=== PATIENT | male | born 1955 | race Caucasian/White ===

== ENCOUNTER 2016-06-25 17:42 | Inpatient (IN) | payer BC, MEDICAID ==
[2016-06-25] VITALS (12 sets, daily range): BP systolic 72–100; BP diastolic 51–59; PULSE 66–75; RESP 16–23; Ht 177.8 cm; Wt 87.2 kg
[~2016-06-25] VITALS: Ht 177.8 cm; Wt 87.2 kg
[2016-06-25] MEDS ORDERED: NORepinephrine 8MG/250 ML (PMX 250 ML IV SCH (18:00)
[2016-06-25] MEDS ORDERED: ALBUTEROL 0.5% (NEB) 2.5 MG/0.5 ML AMP NEB PRN (18:00)
[2016-06-25] MEDS ORDERED: IPRATROPIUM (NEB) 0.5 MG/2.5 ML AMP NEB PRN (18:00)
[2016-06-25] MEDS ORDERED: NORepinephrine 8MG/250 ML (PMX 250 ML ONE (19:29)
[2016-06-25 19:36] LABS: ADD SCAN DIFF NO
[2016-06-25 19:37] LABS: BASOPHILS % 0.3 % (0.0-2.0); EOSINOPHILS # 0.4 10^3/ul (0.0-0.5); EOSINOPHILS % 4.1 % (0.0-7.0); HEMATOCRIT 29.6 % (42.0-52.0); HEMOGLOBIN 9.7 g/dl (14.0-18.0); LYMPHOCYTES # 0.8 10^3/ul (0.8-2.9); LYMPHOCYTES % 7.8 % (15.0-51.0); MEAN CORPUSCULAR HEMOGLOBIN 28.5 pg (29.0-33.0); MEAN CORPUSCULAR HGB CONC 32.8 g/dl (32.0-37.0); MEAN CORPUSCULAR VOLUME 87.1 fl (82.0-101.0); MEAN PLATELET VOLUME 10.3 fl (7.4-10.4); MONOCYTE # 0.8 10^3/ul (0.3-0.9); NEUTROPHIL # 8.3 10^3/ul (1.6-7.5); NEUTROPHILS % 78.5 % (39.0-77.0); PLATELET COUNT 203 10^3/UL (140-415); RED CELL DISTRIBUTION WIDTH 17.2 % (11.5-14.5); WHITE BLOOD COUNT 10.6 10^3/ul (4.8-10.8)
[2016-06-25 20:02] LABS: ALBUMIN 2.3 g/dl (3.3-4.9)
[2016-06-25 20:03] LABS: POTASSIUM 4.3 mmol/L (3.5-5.1)
[2016-06-25 20:05] LABS: ALBUMIN/GLOBULIN RATIO 0.76; CREATININE 2.68 mg/dl (0.61-1.24); TOTAL PROTEIN 5.3 g/dl (6.1-8.1)
[2016-06-25 20:06] LABS: CALCIUM 8.4 mg/dl (8.4-10.2)
[2016-06-25] MEDS: SOD CHLORIDE 0.9% 1,000 ML IV SCH (20:57)
[2016-06-25] MEDS ORDERED: IPRATROPIUM (NEB) 0.5 MG/2.5 ML AMP NEB SCH (21:00)
[2016-06-25] MEDS ORDERED: ALBUTEROL 0.5% (NEB) 2.5 MG/0.5 ML AMP NEB SCH (21:00)
[2016-06-25] MEDS ORDERED: IPRATROPIUM (HFA) 12.9 GM INHALER INH PRN (22:00)
[2016-06-25] MEDS ORDERED: ALBUTEROL HFA 8 GM INHALER INH PRN (22:00)
[2016-06-25] MEDS ORDERED: ACETAMINOPHEN 650MG/20.3ML CUP GTB PRN (23:30)
[2016-06-25] MEDS ORDERED: ARTIFICIAL TEARS 15 ML OPH BOTH EYES PRN (23:30)
[2016-06-25] MEDS ORDERED: NYSTATIN 30 GM POWDER BTL TOP PRN (23:30)
[2016-06-25] MEDS ORDERED: SODIUM HYPOCHLORITE 0.125% 473 ML BTL TOP PRN (23:30)
[2016-06-26] VITALS (86 sets, daily range): BP systolic 77–134; BP diastolic 44–86; PULSE 58–90; RESP 1–21
[2016-06-26] MEDS: ALBUTEROL HFA 8 GM INHALER INH SCH ×6 (01:26→21:09)
[2016-06-26] MEDS: IPRATROPIUM (HFA) 12.9 GM INHALER INH SCH ×6 (01:26→21:09)
[2016-06-26] MEDS: SOD CHLORIDE 0.9% 1,000 ML IV SCH ×3 (01:48→22:03)
[2016-06-26] MEDS: LANSOPRAZOLE 30 MG CAP GTB SCH (06:55)
--- NOTE | 2016-06-26 08:54 | CONS ---
Date/Time of Note Date/Time of Note DATE: 06/26/16 TIME: 08:48 Assessment/Plan Assessment/Plan Additional Assessment/Plan Ventilator settings are AC of 16, tidal volume 600, 30% FiO2, PEEP of 0. Assessment and recommendations; 1. Patient with chronic respiratory failure and severe anoxic encephalopathy admitted for hypotension. Currently on Levophed drip. Post 2 L of normal saline fluid administration. 2. Possibly underlying sepsis. 3. Renal insufficiency. 4. Other comorbidities as outlined above which appear fairly stable. Continue current treatment. Obtain CBC, CMP, blood cultures. Obtain a urine analysis. Obtain a chest x-ray. His chest x-ray done on 06/24/2016 showing cardiomegaly with bilateral pleural effusions. Obtain a serum cortisol and a TSH level as well. Prognosis is poor. Consultation Date/Type/Reason Admit Date/Time Jun 25, 2016 at 18:35 Date of Consultation: Jun 26, 2016 Type of Consultation: Pulmonary/critical care Reason for Consultation Patient is a 61-year-old white male who was transferred over from [facility] because of persistent hypotension. patient was recently admitted for treatment of continued pneumonia and sepsis. History was obtained from medical records as due to severe anoxic encephalopathy patient is unable to give any history whatsoever. Next Past medical history; next 1. Chronic respiratory failure, ventilator dependent. 2. Severe CVA and completely unresponsive. 3. Fungemia. 4. Recent pneumonia. 5. Hypothyroidism. 6. Anemia. 7. Renal insufficiency. 8. Cardiac arrhythmia. 9. Status post tracheostomy. 10. Status post G-tube placement. Medications; were reviewed. Next Allergies; are to iodine. Next Social history; no strep any smoking, alcohol or drug abuse. Family history; currently not available. Occupational history; not available. Review of systems; currently unable to be obtained. General examination; elderly male, on mechanical ventilation via tracheostomy currently in no distress and unresponsive. Social History Smoking Status: Unknown if ever smoked Exam/Review of Systems Vital Signs Vitals Vital Signs Date Time Temp Pulse Resp B/P Pulse Ox O2 Delivery O2 Flow Rate FiO2 06/26/16 06:30 63 1 107/58 100 Mechanical Ventilator 06/26/16 05:02 35 06/26/16 00:00 98.2 Intake and Output 06/25/16 06/25/16 06/26/16 15:00 23:00 07:00 Intake Total 2040 ml Output Total 325 ml 670 ml Balance -325 ml 1370 ml Exam HEENT examination; supple neck, pupils are midsize, reactive to light bilaterally. Patient is edentulous. No neck masses. No thyromegaly. No lymphadenopathy. Tracheostomy in place with clean insertion site. Chest examination; diminished breath on lung bases bilaterally. Upper lobes are fairly clear. S1-S2 audible, no murmurs. Regular rhythm. Abdomen examination; soft, no organomegaly. Bowel sounds audible. G-tube in place. Extremity examination; no peripheral edema. She has severe contractures involving all 4 extremities. FUNDRAISING COORDINATOR examination; patient is unresponsive. Results Result Diagram: 06/25/16191906/25/161919 Results 24 hrs Laboratory Tests Test 06/25/16 19:20 06/25/16 23:59 Alanine Aminotransferase (ALT/SGPT) 69 Albumin 2.3 L Albumin/Globulin Ratio 0.76 Alkaline Phosphatase 53 Anion Gap 15 Aspartate Amino Transf (AST/SGOT) 80 H Basophils # 0.0 Basophils % 0.3 Blood Urea Nitrogen 86 H Calcium Level 8.4 Carbon Dioxide Level 19 L Chloride Level 98 Creatinine 2.68 H Direct Bilirubin 0.00 Eosinophils # 0.4 Eosinophils % 4.1 Globulin 3.00 Glucose Level 118 Hematocrit 29.6 L Hemoglobin 9.7 L Indirect Bilirubin 0.0 Lymphocytes # 0.8 Lymphocytes % 7.8 L Mean Corpuscular Hemoglobin 28.5 L Mean Corpuscular Hemoglobin Concent 32.8 Mean Corpuscular Volume 87.1 Mean Platelet Volume 10.3 Monocytes # 0.8 Monocytes % 8.0 Neutrophils # 8.3 H Neutrophils % 78.5 H Nucleated Red Blood Cells # 0.0 Nucleated Red Blood Cells % 0.0 Platelet Count 203 Potassium Level 4.3 Red Blood Count 3.40 L Red Cell Distribution Width 17.2 H Sodium Level 128 L Total Bilirubin 0.0 L Total Protein 5.3 L Troponin I 0.063 0.055 White Blood Count 10.6 Medications Medications Current Medications Sodium Chloride (NS) 1,000 ml @ 125 mls/hr Q8H IV Last administered on t 01:48; Admin Dose 125 MLS/HR; Start 06/25/16 at 17:48 Enoxaparin Sodium 30 mg 30 mg DAILY SC ; Start 06/26/16 at 09:00 Norepinephrine/ Dextrose (Levophed/D5W) 500 ml @ 1.875 mls/ hr TITRATE IV Last administered on 06/26/16t 04:50; Admin Dose 28.12 MLS/HR; Start 06/25/16 at 21:00 Acetaminophen (Tylenol Liquid) 650 mg Q6H PRN GTB PAIN AND OR ELEVATED TEMP; Start 06/25/16 at 23:30 Amiodarone HCl (Cordarone) 200 mg DAILY GTB ; Start 06/26/16 at 09:00 Eye Lubricant (Artificial Tears Oph) 2 drop Q6H PRN BOTH EYES DRY EYES; Start 06/25/16 at 23:30 Ascorbic Acid (Vitamin C) 500 mg DAILY GTB ; Start 06/26/16 at 09:00 Cholecalciferol (Vitamin D) 5,000 unit DAILY GTB ; Start 06/26/16 at 09:00 Ferrous Sulfate (Feosol Liquid Cup) 300 mg BID GTB ; Start 06/26/16 at 09:00 Lactobacillus Acidophilus/ Rhamnosus (Culturelle) 1 cap BID GTB ; Start at 09:00 Lansoprazole (Prevacid) 30 mg DAILY@06 GTB Last administered on 06/26/16 06:55 ; Admin Dose 30 MG; Start 06/26/16 at 06:00 Levetiracetam (Keppra Liquid) 500 mg BID GTB ; Start 06/26/16 at 09:00 Levothyroxine Sodium (Synthroid) 125 mcg DAILY@06 GTB ; Start 06/26/16 at 06:00 Linezolid 600 mg 600 mg BID GTB ; Start 06/26/16 at 09:00 Meropenem (Merrem 500 Mg/ 100 ml (Pmx)) 100 ml @ 200 mls/hr Q12 IVPB ; Start at 09:00 Multivitamins (Thera-Plus) 5 ml DAILY GTB ; Start 06/26/16 at 09:00 Nystatin (Nystatin Powder) 1 applic TID TOP ; Start 06/26/16 at 09:00 Nystatin (Nystatin Powder) 1 applic Q12 PRN TOP ITCHING; Start 06/25/16 at 23:30 Sodium Hypochlorite (Dakin'S (1/4 Strength)) 1 applic DAILY TOP ; Start at 09:00 Sodium Hypochlorite (Dakin'S (1/4 Strength)) 1 applic BID PRN TOP NOTE; Start 06/25/16 at 23:30 Voriconazole (Vfend) 200 mg BID GTB ; Start 06/26/16 at 09:00 Zinc Sulfate (Zinc Sulfate) 220 mg DAILY GTB ; Start 06/26/16 at 09:00 EFRA ROMAN Jun 26, 2016 08:54
[2016-06-26] MEDS ORDERED: SODIUM HYPOCHLORITE 0.125% 473 ML BTL TOP SCH (09:00)
[2016-06-26] MEDS ORDERED: NYSTATIN 30 GM POWDER BTL TOP SCH (09:00)
--- NOTE | 2016-06-26 09:00 | RADRPT ---
PROCEDURE: Chest 1 views. CLINICAL INDICATION: Shortness of breath, respiratory failure TECHNIQUE: AP views of the chest were obtained. COMPARISON: June 24, 2016 FINDINGS: The heart is large. Tracheostomy tube is stable and appears in grossly appropriate location. Centra l pulmonary vascular congestion and interstitial prominence in both lungs is unchanged. Left upper lobe perihilar infiltrates have mildly decreased. Bilateral lower lung infiltrates combined small p leural effusions are stable. The osseous structures are unchanged. IMPRESSION: Cardiomegaly . Continued central pulmonary vascular congestion and interstitial prominence in both lungs. Mild interval decrease in perihilar left upper lobe infiltrates. Stable bilateral lower lung infiltrates combined with small pleural effusions. RPTAT: AA .Mitch Renner MD, MD Date Time Electronically viewed and signed by .Mitch Renner MD, on 06/26/2016 09:00 .P/
[2016-06-26] MEDS: LEVETIRACETAM (100 MG/ML) 5ML CUP GTB SCH ×2 (09:17→21:47)
[2016-06-26] MEDS: LACTOBACILLUS RHAMNOSUS CAP GTB SCH ×2 (09:17→21:48)
[2016-06-26] MEDS: VORICONAZOLE 200 MG TAB GTB SCH ×2 (09:17→21:48)
[2016-06-26] MEDS: FERROUS SULFATE 60 MG/ML 5ML CUP GTB SCH ×2 (09:17→21:47)
[2016-06-26] MEDS: AMIODARONE 200 MG TAB GTB SCH (09:20)
[2016-06-26] MEDS: ZYVOX 600 MG TAB GTB SCH ×2 (09:20→21:48)
[2016-06-26] MEDS: MEROPENEM 500 MG/100 ML (PMX) 100 ML IVPB SCH ×2 (09:21→21:48)
[2016-06-26] MEDS: MULTIVITAMINS 5 ML CUP GTB SCH (09:26)
[2016-06-26] MEDS: ASCORBIC ACID 500 MG TAB GTB SCH (09:26)
[2016-06-26] MEDS: ZINC SULFATE 220 MG CAP GTB SCH (09:26)
[2016-06-26] MEDS: LEVOTHYROXINE 125 MCG TAB GTB SCH (09:27)
[2016-06-26] MEDS: CHOLECALCIFEROL 1,000 UNIT TAB GTB SCH (09:27)
[2016-06-26] MEDS: ENOXAPARIN 30 MG/0.3 ML SYG SC SCH (09:29)
[2016-06-26 10:03] LABS: AADO2 Arterial 113.7 mmHg (7.0-24.0); Arterial Base Excess -6.6 mmol/L (-3.0-3); Arterial COHb 0.3 % (0.0-3.0); Arterial Fraction of Oxyhgb 96.6 % (93.0-99.0); Arterial HCO3 17.3 mmol/L (22.0-26.0); Arterial MetHb 0.2 % (0.0-1.5); Arterial Total Hemglobin 12.1 g/dl (12.0-18.0); MODE VENT - AC
[2016-06-26] MEDS: NYSTATIN 30 GM POWDER BTL TOP SCH ×3 (11:00→21:48)
[2016-06-26] MEDS: SODIUM HYPOCHLORITE 0.125% 473 ML BTL TOP SCH (11:00)
--- NOTE | 2016-06-26 12:02 | PN ---
DATE: 06/26/2016 INFECTIOUS DISEASE PROGRESS NOTE SUBJECTIVE: The patient was transferred from [facility] yesterday for symptomatic hypotension. He is obtunded, on Levophed drip. He tries to open eyes to commands, but overall unresponsive and does not follow commands. No labs this morning. ANTIMICROBIALS: He was started on: 1. Solu-Cortef. 2. Oral Zyvox. 3. Meropenem. 4. Voriconazole. INDWELLINGS: Trach, PEG, Evans. DIAGNOSTICS: Chest x-ray from yesterday revealed mild interval decrease in the perihilar and left l ower lobe infiltrates and vascular congestion. PHYSICAL EXAMINATION: GENERAL: This is a chronically ill-appearing, elderly man who is lying comfortably in bed. HEENT: Head atraumatic, normocephalic. Sclerae anicteric. Buccal mucosa dry. NECK: Supple. Tracheostomy present. CHEST: Rise symmetrical. Breath sounds diminished to bases with scattered crackles. HEART: S1, S2. ABDOMEN: Soft. Bowel sounds hypoactive. EXTREMITIES: With bilateral edema, contractures. SKIN: No jaundice, no cyanosis. The patient has unstageable sacral wound. ASSESSMENT: 1. Sepsis with multisystem organ failure. 2. Healthcare-associated pneumonia. 3. Fungal urinary tract infection. 4. Clostridium difficile colitis. 5. Sacral decubitus with evidence of osteomyelitis status post multiple debridements. 6. Chronic encephalopathy. PLAN: The patient remains hemodynamically unstable. We are going to start him back on IV Flagyl an d oral vancomycin as the patient developed diarrhea this morning. Continue other antibiotics, recul ture. Continue Solu-Cortef. Local wound care per surgical recommendations. Prognosis guarded. Dictated By: [facility] COORDINATOR for [facility]AS[facility] DOBBS MD NI/NTS Conf#: [id number] DID#: [id number]
--- NOTE | 2016-06-26 12:42 | RADRPT ---
PROCEDURE: CHEST 1VW CLINICAL INDICATION: Respiratory failure TECHNIQUE: Single frontal view of the chest was obtained COMPARISON: 06/25/2016 FINDINGS: Stable tracheostomy tube. The cardiac size is normal. Aortic vascular calcifications are demonstrated. There is no pulmonary vascular congestion. Bilateral lobe opacities are again seen. Mild degenerative changes of the visualized osseous structures are visualized. IMPRESSION: 1. Bilateral lower lobe opacities again seen which may represent alveolar edema or pneumonia. 2. Atherosclerosis. 3. Stable tracheostomy. RPTAT:PP .Guilherme Marroquin MD, MD Date Time Electronically viewed and signed by .Guilherme Marroquin MD, MD on 06/26/2016 12:41 .V/
[2016-06-26] MEDS: HYDROCORTISONE 100 MG INJ IV SCH ×2 (14:19→21:48)
[2016-06-26] MEDS: metroNIDAZOLE 500 MG/NS (PMX) 100 ML IVPB SCH ×2 (14:20→22:45)
[2016-06-26] MEDS: VANCOMYCIN HCL 250 MG/5ML POSYG PO SCH ×2 (14:21→18:37)
--- NOTE | 2016-06-26 14:36 | CONS ---
Date/Time of Note Date/Time of Note DATE: 06/26/16 TIME: 14:36 Assessment/Plan Assessment/Plan Chief Complaint/Hosp Course ASSESSMENT AND PLAN: This is a 61-year-old male with acute sepsis associated with Anemia, N-cytic with increased RDW HX ACD HX GIB HX NEEDS FOR PRBC ON SEVERAL OCCASIONS AT [facility] CONT TO MONITOR BLOOD COUNT CLOSELY OBSERVE FOR BLEEDING AND HEMOLYSIS TRANSFUSE NEEDED Will continue to monitor hemoglobin and hematocrit levels. No evidence of gastrointestinal bleed at this time. Septic shock. Underlying source is multifactorial secondary to possible pneumonia, possible fungal urinary tract infection. The patient is currently on pressor support, IV fluids, receiving broad spectrum antibiotics, antifungal therapy. Plan at this point is to continue current treatment plan. Will attempt to wean off pressor support. Will follow up blood cultures, urine cultures. Will follow up lactic acid and procalcitonin level. Will follow up with infectious disease for recommendations. Ventilator dependent respiratory failure. Vent settings have been reviewed. ABG has been reviewed. Continue to monitor. Follow up with Pulmonary. Dysphagia, status post percutaneous endoscopic gastrostomy tube feeding. Nonoliguric acute kidney injury on top of chronic kidney disease with unknown baseline creatinine. Etiology of current acute kidney injury is unclear, possibly secondary to sepsis, TTN, hemodynamics. Plan at this point is to do a full evaluation. Will check UA with microanalysis. Will check urine electrolytes. Will check a renal ultrasound to rule out obstruction. Will continue IV hydration, continue pressor support, and maintain MAP above 65. Continue treating underlying sepsis with IV antibiotics. Will monitor closely. Hyponatremia, etiology is multifactorial secondary to acute kidney injury with decreased free water urinary excretion. Will follow up a repeat sodium level. Will limit free water intake and monitor. 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 At this point, will continue to monitor. If there is any change in mental status will get a CT scan of the brain. The patient has a history of CVA. Continue medical management. Hypothyroidism. The patient's TSH levels are markedly elevated. Will increase Synthroid to 150 mcg daily and monitor. Fungal urinary tract infection. Continue voriconazole. Seizure disorder. Continue Keppra. Gastrointestinal and deep venous thrombosis prophylaxis. Will continue Prevacid and Lovenox. Arrhythmia. Continue amiodarone. Gastrointestinal and deep venous thrombosis prophylaxis. Continue proton pump inhibitor and Lovenox. Problems: Consultation Date/Type/Reason Admit Date/Time Jun 25, 2016 at 18:35 Initial Consult Date 06/26/16 Reason for Consultation ANEMIA Referring Provider: TYLER HAINES DO 24 HR Interval Summary Free Text/Dictation ALL NOTED IN ICU STARTED ON Solu-Cortef. MILD LEUKOCYTOSIS NOTED Exam/Review of Systems Vital Signs Vitals Vital Signs Date Time Temp Pulse Resp B/P Pulse Ox O2 Delivery O2 Flow Rate FiO2 06/26/16 12:30 64 18 121/65 100 06/26/16 06:30 Mechanical Ventilator 06/26/16 05:02 35 06/26/16 00:00 98.2 Intake and Output 06/25/16 06/25/16 06/26/16 15:00 23:00 07:00 Intake Total 2040 ml Output Total 325 ml 670 ml Balance -325 ml 1370 ml Exam GENERAL: VSS, NAD HEENT: Unremarkable NECK: Trach CHEST: Rise symmetrical - Course BS HEART: RRR ABDOMEN: Soft, peg EXTREMITIES: With bilateral edema, contractures. SKIN: No jaundice, no cyanosis. The patient has unstageable sacral wound. Results Result Diagram: 06/25/16191906/25/161919 Results 24 hrs Laboratory Tests Test 06/25/16 19:20 06/25/16 23:59 06/26/16 08:57 06/26/16 09:20 Alanine Aminotransferase (ALT/SGPT) 69 Albumin 2.3 L Albumin/Globulin Ratio 0.76 Alkaline Phosphatase 53 Anion Gap 15 Aspartate Amino Transf (AST/SGOT) 80 H Basophils # 0.0 Basophils % 0.3 Blood Urea Nitrogen 86 H Calcium Level 8.4 Carbon Dioxide Level 19 L Chloride Level 98 Creatinine 2.68 H Direct Bilirubin 0.00 Eosinophils # 0.4 Eosinophils % 4.1 Globulin 3.00 Glucose Level 118 Hematocrit 29.6 L Hemoglobin 9.7 L Indirect Bilirubin 0.0 Lymphocytes # 0.8 Lymphocytes % 7.8 L Mean Corpuscular Hemoglobin 28.5 L Mean Corpuscular Hemoglobin Concent 32.8 Mean Corpuscular Volume 87.1 Mean Platelet Volume 10.3 Monocytes # 0.8 Monocytes % 8.0 Neutrophils # 8.3 H Neutrophils % 78.5 H Nucleated Red Blood Cells # 0.0 Nucleated Red Blood Cells % 0.0 Platelet Count 203 Potassium Level 4.3 Red Blood Count 3.40 L Red Cell Distribution Width 17.2 H Sodium Level 128 L Total Bilirubin 0.0 L Total Protein 5.3 L Troponin I 0.063 0.055 White Blood Count 10.6 Arterial Blood HCO3 17.3 L Arterial Blood Base Excess -6.6 L Arterial Blood Oxygen Saturation 97.1 River Test N/A Arterial Blood Gas Puncture Site Right Brachial Arterial Blood Carboxyhemoglobin 0.3 Arterial Blood Date Drawn 06/26/2016 9:35:45 AM Arterial Blood Methemoglobin 0.2 Arterial Blood pCO2 (Temp correct) 29.8 L Arterial Blood pH (Temp corrected) 7.381 Arterial Blood pO2 (Temp corrected) 101.2 H Blood Gas A-a O2 Differential 113.7 H Blood Gas Actual Respiration Rate 18 Blood Gas Low PEEP Setting 5.0 Blood Gas Modality VENT - AC Blood Gas Notified Time 06/26/2016 10:03:37 AM Blood Gas Notified Whom JLD Blood Gas Respiration Rate 18.0 Blood Gas Specimen Source Blood arterial Blood Gas Temperature 37.0 Blood Gas Tidal Volume 600.0 FiO2 35.0 Oxyhemoglobin Percent 96.6 Total Hemoglobin 12.1 Random Cortisol 17.4 Medications Medications Current Medications Sodium Chloride (NS) 1,000 ml @ 125 mls/hr Q8H IV Last administered on 01:48; Admin Dose 125 MLS/HR; Start 06/25/16 at 17:48 Enoxaparin Sodium 30 mg 30 mg DAILY SC Last administered on 06/26/16 09:29; Admin Dose 30 MG; Start 06/26/16 at 09:00 Norepinephrine/ Dextrose (Levophed/D5W) 500 ml @ 1.875 mls/ hr TITRATE IV Last administered on 06/26/16 04:50; Admin Dose 28.12 MLS/HR; Start 06/25/16 at 21:00 Acetaminophen (Tylenol Liquid) 650 mg Q6H PRN GTB PAIN AND OR ELEVATED TEMP; Start 06/25/16 at 23:30 Amiodarone HCl (Cordarone) 200 mg DAILY GTB Last administered on 06/26/16 09: 20; Admin Dose 200 MG; Start 06/26/16 at 09:00 Eye Lubricant (Artificial Tears Oph) 2 drop Q6H PRN BOTH EYES DRY EYES; Start 06/25/16 at 23:30 Ascorbic Acid (Vitamin C) 500 mg DAILY GTB Last administered on 06/26/16 09:26 ; Admin Dose 500 MG; Start 06/26/16 at 09:00 Cholecalciferol (Vitamin D) 5,000 unit DAILY GTB Last administered on 09:27; Admin Dose 5,000 UNIT; Start 06/26/16 at 09:00 Ferrous Sulfate (Feosol Liquid Cup) 300 mg BID GTB Last administered on 09:17; Admin Dose 300 MG; Start 06/26/16 at 09:00 Lactobacillus Acidophilus/ Rhamnosus (Culturelle) 1 cap BID GTB Last administered on 06/26/16 09:17; Admin Dose 1 CAP; Start 06/26/16 at 09:00 Lansoprazole (Prevacid) 30 mg DAILY@06 GTB Last administered on 06/26/16 06:55 ; Admin Dose 30 MG; Start 06/26/16 at 06:00 Levetiracetam (Keppra Liquid) 500 mg BID GTB Last administered on 06/26/16 09: 17; Admin Dose 500 MG; Start 06/26/16 at 09:00 Levothyroxine Sodium (Synthroid) 125 mcg DAILY@06 GTB Last administered on 06/26 09:27; Admin Dose 125 MCG; Start 06/26/16 at 06:00 Linezolid 600 mg 600 mg BID GTB Last administered on 06/26/16 09:20; Admin Dose 600 MG; Start 06/26/16 at 09:00 Meropenem (Merrem 500 Mg/ 100 ml (Pmx)) 100 ml @ 200 mls/hr Q12 IVPB Last administered on 06/26/16 09:21; Admin Dose 200 MLS/HR; Start 06/26/16 at 09:00 Multivitamins (Thera-Plus) 5 ml DAILY GTB Last administered on 06/26/16 09:26 ; Admin Dose 5 ML; Start 06/26/16 at 09:00 Nystatin (Nystatin Powder) 1 applic Q12 PRN TOP ITCHING; Start 06/25/16 at 23:30 Sodium Hypochlorite (Dakin'S (1/4 Strength)) 1 applic BID PRN TOP NOTE; Start 06/25/16 at 23:30 Voriconazole (Vfend) 200 mg BID GTB Last administered on 06/26/16 09:17; Admin Dose 200 MG; Start 06/26/16 at 09:00 Zinc Sulfate (Zinc Sulfate) 220 mg DAILY GTB Last administered on 06/26/16 09: 26; Admin Dose 220 MG; Start 06/26/16 at 09:00 Hydrocortisone (Solu-Cortef) 50 mg Q8 IV Last administered on 06/26/16 14:19; Admin Dose 50 MG; Start 06/26/16 at 14:00 Sodium Hypochlorite (Dakin'S (1/4 Strength)) 1 applic DAILY@10 TOP Last administered on 06/26/16 11:00; Admin Dose 1 APPLIC; Start 06/26/16 at 10:00 Nystatin 1 applic 1 applic TID@10,13,21 TOP Last administered on 06/26/16 13: 00; Admin Dose 1 APPLIC; Start 06/26/16 at 10:00 Metronidazole (Flagyl 500 Mg (Pmx)) 100 ml @ 100 mls/hr Q8 IVPB Last administered on 06/26/16 14:20; Admin Dose 100 MLS/HR; Start 06/26/16 at 14:00 Vancomycin HCl (Vancomycin Oral Syringe) 250 mg Q6 PO Last administered on 06/26 14:21; Admin Dose 250 MG; Start 06/26/16 at 13:00 SUN MCNAMARA MD Jun 26, 2016 14:36
[2016-06-27] VITALS (92 sets, daily range): BP systolic 63–144; BP diastolic 24–82; PULSE 49–73; RESP 16–27
[2016-06-27] MEDS: IPRATROPIUM (HFA) 12.9 GM INHALER INH SCH ×6 (01:19→21:12)
[2016-06-27] MEDS: ALBUTEROL HFA 8 GM INHALER INH SCH ×6 (01:20→21:12)
[2016-06-27] MEDS: VANCOMYCIN HCL 250 MG/5ML POSYG PO SCH ×4 (02:38→18:51)
[2016-06-27] MEDS: SOD CHLORIDE 0.9% 1,000 ML IV SCH ×2 (04:27→21:28)
[2016-06-27] MEDS: metroNIDAZOLE 500 MG/NS (PMX) 100 ML IVPB SCH ×3 (06:12→21:29)
[2016-06-27] MEDS: LANSOPRAZOLE 30 MG CAP GTB SCH (06:13)
[2016-06-27] MEDS: HYDROCORTISONE 100 MG INJ IV SCH ×3 (06:13→21:39)
[2016-06-27] MEDS: LEVOTHYROXINE 125 MCG TAB GTB SCH (06:13)
[2016-06-27] MEDS ORDERED: NACL 3% FOR INHALATION 15 ML NEBU NEB ONE (08:00)
[2016-06-27 08:50] LABS: BASOPHILS % 0.1 % (0.0-2.0); HEMATOCRIT 30.4 % (42.0-52.0); HEMOGLOBIN 10.3 g/dl (14.0-18.0); LYMPHOCYTES # 0.6 10^3/ul (0.8-2.9); LYMPHOCYTES % 5.4 % (15.0-51.0); MEAN CORPUSCULAR HGB CONC 33.9 g/dl (32.0-37.0); MEAN CORPUSCULAR VOLUME 85.6 fl (82.0-101.0); MEAN PLATELET VOLUME 7.4 fl (7.4-10.4); MONOCYTE # 0.3 10^3/ul (0.3-0.9); NEUTROPHIL # 10.1 10^3/ul (1.6-7.5); NEUTROPHILS % 91.5 % (39.0-77.0); PLATELET COUNT 393 10^3/UL (140-440); RED BLOOD COUNT 3.55 10^6/ul (4.70-6.10); RED CELL DISTRIBUTION WIDTH 17.5 % (11.5-14.5); UNCORRECTED WBC 11.1 10^3/ul (4.8-10.8); WHITE BLOOD COUNT 11.1 10^3/ul (4.8-10.8)
[2016-06-27 08:51] LABS: CONDITION 1; LH ANALYZER COMMENTS 1
[2016-06-27] MEDS: AMIODARONE 200 MG TAB GTB SCH (09:00)
[2016-06-27] MEDS ORDERED: ENOXAPARIN 30 MG/0.3 ML SYG SC SCH (09:00)
[2016-06-27] MEDS: LACTOBACILLUS RHAMNOSUS CAP GTB SCH ×2 (09:05→21:29)
[2016-06-27] MEDS: ASCORBIC ACID 500 MG TAB GTB SCH (09:05)
[2016-06-27] MEDS: FERROUS SULFATE 60 MG/ML 5ML CUP GTB SCH ×2 (09:05→21:29)
[2016-06-27] MEDS: LEVETIRACETAM (100 MG/ML) 5ML CUP GTB SCH ×2 (09:05→21:29)
[2016-06-27 09:06] LABS: POTASSIUM 3.5 mmol/L (3.5-5.1)
[2016-06-27] MEDS: MULTIVITAMINS 5 ML CUP GTB SCH (09:06)
[2016-06-27] MEDS: ZINC SULFATE 220 MG CAP GTB SCH (09:06)
[2016-06-27] MEDS: CHOLECALCIFEROL 1,000 UNIT TAB GTB SCH (09:06)
[2016-06-27] MEDS: ZYVOX 600 MG TAB GTB SCH ×2 (09:06→21:38)
[2016-06-27] MEDS: VORICONAZOLE 200 MG TAB GTB SCH ×2 (09:07→21:38)
[2016-06-27 09:08] LABS: CREATININE 2.93 mg/dl (0.61-1.24)
[2016-06-27] MEDS: NYSTATIN 30 GM POWDER BTL TOP SCH ×3 (09:08→21:29)
[2016-06-27] MEDS: SODIUM HYPOCHLORITE 0.125% 473 ML BTL TOP SCH (09:08)
[2016-06-27] MEDS: ENOXAPARIN 30 MG/0.3 ML SYG SC SCH (09:08)
[2016-06-27 09:09] LABS: CALCIUM 8.6 mg/dl (8.4-10.2); MAGNESIUM 2.3 mg/dl (1.7-2.5); PHOSPHORUS 5.5 mg/dl (2.5-4.9)
[2016-06-27] MEDS: MEROPENEM 500 MG/100 ML (PMX) 100 ML IVPB SCH ×2 (09:15→21:28)
[2016-06-27 09:58] LABS: ADD UMIC YES; URINE BILIRUBIN (Dip) NEGATIVE (NEGATIVE); URINE BLOOD (Dip) 1+ (NEGATIVE); URINE COLOR LT. YELLOW (YELLOW); URINE GLUCOSE (Dip) NEGATIVE (NEGATIVE); URINE KETONES (Dip) NEGATIVE (NEGATIVE); URINE LEUKOCYTE ESTERASE (Dip) 1+ (NEGATIVE); URINE NITRITE (Dip) NEGATIVE (NEGATIVE); URINE TOTAL PROTEIN (Dip) TRACE (NEGATIVE); URINE UROBILINOGEN (Dip) 0.2 E.U./dL (0.1-1.0)
--- NOTE | 2016-06-27 10:01 | RADRPT ---
PROCEDURE: Retroperitoneal US. CLINICAL INDICATION: Renal insufficiency TECHNIQUE: Multiple sonographic images of the kidneys and retroperitoneum were obtained. The imag es were reviewed on a PACS workstation. COMPARISON: 10/23/2014 FINDINGS: The kidneys are normal in size, contour, cortical thickness and cortical echogenicity. The right kidney measures 12.3 cm. The left kidney measures 11.9 cm. No kidney stones are visualized. There is mild left-sided hydronephrosis, unchanged. The urinary bladder is thickened but decompressed by a Evans catheter. The visualized portions of the aorta and IVC are within normal limits. RPTAT: AA IMPRESSION: Unchanged mild left-sided hydronephrosis. .Bobby Becerra MD, MD Date Time Electronically viewed and signed by .Bobby Becerra MD, on 06/27/2016 10:01 .S/
--- NOTE | 2016-06-27 10:20 | CONS ---
Date/Time of Note Date/Time of Note DATE: 06/27/16 TIME: :17 Assessment/Plan Assessment/Plan Chief Complaint/Hosp Course ID PROGRESS NOTE TOTAL ABX DAY # 24H INTERVAL SUMMARY * Patient TNS from [place] and seen as ID f/u per Vikki's notes transferred for hypotension * Noncommunicative, encephalopathic with Trach/Peg/Contracted extremities * CXR today Bibasilar hazy infiltrates unchanged. * Chart reviewed ANTIMICROBIALS: He was started on: 1. Solu-Cortef. 2. Oral Zyvox. 3. Meropenem. 4. Voriconazole. PHYSICAL EXAMINATION: GENERAL: VSS, NAD HEENT: Unremarkable NECK: Trach CHEST: Rise symmetrical - Course BS HEART: RRR ABDOMEN: Soft, peg EXTREMITIES: With bilateral edema, contractures. SKIN: No jaundice, no cyanosis. The patient has unstageable sacral wound. ID ASSESSMENT: 61 yo M w/PMHx od chronic encephalopathy, chronic trach/peg admit from [place] with: 1. Sepsis with multisystem organ failure. 2. Healthcare-associated pneumonia = sputum GNR Proteus Mirabilis * CXR Bibasilar hazy infiltrates unchanged. 3. Fungal urinary tract infection. 4. Clostridium difficile colitis. 5. Sacral decubitus with evidence of osteomyelitis status post multiple debridements. * WOUND CULTURE Preliminary Organism 1 PROTEUS MIRABILIS QUANTITY 1+ Organism 2 KLEB PNEUMONIAE CARBAPENEMASE QUANTITY SCANT GROWTH . MULTI DRUG RESISTANT ORGANISM (-)MRSA Nares INVASIVES: *Trach, Peg, FC ABX ALLERGIES: Iodine CURRENT ABX: ANTIMICROBIALS: He was started on: 1. Solu-Cortef. 2. Oral Zyvox. 3. Meropenem. 4. Voriconazole. ID RECOMMENDATIONS: Continue ABX -- f/u final micro -- back to [place] when stable . Problems: Consultation Date/Type/Reason Admit Date/Time Jun 25, 2016 at 18:35 Initial Consult Date 06/26/16 Exam/Review of Systems Vital Signs Vitals Vital Signs Date Time Temp Pulse Resp B/P Pulse Ox O2 Delivery O2 Flow Rate FiO2 06/27/16 08:00 49 06/27/16 05:48 18 100 35 06/27/16 05:45 99/53 Mechanical Ventilator 06/27/16 04:00 97.9 06/26/16 17:00 2.0 Intake and Output 06/26/16 06/26/16 06/27/16 15:00 23:00 07:00 Intake Total 1264.35 ml 1183.75 ml 1172.5 ml Output Total 320 ml 535 ml 250 ml Balance 944.35 ml 648.75 ml 922.5 ml Results Result Diagram: 06/27/16 0515 06/27/16 0815 Results 24 hrs Laboratory Tests Test 06/27/16 05:15 06/27/16 08:15 06/27/16 09:00 Basophils # 0.0 Basophils % 0.1 Blood Morphology Comment Eosinophils # 0.0 Eosinophils % 0.0 Hematocrit 30.4 L Hemoglobin 10.3 L Lymphocytes # 0.6 L Lymphocytes % 5.4 L Mean Corpuscular Hemoglobin 29.0 Mean Corpuscular Hemoglobin Concent 33.9 Mean Corpuscular Volume 85.6 Mean Platelet Volume 7.4 # Monocytes # 0.3 Monocytes % 3.0 Neutrophils # 10.1 H Neutrophils % 91.5 H Nucleated Red Blood Cells # 0.0 Nucleated Red Blood Cells % 0.0 Platelet Count 393 # Red Blood Count 3.55 L Red Cell Distribution Width 17.5 H White Blood Count 11.1 H Anion Gap 16 Blood Urea Nitrogen 81 H Calcium Level 8.6 Carbon Dioxide Level 18 L Chloride Level 106 Creatinine 2.93 H Glucose Level 145 Lactic Acid Level 1.3 Magnesium Level 2.3 Phosphorus Level 5.5 H Potassium Level 3.5 Sodium Level 136 Urine Bilirubin NEGATIVE Urine Clarity HAZY Urine Color LT. YELLOW Urine Glucose NEGATIVE Urine Hemoglobin 1+ H Urine Ketones NEGATIVE Urine Leukocyte Esterase 1+ H Urine Microscopic RBC Pending Urine Microscopic WBC Pending Urine Nitrite NEGATIVE Urine Random Creatinine Pending Urine Random Sodium Pending Urine Specific [place] 1.020 Urine Total Protein Urine Urobilinogen 0.2 E.U./dL Urine pH 5.0 Medications Medications Current Medications Sodium Chloride (NS) 1,000 ml @ 75 mls/hr [id number] IV Last administered on 06/27t 04:27; Admin Dose 125 MLS/HR; Start 06/25/16 at 17:48 Enoxaparin Sodium 30 mg 30 mg DAILY SC Last administered on 06/27/16 09:08; Admin Dose 30 MG; Start 06/26/16 at 09:00 Norepinephrine/ Dextrose (Levophed/D5W) 500 ml @ 1.875 mls/ hr TITRATE IV Last administered on 06/26/16 04:50; Admin Dose 28.12 MLS/HR; Start 06/25/16 at 21:00 Acetaminophen (Tylenol Liquid) 650 mg Q6H PRN GTB PAIN AND OR ELEVATED TEMP; Start 06/25/16 at 23:30 Amiodarone HCl (Cordarone) 200 mg DAILY GTB Last administered on 06/26/16 09: 20; Admin Dose 200 MG; Start 06/26/16 at 09:00 Eye Lubricant (Artificial Tears Oph) 2 drop Q6H PRN BOTH EYES DRY EYES; Start 06/25/16 at 23:30 Ascorbic Acid (Vitamin C) 500 mg DAILY GTB Last administered on 06/27/16 09:05 ; Admin Dose 500 MG; Start 06/26/16 at 09:00 Cholecalciferol (Vitamin D) 5,000 unit DAILY GTB Last administered on 09:06; Admin Dose 5,000 UNIT; Start 06/26/16 at 09:00 Ferrous Sulfate (Feosol Liquid Cup) 300 mg BID GTB Last administered on 09:05; Admin Dose 300 MG; Start 06/26/16 at 09:00 Lactobacillus Acidophilus/ Rhamnosus (Culturelle) 1 cap BID GTB Last administered on 06/27/16 09:05; Admin Dose 1 CAP; Start 06/26/16 at 09:00 Lansoprazole (Prevacid) 30 mg DAILY@06 GTB Last administered on 06/27/16 06:13 ; Admin Dose 30 MG; Start 06/26/16 at 06:00 Levetiracetam (Keppra Liquid) 500 mg BID GTB Last administered on 06/27/16 09: 05; Admin Dose 500 MG; Start 06/26/16 at 09:00 Linezolid 600 mg 600 mg BID GTB Last administered on 06/27/16 09:06; Admin Dose 600 MG; Start 06/26/16 at 09:00 Meropenem (Merrem 500 Mg/ 100 ml (Pmx)) 100 ml @ 200 mls/hr Q12 IVPB Last administered on 06/27/16 09:15; Admin Dose 200 MLS/HR; Start 06/26/16 at 09:00 Multivitamins (Thera-Plus) 5 ml DAILY GTB Last administered on 06/27/16 09:06 ; Admin Dose 5 ML; Start 06/26/16 at 09:00 Nystatin (Nystatin Powder) 1 applic Q12 PRN TOP ITCHING; Start 06/25/16 at 23:30 Sodium Hypochlorite (Dakin'S (1/4 Strength)) 1 applic BID PRN TOP NOTE; Start 06/25/16 at 23:30 Voriconazole (Vfend) 200 mg BID GTB Last administered on 06/27/16 09:07; Admin Dose 200 MG; Start 06/26/16 at 09:00 Zinc Sulfate (Zinc Sulfate) 220 mg DAILY GTB Last administered on 06/27/16 09: 06; Admin Dose 220 MG; Start 06/26/16 at 09:00 Hydrocortisone (Solu-Cortef) 50 mg Q8 IV Last administered on 06/27/16 06:13; Admin Dose 50 MG; Start 06/26/16 at 14:00 Sodium Hypochlorite (Dakin'S (1/4 Strength)) 1 applic DAILY@10 TOP Last administered on 06/27/16 09:08; Admin Dose 1 APPLIC; Start 06/26/16 at 10:00 Nystatin 1 applic 1 applic TID@10,13,21 TOP Last administered on 06/27/16 09: 08; Admin Dose 1 APPLIC; Start 06/26/16 at 10:00 Metronidazole (Flagyl 500 Mg (Pmx)) 100 ml @ 100 mls/hr Q8 IVPB Last administered on 06/27/16 06:12; Admin Dose 100 MLS/HR; Start 06/26/16 at 14:00 Vancomycin HCl (Vancomycin Oral Syringe) 250 mg Q6 PO Last administered on 06/27 06:12; Admin Dose 250 MG; Start 06/26/16 at 13:00 Sodium Chloride (Nacl 3% For Inhalation) 5 ml ONCE ONCE NEB ; Start 06/27/16 at 08:00; Stop 06/27/16 at 08:01 Levothyroxine Sodium (Synthroid) 150 mcg DAILY@06 GTB ; Start 06/28/16 at 06:00 Enoxaparin Sodium (Lovenox) 30 mg DAILY SC ; Start 06/27/16 at 09:00 MANDY GALLEGOS NP Jun 27, 2016 10:20
[2016-06-27 10:40] LABS: BACTERIA,URINE MODERATE
--- NOTE | 2016-06-27 10:54 | CONS ---
Date/Time of Note Date/Time of Note DATE: 06/27/16 TIME: 10:51 Assessment/Plan Assessment/Plan Additional Assessment/Plan 1. Sepsis with multisystem organ failure. 2. Healthcare-associated pneumonia. 3. Fungal urinary tract infection. 4. Clostridium difficile colitis. 5. Sacral decubitus with evidence of osteomyelitis status post multiple debridements. 6. Chronic encephalopathy. 7, Hypotiension PLAN: Continue pressor support The patient remains hemodynamically unstable. Patient back on IV Flagyl and oral vancomycin - reculture. Continue Solu-Cortef. Local wound care per surgical recommendations. Prognosis guarded. Consultation Date/Type/Reason Admit Date/Time Jun 25, 2016 at 18:35 Hx of Present Illness The patient with hx of resp[ failure and on chronic ventilator transferred from [place] with persitent hypotension - hx ubalbe to be obtained as paitnet can not give a history and currently fairly stable on current regimen. He has been transdferred to the ICU and in light of the hypotension, we were called to see the paitnent on behalf of dr mahoney Social History Smoking Status: Unknown if ever smoked Exam/Review of Systems Vital Signs Vitals Vital Signs Date Time Temp Pulse Resp B/P Pulse Ox O2 Delivery O2 Flow Rate FiO2 06/27/16 08:00 49 06/27/16 05:48 18 100 35 06/27/16 05:45 99/53 Mechanical Ventilator 06/27/16 04:00 97.9 06/26/16 17:00 2.0 Intake and Output 06/26/16 06/26/16 06/27/16 15:00 23:00 07:00 Intake Total 1264.35 ml 1183.75 ml 1172.5 ml Output Total 320 ml 535 ml 250 ml Balance 944.35 ml 648.75 ml 922.5 ml Results Result Diagram: 06/27/16 0515 06/27/16 0815 Results 24 hrs Laboratory Tests Test 06/27/16 05:15 06/27/16 08:15 06/27/16 09:00 Basophils # 0.0 Basophils % 0.1 Blood Morphology Comment Eosinophils # 0.0 Eosinophils % 0.0 Hematocrit 30.4 L Hemoglobin 10.3 L Lymphocytes # 0.6 L Lymphocytes % 5.4 L Mean Corpuscular Hemoglobin 29.0 Mean Corpuscular Hemoglobin Concent 33.9 Mean Corpuscular Volume 85.6 Mean Platelet Volume 7.4 # Monocytes # 0.3 Monocytes % 3.0 Neutrophils # 10.1 H Neutrophils % 91.5 H Nucleated Red Blood Cells # 0.0 Nucleated Red Blood Cells % 0.0 Platelet Count 393 # Red Blood Count 3.55 L Red Cell Distribution Width 17.5 H White Blood Count 11.1 H Anion Gap 16 Blood Urea Nitrogen 81 H Calcium Level 8.6 Carbon Dioxide Level 18 L Chloride Level 106 Creatinine 2.93 H Glucose Level 145 Lactic Acid Level 1.3 Magnesium Level 2.3 Phosphorus Level 5.5 H Potassium Level 3.5 Sodium Level 136 Urine Bacteria MODERATE Urine Bilirubin NEGATIVE Urine Clarity HAZY Urine Coarse Granular Casts FEW Urine Color LT. YELLOW Urine Glucose NEGATIVE Urine Hemoglobin 1+ H Urine Ketones NEGATIVE Urine Leukocyte Esterase 1+ H Urine Microscopic RBC 2-5 Urine Microscopic WBC 5-10 Urine Nitrite NEGATIVE Urine Random Creatinine 42.89 Urine Random Sodium 21 L Urine Specific [place] 1.020 Urine Total Protein Urine Urobilinogen 0.2 E.U./dL Urine pH 5.0 Medications Medications Current Medications Sodium Chloride (NS) 1,000 ml @ 75 mls/hr [id number] IV Last administered on 06/27 04:27; Admin Dose 125 MLS/HR; Start 06/25/16 at 17:48 Enoxaparin Sodium 30 mg 30 mg DAILY SC Last administered on 06/27/16 09:08; Admin Dose 30 MG; Start 06/26/16 at 09:00 Norepinephrine/ Dextrose (Levophed/D5W) 500 ml @ 1.875 mls/ hr TITRATE IV Last administered on 06/26/16 04:50; Admin Dose 28.12 MLS/HR; Start 06/25/16 at 21:00 Acetaminophen (Tylenol Liquid) 650 mg Q6H PRN GTB PAIN AND OR ELEVATED TEMP; Start 06/25/16 at 23:30 Amiodarone HCl (Cordarone) 200 mg DAILY GTB Last administered on 06/26/16 09: 20; Admin Dose 200 MG; Start 06/26/16 at 09:00 Eye Lubricant (Artificial Tears Oph) 2 drop Q6H PRN BOTH EYES DRY EYES; Start 06/25/16 at 23:30 Ascorbic Acid (Vitamin C) 500 mg DAILY GTB Last administered on 06/27/16 09:05 ; Admin Dose 500 MG; Start 06/26/16 at 09:00 Cholecalciferol (Vitamin D) 5,000 unit DAILY GTB Last administered on 09:06; Admin Dose 5,000 UNIT; Start 06/26/16 at 09:00 Ferrous Sulfate (Feosol Liquid Cup) 300 mg BID GTB Last administered on 09:05; Admin Dose 300 MG; Start 06/26/16 at 09:00 Lactobacillus Acidophilus/ Rhamnosus (Culturelle) 1 cap BID GTB Last administered on 06/27/16 09:05; Admin Dose 1 CAP; Start 06/26/16 at 09:00 Lansoprazole (Prevacid) 30 mg DAILY@06 GTB Last administered on 06/27/16 06:13 ; Admin Dose 30 MG; Start 06/26/16 at 06:00 Levetiracetam (Keppra Liquid) 500 mg BID GTB Last administered on 06/27/16 09: 05; Admin Dose 500 MG; Start 06/26/16 at 09:00 Linezolid 600 mg 600 mg BID GTB Last administered on 06/27/16 09:06; Admin Dose 600 MG; Start 06/26/16 at 09:00 Meropenem (Merrem 500 Mg/ 100 ml (Pmx)) 100 ml @ 200 mls/hr Q12 IVPB Last administered on 06/27/16 09:15; Admin Dose 200 MLS/HR; Start 06/26/16 at 09:00 Multivitamins (Thera-Plus) 5 ml DAILY GTB Last administered on 06/27/16 09:06 ; Admin Dose 5 ML; Start 06/26/16 at 09:00 Nystatin (Nystatin Powder) 1 applic Q12 PRN TOP ITCHING; Start 06/25/16 at 23:30 Sodium Hypochlorite (Dakin'S (1/4 Strength)) 1 applic BID PRN TOP NOTE; Start 06/25/16 at 23:30 Voriconazole (Vfend) 200 mg BID GTB Last administered on 06/27/16 09:07; Admin Dose 200 MG; Start 06/26/16 at 09:00 Zinc Sulfate (Zinc Sulfate) 220 mg DAILY GTB Last administered on 06/27/16 09: 06; Admin Dose 220 MG; Start 06/26/16 at 09:00 Hydrocortisone (Solu-Cortef) 50 mg Q8 IV Last administered on 06/27/16 06:13; Admin Dose 50 MG; Start 06/26/16 at 14:00 Sodium Hypochlorite (Dakin'S (1/4 Strength)) 1 applic DAILY@10 TOP Last administered on 06/27/16 09:08; Admin Dose 1 APPLIC; Start 06/26/16 at 10:00 Nystatin 1 applic 1 applic TID@10,13,21 TOP Last administered on 06/27/16 09: 08; Admin Dose 1 APPLIC; Start 06/26/16 at 10:00 Metronidazole (Flagyl 500 Mg (Pmx)) 100 ml @ 100 mls/hr Q8 IVPB Last administered on 06/27/16 06:12; Admin Dose 100 MLS/HR; Start 06/26/16 at 14:00 Vancomycin HCl (Vancomycin Oral Syringe) 250 mg Q6 PO Last administered on 06/27 06:12; Admin Dose 250 MG; Start 06/26/16 at 13:00 Sodium Chloride (Nacl 3% For Inhalation) 5 ml ONCE ONCE NEB ; Start 06/27/16 at 08:00; Stop 06/27/16 at 08:01 Levothyroxine Sodium (Synthroid) 150 mcg DAILY@06 GTB ; Start 06/28/16 at 06:00 Enoxaparin Sodium (Lovenox) 30 mg DAILY SC ; Start 06/27/16 at 09:00 NEETU CARTAGENA MD Jun 27, 2016 10:54
--- NOTE | 2016-06-27 11:04 | HP ---
DATE OF ADMISSION: 06/25/2016 CHIEF COMPLAINT: Shock. HISTORY OF PRESENT ILLNESS: This is a 61-year-old male with a past medical history of ventilator de pendent respiratory failure, history of dysphagia, status post PEG, history of chronic encephalopath y secondary to anoxic brain injury, history of CVA, previous history of sepsis, history of hypothyro idism, history of diabetes who was transferred from [facility] to [facility] due to septic shock. The patient's history begins in 2014 when he initially presented to an outside hospital, [place], with acute stroke. The patient was subsequently transferred to [facility] on 09/04/2014. The patient underwent management at that time with TPA. He was found to have acut e ventral mid brain, the medial thalamus CVA. The patient had a [place] coma scale of 4. The patie nt remained diffusely quadriplegic in coma and encephalopathic. The patient at that time also had s epsis fungemia and was treated accordingly. The patient was then transferred to [facility] and was subsequently transferred to a [facility] facility, [facility]. The patient was recently readmitted to [facility] with sepsis. He was stabilized and the n transferred to [facility] for continued care. The patient, however, then developed septic shock and was transferred to [facility]. Upon my evaluation at this time he is nonverbal. The patient is . There have been no reports of hemoptysis, hemetemesis, or hematochezia. The patient is currently on pressor support and IV flu ids. He has had adequate urinary output. No other acute events noted. PAST MEDICAL HISTORY: As stated above, history of ventilator dependent respiratory failure, history of dysphagia, history of CVA, history of diabetes, history of chronic encephalopathy, history of co ronary artery disease, history of hypothyroidism, previous history of hypertension. PAST SURGICAL HISTORY: Status post trach, status post PEG. FAMILY HISTORY: Noncontributory. SOCIAL HISTORY: Does not drink, smoke. Lives at a subacute facility. MEDICATIONS: The patient's medications have been reviewed and reconciled. ALLERGIES: PATIENT IS ALLERGIC TO IODINE. REVIEW OF SYSTEMS: Unable to do adequate review of systems as patient is obtunded. Pertinent posit bee obtained by reviewing medical records, speaking to hospital staff, as stated in HPI, otherwise negative. PHYSICAL EXAMINATION: VITAL SIGNS: Blood pressure is currently 99/53, respiration 18, pulse 63, temperature 98.6. I's AND O'S: The patient had 1800 in with 1100 out. HEENT: Head is normocephalic. Pupils are reactive but sluggish. NECK: Shows trach. HEART: Regular rate. LUNGS: Show diminished breath sounds at base. Positive rhonchi and crackles. ABDOMEN: Soft, nontender to palpation. Positive PEG. EXTREMITIES: Negative for clubbing, cyanosis, edema. DERMATOLOGIC: No rashes. MUSCULOSKELETAL: Positive decubitus wound. NEUROLOGIC: Limited exam as the patient is obtunded, unable to cooperate with examination. LABORATORY DATA: From 06/25/2016 shows white count 10.6, hemoglobin 9.7, hematocrit 29.6, platelet c ount 203. Sodium 128, potassium 4.3, chloride 98, bicarbonate 19, BUN 86, creatinine 2.68, AST 80, ABG is reviewed. IMAGING STUDIES: Chest x-ray shows bilateral lower lobe opacities which may represent alveolar molly a or pneumonia. ASSESSMENT AND PLAN: This is a 61-year-old male who presented with: 1. Septic shock. Underlying source is multifactorial secondary to possible pneumonia, possible fun gal urinary tract infection. The patient is currently on pressor support, IV fluids, receiving broa d spectrum antibiotics, antifungal therapy. Plan at this point is to continue current treatment stacia n. Will attempt to wean off pressor support. Will follow up blood cultures, urine cultures. Will follow up lactic acid and procalcitonin level. Will follow up with infectious disease for recommend ations. 2. Ventilator dependent respiratory failure. Vent settings have been reviewed. ABG has been revie wed. Continue to monitor. Follow up with Pulmonary. 3. Dysphagia, status post percutaneous endoscopic gastrostomy tube feeding. 4. Nonoliguric acute kidney injury on top of chronic kidney disease with unknown baseline creatinin e. Etiology of current acute kidney injury is unclear, possibly secondary to sepsis, TTN, hemodynam ics. Plan at this point is to do a full evaluation. Will check UA with microanalysis. Will check urine electrolytes. Will check a renal ultrasound to rule out obstruction. Will continue IV hydrat ion, continue pressor support, and maintain MAP above 65. Continue treating underlying sepsis with IV antibiotics. Will monitor closely. 5. Hyponatremia, etiology is multifactorial secondary to acute kidney injury with decreased free wa ter urinary excretion. Will follow up a repeat sodium level. Will limit free water intake and vijay tor. 6. Anemia, likely of chronic disease. Will continue to monitor hemoglobin and hematocrit levels. No evidence of gastrointestinal bleed at this time. 7. 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 At this point, will continu e to monitor. If there is any change in mental status will get a CT scan of the brain. 8. The patient has a history of CVA. Continue medical management. 9. Hypothyroidism. The patient's TSH levels are markedly elevated. Will increase Synthroid to 150 mcg daily and monitor. 10. Fungal urinary tract infection. Continue voriconazole. 11. Seizure disorder. Continue Keppra. 12. Gastrointestinal and deep venous thrombosis prophylaxis. Will continue Prevacid and Lovenox. 13. Arrhythmia. Continue amiodarone. 14. Gastrointestinal and deep venous thrombosis prophylaxis. Continue proton pump inhibitor and Lo venox. Please note, I discussed this case with the hospital staff. Dictated By: TYLER JACOBO/EEMLINA Conf#: [id number] DID#: [id number]
--- NOTE | 2016-06-27 11:40 | RADRPT ---
PROCEDURE: XR Chest. CLINICAL INDICATION: Pneumonia TECHNIQUE: Frontal chest x-ray was obtained. COMPARISON: Chest x-ray June 26 FINDINGS: Again noted is a tracheostomy and a small bore right chest tube. There is mild cardiomegaly. Mediastinum is not widened. No hilar masses seen. There is hazy opaci fication of the lower lung reis. It is unclear if this represents consolidation or effusions. No pneumothorax is present. IMPRESSION: Bibasilar hazy infiltrates unchanged. .Tino Arreaga MD, MD Date Time Electronically viewed and signed by .Tino Arreaga MD, MD on 06/27/2016 11:40 .A/
[2016-06-27] MEDS ORDERED: LIDOCAINE 1% (MDV) 20 ML INJ SC ONE (18:00)
--- NOTE | 2016-06-27 23:20 | RADRPT ---
PROCEDURE: XR Chest. CLINICAL INDICATION: Shortness of breath. TECHNIQUE: AP Portable chest. COMPARISON: 06/27/2016 examination performed earlier the same day. FINDINGS: There is moderate pulmonary vascular congestion. Opacities are again noted within both lung bases. There is moderate cardiomegaly. A tracheostomy tube tip is in the mid trachea. The osseous struct ures are unremarkable. A left subclavian central venous catheter tip is at the junction of the innominate vein and superior vena cava. IMPRESSION: Moderate pulmonary vascular congestion and basilar opacities likely due to pleural effusions. RPTAT: HIKT .Maldonado Nolan MD, MD Date Time Electronically viewed and signed by .Maldonado Nolan MD, MD on 06/27/2016 23:19 .T/
[2016-06-28] VITALS (108 sets, daily range): BP systolic 84–143; BP diastolic 48–71; PULSE 51–79; RESP 14–31
[2016-06-28] MEDS: SOD CHLORIDE 0.9% 1,000 ML IV SCH ×3 (00:36→20:01)
[2016-06-28] MEDS: VANCOMYCIN HCL 250 MG/5ML POSYG PO SCH ×5 (00:36→23:42)
[2016-06-28] MEDS: IPRATROPIUM (HFA) 12.9 GM INHALER INH SCH ×6 (01:10→21:33)
[2016-06-28] MEDS: ALBUTEROL HFA 8 GM INHALER INH SCH ×6 (01:10→21:33)
[2016-06-28 04:48] LABS: HEMOGLOBIN 10.2 g/dl (14.0-18.0); LYMPHOCYTES % 6.4 % (15.0-51.0); MEAN CORPUSCULAR VOLUME 85.3 fl (82.0-101.0); MEAN PLATELET VOLUME 7.6 fl (7.4-10.4); MONOCYTE # 0.4 10^3/ul (0.3-0.9); MONOCYTES % 2.9 % (0.0-11.0); NEUTROPHIL # 13.7 10^3/ul (1.6-7.5); NEUTROPHILS % 90.7 % (39.0-77.0); PLATELET COUNT 479 10^3/UL (140-440); RED BLOOD COUNT 3.52 10^6/ul (4.70-6.10); RED CELL DISTRIBUTION WIDTH 17.7 % (11.5-14.5); UNCORRECTED WBC 15.1 10^3/ul (4.8-10.8); WHITE BLOOD COUNT 15.1 10^3/ul (4.8-10.8)
[2016-06-28 04:49] LABS: POTASSIUM 3.3 mmol/L (3.5-5.1)
[2016-06-28 04:51] LABS: CREATININE 2.91 mg/dl (0.61-1.24)
[2016-06-28 04:52] LABS: CALCIUM 8.5 mg/dl (8.4-10.2); PHOSPHORUS 5.7 mg/dl (2.5-4.9)
[2016-06-28 04:53] LABS: MAGNESIUM 2.3 mg/dl (1.7-2.5)
[2016-06-28 05:11] LABS: AADO2 Arterial 105.2 mmHg (7.0-24.0); Allen Test ACCEPTAB; Arterial Base Excess -9.8 mmol/L (-3.0-3); Arterial COHb 0.3 % (0.0-3.0); Arterial Fraction of Oxyhgb 96.8 % (93.0-99.0); Arterial HCO3 14.9 mmol/L (22.0-26.0); Arterial MetHb 0.3 % (0.0-1.5); MODE VENT - AC
[2016-06-28 05:19] LABS: CONDITION 1; LH ANALYZER COMMENTS 1
[2016-06-28] MEDS: metroNIDAZOLE 500 MG/NS (PMX) 100 ML IVPB SCH ×3 (06:08→21:43)
[2016-06-28] MEDS: LANSOPRAZOLE 30 MG CAP GTB SCH (06:08)
[2016-06-28] MEDS: HYDROCORTISONE 100 MG INJ IV SCH ×3 (06:08→22:31)
[2016-06-28] MEDS: LEVOTHYROXINE 125 MCG TAB GTB SCH (06:08)
[2016-06-28] MEDS: ZINC SULFATE 220 MG CAP GTB SCH (08:30)
[2016-06-28] MEDS: MULTIVITAMINS 5 ML CUP GTB SCH (08:30)
[2016-06-28] MEDS ORDERED: POTASSIUM CHLORIDE 250 ML IVPB ONE (08:30)
[2016-06-28] MEDS: ASCORBIC ACID 500 MG TAB GTB SCH (08:30)
[2016-06-28] MEDS: MEROPENEM 500 MG/100 ML (PMX) 100 ML IVPB SCH ×2 (08:30→20:41)
[2016-06-28] MEDS ORDERED: POTASSIUM CHLORIDE 20 MEQ POWDER FOR ORAL SOLN NGT ONE (08:30)
[2016-06-28] MEDS: FERROUS SULFATE 60 MG/ML 5ML CUP GTB SCH ×2 (08:30→20:40)
[2016-06-28] MEDS: VORICONAZOLE 200 MG TAB GTB SCH ×2 (08:31→20:41)
[2016-06-28] MEDS: AMIODARONE 200 MG TAB GTB SCH (08:31)
[2016-06-28] MEDS: ZYVOX 600 MG TAB GTB SCH ×2 (08:31→20:41)
[2016-06-28] MEDS: LACTOBACILLUS RHAMNOSUS CAP GTB SCH ×2 (08:31→20:41)
[2016-06-28] MEDS: CHOLECALCIFEROL 1,000 UNIT TAB GTB SCH (08:31)
[2016-06-28] MEDS: LEVETIRACETAM (100 MG/ML) 5ML CUP GTB SCH ×2 (09:00→20:40)
--- NOTE | 2016-06-28 09:14 | CONS ---
DATE OF ADMISSION: 06/25/2016 DATE OF CONSULTATION: 06/27/2016 PULMONARY CONSULTATION PRIMARY PHYSICIAN: Dr. Parsons. HISTORY OF PRESENT ILLNESS: Briefly, this is a 61-year-old man with history of vent-dependent respi ratory failure, status post tracheostomy and PEG, history of dysphagia, history of chronic encephalo vita secondary anoxic brain injury, cerebral vascular disease, hypothyroidism, diabetes and prior s epsis, who was transferred here from [place] due to worsening septic shock. The patient is at [facility], bedbound, quadriplegic and encephalopathic. The patient most recently had been at [place] and wa s subsequently transferred to a subacute facility. He also had a recent admission at [facility] for sepsis and was stabilized and transferred to [facility] for continued care. However, he developed septic shock, prompting transfer to [facility] ICU. Upon my exam, the patien t is unresponsive, unable to provide any history, nor is able to follow commands. He is currently r equiring vasopressor support and has received IV fluids here. PAST MEDICAL HISTORY: As above. PAST SURGICAL HISTORY: Trach and PEG. SOCIAL HISTORY: No tobacco, alcohol or illicit drug use. FAMILY HISTORY: Noncontributory. MEDICATIONS: Please see MAR. ALLERGIES: IODINE. REVIEW OF SYSTEMS: As per HPI. PHYSICAL EXAMINATION: VITAL SIGNS: Blood pressure is 99/53, heart rate is 63, oxygen saturation is 93% on 35% FIO2. HEENT: Normocephalic and trach is in place. GENERAL: A contracted gentleman in no acute distress. CARDIOVASCULAR: Regular rate and rhythm, S1 and S2. CHEST: There are diffuse rhonchi and coarse breath sounds bilaterally with diminished breath sounds at the bases. ABDOMEN: Soft, nontender. Positive bowel sounds. EXTREMITIES: No cyanosis, clubbing or edema. LABORATORY DATA: WBC is 11.1, hemoglobin is 10.3, platelets are 393, BUN is 81, creatinine is 2.93. Blood gas is 3.8, PaCO2 is 30, pO2 is 101. UA is positive for 5 to 10 WBCs. Chest x-ray shows bi lateral airspace opacities, more prominent in the lower lung reis. IMPRESSION: 1. Septic shock, likely due to a multilobar pneumonia, also as well as a possible urinary tract inf ection. 2. Respiratory failure, chronic vent dependence. 3. Acute renal failure, possibly prerenal versus acute tubular necrosis. 4. Hyponatremia. 5. Chronic encephalopathy. 6. History of cerebrovascular accident. 7. History of seizure disorder. RECOMMENDATIONS: 1. IV antibiotics as per ID. 2. IV fluids and vasopressors to maintain MAP greater or equal to 65. 3. Follow up blood cultures and de-escalate antibiotics accordingly. 4. Continue current ventilatory support with the exception of lowering tidal volume to 500. 5. Continue DVT and GI prophylactic measures. 6. Tube feeds and free water to continue. Dictated By: SHAYNE MCINTYRE MD NK/NTS Conf#: [id number] DID#: [id number] CC: PARVIN THOMAS MD;*End*
--- NOTE | 2016-06-28 09:39 | RADRPT ---
PROCEDURE: XR Chest. CLINICAL INDICATION: Shortness of breath. TECHNIQUE: Single frontal view. COMPARISON: 06/27/2016. FINDINGS: The tracheostomy tube, left subclavian vein catheter, and right chest tube are in unchanged position . Pulmonary edema, bibasilar atelectasis, and small bilateral pleural effusions are unchanged. The heart is enlarged. There is calcification in the aorta consistent with atherosclerosis. There is no pneumothorax. IMPRESSION: 1. No change from 06/27/2016. RPTAT: QQ .Pravin Orozco MD, MD Date Time Electronically viewed and signed by .Pravin Orozco MD, MD on 06/28/2016 09:39 .R/
--- NOTE | 2016-06-28 09:59 | OPR ---
DATE OF OPERATION: PREOPERATIVE DIAGNOSIS: Sepsis. POSTOPERATIVE DIAGNOSIS: Sepsis. OPERATION PERFORMED: Left subclavian central line placement. SURGEON: Chapin Cotter MD ANESTHESIA: Local. CONSENT: Risks, benefits, complications, alternative therapies explained to the patient and the [facility], consent obtained. OPERATIVE TECHNIQUE: The patient was placed in supine position, prepped and draped in usual sterile fashion; 1% lidocaine was used throughout the operation for local anesthesia. Access was gained in the left subclavian vein. Guidewire was advanced through without any difficulty. Subcutaneous tis sues dilated. Central line advanced over guidewire, secured to skin using silk sutures. All ports of the catheter were aspirated and injected using saline solution. The patient tolerated procedure well. Dictated By: CHAPIN HAMILTON/EMELINA Conf#: [id number] DID#: [id number]
[2016-06-28] MEDS: NYSTATIN 30 GM POWDER BTL TOP SCH ×3 (10:00→20:41)
--- NOTE | 2016-06-28 10:26 | PN ---
DATE: 06/28/2016 SUBJECTIVE: The patient remains critically ill on pressor support. The patient is on full ventilat ory support. The patient's urinary output has been adequate. No other acute events noted overnight . No hemoptysis, hematemesis or hematochezia. OBJECTIVE: VITAL SIGNS: Blood pressure is 105/60, respirations 23, pulse 62, temperature 98.2. I's AND O'S: The patient had 2.8 liters in, 1 liter out. HEENT: Head is normocephalic. NECK: Supple. HEART: Regular rate. LUNGS: Show diminished breath sounds at base. Positive rhonchi and crackles. ABDOMEN: Soft, nontender to palpation. No rebound or guarding. EXTREMITIES: Negative for clubbing, cyanosis. No edema. DERMATOLOGIC: No rashes. MUSCULOSKELETAL: No joint effusions. The patient has decubitus wound. NEUROLOGIC: No focal deficits. LABORATORY DATA: Shows sodium ____, potassium 3.3, chloride 106, BUN 78, creatinine 2.91 phosphorus 5.7. White count is 15.1, hemoglobin 10.2, hematocrit 30.0, platelet count is 479. ABG showed a p H 7.329, pCO2 of 29, base excess ____. Urinalysis shows coarse granular casts. FENa less than 1%, a repeat renal ultrasound shows unchanged, mild left-sided hydronephrosis. MICROBIOLOGY: Has been reviewed. ASSESSMENT AND PLAN: 1. Septic shock. Underlying source is multifactorial secondary to healthcare-associated pneumonia, possible fungal urinary tract infection. The patient remains on pressor support, on broad spectrum antimicrobial and antifungal therapy. Plan is to continue current treatment plan. Continue IV flu ids, pressor support, wean off if possible. Will follow up blood cultures, urine cultures. The pat ient's procalcitonin level is pending. Lactic acid within normal limits. Follow up with Infectious Disease for further recommendations. 2. Ventilatory-dependent respiratory failure. Vent settings have been reviewed. ABG has been revi ewed. Continue to monitor. Follow up with Pulmonary. 3. Dysphagia, status post percutaneous endoscopic gastrostomy. Continue tube feeding. 4. Nonoliguric acute kidney injury on top of chronic kidney disease with unknown baseline creatinin e. Etiology of acute kidney injury secondary to acute tubular necrosis due to septic acute kidney i njury. The patient's urinalysis shows coarse granular casts consistent with tubular injury, a FENa of less than 1% which can be seen in the setting of sepsis causing decreased effective renal perfus ion. The patient's renal ultrasound shows a component of mild left-sided hydronephrosis. Plan at t his point is continue current treatment plan, continue to treat underlying sepsis, continue pressor support and maintain MAP above 65. Continue antimicrobial therapy. Continue IV fluids and monitor closely. The patient is currently in injury phase of acute tubular necrosis. 5. Hyponatremia secondary to acute kidney injury, resolved. Continue to monitor. 6. Hypokalemia, replete potassium chloride. 7. Anemia of chronic disease. Continue to monitor hemoglobin and hematocrit levels. No evidence o f gastrointestinal bleed. 8. Mineral bone disorder. Will monitor calcium and phosphorus levels. 9. Decubitus wound, stage IV. Continue wound care. 10. 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 Continue to monitor. 11. History of cerebrovascular accident. Continue medical management. 12. Hypothyroidism. The patient's TSH was markedly elevated. 13. Synthroid medications were adjusted. Continue to monitor. Repeat a TSH level in 1 to 2 weeks. 14. Fungal urinary tract infection. Continue Voriconazole. 15. Seizure disorder. Continue Keppra. 16. Arrhythmia. Continue amiodarone. Appreciate GIs evaluation. 17. Gastrointestinal and deep venous thrombosis prophylaxis. Continue proton pump inhibitor and Lo venox. Please note I spent over 40 minutes of critical care time with this patient, discussed the case with the hospital staff. Dictated By: TYLER JACOBO/EMELINA Conf#: [id number] DID#: [id number]
--- NOTE | 2016-06-28 11:18 | CONS ---
Date/Time of Note Date/Time of Note DATE: 06/28/16 TIME: 11:16 Assessment/Plan Assessment/Plan Chief Complaint/Hosp Course ID PROGRESS NOTE TOTAL ABX DAY # Zyvox, Merrem, Vfend, Solucortef 24H INTERVAL SUMMARY * Pt lost midline access -- new PICC Pending * WBC elevated -- on IV steroids * Noncommunicative, encephalopathic with Trach/Peg/Contracted extremities * CXR today FINDINGS: The tracheostomy tube, left subclavian vein catheter, and right chest tube are in unchanged position. Pulmonary edema, bibasilar atelectasis, and small bilateral pleural effusions are unchanged. The heart is enlarged. There is calcification in the aorta consistent with atherosclerosis. There is no pneumothorax. IMPRESSION: 1. No change from 06/27/2016. ANTIMICROBIALS: 1. Solu-Cortef. 2. Oral Zyvox. 3. Meropenem. 4. Voriconazole. PHYSICAL EXAMINATION: GENERAL: VSS, NAD HEENT: Unremarkable NECK: Trach CHEST: Rise symmetrical - Course BS HEART: RRR ABDOMEN: Soft, peg EXTREMITIES: With bilateral edema, contractures. SKIN: No jaundice, no cyanosis. The patient has unstageable sacral wound. ID ASSESSMENT: 61 yo M w/PMHx od chronic encephalopathy, chronic trach/peg admit from [facility] with: 1. Sepsis with multisystem organ failure. 2. Healthcare-associated pneumonia = sputum GNR Proteus Mirabilis * CXR Bibasilar hazy infiltrates unchanged. 3. Fungal urinary tract infection. 4. Clostridium difficile colitis. 5. Sacral decubitus with evidence of osteomyelitis status post multiple debridements. * WOUND CULTURE Preliminary Organism 1 PROTEUS MIRABILIS QUANTITY 1+ Organism 2 KLEB PNEUMONIAE CARBAPENEMASE QUANTITY SCANT GROWTH . MULTI DRUG RESISTANT ORGANISM (-)MRSA Nares INVASIVES: *Trach, Peg, FC ABX ALLERGIES: Iodine CURRENT ABX: ANTIMICROBIALS: He was started on: 1. Solu-Cortef. 2. Oral Zyvox. 3. Meropenem. 4. Voriconazole. ID RECOMMENDATIONS: Continue ABX -- f/u final micro -- back to [facility] when stable WBC elevated == partial IV steroids demargination . Problems: Consultation Date/Type/Reason Admit Date/Time Jun 25, 2016 at 18:35 Initial Consult Date 06/26/16 Exam/Review of Systems Vital Signs Vitals Vital Signs Date Time Temp Pulse Resp B/P Pulse Ox O2 Delivery O2 Flow Rate FiO2 06/28/16 10:45 58 20 101/58 100 06/28/16 08:00 30 06/28/16 07:30 98.2 Mechanical Ventilator 06/26/16 17:00 2.0 Intake and Output 06/27/16 06/27/16 06/28/16 15:00 23:00 07:00 Intake Total 934.35 ml 817.47 ml 1051.87 ml Output Total 425 ml 255 ml 335 ml Balance 509.35 ml 562.47 ml 716.87 ml Results Result Diagram: 06/28/16 0400 06/28/16 0400 Results 24 hrs Laboratory Tests Test 06/28/16 04:00 06/28/16 04:10 06/28/16 05:00 Anion Gap 17 H Basophils # 0.0 Basophils % 0.0 Blood Morphology Comment Blood Urea Nitrogen 78 H Calcium Level 8.5 Carbon Dioxide Level 18 L Chloride Level 106 Creatinine 2.91 H Eosinophils # 0.0 Eosinophils % 0.0 Glucose Level 167 Hematocrit 30.0 L Hemoglobin 10.2 L Lymphocytes # 1.0 Lymphocytes % 6.4 L Magnesium Level 2.3 Mean Corpuscular Hemoglobin 29.0 Mean Corpuscular Hemoglobin Concent 34.0 Mean Corpuscular Volume 85.3 Mean Platelet Volume 7.6 Monocytes # 0.4 Monocytes % 2.9 Neutrophils # 13.7 H Neutrophils % 90.7 H Nucleated Red Blood Cells # 0.0 Nucleated Red Blood Cells % 0.0 Phosphorus Level 5.7 H Platelet Count 479 #H Potassium Level 3.3 L Red Blood Count 3.52 L Red Cell Distribution Width 17.7 H Sodium Level 138 White Blood Count 15.1 #H Lactic Acid Level 1.1 Arterial Blood HCO3 14.9 L Arterial Blood Base Excess -9.8 L Arterial Blood Oxygen Saturation 97.4 River Test ACCEPTAB Arterial Blood Gas Puncture Site LB Arterial Blood Carboxyhemoglobin 0.3 Arterial Blood Date Drawn 06/28/2016 4:55:28 AM Arterial Blood Methemoglobin 0.3 Arterial Blood pCO2 (Temp correct) 29.0 L Arterial Blood pH (Temp corrected) 7.329 L Arterial Blood pO2 (Temp corrected) 110.6 H Blood Gas A-a O2 Differential 105.2 H Blood Gas Actual Respiration Rate 23 Blood Gas Low PEEP Setting 5.0 Blood Gas Modality VENT - AC Blood Gas Notified Time 06/28/2016 5:11:35 AM Blood Gas Notified Whom MG Blood Gas Respiration Rate 16.0 Blood Gas Specimen Source Blood arterial Blood Gas Temperature 37.0 Blood Gas Tidal Volume 500.0 FiO2 35.0 Oxyhemoglobin Percent 96.8 Total Hemoglobin 11.0 L Medications Medications Current Medications Sodium Chloride (NS) 1,000 ml @ 75 mls/hr [id number] IV Last administered on 06/28 06:12; Admin Dose 75 MLS/HR; Start 06/25/16 at 17:48 Enoxaparin Sodium 30 mg 30 mg DAILY SC Last administered on 06/27/16 09:08; Admin Dose 30 MG; Start 06/26/16 at 09:00 Norepinephrine/ Dextrose (Levophed/D5W) 500 ml @ 1.875 mls/ hr TITRATE IV Last administered on 06/27/16 22:06; Admin Dose 7.5 MLS/HR; Start 06/25/16 at 21 :00 Acetaminophen (Tylenol Liquid) 650 mg Q6H PRN GTB PAIN AND OR ELEVATED TEMP; Start 06/25/16 at 23:30 Amiodarone HCl (Cordarone) 200 mg DAILY GTB Last administered on 06/28/16 08: 31; Admin Dose 200 MG; Start 06/26/16 at 09:00 Eye Lubricant (Artificial Tears Oph) 2 drop Q6H PRN BOTH EYES DRY EYES; Start 06/25/16 at 23:30 Ascorbic Acid (Vitamin C) 500 mg DAILY GTB Last administered on 06/28/16 08:30 ; Admin Dose 500 MG; Start 06/26/16 at 09:00 Cholecalciferol (Vitamin D) 5,000 unit DAILY GTB Last administered on 08:31; Admin Dose 5,000 UNIT; Start 06/26/16 at 09:00 Ferrous Sulfate (Feosol Liquid Cup) 300 mg BID GTB Last administered on 08:30; Admin Dose 300 MG; Start 06/26/16 at 09:00 Lactobacillus Acidophilus/ Rhamnosus (Culturelle) 1 cap BID GTB Last administered on 06/28/16 08:31; Admin Dose 1 CAP; Start 06/26/16 at 09:00 Lansoprazole (Prevacid) 30 mg DAILY@06 GTB Last administered on 06/28/16 06:08 ; Admin Dose 30 MG; Start 06/26/16 at 06:00 Levetiracetam (Keppra Liquid) 500 mg BID GTB Last administered on 06/28/16 09: 00; Admin Dose 500 MG; Start 06/26/16 at 09:00 Linezolid 600 mg 600 mg BID GTB Last administered on 06/28/16 08:31; Admin Dose 600 MG; Start 06/26/16 at 09:00 Meropenem (Merrem 500 Mg/ 100 ml (Pmx)) 100 ml @ 200 mls/hr Q12 IVPB Last administered on 06/28/16 08:30; Admin Dose 200 MLS/HR; Start 06/26/16 at 09:00 Multivitamins (Thera-Plus) 5 ml DAILY GTB Last administered on 06/28/16 08:30 ; Admin Dose 5 ML; Start 06/26/16 at 09:00 Nystatin (Nystatin Powder) 1 applic Q12 PRN TOP ITCHING; Start 06/25/16 at 23:30 Sodium Hypochlorite (Dakin'S (1/4 Strength)) 1 applic BID PRN TOP NOTE; Start 06/25/16 at 23:30 Voriconazole (Vfend) 200 mg BID GTB Last administered on 06/28/16 08:31; Admin Dose 200 MG; Start 06/26/16 at 09:00 Zinc Sulfate (Zinc Sulfate) 220 mg DAILY GTB Last administered on 06/28/16 08: 30; Admin Dose 220 MG; Start 06/26/16 at 09:00 Hydrocortisone (Solu-Cortef) 50 mg Q8 IV Last administered on 06/28/16 06:08; Admin Dose 50 MG; Start 06/26/16 at 14:00 Sodium Hypochlorite (Dakin'S (1/4 Strength)) 1 applic DAILY@10 TOP Last administered on 06/27/16 09:08; Admin Dose 1 APPLIC; Start 06/26/16 at 10:00 Nystatin 1 applic 1 applic TID@10,13,21 TOP Last administered on 06/27/16 21: 29; Admin Dose 1 APPLIC; Start 06/26/16 at 10:00 Metronidazole (Flagyl 500 Mg (Pmx)) 100 ml @ 100 mls/hr Q8 IVPB Last administered on 06/28/16 06:08; Admin Dose 100 MLS/HR; Start 06/26/16 at 14:00 Vancomycin HCl (Vancomycin Oral Syringe) 250 mg Q6 PO Last administered on 06/28 06:09; Admin Dose 250 MG; Start 06/26/16 at 13:00 Sodium Chloride (Nacl 3% For Inhalation) 5 ml ONCE ONCE NEB ; Start 06/27/16 at 08:00; Stop 06/27/16 at 08:01 Levothyroxine Sodium (Synthroid) 150 mcg DAILY@06 GTB Last administered on 06/28 06:08; Admin Dose 150 MCG; Start 06/28/16 at 06:00 Lidocaine (Xylocaine 1% (Mdv) 20 ml) 20 ml ONCE ONCE SC ; Start 06/27/16 at 18: 00; Stop 06/27/16 at 18:01 Potassium Chloride (Potassium Chloride Pwd/Soln) 20 meq ONCE ONCE NGT Last administered on 06/28/16 10:16; Admin Dose 20 MEQ; Start 06/28/16 at 08:30; Stop 06/28/16 at 08:31 MANDY GALLEGOS NP Jun 28, 2016 11:18
--- NOTE | 2016-06-28 11:27 | PN ---
Date/Time of Note Date/Time of Note DATE: 06/28/16 TIME: 11:26 Assessment/Plan Lines/Catheters IV Catheter Type (from Nrsg): Peripheral IV Evans in Place (from Nrsg): Yes Assessment/Plan Chief Complaint/Hosp Course Resp Failure SP Central line placement will continue supp care Vent support Problems: Subjective 24 Hr Interval Summary Constitutional: improved Pain Control: mild Exam/Review of Systems Vital Signs Vitals Vital Signs Date Time Temp Pulse Resp B/P Pulse Ox O2 Delivery O2 Flow Rate FiO2 06/28/16 10:45 58 20 101/58 100 06/28/16 08:00 30 06/28/16 07:30 98.2 Mechanical Ventilator 06/26/16 17:00 2.0 Intake and Output 06/27/16 06/27/16 06/28/16 15:00 23:00 07:00 Intake Total 934.35 ml 817.47 ml 1051.87 ml Output Total 425 ml 255 ml 335 ml Balance 509.35 ml 562.47 ml 716.87 ml Exam ENMT: mucosa pink and moist, nl external ears & nose, nl lips & teeth, nl nasal mucosa & septum Neck: non-tender, supple Respiratory: clear to auscultation, normal air movement Cardiovascular: nl pulses, regular rate and rhythm Results Result Diagram: 06/28/1639906/28/16399 ELO CANELA MD Jun 28, 2016 11:26
--- NOTE | 2016-06-28 11:30 | CONS ---
Date/Time of Note Date/Time of Note DATE: 06/28/16 TIME: 11:28 Consult Date/Type/Reason Admit Date/Time Jun 25, 2016 at 18:35 Initial Consult Date 06/26/16 Type of Consultation: Pulm Subjective BP remains supported on levophed gtt. s/p CVC placement. Objective Vital Signs Date Time Temp Pulse Resp B/P Pulse Ox O2 Delivery O2 Flow Rate FiO2 06/28/16 10:45 58 20 101/58 100 06/28/16 08:00 30 06/28/16 07:30 98.2 Mechanical Ventilator 06/26/16 17:00 2.0 Intake and Output 06/27/16 06/27/16 06/28/16 15:00 23:00 07:00 Intake Total 934.35 ml 817.47 ml 1051.87 ml Output Total 425 ml 255 ml 335 ml Balance 509.35 ml 562.47 ml 716.87 ml HEENT: Normocephalic and trach is in place. GENERAL: A contracted gentleman in no acute distress. CARDIOVASCULAR: Regular rate and rhythm, S1 and S2. CHEST: There are diffuse rhonchi and coarse breath sounds bilaterally with diminished breath sounds at the bases. ABDOMEN: Soft, nontender. Positive bowel sounds. EXTREMITIES: No cyanosis, clubbing or edema. Results/Medications Result Diagram: 06/28/16 0400 06/28/16 0400 Results 24 hrs Laboratory Tests Test 06/28/16 04:00 06/28/16 04:10 06/28/16 05:00 Anion Gap 17 H Basophils # 0.0 Basophils % 0.0 Blood Morphology Comment Blood Urea Nitrogen 78 H Calcium Level 8.5 Carbon Dioxide Level 18 L Chloride Level 106 Creatinine 2.91 H Eosinophils # 0.0 Eosinophils % 0.0 Glucose Level 167 Hematocrit 30.0 L Hemoglobin 10.2 L Lymphocytes # 1.0 Lymphocytes % 6.4 L Magnesium Level 2.3 Mean Corpuscular Hemoglobin 29.0 Mean Corpuscular Hemoglobin Concent 34.0 Mean Corpuscular Volume 85.3 Mean Platelet Volume 7.6 Monocytes # 0.4 Monocytes % 2.9 Neutrophils # 13.7 H Neutrophils % 90.7 H Nucleated Red Blood Cells # 0.0 Nucleated Red Blood Cells % 0.0 Phosphorus Level 5.7 H Platelet Count 479 #H Potassium Level 3.3 L Red Blood Count 3.52 L Red Cell Distribution Width 17.7 H Sodium Level 138 White Blood Count 15.1 #H Lactic Acid Level 1.1 Arterial Blood HCO3 14.9 L Arterial Blood Base Excess -9.8 L Arterial Blood Oxygen Saturation 97.4 River Test ACCEPTAB Arterial Blood Gas Puncture Site LB Arterial Blood Carboxyhemoglobin 0.3 Arterial Blood Date Drawn 06/28/2016 4:55:28 AM Arterial Blood Methemoglobin 0.3 Arterial Blood pCO2 (Temp correct) 29.0 L Arterial Blood pH (Temp corrected) 7.329 L Arterial Blood pO2 (Temp corrected) 110.6 H Blood Gas A-a O2 Differential 105.2 H Blood Gas Actual Respiration Rate 23 Blood Gas Low PEEP Setting 5.0 Blood Gas Modality VENT - AC Blood Gas Notified Time 06/28/2016 5:11:35 AM Blood Gas Notified Whom MG Blood Gas Respiration Rate 16.0 Blood Gas Specimen Source Blood arterial Blood Gas Temperature 37.0 Blood Gas Tidal Volume 500.0 FiO2 35.0 Oxyhemoglobin Percent 96.8 Total Hemoglobin 11.0 L Medications Current Medications Sodium Chloride (NS) 1,000 ml @ 75 mls/hr [id number] IV Last administered on 06/28 06:12; Admin Dose 75 MLS/HR; Start 06/25/16 at 17:48 Enoxaparin Sodium 30 mg 30 mg DAILY SC Last administered on 06/27/16 09:08; Admin Dose 30 MG; Start 06/26/16 at 09:00 Norepinephrine/ Dextrose (Levophed/D5W) 500 ml @ 1.875 mls/ hr TITRATE IV Last administered on 06/27/16 22:06; Admin Dose 7.5 MLS/HR; Start 06/25/16 at 21 :00 Acetaminophen (Tylenol Liquid) 650 mg Q6H PRN GTB PAIN AND OR ELEVATED TEMP; Start 06/25/16 at 23:30 Amiodarone HCl (Cordarone) 200 mg DAILY GTB Last administered on 06/28/16 08: 31; Admin Dose 200 MG; Start 06/26/16 at 09:00 Eye Lubricant (Artificial Tears Oph) 2 drop Q6H PRN BOTH EYES DRY EYES; Start 06/25/16 at 23:30 Ascorbic Acid (Vitamin C) 500 mg DAILY GTB Last administered on 06/28/16 08:30 ; Admin Dose 500 MG; Start 06/26/16 at 09:00 Cholecalciferol (Vitamin D) 5,000 unit DAILY GTB Last administered on 08:31; Admin Dose 5,000 UNIT; Start 06/26/16 at 09:00 Ferrous Sulfate (Feosol Liquid Cup) 300 mg BID GTB Last administered on 08:30; Admin Dose 300 MG; Start 06/26/16 at 09:00 Lactobacillus Acidophilus/ Rhamnosus (Culturelle) 1 cap BID GTB Last administered on 06/28/16 08:31; Admin Dose 1 CAP; Start 06/26/16 at 09:00 Lansoprazole (Prevacid) 30 mg DAILY@06 GTB Last administered on 06/28/16 06:08 ; Admin Dose 30 MG; Start 06/26/16 at 06:00 Levetiracetam (Keppra Liquid) 500 mg BID GTB Last administered on 06/28/16 09: 00; Admin Dose 500 MG; Start 06/26/16 at 09:00 Linezolid 600 mg 600 mg BID GTB Last administered on 06/28/16 08:31; Admin Dose 600 MG; Start 06/26/16 at 09:00 Meropenem (Merrem 500 Mg/ 100 ml (Pmx)) 100 ml @ 200 mls/hr Q12 IVPB Last administered on 06/28/16 08:30; Admin Dose 200 MLS/HR; Start 06/26/16 at 09:00 Multivitamins (Thera-Plus) 5 ml DAILY GTB Last administered on 06/28/16 08:30 ; Admin Dose 5 ML; Start 06/26/16 at 09:00 Nystatin (Nystatin Powder) 1 applic Q12 PRN TOP ITCHING; Start 06/25/16 at 23:30 Sodium Hypochlorite (Dakin'S (1/4 Strength)) 1 applic BID PRN TOP NOTE; Start 06/25/16 at 23:30 Voriconazole (Vfend) 200 mg BID GTB Last administered on 06/28/16 08:31; Admin Dose 200 MG; Start 06/26/16 at 09:00 Zinc Sulfate (Zinc Sulfate) 220 mg DAILY GTB Last administered on 06/28/16 08: 30; Admin Dose 220 MG; Start 06/26/16 at 09:00 Hydrocortisone (Solu-Cortef) 50 mg Q8 IV Last administered on 06/28/16 06:08; Admin Dose 50 MG; Start 06/26/16 at 14:00 Sodium Hypochlorite (Dakin'S (1/4 Strength)) 1 applic DAILY@10 TOP Last administered on 06/27/16 09:08; Admin Dose 1 APPLIC; Start 06/26/16 at 10:00 Nystatin 1 applic 1 applic TID@10,13,21 TOP Last administered on 06/27/16 21: 29; Admin Dose 1 APPLIC; Start 06/26/16 at 10:00 Metronidazole (Flagyl 500 Mg (Pmx)) 100 ml @ 100 mls/hr Q8 IVPB Last administered on 06/28/16 06:08; Admin Dose 100 MLS/HR; Start 06/26/16 at 14:00 Vancomycin HCl (Vancomycin Oral Syringe) 250 mg Q6 PO Last administered on 06/28 06:09; Admin Dose 250 MG; Start 06/26/16 at 13:00 Sodium Chloride (Nacl 3% For Inhalation) 5 ml ONCE ONCE NEB ; Start 06/27/16 at 08:00; Stop 06/27/16 at 08:01 Levothyroxine Sodium (Synthroid) 150 mcg DAILY@06 GTB Last administered on 06/28 06:08; Admin Dose 150 MCG; Start 06/28/16 at 06:00 Lidocaine (Xylocaine 1% (Mdv) 20 ml) 20 ml ONCE ONCE SC ; Start 06/27/16 at 18: 00; Stop 06/27/16 at 18:01 Potassium Chloride (Potassium Chloride Pwd/Soln) 20 meq ONCE ONCE NGT Last administered on 06/28/16 10:16; Admin Dose 20 MEQ; Start 06/28/16 at 08:30; Stop 06/28/16 at 08:31 Assessment/Plan Additional Assessment/Plan IMPRESSION: 1. Septic shock, likely due to a multilobar pneumonia, also as well as a possible urinary tract infection. 2. Respiratory failure, chronic vent dependence. 3. Acute renal failure, possibly prerenal versus acute tubular necrosis. 4. Hyponatremia. 5. Chronic encephalopathy. 6. History of cerebrovascular accident. 7. History of seizure disorder. RECOMMENDATIONS: 1. IV antibiotics as per ID--> de-escalate pending cultures 2. IV fluids and vasopressors to maintain MAP greater or equal to 65. 3. Follow lactate clearance; obtain CVP 4. Continue current ventilatory support 5. Continue DVT and GI prophylactic measures 6. Tube feeds and free water to continue. 35 min cc time SHAYNE MCINTYRE MD Jun 28, 2016 11:30
--- NOTE | 2016-06-28 12:03 | CONS ---
Date/Time of Note Date/Time of Note DATE: 06/28/16 TIME: 12:01 Consultation Date/Type/Reason Admit Date/Time Jun 25, 2016 at 18:35 Initial Consult Date 06/26/16 Type of Consultation: Pulm 24 HR Interval Summary Free Text/Dictation 1. Sepsis with multisystem organ failure. 2. Healthcare-associated pneumonia. 3. Fungal urinary tract infection. 4. Clostridium difficile colitis. 5. Sacral decubitus with evidence of osteomyelitis status post multiple debridements. 6. Chronic encephalopathy. 7, Hypotiension PLAN: Continue pressor support The patient remains hemodynamically unstable. replace potassium Patient back on IV Flagyl and oral vancomycin - reculture. Continue Solu-Cortef. Local wound care per surgical recommendations. Prognosis guarded. Subjective hx not possible: pt non-verbal Exam/Review of Systems Vital Signs Vitals Vital Signs Date Time Temp Pulse Resp B/P Pulse Ox O2 Delivery O2 Flow Rate FiO2 06/28/16 10:45 58 20 101/58 100 06/28/16 08:00 30 06/28/16 07:30 98.2 Mechanical Ventilator 06/26/16 17:00 2.0 Intake and Output 06/27/16 06/27/16 06/28/16 15:00 23:00 07:00 Intake Total 934.35 ml 817.47 ml 1051.87 ml Output Total 425 ml 255 ml 335 ml Balance 509.35 ml 562.47 ml 716.87 ml Exam Constitutional: non-verbal Respiratory: diminished breath sounds Cardiovascular: regular rate and rhythm Gastrointestinal: distended, soft Results Result Diagram: 06/28/16 0400 06/28/16 0400 Results 24 hrs Laboratory Tests Test 06/28/16 04:00 06/28/16 04:10 06/28/16 05:00 Anion Gap 17 H Basophils # 0.0 Basophils % 0.0 Blood Morphology Comment Blood Urea Nitrogen 78 H Calcium Level 8.5 Carbon Dioxide Level 18 L Chloride Level 106 Creatinine 2.91 H Eosinophils # 0.0 Eosinophils % 0.0 Glucose Level 167 Hematocrit 30.0 L Hemoglobin 10.2 L Lymphocytes # 1.0 Lymphocytes % 6.4 L Magnesium Level 2.3 Mean Corpuscular Hemoglobin 29.0 Mean Corpuscular Hemoglobin Concent 34.0 Mean Corpuscular Volume 85.3 Mean Platelet Volume 7.6 Monocytes # 0.4 Monocytes % 2.9 Neutrophils # 13.7 H Neutrophils % 90.7 H Nucleated Red Blood Cells # 0.0 Nucleated Red Blood Cells % 0.0 Phosphorus Level 5.7 H Platelet Count 479 #H Potassium Level 3.3 L Red Blood Count 3.52 L Red Cell Distribution Width 17.7 H Sodium Level 138 White Blood Count 15.1 #H Lactic Acid Level 1.1 Arterial Blood HCO3 14.9 L Arterial Blood Base Excess -9.8 L Arterial Blood Oxygen Saturation 97.4 River Test ACCEPTAB Arterial Blood Gas Puncture Site LB Arterial Blood Carboxyhemoglobin 0.3 Arterial Blood Date Drawn 06/28/2016 4:55:28 AM Arterial Blood Methemoglobin 0.3 Arterial Blood pCO2 (Temp correct) 29.0 L Arterial Blood pH (Temp corrected) 7.329 L Arterial Blood pO2 (Temp corrected) 110.6 H Blood Gas A-a O2 Differential 105.2 H Blood Gas Actual Respiration Rate 23 Blood Gas Low PEEP Setting 5.0 Blood Gas Modality VENT - AC Blood Gas Notified Time 06/28/2016 5:11:35 AM Blood Gas Notified Whom MG Blood Gas Respiration Rate 16.0 Blood Gas Specimen Source Blood arterial Blood Gas Temperature 37.0 Blood Gas Tidal Volume 500.0 FiO2 35.0 Oxyhemoglobin Percent 96.8 Total Hemoglobin 11.0 L Medications Medications Current Medications Sodium Chloride (NS) 1,000 ml @ 75 mls/hr [id number] IV Last administered on 06/28 06:12; Admin Dose 75 MLS/HR; Start 06/25/16 at 17:48 Enoxaparin Sodium 30 mg 30 mg DAILY SC Last administered on 06/27/16 09:08; Admin Dose 30 MG; Start 06/26/16 at 09:00 Norepinephrine/ Dextrose (Levophed/D5W) 500 ml @ 1.875 mls/ hr TITRATE IV Last administered on 06/27/16 22:06; Admin Dose 7.5 MLS/HR; Start 06/25/16 at 21 :00 Acetaminophen (Tylenol Liquid) 650 mg Q6H PRN GTB PAIN AND OR ELEVATED TEMP; Start 06/25/16 at 23:30 Amiodarone HCl (Cordarone) 200 mg DAILY GTB Last administered on 06/28/16 08: 31; Admin Dose 200 MG; Start 06/26/16 at 09:00 Eye Lubricant (Artificial Tears Oph) 2 drop Q6H PRN BOTH EYES DRY EYES; Start 06/25/16 at 23:30 Ascorbic Acid (Vitamin C) 500 mg DAILY GTB Last administered on 06/28/16 08:30 ; Admin Dose 500 MG; Start 06/26/16 at 09:00 Cholecalciferol (Vitamin D) 5,000 unit DAILY GTB Last administered on 08:31; Admin Dose 5,000 UNIT; Start 06/26/16 at 09:00 Ferrous Sulfate (Feosol Liquid Cup) 300 mg BID GTB Last administered on 08:30; Admin Dose 300 MG; Start 06/26/16 at 09:00 Lactobacillus Acidophilus/ Rhamnosus (Culturelle) 1 cap BID GTB Last administered on 06/28/16 08:31; Admin Dose 1 CAP; Start 06/26/16 at 09:00 Lansoprazole (Prevacid) 30 mg DAILY@06 GTB Last administered on 06/28/16 06:08 ; Admin Dose 30 MG; Start 06/26/16 at 06:00 Levetiracetam (Keppra Liquid) 500 mg BID GTB Last administered on 06/28/16 09: 00; Admin Dose 500 MG; Start 06/26/16 at 09:00 Linezolid 600 mg 600 mg BID GTB Last administered on 06/28/16 08:31; Admin Dose 600 MG; Start 06/26/16 at 09:00 Meropenem (Merrem 500 Mg/ 100 ml (Pmx)) 100 ml @ 200 mls/hr Q12 IVPB Last administered on 06/28/16 08:30; Admin Dose 200 MLS/HR; Start 06/26/16 at 09:00 Multivitamins (Thera-Plus) 5 ml DAILY GTB Last administered on 06/28/16 08:30 ; Admin Dose 5 ML; Start 06/26/16 at 09:00 Nystatin (Nystatin Powder) 1 applic Q12 PRN TOP ITCHING; Start 06/25/16 at 23:30 Sodium Hypochlorite (Dakin'S (1/4 Strength)) 1 applic BID PRN TOP NOTE; Start 06/25/16 at 23:30 Voriconazole (Vfend) 200 mg BID GTB Last administered on 06/28/16 08:31; Admin Dose 200 MG; Start 06/26/16 at 09:00 Zinc Sulfate (Zinc Sulfate) 220 mg DAILY GTB Last administered on 06/28/16 08: 30; Admin Dose 220 MG; Start 06/26/16 at 09:00 Hydrocortisone (Solu-Cortef) 50 mg Q8 IV Last administered on 06/28/16 06:08; Admin Dose 50 MG; Start 06/26/16 at 14:00 Sodium Hypochlorite (Dakin'S (1/4 Strength)) 1 applic DAILY@10 TOP Last administered on 06/27/16 09:08; Admin Dose 1 APPLIC; Start 06/26/16 at 10:00 Nystatin 1 applic 1 applic TID@10,13,21 TOP Last administered on 06/27/16 21: 29; Admin Dose 1 APPLIC; Start 06/26/16 at 10:00 Metronidazole (Flagyl 500 Mg (Pmx)) 100 ml @ 100 mls/hr Q8 IVPB Last administered on 06/28/16 06:08; Admin Dose 100 MLS/HR; Start 06/26/16 at 14:00 Vancomycin HCl (Vancomycin Oral Syringe) 250 mg Q6 PO Last administered on 06/28 06:09; Admin Dose 250 MG; Start 06/26/16 at 13:00 Sodium Chloride (Nacl 3% For Inhalation) 5 ml ONCE ONCE NEB ; Start 06/27/16 at 08:00; Stop 06/27/16 at 08:01 Levothyroxine Sodium (Synthroid) 150 mcg DAILY@06 GTB Last administered on 06/28 06:08; Admin Dose 150 MCG; Start 06/28/16 at 06:00 Lidocaine (Xylocaine 1% (Mdv) 20 ml) 20 ml ONCE ONCE SC ; Start 06/27/16 at 18: 00; Stop 06/27/16 at 18:01 Potassium Chloride (Potassium Chloride Pwd/Soln) 20 meq ONCE ONCE NGT Last administered on 06/28/16 10:16; Admin Dose 20 MEQ; Start 06/28/16 at 08:30; Stop 06/28/16 at 08:31 KAREY REID MD Jun 28, 2016 12:03
[2016-06-28] MEDS: ENOXAPARIN 30 MG/0.3 ML SYG SC SCH (13:55)
[2016-06-28] MEDS: SODIUM HYPOCHLORITE 0.125% 473 ML BTL TOP SCH (16:15)
--- NOTE | 2016-06-28 18:43 | CONS ---
Date/Time of Note Date/Time of Note DATE: 06/28/16 TIME: 18:43 Assessment/Plan Assessment/Plan Chief Complaint/Hosp Course ASSESSMENT AND PLAN: This is a 61-year-old male with acute sepsis associated with Anemia, N-cytic with increased RDW HX ACD HX GIB HX NEEDS FOR PRBC ON SEVERAL OCCASIONS AT [facility] CONT TO MONITOR BLOOD COUNT CLOSELY OBSERVE FOR BLEEDING AND HEMOLYSIS TRANSFUSE NEEDED Will continue to monitor hemoglobin and hematocrit levels. No evidence of gastrointestinal bleed at this time. Septic shock. Underlying source is multifactorial secondary to possible pneumonia, possible fungal urinary tract infection. The patient is currently on pressor support, IV fluids, receiving broad spectrum antibiotics, antifungal therapy. Plan at this point is to continue current treatment plan. Will attempt to wean off pressor support. Will follow up blood cultures, urine cultures. Will follow up lactic acid and procalcitonin level. Will follow up with infectious disease for recommendations. Ventilator dependent respiratory failure. Vent settings have been reviewed. ABG has been reviewed. Continue to monitor. Follow up with Pulmonary. Dysphagia, status post percutaneous endoscopic gastrostomy tube feeding. Nonoliguric acute kidney injury on top of chronic kidney disease with unknown baseline creatinine. Etiology of current acute kidney injury is unclear, possibly secondary to sepsis, TTN, hemodynamics. Plan at this point is to do a full evaluation. Will check UA with microanalysis. Will check urine electrolytes. Will check a renal ultrasound to rule out obstruction. Will continue IV hydration, continue pressor support, and maintain MAP above 65. Continue treating underlying sepsis with IV antibiotics. Will monitor closely. Hyponatremia, etiology is multifactorial secondary to acute kidney injury with decreased free water urinary excretion. Will follow up a repeat sodium level. Will limit free water intake and monitor. 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 At this point, will continue to monitor. If there is any change in mental status will get a CT scan of the brain. The patient has a history of CVA. Continue medical management. Hypothyroidism. The patient's TSH levels are markedly elevated. Will increase Synthroid to 150 mcg daily and monitor. Fungal urinary tract infection. Continue voriconazole. Seizure disorder. Continue Keppra. Gastrointestinal and deep venous thrombosis prophylaxis. Will continue Prevacid and Lovenox. Arrhythmia. Continue amiodarone. Gastrointestinal and deep venous thrombosis prophylaxis. Continue proton pump inhibitor and Lovenox. Problems: Consultation Date/Type/Reason Admit Date/Time Jun 25, 2016 at 18:35 Initial Consult Date 06/26/16 Referring Provider: TYLER HAINES DO 24 HR Interval Summary Free Text/Dictation ALL NOTED IN ICU ON PRESSORS COUNT REVIEWED NO BLEEDING Continue pressor support The patient remains hemodynamically unstable. Patient back on IV Flagyl and oral vancomycin Exam/Review of Systems Vital Signs Vitals Vital Signs Date Time Temp Pulse Resp B/P Pulse Ox O2 Delivery O2 Flow Rate FiO2 06/28/16 18:15 74 27 106/62 100 06/28/16 17:40 35 06/28/16 16:00 98.5 06/28/16 07:30 Mechanical Ventilator 06/26/16 17:00 2.0 Intake and Output 06/27/16 06/27/16 06/28/16 15:00 23:00 07:00 Intake Total 934.35 ml 817.47 ml 1051.87 ml Output Total 425 ml 255 ml 335 ml Balance 509.35 ml 562.47 ml 716.87 ml Exam HEENT: Normocephalic and trach is in place. GENERAL: A contracted gentleman in no acute distress. CARDIOVASCULAR: Regular rate and rhythm, S1 and S2. CHEST: There are diffuse rhonchi and coarse breath sounds bilaterally with diminished breath sounds at the bases. ABDOMEN: Soft, nontender. Positive bowel sounds. EXTREMITIES: No cyanosis, clubbing or edema. Results Result Diagram: 06/28/16 0400 06/28/16 0400 Results 24 hrs Laboratory Tests Test 06/28/16 04:00 06/28/16 04:10 06/28/16 05:00 Anion Gap 17 H Basophils # 0.0 Basophils % 0.0 Blood Morphology Comment Blood Urea Nitrogen 78 H Calcium Level 8.5 Carbon Dioxide Level 18 L Chloride Level 106 Creatinine 2.91 H Eosinophils # 0.0 Eosinophils % 0.0 Glucose Level 167 Hematocrit 30.0 L Hemoglobin 10.2 L Lymphocytes # 1.0 Lymphocytes % 6.4 L Magnesium Level 2.3 Mean Corpuscular Hemoglobin 29.0 Mean Corpuscular Hemoglobin Concent 34.0 Mean Corpuscular Volume 85.3 Mean Platelet Volume 7.6 Monocytes # 0.4 Monocytes % 2.9 Neutrophils # 13.7 H Neutrophils % 90.7 H Nucleated Red Blood Cells # 0.0 Nucleated Red Blood Cells % 0.0 Phosphorus Level 5.7 H Platelet Count 479 #H Potassium Level 3.3 L Red Blood Count 3.52 L Red Cell Distribution Width 17.7 H Sodium Level 138 White Blood Count 15.1 #H Lactic Acid Level 1.1 Arterial Blood HCO3 14.9 L Arterial Blood Base Excess -9.8 L Arterial Blood Oxygen Saturation 97.4 River Test ACCEPTAB Arterial Blood Gas Puncture Site LB Arterial Blood Carboxyhemoglobin 0.3 Arterial Blood Date Drawn 06/28/2016 4:55:28 AM Arterial Blood Methemoglobin 0.3 Arterial Blood pCO2 (Temp correct) 29.0 L Arterial Blood pH (Temp corrected) 7.329 L Arterial Blood pO2 (Temp corrected) 110.6 H Blood Gas A-a O2 Differential 105.2 H Blood Gas Actual Respiration Rate 23 Blood Gas Low PEEP Setting 5.0 Blood Gas Modality VENT - AC Blood Gas Notified Time 06/28/2016 5:11:35 AM Blood Gas Notified Whom MG Blood Gas Respiration Rate 16.0 Blood Gas Specimen Source Blood arterial Blood Gas Temperature 37.0 Blood Gas Tidal Volume 500.0 FiO2 35.0 Oxyhemoglobin Percent 96.8 Total Hemoglobin 11.0 L Medications Medications Current Medications Sodium Chloride (NS) 1,000 ml @ 75 mls/hr [id number] IV Last administered on 06/28 06:12; Admin Dose 75 MLS/HR; Start 06/25/16 at 17:48 Enoxaparin Sodium 30 mg 30 mg DAILY SC Last administered on 06/28/16 13:55; Admin Dose 30 MG; Start 06/26/16 at 09:00 Norepinephrine/ Dextrose (Levophed/D5W) 500 ml @ 1.875 mls/ hr TITRATE IV Last administered on 06/27/16 22:06; Admin Dose 7.5 MLS/HR; Start 06/25/16 at 21 :00 Acetaminophen (Tylenol Liquid) 650 mg Q6H PRN GTB PAIN AND OR ELEVATED TEMP; Start 06/25/16 at 23:30 Amiodarone HCl (Cordarone) 200 mg DAILY GTB Last administered on 06/28/16 08: 31; Admin Dose 200 MG; Start 06/26/16 at 09:00 Eye Lubricant (Artificial Tears Oph) 2 drop Q6H PRN BOTH EYES DRY EYES; Start 06/25/16 at 23:30 Ascorbic Acid (Vitamin C) 500 mg DAILY GTB Last administered on 06/28/16 08:30 ; Admin Dose 500 MG; Start 06/26/16 at 09:00 Cholecalciferol (Vitamin D) 5,000 unit DAILY GTB Last administered on 08:31; Admin Dose 5,000 UNIT; Start 06/26/16 at 09:00 Ferrous Sulfate (Feosol Liquid Cup) 300 mg BID GTB Last administered on 08:30; Admin Dose 300 MG; Start 06/26/16 at 09:00 Lactobacillus Acidophilus/ Rhamnosus (Culturelle) 1 cap BID GTB Last administered on 06/28/16 08:31; Admin Dose 1 CAP; Start 06/26/16 at 09:00 Lansoprazole (Prevacid) 30 mg DAILY@06 GTB Last administered on 06/28/16 06:08 ; Admin Dose 30 MG; Start 06/26/16 at 06:00 Levetiracetam (Keppra Liquid) 500 mg BID GTB Last administered on 06/28/16 09: 00; Admin Dose 500 MG; Start 06/26/16 at 09:00 Linezolid 600 mg 600 mg BID GTB Last administered on 06/28/16 08:31; Admin Dose 600 MG; Start 06/26/16 at 09:00 Meropenem (Merrem 500 Mg/ 100 ml (Pmx)) 100 ml @ 200 mls/hr Q12 IVPB Last administered on 06/28/16 08:30; Admin Dose 200 MLS/HR; Start 06/26/16 at 09:00 Multivitamins (Thera-Plus) 5 ml DAILY GTB Last administered on 06/28/16 08:30 ; Admin Dose 5 ML; Start 06/26/16 at 09:00 Nystatin (Nystatin Powder) 1 applic Q12 PRN TOP ITCHING; Start 06/25/16 at 23:30 Sodium Hypochlorite (Dakin'S (1/4 Strength)) 1 applic BID PRN TOP NOTE; Start 06/25/16 at 23:30 Voriconazole (Vfend) 200 mg BID GTB Last administered on 06/28/16 08:31; Admin Dose 200 MG; Start 06/26/16 at 09:00 Zinc Sulfate (Zinc Sulfate) 220 mg DAILY GTB Last administered on 06/28/16 08: 30; Admin Dose 220 MG; Start 06/26/16 at 09:00 Hydrocortisone (Solu-Cortef) 50 mg Q8 IV Last administered on 06/28/16 13:48; Admin Dose 50 MG; Start 06/26/16 at 14:00 Sodium Hypochlorite (Dakin'S (1/4 Strength)) 1 applic DAILY@10 TOP Last administered on 06/28/16 16:15; Admin Dose 1 APPLIC; Start 06/26/16 at 10:00 Nystatin 1 applic 1 applic TID@10,13,21 TOP Last administered on 06/28/16 12: 51; Admin Dose 1 APPLIC; Start 06/26/16 at 10:00 Metronidazole (Flagyl 500 Mg (Pmx)) 100 ml @ 100 mls/hr Q8 IVPB Last administered on 06/28/16 13:48; Admin Dose 100 MLS/HR; Start 06/26/16 at 14:00 Vancomycin HCl (Vancomycin Oral Syringe) 250 mg Q6 PO Last administered on 06/28 17:57; Admin Dose 250 MG; Start 06/26/16 at 13:00 Levothyroxine Sodium (Synthroid) 150 mcg DAILY@06 GTB Last administered on 06/28 06:08; Admin Dose 150 MCG; Start 06/28/16 at 06:00 SUN MCNAMARA MD Jun 28, 2016 18:43
[2016-06-29] VITALS (95 sets, daily range): BP systolic 79–121; BP diastolic 47–71; PULSE 53–70; RESP 12–27
[2016-06-29] MEDS: IPRATROPIUM (HFA) 12.9 GM INHALER INH SCH ×6 (01:13→21:28)
[2016-06-29] MEDS: ALBUTEROL HFA 8 GM INHALER INH SCH ×6 (01:13→21:28)
[2016-06-29 05:18] LABS: AADO2 Arterial 106.7 mmHg (7.0-24.0); Arterial Base Excess -8.5 mmol/L (-3.0-3); Arterial COHb 0.3 % (0.0-3.0); Arterial Fraction of Oxyhgb 96.7 % (93.0-99.0); Arterial MetHb 0.4 % (0.0-1.5); Arterial Total Hemglobin 9.5 g/dl (12.0-18.0); MODE VENT - AC
[2016-06-29] MEDS: LANSOPRAZOLE 30 MG CAP GTB SCH (05:31)
[2016-06-29] MEDS: HYDROCORTISONE 100 MG INJ IV SCH ×3 (05:31→21:53)
[2016-06-29] MEDS: LEVOTHYROXINE 125 MCG TAB GTB SCH ×2 (05:31→08:11)
[2016-06-29] MEDS: metroNIDAZOLE 500 MG/NS (PMX) 100 ML IVPB SCH ×3 (05:32→21:53)
[2016-06-29 05:48] LABS: HEMATOCRIT 27.3 % (42.0-52.0); HEMOGLOBIN 9.1 g/dl (14.0-18.0); LYMPHOCYTES # 0.8 10^3/ul (0.8-2.9); LYMPHOCYTES % 5.7 % (15.0-51.0); MEAN CORPUSCULAR HEMOGLOBIN 28.8 pg (29.0-33.0); MEAN CORPUSCULAR HGB CONC 33.6 g/dl (32.0-37.0); MEAN CORPUSCULAR VOLUME 85.9 fl (82.0-101.0); MEAN PLATELET VOLUME 7.4 fl (7.4-10.4); MONOCYTE # 0.5 10^3/ul (0.3-0.9); MONOCYTES % 3.4 % (0.0-11.0); NEUTROPHIL # 12.6 10^3/ul (1.6-7.5); NEUTROPHILS % 90.9 % (39.0-77.0); PLATELET COUNT 411 10^3/UL (140-440); RED BLOOD COUNT 3.18 10^6/ul (4.70-6.10); RED CELL DISTRIBUTION WIDTH 17.7 % (11.5-14.5); UNCORRECTED WBC 13.9 10^3/ul (4.8-10.8); WHITE BLOOD COUNT 13.9 10^3/ul (4.8-10.8)
[2016-06-29] MEDS: VANCOMYCIN HCL 250 MG/5ML POSYG PO SCH ×4 (05:48→23:40)
[2016-06-29 06:13] LABS: CONDITION 1; LH ANALYZER COMMENTS 1
[2016-06-29 06:15] LABS: POTASSIUM 3.7 mmol/L (3.5-5.1)
[2016-06-29 06:18] LABS: CREATININE 2.72 mg/dl (0.61-1.24)
[2016-06-29 06:19] LABS: CALCIUM 8.2 mg/dl (8.4-10.2); MAGNESIUM 2.3 mg/dl (1.7-2.5); PHOSPHORUS 5.1 mg/dl (2.5-4.9)
--- NOTE | 2016-06-29 07:00 | CONS ---
DATE OF ADMISSION: 06/25/2016 DATE OF CONSULTATION: REASON FOR CONSULTATION: Surgical. HISTORY OF PRESENT ILLNESS: This is a 61-year-old male with a past medical history significant for respiratory failure, history of dysphagia on chronic ventilatory support through a tracheostomy and PEG. The patient was at [facility], admitted after this patient had a CVA. The patient was ad mitted to the [facility] because of sepsis. PAST MEDICAL HISTORY: CVA, hypertension, hyperlipidemia, diabetes, coronary artery disease. PAST SURGICAL HISTORY: PEG and tracheostomy. ALLERGIES: NONE. SOCIAL HISTORY: No smoking, drinking, or drug use. MEDICATIONS: List reviewed. PHYSICAL EXAMINATION: VITAL SIGNS: Blood pressure is 96/62, pulse is 61, respirations 18, saturations 98% on 35% FIO2. T he patient is on a trach. HEENT: Normocephalic, atraumatic. PERRLA. NECK: Supple. No JVD, no carotid bruits. CARDIOVASCULAR: Normal S1, S2. ABDOMEN: Soft. EXTREMITIES: Warm. LABORATORY VALUES: Significant for a hemoglobin of 10.3, hemoglobin 11.3, platelet count 393. IMPRESSION: Sepsis. RECOMMENDATIONS: We will proceed with placement of a central line. Discussed with the patient. Nikos l questions answered. Dictated By: ELO HAMILTON/EMELINA Conf#: [id number] DID#: [id number]
[2016-06-29] MEDS: ZINC SULFATE 220 MG CAP GTB SCH (08:12)
[2016-06-29] MEDS: CHOLECALCIFEROL 1,000 UNIT TAB GTB SCH (08:12)
[2016-06-29] MEDS: ASCORBIC ACID 500 MG TAB GTB SCH (08:12)
[2016-06-29] MEDS: ZYVOX 600 MG TAB GTB SCH ×2 (08:12→20:22)
[2016-06-29] MEDS: LACTOBACILLUS RHAMNOSUS CAP GTB SCH ×2 (08:12→20:23)
[2016-06-29] MEDS: VORICONAZOLE 200 MG TAB GTB SCH ×2 (08:12→20:23)
[2016-06-29] MEDS: MEROPENEM 500 MG/100 ML (PMX) 100 ML IVPB SCH ×2 (08:13→20:23)
[2016-06-29] MEDS: FERROUS SULFATE 60 MG/ML 5ML CUP GTB SCH ×2 (08:13→20:23)
[2016-06-29] MEDS: LEVETIRACETAM (100 MG/ML) 5ML CUP GTB SCH ×2 (08:13→20:23)
[2016-06-29] MEDS: MULTIVITAMINS 5 ML CUP GTB SCH (08:13)
[2016-06-29] MEDS: ENOXAPARIN 30 MG/0.3 ML SYG SC SCH (08:18)
--- NOTE | 2016-06-29 08:52 | CONS ---
Date/Time of Note Date/Time of Note DATE: 06/29/16 TIME: 08:49 Assessment/Plan Assessment/Plan Additional Assessment/Plan Assessment and recommendations; 1. Patient with chronic respiratory failure due to underlying severe anoxic encephalopathy. Next 2. Sepsis a combination of pneumonia and UTI. Next 3. Stable seizure disorder . 4. Hypothyroidism. 5. History of cardiac arrhythmia. 6. CHF which is mildly decompensated next 7. Chronic renal insufficiency with stable serum creatinine. Continue current treatment. Antibiotic de-escalation per ID recommendations. Prognosis remains poor. Consultation Date/Type/Reason Admit Date/Time Jun 25, 2016 at 18:35 Initial Consult Date 06/26/16 Type of Consultation: Pulmonary/critical care 24 HR Interval Summary Free Text/Dictation Patient condition remains unchanged. Remains unresponsive due to severe underlying anoxic enthesopathy. Patient still mildly hypotensive requiring low- dose Levophed for blood pressure maintenance. No seizure activity noted. General examination; elderly male, on mechanical ventilation via tracheostomy, unresponsive and currently in no distress. Exam/Review of Systems Vital Signs Vitals Vital Signs Date Time Temp Pulse Resp B/P Pulse Ox O2 Delivery O2 Flow Rate FiO2 06/29/16 08:41 60 06/29/16 06:15 18 103/56 100 Mechanical Ventilator 06/29/16 05:15 30 06/29/16 04:00 97.6 06/26/16 17:00 2.0 Intake and Output 06/28/16 06/28/16 06/29/16 15:00 23:00 07:00 Intake Total 1410.60 ml 1205.58 ml 1014.34 ml Output Total 380 ml 478 ml 283 ml Balance 1030.60 ml 727.58 ml 731.34 ml Exam Current ventilator settings are AC of 16, tidal volume 500, PEEP of 5, 30% FiO2. HEENT examination; supple neck, positive JVD. No lymphadenopathy. No thyromegaly. Pupils are midsize bilaterally. And reactive to light. Tracheostomy in place with clean insertion site. Chest examination; diminished breath on lung bases bilaterally. S1-S2 audible, no murmurs. Abdomen examination; soft, nondistended, no organomegaly. G-tube in place. Bowel sounds audible. Extremity examination; no peripheral edema. [employer]MENT [employer] examination; patient remains unresponsive. Results Result Diagram: 06/29/160 2/13/17 0440 Results 24 hrs Laboratory Tests Test 06/29/16 04:40 06/29/16 05:00 Anion Gap 17 H Basophils # 0.0 Basophils % 0.0 Blood Morphology Comment Blood Urea Nitrogen 86 H Calcium Level 8.2 L Carbon Dioxide Level 17 L Chloride Level 110 Creatinine 2.72 H Eosinophils # 0.0 Eosinophils % 0.0 Glucose Level 132 Hematocrit 27.3 L Hemoglobin 9.1 L Lactic Acid Level 1.9 Lymphocytes # 0.8 Lymphocytes % 5.7 L Magnesium Level 2.3 Mean Corpuscular Hemoglobin 28.8 L Mean Corpuscular Hemoglobin Concent 33.6 Mean Corpuscular Volume 85.9 Mean Platelet Volume 7.4 Monocytes # 0.5 Monocytes % 3.4 Neutrophils # 12.6 H Neutrophils % 90.9 H Nucleated Red Blood Cells # 0.0 Nucleated Red Blood Cells % 0.0 Phosphorus Level 5.1 H Platelet Count 411 Potassium Level 3.7 Red Blood Count 3.18 L Red Cell Distribution Width 17.7 H Sodium Level 140 White Blood Count 13.9 H Arterial Blood HCO3 16.0 L Arterial Blood Base Excess -8.5 L Arterial Blood Oxygen Saturation 97.4 River Test N/A Arterial Blood Gas Puncture Site Right Brachial Arterial Blood Carboxyhemoglobin 0.3 Arterial Blood Date Drawn 06/29/2016 4:35:36 AM Arterial Blood Methemoglobin 0.4 Arterial Blood pCO2 (Temp correct) 29.4 L Arterial Blood pH (Temp corrected) 7.353 Arterial Blood pO2 (Temp corrected) 108.7 H Blood Gas A-a O2 Differential 106.7 H Blood Gas Actual Respiration Rate 22 Blood Gas Low PEEP Setting 5.0 Blood Gas Modality VENT - AC Blood Gas Notified Time 06/29/2016 5:18:16 AM Blood Gas Notified Whom MM Blood Gas Respiration Rate 16.0 Blood Gas Specimen Source Blood arterial Blood Gas Temperature 37.0 Blood Gas Tidal Volume 500.0 FiO2 35.0 Oxyhemoglobin Percent 96.7 Total Hemoglobin 9.5 L Medications Medications Current Medications Sodium Chloride (NS) 1,000 ml @ 50 mls/hr Q20H IV Last administered on 20:01; Admin Dose 75 MLS/HR; Start 06/25/16 at 17:48 Enoxaparin Sodium 30 mg 30 mg DAILY SC Last administered on 06/29/16 08:18; Admin Dose 30 MG; Start 06/26/16 at 09:00 Norepinephrine/ Dextrose (Levophed/D5W) 500 ml @ 1.875 mls/ hr TITRATE IV Last administered on 06/27/16 22:06; Admin Dose 7.5 MLS/HR; Start 06/25/16 at 21 :00 Acetaminophen (Tylenol Liquid) 650 mg Q6H PRN GTB PAIN AND OR ELEVATED TEMP; Start 06/25/16 at 23:30 Amiodarone HCl (Cordarone) 200 mg DAILY GTB Last administered on 06/28/16 08: 31; Admin Dose 200 MG; Start 06/26/16 at 09:00 Eye Lubricant (Artificial Tears Oph) 2 drop Q6H PRN BOTH EYES DRY EYES; Start 06/25/16 at 23:30 Ascorbic Acid (Vitamin C) 500 mg DAILY GTB Last administered on 06/29/16 08:12 ; Admin Dose 500 MG; Start 06/26/16 at 09:00 Cholecalciferol (Vitamin D) 5,000 unit DAILY GTB Last administered on 08:12; Admin Dose 5,000 UNIT; Start 06/26/16 at 09:00 Ferrous Sulfate (Feosol Liquid Cup) 300 mg BID GTB Last administered on 08:13; Admin Dose 300 MG; Start 06/26/16 at 09:00 Lactobacillus Acidophilus/ Rhamnosus (Culturelle) 1 cap BID GTB Last administered on 06/29/16 08:12; Admin Dose 1 CAP; Start 06/26/16 at 09:00 Lansoprazole (Prevacid) 30 mg DAILY@06 GTB Last administered on 06/29/16 05:31 ; Admin Dose 30 MG; Start 06/26/16 at 06:00 Levetiracetam (Keppra Liquid) 500 mg BID GTB Last administered on 06/29/16 08: 13; Admin Dose 500 MG; Start 06/26/16 at 09:00 Linezolid 600 mg 600 mg BID GTB Last administered on 06/29/16 08:12; Admin Dose 600 MG; Start 06/26/16 at 09:00 Meropenem (Merrem 500 Mg/ 100 ml (Pmx)) 100 ml @ 200 mls/hr Q12 IVPB Last administered on 06/29/16 08:13; Admin Dose 200 MLS/HR; Start 06/26/16 at 09:00 Multivitamins (Thera-Plus) 5 ml DAILY GTB Last administered on 06/29/16 08:13 ; Admin Dose 5 ML; Start 06/26/16 at 09:00 Nystatin (Nystatin Powder) 1 applic Q12 PRN TOP ITCHING; Start 06/25/16 at 23:30 Sodium Hypochlorite (Dakin'S (1/4 Strength)) 1 applic BID PRN TOP NOTE; Start 06/25/16 at 23:30 Voriconazole (Vfend) 200 mg BID GTB Last administered on 06/29/16 08:12; Admin Dose 200 MG; Start 06/26/16 at 09:00 Zinc Sulfate (Zinc Sulfate) 220 mg DAILY GTB Last administered on 06/29/16 08: 12; Admin Dose 220 MG; Start 06/26/16 at 09:00 Hydrocortisone (Solu-Cortef) 50 mg Q8 IV Last administered on 06/29/16 05:31; Admin Dose 50 MG; Start 06/26/16 at 14:00 Sodium Hypochlorite (Dakin'S (1/4 Strength)) 1 applic DAILY@10 TOP Last administered on 06/28/16 16:15; Admin Dose 1 APPLIC; Start 06/26/16 at 10:00 Nystatin 1 applic 1 applic TID@10,13,21 TOP Last administered on 06/28/16 20: 41; Admin Dose 1 APPLIC; Start 06/26/16 at 10:00 Metronidazole (Flagyl 500 Mg (Pmx)) 100 ml @ 100 mls/hr Q8 IVPB Last administered on 06/29/16 05:32; Admin Dose 100 MLS/HR; Start 06/26/16 at 14:00 Vancomycin HCl (Vancomycin Oral Syringe) 250 mg Q6 PO Last administered on 06/29 05:48; Admin Dose 250 MG; Start 06/26/16 at 13:00 Levothyroxine Sodium (Synthroid) 150 mcg DAILY@06 GTB Last administered on 06/29 08:11; Admin Dose 150 MCG; Start 06/28/16 at 06:00 EFRA ROMAN Jun 29, 2016 08:52
[2016-06-29] MEDS: NYSTATIN 30 GM POWDER BTL TOP SCH ×3 (09:30→20:23)
--- NOTE | 2016-06-29 09:53 | PN ---
DATE: 06/29/2016 SUBJECTIVE: The patient remains critically ill on pressor support, being weaned down. No other acu te events noted. No hemoptysis, hematemesis or hematochezia. OBJECTIVE: VITAL SIGNS: Blood pressure is 130/56, respiration 18, pulse 61, temperature 98.6. I's AND O'S: The patient had 3.7 L in with 1.1 liters out. HEENT: Head is normocephalic. NECK: Shows trach. HEART: Regular rate. LUNGS: Show diminished breath sounds at the base, positive crackles. ABDOMEN: Soft, nontender to palpation without rebound or guarding. EXTREMITIES: Negative for clubbing, cyanosis. No edema. DERMATOLOGIC: No rashes. MUSCULOSKELETAL: Positive decubitus wound. NEUROLOGIC: No change in exam. MEDICATIONS: The patient's medications have been reviewed. LABORATORY DATA: Showed sodium 140, potassium .7, chloride 110, bicarbonate 17, BUN 86, creati nine 2.72, calcium 8.2, phosphorus 5.1. White count 13.9, hemoglobin 9.1, hematocrit 37.3, platelet count 444. ABG from 06/29/2016 shows a pH 7.35, pCO2 of 29 and base excess of -8.5. IMAGING STUDIES: Chest x-ray on 06/28/2016 shows pulmonary edema, bibasilar atelectasis and pleural effusions, unchanged. ASSESSMENT AND PLAN: 1. Septic shock, etiology is multifactorial secondary to healthcare-associated pneumonia, possible fungal urinary tract infection. The patient remains on pressor support, on broad spectrum antimicro bial antifungal therapy, IV fluids. Plan at this point is to continue current treatment plan. Cont inue antibiotics. Will attempt to wean off pressor support. Cultures have been reviewed and negati ve to date. Will continue to monitor closely. 2. Ventilator dependent respiratory failure. Vent settings have been reviewed. ABG has been revie wed. Continue to monitor. Follow up with Pulmonary. 3. Pulmonary edema. The patient's chest x-ray shows findings consistent with pulmonary edema. Thi s is likely due to capillary leak from underlying septic shock. Will attempt to minimize IV hydrati on and will consider diuretic therapy. Will follow closely. 4. Dysphagia status post percutaneous endoscopic gastrostomy tube. Continue tube feed. 5. Nonoliguric acute kidney injury on top of chronic kidney disease with unknown baseline creatinin e. Etiology of acute kidney injury is secondary to acute tubular necrosis due to septic acute kidne y injury. The patient's renal function appears to be stabilizing. At this point, continue current treatment plan. Continue supportive care, continue IV antibiotics, treat underlying sepsis. Contin ue pressor support and maintain MAP above 65. Monitor closely. 6. Anemia of chronic disease. Continue to monitor H and H levels. No evidence of GI bleed. 7. Mineral bone disorder. Continue to monitor calcium and phosphorus levels. 8. Decubitus wound stage IV. Continue wound care. 9. Chronic encephalopathy secondary to anoxic brain injury. Continue to monitor. 10. History of cerebrovascular accident. Continue medical management. 11. Hypothyroidism. Continue Synthroid. 12. Fungal urinary tract infection. Continue Voriconazole. 13. Seizure disorder. Continue Keppra. 14. Arrhythmia. Continue current medical management. Follow up with Cardiology. 15. Gastrointestinal and deep venous thrombosis prophylaxis. Continue proton pump inhibitor and Lo venox. Please note I spent over 40 minutes of critical care time with this patient, discussed the case with the hospital staff. Dictated By: TYLER JACOBO/EMELINA Conf#: [id number] DID#: [id number]
--- NOTE | 2016-06-29 10:24 | RADRPT ---
PROCEDURE: XR Chest. CLINICAL INDICATION: Respiratory failure TECHNIQUE: An AP view of the chest was obtained. COMPARISON: Chest x-ray dated 06/28/2016 FINDINGS: A tracheostomy tube remains in place. There is a left subclavian central venous catheter with tip near the junction of the left brachiocephalic vein and SVC. A right-sided chest tube is in place. There are bibasilar interstitial opacities with small bilateral pleural effusions. No focal airspa ce opacification or pneumothorax is seen. The cardiomediastinal silhouette is mildly enlarged . Ca lcifications are seen within the aortic arch. The osseous structures demonstrate senescent changes. IMPRESSION: 1. Bibasilar interstitial opacities, likely reflecting interstitial edema with small bilateral pleu ral effusions. Overall, no significant interval change. 2. Mild cardiomegaly and aortic atherosclerosis. 3. Tubes and lines, as described above. RPTAT: HH .Aniyah Coreas MD, MD Date Time Electronically viewed and signed by .Aniyah Coreas MD, on 06/29/2016 10:24 .G/
--- NOTE | 2016-06-29 11:18 | CONS ---
Date/Time of Note Date/Time of Note DATE: 06/29/16 TIME: 11:18 Assessment/Plan Assessment/Plan Chief Complaint/Hosp Course ASSESSMENT AND PLAN: This is a 61-year-old male with acute sepsis associated with Anemia, N-cytic with increased RDW HX ACD HX GIB HX NEEDS FOR PRBC ON SEVERAL OCCASIONS AT [facility] CONT TO MONITOR BLOOD COUNT CLOSELY OBSERVE FOR BLEEDING AND HEMOLYSIS TRANSFUSE NEEDED Will continue to monitor hemoglobin and hematocrit levels. No evidence of gastrointestinal bleed at this time. Septic shock. Underlying source is multifactorial secondary to possible pneumonia, possible fungal urinary tract infection. The patient is currently on pressor support, IV fluids, receiving broad spectrum antibiotics, antifungal therapy. Plan at this point is to continue current treatment plan. Will attempt to wean off pressor support. blood cultures- neg. Will follow up lactic acid and procalcitonin level. Will follow up with infectious disease for recommendations. Ventilator dependent respiratory failure. Vent settings have been reviewed. ABG has been reviewed. Continue to monitor. Follow up with Pulmonary. Dysphagia, status post percutaneous endoscopic gastrostomy tube feeding. Nonoliguric acute kidney injury on top of chronic kidney disease with unknown baseline creatinine. Etiology of current acute kidney injury is unclear, possibly secondary to sepsis, TTN, hemodynamics. Plan at this point is to do a full evaluation. Will check UA with microanalysis. Will check urine electrolytes. Will check a renal ultrasound to rule out obstruction. Will continue IV hydration, continue pressor support, and maintain MAP above 65. Continue treating underlying sepsis with IV antibiotics. Will monitor closely. Hyponatremia, etiology is multifactorial secondary to acute kidney injury with decreased free water urinary excretion. Will follow up a repeat sodium level. Will limit free water intake and monitor. 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 At this point, will continue to monitor. If there is any change in mental status will get a CT scan of the brain. The patient has a history of CVA. Continue medical management. Hypothyroidism. The patient's TSH levels are markedly elevated. Will increase Synthroid to 150 mcg daily and monitor. Fungal urinary tract infection. Continue voriconazole. Seizure disorder. Continue Keppra. Gastrointestinal and deep venous thrombosis prophylaxis. Will continue Prevacid and Lovenox. Arrhythmia. Continue amiodarone. Gastrointestinal and deep venous thrombosis prophylaxis. Continue proton pump inhibitor and Lovenox. Problems: Consultation Date/Type/Reason Admit Date/Time Jun 25, 2016 at 18:35 Initial Consult Date 06/26/16 Referring Provider: TYLER HAINES DO 24 HR Interval Summary Free Text/Dictation The patient remains critically ill on pressor support, being weaned down. No other acute events noted. No hemoptysis, hematemesis or hematochezia. Exam/Review of Systems Vital Signs Vitals Vital Signs Date Time Temp Pulse Resp B/P Pulse Ox O2 Delivery O2 Flow Rate FiO2 06/29/16 08:41 60 06/29/16 08:00 30 06/29/16 06:15 18 103/56 100 Mechanical Ventilator 06/29/16 04:00 97.6 06/26/16 17:00 2.0 Intake and Output 06/28/16 06/28/16 06/29/16 15:00 23:00 07:00 Intake Total 1410.60 ml 1205.58 ml 1014.34 ml Output Total 380 ml 478 ml 283 ml Balance 1030.60 ml 727.58 ml 731.34 ml Exam HEENT: Head is normocephalic. NECK: Shows trach. HEART: Regular rate. LUNGS: Show diminished breath sounds at the base, positive crackles. ABDOMEN: Soft, nontender to palpation without rebound or guarding. EXTREMITIES: Negative for clubbing, cyanosis. No edema. DERMATOLOGIC: No rashes. MUSCULOSKELETAL: Positive decubitus wound. NEUROLOGIC: No change in exam. Results Result Diagram: 06/29/16 0440 06/29/16 0440 Results 24 hrs Laboratory Tests Test 06/29/16 04:40 06/29/16 05:00 Anion Gap 17 H Basophils # 0.0 Basophils % 0.0 Blood Morphology Comment Blood Urea Nitrogen 86 H Calcium Level 8.2 L Carbon Dioxide Level 17 L Chloride Level 110 Creatinine 2.72 H Eosinophils # 0.0 Eosinophils % 0.0 Glucose Level 132 Hematocrit 27.3 L Hemoglobin 9.1 L Lactic Acid Level 1.9 Lymphocytes # 0.8 Lymphocytes % 5.7 L Magnesium Level 2.3 Mean Corpuscular Hemoglobin 28.8 L Mean Corpuscular Hemoglobin Concent 33.6 Mean Corpuscular Volume 85.9 Mean Platelet Volume 7.4 Monocytes # 0.5 Monocytes % 3.4 Neutrophils # 12.6 H Neutrophils % 90.9 H Nucleated Red Blood Cells # 0.0 Nucleated Red Blood Cells % 0.0 Phosphorus Level 5.1 H Platelet Count 411 Potassium Level 3.7 Red Blood Count 3.18 L Red Cell Distribution Width 17.7 H Sodium Level 140 White Blood Count 13.9 H Arterial Blood HCO3 16.0 L Arterial Blood Base Excess -8.5 L Arterial Blood Oxygen Saturation 97.4 River Test N/A Arterial Blood Gas Puncture Site Right Brachial Arterial Blood Carboxyhemoglobin 0.3 Arterial Blood Date Drawn 06/29/2016 4:35:36 AM Arterial Blood Methemoglobin 0.4 Arterial Blood pCO2 (Temp correct) 29.4 L Arterial Blood pH (Temp corrected) 7.353 Arterial Blood pO2 (Temp corrected) 108.7 H Blood Gas A-a O2 Differential 106.7 H Blood Gas Actual Respiration Rate 22 Blood Gas Low PEEP Setting 5.0 Blood Gas Modality VENT - AC Blood Gas Notified Time 06/29/2016 5:18:16 AM Blood Gas Notified Whom MM Blood Gas Respiration Rate 16.0 Blood Gas Specimen Source Blood arterial Blood Gas Temperature 37.0 Blood Gas Tidal Volume 500.0 FiO2 35.0 Oxyhemoglobin Percent 96.7 Total Hemoglobin 9.5 L Medications Medications Current Medications Sodium Chloride (NS) 1,000 ml @ 50 mls/hr Q20H IV Last administered on 20:01; Admin Dose 75 MLS/HR; Start 06/25/16 at 17:48 Enoxaparin Sodium 30 mg 30 mg DAILY SC Last administered on 06/29/16 08:18; Admin Dose 30 MG; Start 06/26/16 at 09:00 Norepinephrine/ Dextrose (Levophed/D5W) 500 ml @ 1.875 mls/ hr TITRATE IV Last administered on 06/27/16 22:06; Admin Dose 7.5 MLS/HR; Start 06/25/16 at 21 :00 Acetaminophen (Tylenol Liquid) 650 mg Q6H PRN GTB PAIN AND OR ELEVATED TEMP; Start 06/25/16 at 23:30 Amiodarone HCl (Cordarone) 200 mg DAILY GTB Last administered on 06/28/16 08: 31; Admin Dose 200 MG; Start 06/26/16 at 09:00 Eye Lubricant (Artificial Tears Oph) 2 drop Q6H PRN BOTH EYES DRY EYES; Start 06/25/16 at 23:30 Ascorbic Acid (Vitamin C) 500 mg DAILY GTB Last administered on 06/29/16 08:12 ; Admin Dose 500 MG; Start 06/26/16 at 09:00 Cholecalciferol (Vitamin D) 5,000 unit DAILY GTB Last administered on 08:12; Admin Dose 5,000 UNIT; Start 06/26/16 at 09:00 Ferrous Sulfate (Feosol Liquid Cup) 300 mg BID GTB Last administered on 08:13; Admin Dose 300 MG; Start 06/26/16 at 09:00 Lactobacillus Acidophilus/ Rhamnosus (Culturelle) 1 cap BID GTB Last administered on 06/29/16 08:12; Admin Dose 1 CAP; Start 06/26/16 at 09:00 Lansoprazole (Prevacid) 30 mg DAILY@06 GTB Last administered on 06/29/16 05:31 ; Admin Dose 30 MG; Start 06/26/16 at 06:00 Levetiracetam (Keppra Liquid) 500 mg BID GTB Last administered on 06/29/16 08: 13; Admin Dose 500 MG; Start 06/26/16 at 09:00 Linezolid 600 mg 600 mg BID GTB Last administered on 06/29/16 08:12; Admin Dose 600 MG; Start 06/26/16 at 09:00 Meropenem (Merrem 500 Mg/ 100 ml (Pmx)) 100 ml @ 200 mls/hr Q12 IVPB Last administered on 06/29/16 08:13; Admin Dose 200 MLS/HR; Start 06/26/16 at 09:00 Multivitamins (Thera-Plus) 5 ml DAILY GTB Last administered on 06/29/16 08:13 ; Admin Dose 5 ML; Start 06/26/16 at 09:00 Nystatin (Nystatin Powder) 1 applic Q12 PRN TOP ITCHING; Start 06/25/16 at 23:30 Sodium Hypochlorite (Dakin'S (1/4 Strength)) 1 applic BID PRN TOP NOTE; Start 06/25/16 at 23:30 Voriconazole (Vfend) 200 mg BID GTB Last administered on 06/29/16 08:12; Admin Dose 200 MG; Start 06/26/16 at 09:00 Zinc Sulfate (Zinc Sulfate) 220 mg DAILY GTB Last administered on 06/29/16 08: 12; Admin Dose 220 MG; Start 06/26/16 at 09:00 Hydrocortisone (Solu-Cortef) 50 mg Q8 IV Last administered on 06/29/16 05:31; Admin Dose 50 MG; Start 06/26/16 at 14:00 Sodium Hypochlorite (Dakin'S (1/4 Strength)) 1 applic DAILY@10 TOP Last administered on 06/28/16 16:15; Admin Dose 1 APPLIC; Start 06/26/16 at 10:00 Nystatin 1 applic 1 applic TID@10,13,21 TOP Last administered on 06/28/16 20: 41; Admin Dose 1 APPLIC; Start 06/26/16 at 10:00 Metronidazole (Flagyl 500 Mg (Pmx)) 100 ml @ 100 mls/hr Q8 IVPB Last administered on 06/29/16 05:32; Admin Dose 100 MLS/HR; Start 06/26/16 at 14:00 Vancomycin HCl (Vancomycin Oral Syringe) 250 mg Q6 PO Last administered on 06/29 05:48; Admin Dose 250 MG; Start 06/26/16 at 13:00 Levothyroxine Sodium (Synthroid) 150 mcg DAILY@06 GTB Last administered on 06/29 08:11; Admin Dose 150 MCG; Start 06/28/16 at 06:00 SUN MCNAMARA MD Jun 29, 2016 11:18
[2016-06-29] MEDS: SODIUM HYPOCHLORITE 0.125% 473 ML BTL TOP SCH (13:00)
--- NOTE | 2016-06-29 13:57 | PN ---
DATE: 06/29/2016 INFECTIOUS DISEASE PROGRESS NOTE SUBJECTIVE: No acute events overnight. No fevers. The patient is lying comfortably in bed, nonver bal, noncommunicative, on low-dose Levophed. WBC today is 13.9, H and H 9.1 and 27.3, platelets 411 , neutrophils 90.9. BUN 86, creatinine 2.72. MICROBIOLOGY: Blood cultures remain negative. Urine culture growing yeast. DIAGNOSTICS: Chest x-ray this morning revealed bilateral interstitial opacities, mild cardiomegaly. INDWELLINGS: Trach, PEG, Evans, left subclavian triple lumen catheter placed on June 27. ANTIMICROBIALS: The patient is on: 1. Flagyl IV. 2. Oral vancomycin. 3. Zyvox. 4. Meropenem. 5. Voriconazole. 6. Solu-Cortef q.8 hours. PHYSICAL EXAMINATION: GENERAL: A fragile, chronically ill-appearing, elderly man who is in no distress. HEENT: Head atraumatic, normocephalic. Sclerae anicteric. Buccal mucosa dry. NECK: Supple. Tracheostomy present. CHEST: Rise symmetrical. Breath sounds diminished to bases. HEART: S1, S2. ABDOMEN: Soft, bowel sounds present. EXTREMITIES: Contractured without cyanosis. SKIN: With unstageable sacral decubitus. ASSESSMENT: 1. Severe sepsis with shock. 2. Fungal urinary tract infection. 3. Sacral osteomyelitis status post multiple debridements. 4. Clostridium difficile colitis. 5. Healthcare-associated pneumonia. 6. Chronic encephalopathy. 7. Acute renal failure, likely combination of acute tubular necrosis and antibiotics, the patient w as previously on colistin. PLAN: The patient remains unchanged. Covered with appropriate antibiotics which we are going to co ntinue. He is being seen by multiple consultants. Continue local wound care. Dictated By: CARLITOS RIOS STATISTICAL FINANCIAL ANALYST for NYASIA TOMPKINS/EMELINA Conf#: [id number] DID#: [id number]
[2016-06-29] MEDS: SOD CHLORIDE 0.9% 1,000 ML IV SCH ×2 (14:40→21:41)
[2016-06-29] MEDS: AMIODARONE 200 MG TAB GTB SCH (15:55)
[2016-06-29 16:53] LABS: MICROALBUMIN 3.1 mg/dL
--- NOTE | 2016-06-29 18:43 | PN ---
DATE: 06/29/2016 CARDIOLOGY FOLLOWUP SUBJECTIVE: Discussed with the staff. Rhythm strip was reviewed. The patient is status post trach eostomy, on the vent. Still hypotensive, required to be on Levophed drip. He has remained in sinus rhythm. No other cardiac event. No report of bleeding. The patient is on trach and nonverbal. MEDICATIONS: As per medical reconciliation, which was personally reviewed, and includes: 1. Flagyl. 2. Vancomycin. 3. Nystatin. 4. Amiodarone. 5. Keppra. 6. Meropenem. 7. Zyvox. PHYSICAL EXAMINATION: VITAL SIGNS: Temperature 98.6, heart rate of 56, blood pressure 93/54, respiration rate of 19, satu rating 100%. HEENT: Normocephalic, atraumatic. Eyes: Left eye ptosis. NECK: Supple. Tracheostomy on the vent. CARDIOVASCULAR: Regular rate and rhythm. Systolic murmur. PULMONARY: Mild rhonchi, diffuse. GASTROINTESTINAL: Status post PEG placement, otherwise soft. No rebound. EXTREMITIES: With mild diffuse edema. NEUROLOGIC: Opens his eyes, responds, follows basic commands. DIAGNOSTIC DATA: Chest x-ray shows bilateral interstitial opacities, likely residual edema, small b ilateral pleural effusion. LABORATORY: WBC of 18.9, hemoglobin 9.1, platelets of 411. Sodium 140, potassium 3.7, BUN of 86, c reatinine of 2.72. ASSESSMENT AND PLAN: 1. Septic shock. 2. Pneumonia. 3. Possible urinary tract infection. 4. Hypoxemic respiratory failure, status post tracheostomy, vent dependent. 5. Pulmonary edema. 6. Dysphagia, status post percutaneous endoscopic gastrostomy placement. 7. Renal failure. 8. Anemia. 9. Decubitus ulcer with stage IV ulcer. 10. Encephalopathy and anoxic brain injury. 11. History of cerebrovascular accident. 12. History of hypothyroidism, on Synthroid. 13. History of seizure disorder. 14. Arrhythmia, on amiodarone, currently stable. RECOMMENDATIONS: We will continue with Levophed as tolerated. I will order an echocardiogram to ev aluate for LV function. Supportive care will be continued. The patient's multiple antibiotics will be managed as per ID recommendation. Respiratory care and vent support will be continued. We will continue with ICU care. More than 38 minutes of critical care time was spent in management of this patient excluding any pro cedures. Dictated By: RAMBO FERNANDES/EMELINA Conf#: [id number] DID#: [id number] CC: TYLER HAINES DO; JACKSON HERNANDEZ DO;*EndCC*
--- NOTE | 2016-06-29 20:55 | CONS ---
Date/Time of Note Date/Time of Note DATE: 06/25/16 TIME: 21:55vk le Assessment/Plan Assessment/Plan Chief Complaint/Hosp Course ASSESSMENT AND PLAN: This is a 61-year-old male with acute sepsis associated with Anemia, N-cytic with increased RDW HX ACD HX GIB HX NEEDS FOR PRBC ON SEVERAL OCCASIONS CONT TO MONITOR BLOOD COUNT CLOSELY OBSERVE FOR BLEEDING AND HEMOLYSIS TRANSFUSE NEEDED Will continue to monitor hemoglobin and hematocrit levels. No evidence of gastrointestinal bleed at this time. Septic shock. Underlying source is multifactorial secondary to possible pneumonia, possible fungal urinary tract infection. The patient is currently on pressor support, IV fluids, receiving broad spectrum antibiotics, antifungal therapy. Plan at this point is to continue current treatment plan. Will attempt to wean off pressor support. Will follow up blood cultures, urine cultures. Will follow up lactic acid and procalcitonin level. Will follow up with infectious disease for recommendations. Ventilator dependent respiratory failure. Vent settings have been reviewed. ABG has been reviewed. Continue to monitor. Follow up with Pulmonary. Dysphagia, status post percutaneous endoscopic gastrostomy tube feeding. Nonoliguric acute kidney injury on top of chronic kidney disease with unknown baseline creatinine. Etiology of current acute kidney injury is unclear, possibly secondary to sepsis, TTN, hemodynamics. Plan at this point is to do a full evaluation. Will check UA with microanalysis. Will check urine electrolytes. Will check a renal ultrasound to rule out obstruction. Will continue IV hydration, continue pressor support, and maintain MAP above 65. Continue treating underlying sepsis with IV antibiotics. Will monitor closely. Hyponatremia, etiology is multifactorial secondary to acute kidney injury with decreased free water urinary excretion. Will follow up a repeat sodium level. Will limit free water intake and monitor. 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 At this point, will continue to monitor. If there is any change in mental status will get a CT scan of the brain. The patient has a history of CVA. Continue medical management. Hypothyroidism. The patient's TSH levels are markedly elevated. Will increase Synthroid to 150 mcg daily and monitor. Fungal urinary tract infection. Continue voriconazole. Seizure disorder. Continue Keppra. Gastrointestinal and deep venous thrombosis prophylaxis. Will continue Prevacid and Lovenox. Arrhythmia. Continue amiodarone. Gastrointestinal and deep venous thrombosis prophylaxis. Continue proton pump inhibitor and Lovenox. Problems: Consultation Date/Type/Reason Admit Date/Time Jun 25, 2016 at 18:35 Date of Consultation: Jun 25, 2016 Type of Consultation: HEMEONC Reason for Consultation ANEMIA Referring Provider: TYLER HAINES of Present Illness This is a 61-year-old male with a past medical history of ventilator dependent respiratory failure, history of dysphagia, status post PEG, history of chronic encephalopathy secondary to anoxic brain injury, history of CVA, previous history of sepsis, history of hypothyroidism, history of diabetes and complex anemia who was transferred from [facility] to [facility] due to septic shock. The patient's history begins in 2014 when he initially presented to an outside hospital, [place], with acute stroke. The patient was subsequently transferred to [facility] on 09/04/2014. The patient underwent management at that time with TPA. He was found to have acute ventral mid brain, the medial thalamus CVA. The patient had a Duncan coma scale of 4. The patient remained diffusely quadriplegic in coma and encephalopathic. The patient at that time also had sepsis fungemia and was treated accordingly. The patient was then transferred to [facility] and was subsequently transferred to a [facility] facility, [facility]. The patient was recently readmitted to [facility] with sepsis. He was stabilized and then transferred to [facility] for continued care. The patient, however, then developed septic shock and was transferred to [facility]. Upon my evaluation at this time he is nonverbal. There have been no reports of hemoptysis, hemetemesis, or hematochezia. The patient is currently on pressor support and IV fluids. He has had adequate urinary output. No other acute events noted. he was noted to be anemic and I was asked to provide hemeonc consult PAST MEDICAL HISTORY: As stated above, history of ventilator dependent respiratory failure, history of dysphagia, history of CVA, history of diabetes, history of chronic encephalopathy, history of coronary artery disease, history of hypothyroidism, previous history of hypertension, complex anemia PAST SURGICAL HISTORY: Status post trach, status post PEG. FAMILY HISTORY: Noncontributory. SOCIAL HISTORY: Does not drink, smoke. Lives at a subacute facility. MEDICATIONS: The patient's medications have been reviewed and reconciled. ALLERGIES: PATIENT IS ALLERGIC TO IODINE. REVIEW OF SYSTEMS: Unable to do adequate review of systems as patient is obtunded. Pertinent positives obtained by reviewing medical records, speaking to hospital staff, as stated in HPI, otherwise negative. Social History Smoking Status: Unknown if ever smoked Exam/Review of Systems Vital Signs Vitals vs- reviewed, per ICU record Exam PHYSICAL EXAMINATION: VITAL SIGNS: Blood pressure is currently 99/53, respiration 18, pulse 63, temperature 98.6. I's AND O'S: The patient had 1800 in with 1100 out. HEENT: Head is normocephalic. Pupils are reactive but sluggish. NECK: Shows trach. HEART: Regular rate. LUNGS: Show diminished breath sounds at base. Positive rhonchi and crackles. ABDOMEN: Soft, nontender to palpation. Positive PEG. EXTREMITIES: Negative for clubbing, cyanosis, edema. DERMATOLOGIC: No rashes. MUSCULOSKELETAL: Positive decubitus wound. NEUROLOGIC: Limited exam as the patient is obtunded, unable to cooperate with examination. Results Result Diagram: 06/29/16 0440 06/29/16 0440 Results 24 hrs Laboratory Tests Test 06/29/16 04:40 06/29/16 05:00 Anion Gap 17 H Basophils # 0.0 Basophils % 0.0 Blood Morphology Comment Blood Urea Nitrogen 86 H Calcium Level 8.2 L Carbon Dioxide Level 17 L Chloride Level 110 Creatinine 2.72 H Eosinophils # 0.0 Eosinophils % 0.0 Glucose Level 132 Hematocrit 27.3 L Hemoglobin 9.1 L Lactic Acid Level 1.9 Lymphocytes # 0.8 Lymphocytes % 5.7 L Magnesium Level 2.3 Mean Corpuscular Hemoglobin 28.8 L Mean Corpuscular Hemoglobin Concent 33.6 Mean Corpuscular Volume 85.9 Mean Platelet Volume 7.4 Monocytes # 0.5 Monocytes % 3.4 Neutrophils # 12.6 H Neutrophils % 90.9 H Nucleated Red Blood Cells # 0.0 Nucleated Red Blood Cells % 0.0 Phosphorus Level 5.1 H Platelet Count 411 Potassium Level 3.7 Red Blood Count 3.18 L Red Cell Distribution Width 17.7 H Sodium Level 140 White Blood Count 13.9 H Arterial Blood HCO3 16.0 L Arterial Blood Base Excess -8.5 L Arterial Blood Oxygen Saturation 97.4 River Test N/A Arterial Blood Gas Puncture Site Right Brachial Arterial Blood Carboxyhemoglobin 0.3 Arterial Blood Date Drawn 06/29/2016 4:35:36 AM Arterial Blood Methemoglobin 0.4 Arterial Blood pCO2 (Temp correct) 29.4 L Arterial Blood pH (Temp corrected) 7.353 Arterial Blood pO2 (Temp corrected) 108.7 H Blood Gas A-a O2 Differential 106.7 H Blood Gas Actual Respiration Rate 22 Blood Gas Low PEEP Setting 5.0 Blood Gas Modality VENT - AC Blood Gas Notified Time 06/29/2016 5:18:16 AM Blood Gas Notified Whom MM Blood Gas Respiration Rate 16.0 Blood Gas Specimen Source Blood arterial Blood Gas Temperature 37.0 Blood Gas Tidal Volume 500.0 FiO2 35.0 Oxyhemoglobin Percent 96.7 Total Hemoglobin 9.5 L Medications Medications Current Medications Sodium Chloride (NS) 1,000 ml @ 50 mls/hr Q20H IV Last administered on 14:40; Admin Dose 50 MLS/HR; Start 06/25/16 at 17:48 Enoxaparin Sodium 30 mg 30 mg DAILY SC Last administered on 06/29/16 08:18; Admin Dose 30 MG; Start 06/26/16 at 09:00 Norepinephrine/ Dextrose (Levophed/D5W) 500 ml @ 1.875 mls/ hr TITRATE IV Last administered on 06/27/16 22:06; Admin Dose 7.5 MLS/HR; Start 06/25/16 at 21 :00 Acetaminophen (Tylenol Liquid) 650 mg Q6H PRN GTB PAIN AND OR ELEVATED TEMP; Start 06/25/16 at 23:30 Amiodarone HCl (Cordarone) 200 mg DAILY GTB Last administered on 06/28/16 08: 31; Admin Dose 200 MG; Start 06/26/16 at 09:00 Eye Lubricant (Artificial Tears Oph) 2 drop Q6H PRN BOTH EYES DRY EYES; Start 06/25/16 at 23:30 Ascorbic Acid (Vitamin C) 500 mg DAILY GTB Last administered on 06/29/16 08:12 ; Admin Dose 500 MG; Start 06/26/16 at 09:00 Cholecalciferol (Vitamin D) 5,000 unit DAILY GTB Last administered on 08:12; Admin Dose 5,000 UNIT; Start 06/26/16 at 09:00 Ferrous Sulfate (Feosol Liquid Cup) 300 mg BID GTB Last administered on 20:23; Admin Dose 300 MG; Start 06/26/16 at 09:00 Lactobacillus Acidophilus/ Rhamnosus (Culturelle) 1 cap BID GTB Last administered on 06/29/16 20:23; Admin Dose 1 CAP; Start 06/26/16 at 09:00 Lansoprazole (Prevacid) 30 mg DAILY@06 GTB Last administered on 06/29/16 05:31 ; Admin Dose 30 MG; Start 06/26/16 at 06:00 Levetiracetam (Keppra Liquid) 500 mg BID GTB Last administered on 06/29/16 20: 23; Admin Dose 500 MG; Start 06/26/16 at 09:00 Linezolid 600 mg 600 mg BID GTB Last administered on 06/29/16 20:22; Admin Dose 600 MG; Start 06/26/16 at 09:00 Meropenem (Merrem 500 Mg/ 100 ml (Pmx)) 100 ml @ 200 mls/hr Q12 IVPB Last administered on 06/29/16 20:23; Admin Dose 200 MLS/HR; Start 06/26/16 at 09:00 Multivitamins (Thera-Plus) 5 ml DAILY GTB Last administered on 06/29/16 08:13 ; Admin Dose 5 ML; Start 06/26/16 at 09:00 Nystatin (Nystatin Powder) 1 applic Q12 PRN TOP ITCHING; Start 06/25/16 at 23:30 Sodium Hypochlorite (Dakin'S (1/4 Strength)) 1 applic BID PRN TOP NOTE; Start 06/25/16 at 23:30 Voriconazole (Vfend) 200 mg BID GTB Last administered on 06/29/16 20:23; Admin Dose 200 MG; Start 06/26/16 at 09:00 Zinc Sulfate (Zinc Sulfate) 220 mg DAILY GTB Last administered on 06/29/16 08: 12; Admin Dose 220 MG; Start 06/26/16 at 09:00 Hydrocortisone (Solu-Cortef) 50 mg Q8 IV Last administered on 06/29/16 14:50; Admin Dose 50 MG; Start 06/26/16 at 14:00 Sodium Hypochlorite (Dakin'S (1/4 Strength)) 1 applic DAILY@10 TOP Last administered on 06/29/16 13:00; Admin Dose 1 APPLIC; Start 06/26/16 at 10:00 Nystatin 1 applic 1 applic TID@,13,21 TOP Last administered on 06/29/16 20: 23; Admin Dose 1 APPLIC; Start 06/26/16 at 10:00 Metronidazole (Flagyl 500 Mg (Pmx)) 100 ml @ 100 mls/hr Q8 IVPB Last administered on 06/29/16 14:51; Admin Dose 100 MLS/HR; Start 06/26/16 at 14:00 Vancomycin HCl (Vancomycin Oral Syringe) 250 mg Q6 PO Last administered on 06/29 17:42; Admin Dose 250 MG; Start 06/26/16 at 13:00 Levothyroxine Sodium (Synthroid) 150 mcg DAILY@06 GTB Last administered on 06/29 08:11; Admin Dose 150 MCG; Start 06/28/16 at 06:00 Procedures Procedures LABORATORY DATA: From 06/25/2016 shows white count 10.6, hemoglobin 9.7, hematocrit 29.6, platelet count 203. Sodium 128, potassium 4.3, chloride 98, bicarbonate 19, BUN 86, creatinine 2.68, AST 80, ABG is reviewed. IMAGING STUDIES: Chest x-ray shows bilateral lower lobe opacities which may represent alveolar edema or pneumonia. SUN MCNAMARA MD Jun 29, 2016 20:55
[2016-06-30] VITALS (83 sets, daily range): BP systolic 76–121; BP diastolic 45–110; PULSE 57–90; RESP 16–30
[2016-06-30] MEDS: IPRATROPIUM (HFA) 12.9 GM INHALER INH SCH ×6 (01:09→20:07)
[2016-06-30] MEDS: ALBUTEROL HFA 8 GM INHALER INH SCH ×6 (01:09→20:07)
[2016-06-30 05:14] LABS: BASOPHILS % 0.3 % (0.0-2.0); HEMATOCRIT 26.1 % (42.0-52.0); HEMOGLOBIN 8.9 g/dl (14.0-18.0); LYMPHOCYTES # 0.6 10^3/ul (0.8-2.9); LYMPHOCYTES % 5.1 % (15.0-51.0); MEAN CORPUSCULAR VOLUME 85.4 fl (82.0-101.0); MEAN PLATELET VOLUME 7.1 fl (7.4-10.4); MONOCYTE # 0.5 10^3/ul (0.3-0.9); MONOCYTES % 4.4 % (0.0-11.0); NEUTROPHIL # 9.8 10^3/ul (1.6-7.5); NEUTROPHILS % 90.2 % (39.0-77.0); PLATELET COUNT 345 10^3/UL (140-440); RED BLOOD COUNT 3.05 10^6/ul (4.70-6.10); RED CELL DISTRIBUTION WIDTH 17.8 % (11.5-14.5); UNCORRECTED WBC 10.9 10^3/ul (4.8-10.8); WHITE BLOOD COUNT 10.9 10^3/ul (4.8-10.8)
[2016-06-30 05:16] LABS: CONDITION 1; LH ANALYZER COMMENTS 1
[2016-06-30 05:37] LABS: POTASSIUM 3.7 mmol/L (3.5-5.1)
[2016-06-30] MEDS: VANCOMYCIN HCL 250 MG/5ML POSYG PO SCH ×3 (05:37→17:37)
[2016-06-30] MEDS: LEVOTHYROXINE 125 MCG TAB GTB SCH (05:37)
[2016-06-30] MEDS: metroNIDAZOLE 500 MG/NS (PMX) 100 ML IVPB SCH ×3 (05:38→21:25)
[2016-06-30] MEDS: LANSOPRAZOLE 30 MG CAP GTB SCH (05:38)
[2016-06-30 05:39] LABS: CREATININE 2.79 mg/dl (0.61-1.24)
[2016-06-30 05:40] LABS: CALCIUM 7.9 mg/dl (8.4-10.2); MAGNESIUM 2.3 mg/dl (1.7-2.5); PHOSPHORUS 4.8 mg/dl (2.5-4.9)
[2016-06-30] MEDS: HYDROCORTISONE 100 MG INJ IV SCH ×3 (05:41→21:25)
[2016-06-30] MEDS: AMIODARONE 200 MG TAB GTB SCH (08:51)
[2016-06-30] MEDS: ZINC SULFATE 220 MG CAP GTB SCH (08:51)
[2016-06-30] MEDS: FERROUS SULFATE 60 MG/ML 5ML CUP GTB SCH ×2 (08:51→20:34)
[2016-06-30] MEDS: CHOLECALCIFEROL 1,000 UNIT TAB GTB SCH (08:52)
[2016-06-30] MEDS: ASCORBIC ACID 500 MG TAB GTB SCH (08:52)
[2016-06-30] MEDS: VORICONAZOLE 200 MG TAB GTB SCH ×2 (08:52→20:34)
[2016-06-30] MEDS: MULTIVITAMINS 5 ML CUP GTB SCH (08:52)
[2016-06-30] MEDS: ENOXAPARIN 30 MG/0.3 ML SYG SC SCH (08:55)
[2016-06-30] MEDS ORDERED: FUROSEMIDE 40 MG INJ IV ONE (09:00)
[2016-06-30] MEDS: LEVETIRACETAM (100 MG/ML) 5ML CUP GTB SCH ×2 (09:16→20:34)
[2016-06-30] MEDS: ZYVOX 600 MG TAB GTB SCH ×2 (09:16→20:34)
[2016-06-30] MEDS: LACTOBACILLUS RHAMNOSUS CAP GTB SCH ×2 (09:16→20:34)
[2016-06-30] MEDS: NYSTATIN 30 GM POWDER BTL TOP SCH ×3 (09:17→20:34)
[2016-06-30] MEDS: MEROPENEM 500 MG/100 ML (PMX) 100 ML IVPB SCH ×2 (09:17→20:34)
[2016-06-30] MEDS: SODIUM HYPOCHLORITE 0.125% 473 ML BTL TOP SCH (09:18)
--- NOTE | 2016-06-30 09:23 | CONS ---
Date/Time of Note Date/Time of Note DATE: 06/30/16 TIME: 09:20 Assessment/Plan Assessment/Plan Additional Assessment/Plan Assessment and recommendations; 1. Chronic respiratory failure due to anoxic encephalopathy. 2. Congestive heart failure. 3. Renal insufficiency. 4. Sepsis which is combination of UTI and pneumonia with improving leukocytosis. 5. Hypertension patient now off Levophed drip. Next 6. Hypothyroidism. Next 7. Stable seizure disorder. Continue current treatment. I did have a discussion the patient's at bedside and answered all her questions. Prognosis remains poor. Consultation Date/Type/Reason Admit Date/Time Jun 25, 2016 at 18:35 Initial Consult Date 06/26/16 Type of Consultation: Pulmonary/critical care 24 HR Interval Summary Free Text/Dictation Patient condition remains stable. Has been off Levophed drip now. Remains unresponsive due to underlying anoxic encephalopathy. General examination; middle aged man on mechanical ventilation via tracheostomy , currently in no distress. Exam/Review of Systems Vital Signs Vitals Vital Signs Date Time Temp Pulse Resp B/P Pulse Ox O2 Delivery O2 Flow Rate FiO2 06/30/16 06:00 60 20 90/58 100 06/30/16 05:31 30 06/30/16 05:00 Mechanical Ventilator 06/30/16 04:00 97.6 06/26/16 17:00 2.0 Intake and Output 06/29/16 06/29/16 06/30/16 15:00 23:00 07:00 Intake Total 1129.96 ml 1234.353 ml 801.87 ml Output Total 405 ml 315 ml 335 ml Balance 724.96 ml 919.353 ml 466.87 ml Exam H EENT examination; supple neck, positive JVD. No lymphadenopathy. Patient is edentulous. A colostomy in place with clean insertion site. Pupils are midsize and reactive to light bilaterally. Chest examination; diminished breath on lung bases bilaterally. Upper lobes are fairly clear. S1-S2 audible, no murmurs. Regular rhythm. Abdomen examination; soft, nondistended, no organomegaly. G-tube in place. Bowel sounds audible. Extremity examination; trace edema. 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 Ventilator settings; assist control 14, tidal volume 500, PEEP of 5, 40% FiO2. Results Result Diagram: 2/14/17 0440 2/14/17 0440 Results 24 hrs Laboratory Tests Test 06/30/16 04:40 Anion Gap 16 Basophils # 0.0 Basophils % 0.3 Blood Morphology Comment Blood Urea Nitrogen 86 H Calcium Level 7.9 L Carbon Dioxide Level 18 L Chloride Level 110 Creatinine 2.79 H Eosinophils # 0.0 Eosinophils % 0.0 Glucose Level 156 Hematocrit 26.1 L Hemoglobin 8.9 L Lymphocytes # 0.6 L Lymphocytes % 5.1 L Magnesium Level 2.3 Mean Corpuscular Hemoglobin 29.0 Mean Corpuscular Hemoglobin Concent 34.0 Mean Corpuscular Volume 85.4 Mean Platelet Volume 7.1 L Monocytes # 0.5 Monocytes % 4.4 Neutrophils # 9.8 H Neutrophils % 90.2 H Nucleated Red Blood Cells # 0.0 Nucleated Red Blood Cells % 0.0 Phosphorus Level 4.8 Platelet Count 345 Potassium Level 3.7 Red Blood Count 3.05 L Red Cell Distribution Width 17.8 H Sodium Level 140 White Blood Count 10.9 #H Medications Medications Current Medications Enoxaparin Sodium 30 mg 30 mg DAILY SC Last administered on 06/30/16 08:55; Admin Dose 30 MG; Start 06/26/16 at 09:00 Norepinephrine/ Dextrose (Levophed/D5W) 500 ml @ 1.875 mls/ hr TITRATE IV Last administered on 06/27/16 22:06; Admin Dose 7.5 MLS/HR; Start 06/25/16 at 21 :00 Acetaminophen (Tylenol Liquid) 650 mg Q6H PRN GTB PAIN AND OR ELEVATED TEMP; Start 06/25/16 at 23:30 Amiodarone HCl (Cordarone) 200 mg DAILY GTB Last administered on 06/30/16 08: 51; Admin Dose 200 MG; Start 06/26/16 at 09:00 Eye Lubricant (Artificial Tears Oph) 2 drop Q6H PRN BOTH EYES DRY EYES; Start 06/25/16 at 23:30 Ascorbic Acid (Vitamin C) 500 mg DAILY GTB Last administered on 06/30/16 08:52 ; Admin Dose 500 MG; Start 06/26/16 at 09:00 Cholecalciferol (Vitamin D) 5,000 unit DAILY GTB Last administered on 08:52; Admin Dose 5,000 UNIT; Start 06/26/16 at 09:00 Ferrous Sulfate (Feosol Liquid Cup) 300 mg BID GTB Last administered on 08:51; Admin Dose 300 MG; Start 06/26/16 at 09:00 Lactobacillus Acidophilus/ Rhamnosus (Culturelle) 1 cap BID GTB Last administered on 06/29/16 20:23; Admin Dose 1 CAP; Start 06/26/16 at 09:00 Lansoprazole (Prevacid) 30 mg DAILY@06 GTB Last administered on 06/30/16 05:38 ; Admin Dose 30 MG; Start 06/26/16 at 06:00 Levetiracetam (Keppra Liquid) 500 mg BID GTB Last administered on 06/29/16 20: 23; Admin Dose 500 MG; Start 06/26/16 at 09:00 Linezolid 600 mg 600 mg BID GTB Last administered on 06/29/16 20:22; Admin Dose 600 MG; Start 06/26/16 at 09:00 Meropenem (Merrem 500 Mg/ 100 ml (Pmx)) 100 ml @ 200 mls/hr Q12 IVPB Last administered on 06/29/16 20:23; Admin Dose 200 MLS/HR; Start 06/26/16 at 09:00 Multivitamins (Thera-Plus) 5 ml DAILY GTB Last administered on 06/30/16 08:52 ; Admin Dose 5 ML; Start 06/26/16 at 09:00 Nystatin (Nystatin Powder) 1 applic Q12 PRN TOP ITCHING; Start 06/25/16 at 23:30 Sodium Hypochlorite (Dakin'S (1/4 Strength)) 1 applic BID PRN TOP NOTE; Start 06/25/16 at 23:30 Voriconazole (Vfend) 200 mg BID GTB Last administered on 06/30/16 08:52; Admin Dose 200 MG; Start 06/26/16 at 09:00 Zinc Sulfate (Zinc Sulfate) 220 mg DAILY GTB Last administered on 06/30/16 08: 51; Admin Dose 220 MG; Start 06/26/16 at 09:00 Sodium Hypochlorite (Dakin'S (1/4 Strength)) 1 applic DAILY@10 TOP Last administered on 06/29/16 13:00; Admin Dose 1 APPLIC; Start 06/26/16 at 10:00 Nystatin 1 applic 1 applic TID@,13,21 TOP Last administered on 06/29/16 20: 23; Admin Dose 1 APPLIC; Start 06/26/16 at 10:00 Metronidazole (Flagyl 500 Mg (Pmx)) 100 ml @ 100 mls/hr Q8 IVPB Last administered on 06/30/16 05:38; Admin Dose 100 MLS/HR; Start 06/26/16 at 14:00 Vancomycin HCl (Vancomycin Oral Syringe) 250 mg Q6 PO Last administered on 06/30 05:37; Admin Dose 250 MG; Start 06/26/16 at 13:00 Levothyroxine Sodium (Synthroid) 150 mcg DAILY@06 GTB Last administered on 06/30 05:37; Admin Dose 150 MCG; Start 06/28/16 at 06:00 Hydrocortisone (Solu-Cortef) 25 mg Q8 IV ; Start 06/30/16 at 14:00 EFRA ROMAN Jun 30, 2016 09:23
--- NOTE | 2016-06-30 10:20 | PN ---
DATE: 06/30/2016 SUBJECTIVE: The patient remains critical, but has been weaned off pressor support. No other acute events noted. No hemoptysis, hematemesis or hematochezia. OBJECTIVE: VITAL SIGNS: Blood pressure 90/58, respiratory rate 20, pulse 60, temperature 97.6. I's and O's: The patient had 3.2 liters in, 1 liter out. HEENT: Head is normocephalic. NECK: Supple. HEART: Regular rate. LUNGS: Show diminished breath sounds at the bases. ABDOMEN: Soft, nontender to palpation. No rebound or guarding. EXTREMITIES: Negative for clubbing, cyanosis. No edema. DERMATOLOGIC: No rashes. MUSCULOSKELETAL: No joint effusions. The patient has known decubitus wound. NEUROLOGIC: No change in exam. LABORATORY DATA: Shows sodium 140, potassium 3.7, chloride 110, BUN 86, creatinine 2.79. White cou nt 10.9, hemoglobin 9.9, hematocrit 26.1, platelet count is 345. IMAGING: Chest x-ray on 06/29/2016 shows bibasilar opacities reflecting interstitial edema, no sign ificant change. ASSESSMENT AND PLAN: 1. Septic shock. Etiology secondary to healthcare-associated pneumonia, fungal urinary tract infec tion. The patient has currently been weaned off pressor support for the last 4 hours. At this poin t, we will continue antimicrobial therapy, antifungal therapy. We will discontinue IV fluids and mo nitor closely. Follow up with infectious disease. 2. Ventilator-dependent respiratory failure. Vent settings have been reviewed. ABG has been revie wed. Continue to monitor. 3. Pulmonary edema. Etiology is likely due to capillary leak from septic shock. The patient is cu rrently off pressors. We will discontinue IV fluids, give a dose of diuretics and monitor. 4. Dysphagia, status post PEG tube. Continue tube feeding. 5. Nonoliguric acute kidney injury on top of chronic kidney disease with unknown baseline creatinin e. Etiology of acute kidney injury is secondary to acute tubular necrosis due to septic acute kidne y injury. The patient's renal function appears to be stable. Continue current treatment plan, supp ortive care, renally dose all meds. 6. Anemia of chronic disease. Continue to monitor hemoglobin and hematocrit levels. No evidence o f gastrointestinal bleed. 7. Mineral bone disorder. Continue to monitor calcium and phosphorus levels. 8. Decubitus wound stage IV. Continue wound care. 9. Chronic encephalopathy secondary to anoxic brain injury. Continue to monitor. 10. History of cerebrovascular accident. 11. Hypothyroidism. Continue Synthroid. 12. Fungal urinary tract infection. Continue voriconazole. 13. Seizure disorder. Continue Keppra. 14. Arrhythmia. Continue current medical management. Follow up with cardiology. 15. Gastrointestinal and deep venous thrombosis prophylaxis. Continue proton pump inhibitor and Lo venox. Dictated By: TYLER JACOBO/EMELINA Conf#: [id number] DID#: [id number]
--- NOTE | 2016-06-30 11:54 | PN ---
DATE: 06/30/2016 SUBJECTIVE: No acute events. The patient is off pressors, lying comfortably in bed, afebrile. WBC today 10.9, H and H 8.9 and 26.1, platelets 345,000, neutrophils 90.2, BUN 86, creatinine 2.79. MICROBIOLOGY: Urine culture growing Shanice glabrata. Blood culture negative. ANTIMICROBIALS: The patient is on: 1. IV Flagyl. 2. Oral vancomycin. 3. Oral Zyvox. 4. Meropenem. 5. Voriconazole. INDWELLINGS: Trach, PEG, Evans, left subclavian triple-lumen catheter. PHYSICAL EXAMINATION: GENERAL: This is a chronically ill-appearing, fragile, elderly man who is nonverbal, noncommunicati ve. The patient is in no distress. HEENT: Head atraumatic, normocephalic. Sclerae anicteric. Buccal mucosa dry. NECK: Supple, tracheostomy present. CHEST: Rise symmetrical. Breath sounds diminished to bases. HEART: S1, S2. ABDOMEN: Soft. Bowel tones present. EXTREMITIES: With trace edema. ASSESSMENT: 1. Sepsis, status post shock. 2. Sacral osteomyelitis. 3. Urinary tract infection. 4. Clostridium difficile colitis. 5. Healthcare-associated pneumonia. 6. Acute kidney injury. 7. Anemia. 8. History of cerebrovascular accident. PLAN: The patient remains stable off pressors, covered with appropriate antimicrobials. Continue p resent care. Follow recommendations of consultants. Dictated By: CARLITOS RIOS CLIP COATER for NYASIA TOMPKINS/EMELINA Conf#: [id number] DID#: [id number]
--- NOTE | 2016-06-30 12:24 | RADRPT ---
Echocardiogram Report Patient Name: MARU KAHN Gender: Male Date: 1955 Study Date: 30-Jun-2016 Rigging Supervisor: Viola Rodríguez RDCS Location: [facility] Ref. Physician: RAMBO OH Quality: Technically Difficult Study Procedures: Transthoracic echocardiogram with complete 2D, M-Mode, and doppler examination. Indications: Shock. 2D/M Mode Doppler Measurement Value Normal Ranges Measurement Value Normal Ranges LVIDd 2D 5.9 3.5 - 5.6 cm GUY Vmax 0.7 cm2 LVIDs 2D 4.0 2.1 - 4.1 cm GUY VTI 0.7 cm2 LVPWd 2D 1.4 0.6 - 1.1 cm AV Mean Aristeo 3.2 m/sec IVSd 2D 1.3 0.6 - 1.1 cm AV Mean PG 47.0 mmHg AoR Diam 2D 3.2 2.0 - 3.7 cm AV Peak Aristeo 4.3 m/sec EDV 2D 175.3 cm3 AV Peak PG 74.3 mmHg ESV 2D 66.3 cm3 AV VTI 124.2 cm LA Dimen 2D 5.2 2.3 - 4.0 cm AI Peak PG 50.3 mmHg LVOT Diam 2.2 cm AI Peak Aristeo 3.5 m/sec AI PHT 409.6 msec LVOT Mean [place]iste[place] 0.6 m/sec LVOT Mean PG 1.6 mmHg LVOT Peak Aristeo 0.9 m/sec LVOT Peak PG 2.9 mmHg LVOT VTI 25.7 cm MV E Peak Aristeo 1.8 m/sec MV A Peak Aristeo 1.2 m/sec MV E/A 1.5 MV PHT 201.6 msec MV Peak Aristeo 1.9 m/sec MV Peak PG 14.1 mmHg MV Mean Aristeo 1.3 m/sec MV Mean PG 6.7 mmHg MV Decel Time 540 msec MV Decel Loí[place] 3 MV E/A 1.5 MV PHT 201.6 msec MV VTI 60.4 cm MVA PHT 1.1 cm2 TR Peak Aristeo 3.0 m/sec TR Peak PG 35.2 mmHg RVSP 50.0 mmHg Findings Left Ventricle: Normal left ventricular systolic function. Mild concentric left ventricular hypertrophy. Mild enlargement of left ventricle cavity. Ejection fraction is visually estimated at 60 %. Right Ventricle: Normal right ventricular size. Normal right ventricular systolic function. Left Atrium: There is severe enlargement of left atrium. Right Atrium: There is moderate enlargement of right atrium. Mitral Valve: Moderate mitral valve regurgitation. Moderate mitral stenosis. Mitral valve Max Velocity 1.88 m/sec. MaxPG 14.10 mmHg. MeanPG 6.70 mmHg. Mitral Valve Area by PHT1.10 cm2. Aortic Valve: Aortic valve not well visualized. Severe aortic stenosis. Aortic valve Max velocity 4.31 m/sec. Max PG 74.30 mmHg. Mean PG 47.00 mmHg. Aortic valve area 0.80 cm2. Aortic cusps appear severely calcified. Moderate aortic valve regurgitation. Tricuspid Valve: Estimated peak PA systolic pressure 50 mmHg. There is mild tricuspid regurgitation. Pulmonic Valve: Normal pulmonic valve appearance. Pericardium: Normal pericardium with no significant pericardial effusion. Aorta: Normal aortic root. IVC: Inferior vena cava without respiratory collapse, however, patient on ventilator. Conclusions 1.Normal left ventricular systolic function. Mild concentric left ventricular hypertrophy. Mild enlargement of left ventricle cavity. Ejection fraction is visually estimated at 60 %. 2.There is severe enlargement of left atrium. 3.There is moderate enlargement of right atrium. 4.Moderate mitral valve regurgitation. Moderate mitral stenosis. Mitral valve Max Velocity 1.88 m/sec. MaxPG 14.10 mmHg. MeanPG 6.70 mmHg. Mitral Valve Area by PHT1.10 cm2. 5.Aortic valve not well visualized. Severe aortic stenosis. Aortic valve Max velocity 4.31 m/sec. Max PG 74.30 mmHg. Mean PG 47.00 mmHg. Aortic valve area 0.80 cm2. Aortic cusps appear severely calcified. Moderate aortic valve regurgitation. 6.Estimated peak PA systolic pressure 50 mmHg. There is mild tricuspid regurgitation. 7.Inferior vena cava without respiratory collapse, however, patient on ventilator. Electronically Signed By: Rambo Oh 30-Jun-2016 12:24:16 -0800 Patient Name: MARU KAHN Study Date: 30-Jun-2016 [id number]
--- NOTE | 2016-06-30 13:26 | PN ---
DATE: 06/30/2016 CARDIOLOGY FOLLOWUP SUBJECTIVE: Discussed with the staff. Rhythm strip reviewed. The patient remains in sinus rhythm. He remains on ___ trach on the vent. He has been hypotensive, but was able to be weaned off of Le vophed; however, has been running low blood pressure. MEDICATIONS: Reviewed. PHYSICAL EXAMINATION: VITAL SIGNS: Temperature 98.6, heart rate of 65, blood pressure 96/59, respiratory rate of 23, satu rating 100%. HEENT: Normocephalic, atraumatic. Pupils are equal. NECK: Supple. Tracheostomy on the vent. CARDIOVASCULAR: Regular rate and rhythm, systolic ejection murmur. PULMONARY: With diffuse rhonchi. GASTROINTESTINAL: Soft. No rebound or guarding. EXTREMITIES: With positive edema. NEUROLOGIC: Opens his eyes. LABORATORY DATA: WBC of 10.9, hemoglobin 8.9, platelets of 345. Sodium 140, potassium 3.7, BUN 86, creatinine 2.79, glucose 159, ____ 6. DIAGNOSTIC DATA: Echocardiogram was personally reviewed, which showed normal LV size and systolic fu nction. However, aortic valve appeared to be heavily calcified with probably severe aortic stenosis and moderate aortic insufficiency. Mitral valve also calcified with probably moderate mitral steno sis. Mean gradient across the aortic valve was 47 with peak gradient of 74 mmHg. Calculated valve area of 0.8 cm2. PA pressure elevated at ____ mmHg. Chest x-ray shows bibasilar interstitial opacities likely reflecting interstitial edema. ASSESSMENT AND PLAN: 1. Septic shock. 2. Severe aortic stenosis. 3. Pneumonia. 4. Hypoxemic respiratory failure, status post tracheostomy, vent-dependent. 5. Pulmonary edema and congestive heart failure. 6. Dysphagia, status post percutaneous endoscopic gastrostomy placement. 7. Renal failure. 8. Anemia. 9. Multiple decubitus ulcers 10. Encephalopathy. 11. History of cerebrovascular accident. 12. History of hypothyroidism. 13. History of seizure disorder. RECOMMENDATIONS: The patient remains in ____ arrhythmias, currently stable on amiodarone. Diuresi s as tolerated will be continued. Antibiotics managed as per ID recommendation. Continue the vent support. If the patient needs to be resumed on pressors again, we will start him on dopamine drip. We will continue ICU care and vent support. More than 40 minutes of critical care time was spent in management of this patient excluding any pro cedures. Dictated By: RAMBO FERNANDES/EMELINA Conf#: [id number] DID#: [id number] CC: TYLER HAINES DO;*EndCC*
[2016-06-30] MEDS ORDERED: DOPamine-D5W 1.6 MG/ML 250 ML IV SCH (13:30)
--- NOTE | 2016-06-30 19:07 | CONS ---
Date/Time of Note Date/Time of Note DATE: 06/30/16 TIME: 19:07 Assessment/Plan Assessment/Plan Chief Complaint/Hosp Course ASSESSMENT AND PLAN: This is a 61-year-old male with acute sepsis associated with Anemia, N-cytic with increased RDW HX ACD HX GIB HX NEEDS FOR PRBC ON SEVERAL OCCASIONS CONT TO MONITOR BLOOD COUNT CLOSELY OBSERVE FOR BLEEDING AND HEMOLYSIS TRANSFUSE NEEDED Will continue to monitor hemoglobin and hematocrit levels. No evidence of gastrointestinal bleed at this time. Septic shock. Underlying source is multifactorial secondary to pneumonia, fungal urinary tract infection. The patient is off pressor support, on IV fluids, receiving broad spectrum antibiotics, antifungal therapy. Plan at this point is to continue current treatment plan. Will follow up blood cultures, urine cultures. Will follow up lactic acid and procalcitonin level. Will follow up with infectious disease for recommendations. Ventilator dependent respiratory failure. Vent settings have been reviewed. ABG has been reviewed. Continue to monitor. Follow up with Pulmonary. Dysphagia, status post percutaneous endoscopic gastrostomy tube feeding. Nonoliguric acute kidney injury on top of chronic kidney disease with unknown baseline creatinine. Etiology of current acute kidney injury is unclear, possibly secondary to sepsis, TTN, hemodynamics. Plan at this point is to do a full evaluation. Will check UA with microanalysis. Will check urine electrolytes. Will check a renal ultrasound to rule out obstruction. Will continue IV hydration, continue pressor support, and maintain MAP above 65. Continue treating underlying sepsis with IV antibiotics. Will monitor closely. Hyponatremia, etiology is multifactorial secondary to acute kidney injury with decreased free water urinary excretion. Will follow up a repeat sodium level. Will limit free water intake and monitor. 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 At this point, will continue to monitor. If there is any change in mental status will get a CT scan of the brain. The patient has a history of CVA. Continue medical management. Hypothyroidism. The patient's TSH levels are markedly elevated. Will increase Synthroid to 150 mcg daily and monitor. Fungal urinary tract infection. Continue voriconazole. Seizure disorder. Continue Keppra. Gastrointestinal and deep venous thrombosis prophylaxis. Will continue Prevacid and Lovenox. Arrhythmia. Continue amiodarone. Gastrointestinal and deep venous thrombosis prophylaxis. Continue proton pump inhibitor and Lovenox. Problems: Consultation Date/Type/Reason Admit Date/Time Jun 25, 2016 at 18:35 Initial Consult Date 06/25/16 Referring Provider: TYLER HAINES DO 24 HR Interval Summary Free Text/Dictation The patient remains critical, but has been weaned off pressor support. No other acute events noted. No hemoptysis, hematemesis or hematochezia. Exam/Review of Systems Vital Signs Vitals Vital Signs Date Time Temp Pulse Resp B/P Pulse Ox O2 Delivery O2 Flow Rate FiO2 06/30/16 17:45 63 19 83/47 95 06/30/16 17:00 Mechanical Ventilator 06/30/16 16:46 30 06/30/16 16:00 98.6 06/26/16 17:00 2.0 Intake and Output 06/29/16 06/29/16 06/30/16 15:00 23:00 07:00 Intake Total 1129.96 ml 1234.353 ml 801.87 ml Output Total 405 ml 315 ml 335 ml Balance 724.96 ml 919.353 ml 466.87 ml Exam HEENT: Head is normocephalic. NECK: Supple. HEART: Regular rate. LUNGS: Show diminished breath sounds at the bases. ABDOMEN: Soft, nontender to palpation. No rebound or guarding. EXTREMITIES: Negative for clubbing, cyanosis. No edema. DERMATOLOGIC: No rashes. MUSCULOSKELETAL: No joint effusions. The patient has known decubitus wound. NEUROLOGIC: No change in exam. Results Result Diagram: 06/30/16 0440 06/30/16 0440 Results 24 hrs Laboratory Tests Test 06/30/16 04:40 Anion Gap 16 Basophils # 0.0 Basophils % 0.3 Blood Morphology Comment Blood Urea Nitrogen 86 H Calcium Level 7.9 L Carbon Dioxide Level 18 L Chloride Level 110 Creatinine 2.79 H Eosinophils # 0.0 Eosinophils % 0.0 Glucose Level 156 Hematocrit 26.1 L Hemoglobin 8.9 L Lymphocytes # 0.6 L Lymphocytes % 5.1 L Magnesium Level 2.3 Mean Corpuscular Hemoglobin 29.0 Mean Corpuscular Hemoglobin Concent 34.0 Mean Corpuscular Volume 85.4 Mean Platelet Volume 7.1 L Monocytes # 0.5 Monocytes % 4.4 Neutrophils # 9.8 H Neutrophils % 90.2 H Nucleated Red Blood Cells # 0.0 Nucleated Red Blood Cells % 0.0 Phosphorus Level 4.8 Platelet Count 345 Potassium Level 3.7 Red Blood Count 3.05 L Red Cell Distribution Width 17.8 H Sodium Level 140 White Blood Count 10.9 #H Medications Medications Current Medications Enoxaparin Sodium (Lovenox) 30 mg DAILY SC Last administered on 06/30/16 08:55 ; Admin Dose 30 MG; Start 06/26/16 at 09:00 Acetaminophen (Tylenol Liquid) 650 mg Q6H PRN GTB PAIN AND OR ELEVATED TEMP; Start 06/25/16 at 23:30 Amiodarone HCl (Cordarone) 200 mg DAILY GTB Last administered on 06/30/16 08: 51; Admin Dose 200 MG; Start 06/26/16 at 09:00 Eye Lubricant (Artificial Tears Oph) 2 drop Q6H PRN BOTH EYES DRY EYES; Start 06/25/16 at 23:30 Ascorbic Acid (Vitamin C) 500 mg DAILY GTB Last administered on 06/30/16 08:52 ; Admin Dose 500 MG; Start 06/26/16 at 09:00 Cholecalciferol (Vitamin D) 5,000 unit DAILY GTB Last administered on 08:52; Admin Dose 5,000 UNIT; Start 06/26/16 at 09:00 Ferrous Sulfate (Feosol Liquid Cup) 300 mg BID GTB Last administered on 08:51; Admin Dose 300 MG; Start 06/26/16 at 09:00 Lactobacillus Acidophilus/ Rhamnosus (Culturelle) 1 cap BID GTB Last administered on 06/30/16 09:16; Admin Dose 1 CAP; Start 06/26/16 at 09:00 Lansoprazole (Prevacid) 30 mg DAILY@06 GTB Last administered on 06/30/16 05:38 ; Admin Dose 30 MG; Start 06/26/16 at 06:00 Levetiracetam (Keppra Liquid) 500 mg BID GTB Last administered on 06/30/16 09: 16; Admin Dose 500 MG; Start 06/26/16 at 09:00 Linezolid 600 mg 600 mg BID GTB Last administered on 06/30/16 09:16; Admin Dose 600 MG; Start 06/26/16 at 09:00 Meropenem (Merrem 500 Mg/ 100 ml (Pmx)) 100 ml @ 200 mls/hr Q12 IVPB Last administered on 06/30/16 09:17; Admin Dose 200 MLS/HR; Start 06/26/16 at 09:00 Multivitamins (Thera-Plus) 5 ml DAILY GTB Last administered on 06/30/16 08:52 ; Admin Dose 5 ML; Start 06/26/16 at 09:00 Nystatin (Nystatin Powder) 1 applic Q12 PRN TOP ITCHING; Start 06/25/16 at 23:30 Sodium Hypochlorite (Dakin'S (1/4 Strength)) 1 applic BID PRN TOP NOTE; Start 06/25/16 at 23:30 Voriconazole (Vfend) 200 mg BID GTB Last administered on 06/30/16 08:52; Admin Dose 200 MG; Start 06/26/16 at 09:00 Zinc Sulfate (Zinc Sulfate) 220 mg DAILY GTB Last administered on 06/30/16 08: 51; Admin Dose 220 MG; Start 06/26/16 at 09:00 Sodium Hypochlorite (Dakin'S (1/4 Strength)) 1 applic DAILY@10 TOP Last administered on 06/30/16 09:18; Admin Dose 1 APPLIC; Start 06/26/16 at 10:00 Nystatin 1 applic 1 applic TID@10,13,21 TOP Last administered on 06/30/16 13: 57; Admin Dose 1 APPLIC; Start 06/26/16 at 10:00 Metronidazole (Flagyl 500 Mg (Pmx)) 100 ml @ 100 mls/hr Q8 IVPB Last administered on 06/30/16 14:17; Admin Dose 100 MLS/HR; Start 06/26/16 at 14:00 Vancomycin HCl (Vancomycin Oral Syringe) 250 mg Q6 PO Last administered on 06/30 17:37; Admin Dose 250 MG; Start 06/26/16 at 13:00 Levothyroxine Sodium (Synthroid) 150 mcg DAILY@06 GTB Last administered on 06/30 05:37; Admin Dose 150 MCG; Start 06/28/16 at 06:00 Hydrocortisone 25 mg 25 mg Q8 IV Last administered on 06/30/16 14:18; Admin Dose 25 MG; Start 06/30/16 at 14:00 Dopamine HCl/ Dextrose 250 ml @ 6.54 mls/hr TITRATE IV Last administered on t 13:51; Admin Dose 6.54 MLS/HR; Start 06/30/16 at 13:30 SUN MCNAMARA MD Jun 30, 2016 19:07
[2016-07-01] VITALS (88 sets, daily range): BP systolic 75–129; BP diastolic 43–90; PULSE 60–94; RESP 15–30
[2016-07-01] MEDS: VANCOMYCIN HCL 250 MG/5ML POSYG PO SCH ×4 (00:36→17:25)
[2016-07-01] MEDS: IPRATROPIUM (HFA) 12.9 GM INHALER INH SCH ×6 (01:01→20:36)
[2016-07-01] MEDS: ALBUTEROL HFA 8 GM INHALER INH SCH ×6 (01:01→20:36)
[2016-07-01] MEDS: LEVOTHYROXINE 125 MCG TAB GTB SCH (05:14)
[2016-07-01] MEDS: LANSOPRAZOLE 30 MG CAP GTB SCH (05:15)
[2016-07-01] MEDS: HYDROCORTISONE 100 MG INJ IV SCH ×3 (05:15→23:29)
[2016-07-01] MEDS: metroNIDAZOLE 500 MG/NS (PMX) 100 ML IVPB SCH ×3 (05:15→23:29)
[2016-07-01 05:26] LABS: HEMATOCRIT 26.4 % (42.0-52.0); HEMOGLOBIN 8.8 g/dl (14.0-18.0); LYMPHOCYTES # 0.8 10^3/ul (0.8-2.9); LYMPHOCYTES % 6.7 % (15.0-51.0); MEAN CORPUSCULAR HEMOGLOBIN 28.7 pg (29.0-33.0); MEAN CORPUSCULAR HGB CONC 33.3 g/dl (32.0-37.0); MEAN CORPUSCULAR VOLUME 86.3 fl (82.0-101.0); MONOCYTE # 0.6 10^3/ul (0.3-0.9); MONOCYTES % 5.6 % (0.0-11.0); NEUTROPHILS % 87.7 % (39.0-77.0); PLATELET COUNT 360 10^3/UL (140-440); RED BLOOD COUNT 3.06 10^6/ul (4.70-6.10); RED CELL DISTRIBUTION WIDTH 17.9 % (11.5-14.5); UNCORRECTED WBC 11.4 10^3/ul (4.8-10.8); WHITE BLOOD COUNT 11.4 10^3/ul (4.8-10.8)
[2016-07-01 05:28] LABS: CONDITION 1; LH ANALYZER COMMENTS 1
[2016-07-01 05:31] LABS: POTASSIUM 3.6 mmol/L (3.5-5.1)
[2016-07-01 05:34] LABS: CREATININE 2.93 mg/dl (0.61-1.24)
[2016-07-01 05:35] LABS: CALCIUM 7.8 mg/dl (8.4-10.2); MAGNESIUM 2.3 mg/dl (1.7-2.5); PHOSPHORUS 4.7 mg/dl (2.5-4.9)
--- NOTE | 2016-07-01 07:35 | CONS ---
Date/Time of Note Date/Time of Note DATE: 07/01/16 TIME: 07:31 Assessment/Plan Assessment/Plan Additional Assessment/Plan Assessment and recommendations; 1. Patient admitted for sepsis. 2. Congestive heart failure , aortic stenosis. 3. Stable seizure disorder. 4. Hypothyroidism. 5. Renal insufficiency. 6. Hypotension now requiring dopamine drip. Continue current treatment. Discontinue hydrocortisone. Prognosis remains poor. Consultation Date/Type/Reason Admit Date/Time Jun 25, 2016 at 18:35 Initial Consult Date 06/26/16 Type of Consultation: Pulmonary/critical care 24 HR Interval Summary Free Text/Dictation Patient condition remains tenuous at best now requiring dopamine for blood pressure maintenance although at a low-dose. Patient remains completely unresponsive on account of underlying severe anoxic encephalopathy. Remains ventilator dependent. General examination; elderly male, on ventilator via tracheostomy unresponsive but currently in no distress. Exam/Review of Systems Vital Signs Vitals Vital Signs Date Time Temp Pulse Resp B/P Pulse Ox O2 Delivery O2 Flow Rate FiO2 07/01/16 06:15 66 21 93/49 93 07/01/16 06:00 Mechanical Ventilator 07/01/16 05:09 30 07/01/16 04:00 97.6 Intake and Output 06/30/16 06/30/16 07/01/16 15:00 23:00 07:00 Intake Total 460 ml 682.32 ml 476.16 ml Output Total 830 ml 670 ml 400 ml Balance -370 ml 12.32 ml 76.16 ml Exam HEENT examination; supple neck, positive JVD. No lymphadenopathy. No thyromegaly. Pupils are midsize and reactive to light bilaterally. Tracheostomy in place with clean insertion site. Chest examination; diminished breath on lung bases bilaterally. S1-S2 audible, no murmurs. Regular rhythm. Abdomen examination; soft, bowel sounds audible. No organomegaly. G-tube in place. Extremity examination; no peripheral edema. 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 Ventilator settings; AC of 14, tidal volume 500, 40% FiO2, PEEP of 5. Results Result Diagram: 07/01/16 0500 07/01/16 0500 Results 24 hrs Laboratory Tests Test 07/01/16 05:00 Anion Gap 15 Basophils # 0.0 Basophils % 0.0 Blood Morphology Comment Blood Urea Nitrogen 91 H Calcium Level 7.8 L Carbon Dioxide Level 19 L Chloride Level 111 H Creatinine 2.93 H Eosinophils # 0.0 Eosinophils % 0.0 Glucose Level 137 Hematocrit 26.4 L Hemoglobin 8.8 L Lymphocytes # 0.8 Lymphocytes % 6.7 L Magnesium Level 2.3 Mean Corpuscular Hemoglobin 28.7 L Mean Corpuscular Hemoglobin Concent 33.3 Mean Corpuscular Volume 86.3 Mean Platelet Volume 7.0 L Monocytes # 0.6 Monocytes % 5.6 Neutrophils # 10.0 H Neutrophils % 87.7 H Nucleated Red Blood Cells # 0.0 Nucleated Red Blood Cells % 0.0 Phosphorus Level 4.7 Platelet Count 360 Potassium Level 3.6 Red Blood Count 3.06 L Red Cell Distribution Width 17.9 H Sodium Level 141 White Blood Count 11.4 H Medications Medications Current Medications Enoxaparin Sodium (Lovenox) 30 mg DAILY SC Last administered on 06/30/16 08:55 ; Admin Dose 30 MG; Start 06/26/16 at 09:00 Acetaminophen (Tylenol Liquid) 650 mg Q6H PRN GTB PAIN AND OR ELEVATED TEMP; Start 06/25/16 at 23:30 Amiodarone HCl (Cordarone) 200 mg DAILY GTB Last administered on 06/30/16 08: 51; Admin Dose 200 MG; Start 06/26/16 at 09:00 Eye Lubricant (Artificial Tears Oph) 2 drop Q6H PRN BOTH EYES DRY EYES; Start 06/25/16 at 23:30 Ascorbic Acid (Vitamin C) 500 mg DAILY GTB Last administered on 06/30/16 08:52 ; Admin Dose 500 MG; Start 06/26/16 at 09:00 Cholecalciferol (Vitamin D) 5,000 unit DAILY GTB Last administered on 08:52; Admin Dose 5,000 UNIT; Start 06/26/16 at 09:00 Ferrous Sulfate (Feosol Liquid Cup) 300 mg BID GTB Last administered on 20:34; Admin Dose 300 MG; Start 06/26/16 at 09:00 Lactobacillus Acidophilus/ Rhamnosus (Culturelle) 1 cap BID GTB Last administered on 06/30/16 20:34; Admin Dose 1 CAP; Start 06/26/16 at 09:00 Lansoprazole (Prevacid) 30 mg DAILY@06 GTB Last administered on 07/01/16 05:15 ; Admin Dose 30 MG; Start 06/26/16 at 06:00 Levetiracetam (Keppra Liquid) 500 mg BID GTB Last administered on 06/30/16 20: 34; Admin Dose 500 MG; Start 06/26/16 at 09:00 Linezolid 600 mg 600 mg BID GTB Last administered on 06/30/16 20:34; Admin Dose 600 MG; Start 06/26/16 at 09:00 Meropenem (Merrem 500 Mg/ 100 ml (Pmx)) 100 ml @ 200 mls/hr Q12 IVPB Last administered on 06/30/16 20:34; Admin Dose 200 MLS/HR; Start 06/26/16 at 09:00 Multivitamins (Thera-Plus) 5 ml DAILY GTB Last administered on 06/30/16 08:52 ; Admin Dose 5 ML; Start 06/26/16 at 09:00 Nystatin (Nystatin Powder) 1 applic Q12 PRN TOP ITCHING; Start 06/25/16 at 23:30 Sodium Hypochlorite (Dakin'S (1/4 Strength)) 1 applic BID PRN TOP NOTE; Start 06/25/16 at 23:30 Voriconazole (Vfend) 200 mg BID GTB Last administered on 06/30/16 20:34; Admin Dose 200 MG; Start 06/26/16 at 09:00 Zinc Sulfate (Zinc Sulfate) 220 mg DAILY GTB Last administered on 06/30/16 08: 51; Admin Dose 220 MG; Start 06/26/16 at 09:00 Sodium Hypochlorite (Dakin'S (1/4 Strength)) 1 applic DAILY@10 TOP Last administered on 06/30/16 09:18; Admin Dose 1 APPLIC; Start 06/26/16 at 10:00 Nystatin 1 applic 1 applic TID@10,13,21 TOP Last administered on 06/30/16 20: 34; Admin Dose 1 APPLIC; Start 06/26/16 at 10:00 Metronidazole (Flagyl 500 Mg (Pmx)) 100 ml @ 100 mls/hr Q8 IVPB Last administered on 07/01/16 05:15; Admin Dose 100 MLS/HR; Start 06/26/16 at 14:00 Vancomycin HCl (Vancomycin Oral Syringe) 250 mg Q6 PO Last administered on 07/01 05:14; Admin Dose 250 MG; Start 06/26/16 at 13:00 Levothyroxine Sodium (Synthroid) 150 mcg DAILY@06 GTB Last administered on 07/01 05:14; Admin Dose 150 MCG; Start 06/28/16 at 06:00 Hydrocortisone 25 mg 25 mg Q8 IV Last administered on 07/01/16 05:15; Admin Dose 25 MG; Start 06/30/16 at 14:00 Dopamine HCl/ Dextrose 250 ml @ 6.54 mls/hr TITRATE IV Last administered on 13:51; Admin Dose 6.54 MLS/HR; Start 06/30/16 at 13:30 EFRA ROMAN Jul 01, 2016 07:35
--- NOTE | 2016-07-01 08:24 | PN ---
DATE: 07/01/2016 CARDIOLOGY FOLLOWUP SUBJECTIVE: Discussed with the staff, nurses overnight, and nurses in the morning. Discussed with Dr. Parsons, discussed with Dr. Mckinnon. The patient remains in sinus rhythm. Has a tracheostomy on the vent. He has been hypotensive, required to go on the pressor, currently on a low dose of dopami ne. No other history was obtained from the patient. MEDICATIONS: Reviewed as per medical reconciliation, personally reviewed. PHYSICAL EXAMINATION: VITAL SIGNS: Temperature 97.6, heart rate of 66, blood pressure 93/49, respiratory rate of 21, satu rating 93% on the vent. HEENT: Normocephalic, atraumatic. Eyes: Left eye ptosis. Right eye reactive to light. CARDIOVASCULAR: Regular rate and rhythm, systolic ejection murmur, diastolic murmur. PULMONARY: With rhonchi, diffuse. GASTROINTESTINAL: Soft, status post percutaneous endoscopic gastrostomy placement. EXTREMITIES: Positive lower extremity edema. NEUROLOGIC: Opens his eyes. He follows basic commands. LABORATORY: Sodium 141, potassium 3.6, BUN of 91, creatinine 2.93, glucose of 137. WBC 11.4, hemog lobin of 8.8, platelets of 360. ASSESSMENT AND PLAN: 1. Septic shock. 2. Severe aortic stenosis as well as pneumonia. 3. Hypoxic respiratory failure, status tracheostomy, vent dependent. 4. Pulmonary edema and congestive heart failure secondary to above. 5. Dysphagia, status post percutaneous endoscopic gastrostomy placement. 6. Anemia. 7. Renal failure. 8. History of cerebrovascular accident. 9. Thyroid disorder. 10. Seizure disorder. 11. Arrhythmia, currently stable on amiodarone. RECOMMENDATIONS: I will continue with the current cardiac care. Vent settings will be continued. Dopamine as needed, will be continued at the current dose. Thyroid supplement will be continued as well. Antibiotic is managed as per ID's recommendation. Vent support. Pulmonary care will be cont inued as well. We will continue with the ICU care. More than 38 minutes of critical care time was spent in management of this patient excluding any pro cedures. Dictated By: RAMBO FERNANDES/EMELINA Conf#: [id number] DID#: [id number] CC: TYLER PARSONS DO;*EndCC*
[2016-07-01] MEDS: LACTOBACILLUS RHAMNOSUS CAP GTB SCH ×2 (08:39→20:32)
[2016-07-01] MEDS: ALBUMIN HUMAN 25% 100 ML IV SCH ×2 (08:39→15:46)
[2016-07-01] MEDS: VORICONAZOLE 200 MG TAB GTB SCH ×2 (08:39→20:32)
[2016-07-01] MEDS: ASCORBIC ACID 500 MG TAB GTB SCH (08:39)
[2016-07-01] MEDS: ZINC SULFATE 220 MG CAP GTB SCH (08:40)
[2016-07-01] MEDS: MULTIVITAMINS 5 ML CUP GTB SCH (08:40)
[2016-07-01] MEDS: FERROUS SULFATE 60 MG/ML 5ML CUP GTB SCH ×2 (08:40→20:32)
[2016-07-01] MEDS: CHOLECALCIFEROL 1,000 UNIT TAB GTB SCH (08:40)
[2016-07-01] MEDS: AMIODARONE 200 MG TAB GTB SCH (08:40)
[2016-07-01] MEDS: LEVETIRACETAM (100 MG/ML) 5ML CUP GTB SCH ×2 (08:40→20:32)
[2016-07-01] MEDS: MEROPENEM 500 MG/100 ML (PMX) 100 ML IVPB SCH ×2 (08:40→20:32)
[2016-07-01] MEDS: ZYVOX 600 MG TAB GTB SCH ×2 (08:40→20:32)
[2016-07-01] MEDS: ENOXAPARIN 30 MG/0.3 ML SYG SC SCH (08:41)
--- NOTE | 2016-07-01 08:50 | PN ---
DATE: 07/01/2016 SUBJECTIVE: The patient was placed back on pressor support yesterday after being taken off approxim ately 8 hours due to hypotension. No other acute events noted. No hemoptysis, hematemesis or hemat ochezia. The patient's FIO2 settings have been stable. OBJECTIVE: VITAL SIGNS: Blood pressure is 93/49, respiration 21, pulse 66, temperature 98.6. I's AND O'S: The patient had 1600 in, 1900 out. HEENT: Head is normocephalic. NECK: Shows trach. HEART: Regular rate. LUNGS: Show diminished breath sounds at base. Positive rhonchi. ABDOMEN: Soft, nontender to palpation without rebound or guarding. EXTREMITIES: Negative for clubbing, cyanosis, no edema. DERMATOLOGIC: No rashes. MUSCULOSKELETAL: No joint effusions. NEUROLOGIC: No change in exam. The patient remains obtunded. MUSCULOSKELETAL: Please note there was decubitus wound. LABORATORY DATA: Sodium 141, potassium 3.6, chloride 111, BUN 91, creatinine 2.93. White count 11. 4, hemoglobin 8.8, hematocrit 26.4, platelet count is 360. ASSESSMENT AND PLAN: 1. Septic shock. Etiology secondary to healthcare-associated pneumonia, fungal urinary tract infec tion. The patient is currently on low dose dopamine. Plan at this point is to continue to wean off pressor support. We will give the patient albumin IV for volume expansion. Continue antimicrobial antifungal therapy, monitor closely. 2. Ventilator dependent respiratory failure. Vent settings have been reviewed. ABG has been revie wed. Continue to monitor. 3. Pulmonary edema, possibly due to capillary leak syndrome. Continue pressor support. We will ho ld diuretic therapy in the setting of shock and monitor. 4. Dysphagia, status to PEG tube, tube feed. Nonoliguric acute kidney injury on top of chronic kid dotty disease with unknown baseline creatinine. Etiology of acute kidney injury is secondary to acute tubular necrosis due to septic acute kidney injury. Renal function appears to be stabilized. Cont inue current treatment plan, supportive care, renally dose all meds, avoid nephrotoxins. 6. Anemia. Continue to monitor hemoglobin and hematocrit levels. Will give a dose of Epogen. 7. Mineral bone disorder. Continue to monitor calcium and phosphorus levels. 8. Decubitus wound stage IV. Continue wound care. 9. 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 Continue to monitor. 10. Hypothyroidism. Continue Synthroid. 11. Fungal urinary tract infection. Continue Voriconazole. 12. Seizure disorder. Continue Keppra. 13. History of cerebrovascular accident. 14. History of arrhythmia, currently stable. Follow up with cardiology. 15. Gastrointestinal and deep venous thrombosis prophylaxis. Continue proton pump inhibitor and Lo venox. Please note, I spent over 40 minutes of critical care time with this patient, discussing the case wi th the hospital staff specialist. Dictated By: TYLER JACOBO/EMELINA Conf#: [id number] DID#: [id number]
[2016-07-01] MEDS: SODIUM HYPOCHLORITE 0.125% 473 ML BTL TOP SCH (09:54)
[2016-07-01] MEDS: NYSTATIN 30 GM POWDER BTL TOP SCH ×3 (09:54→20:32)
--- NOTE | 2016-07-01 11:47 | PN ---
DATE: 07/01/2016 SUBJECTIVE: No acute events overnight. The patient is lying comfortably in bed. No fevers. LABORATORY DATA: WBC today 11.4 with platelets 360, neutrophils 87.7, H and H 8.8 and 26.4. BUN 91 , creatinine 2.93. MICROBIOLOGY: Urine culture grew Shanice glabrata. Sputum culture grew multidrug resistant [place] bacter baumannii. ANTIMICROBIALS: The patient is on: 1. Vancomycin. 2. P.o. Flagyl. 3. Oral Zyvox. 4. Oral voriconazole. 5. Meropenem. INDWELLINGS: Trach, PEG, Evans, left subclavian triple-lumen catheter, rectal tube. PHYSICAL EXAMINATION: GENERAL: Chronically ill-appearing, elderly man in no distress. HEENT: Head atraumatic, normocephalic. Sclerae anicteric. Buccal mucosa dry. NECK: Supple. CHEST: Rise symmetrical. Breath sounds diminished to bases. HEART: S1, S2. ABDOMEN: Soft, bowel sounds present. EXTREMITIES: Contractured without cyanosis. ASSESSMENT: 1. Sepsis status post shock. 2. Sacral decubitus, status post multiple debridements with evidence of osteomyelitis and culture g rew vancomycin-resistant enterococci previously. 3. Healthcare-associated pneumonia. 4. Fungal urinary tract infection. 5. Clostridium difficile colitis. 6. Chronic respiratory failure. 7. History of cerebrovascular accident. PLAN: We are going to continue patient on current antimicrobials. Add colistin inhalation. Contin ue local wound care. Vent per pulmonary. Follow recommendations of consultants. Dictated By: CARLITOS RIOS SAMPLE PREPARATION SUPERVISOR for NYASIA TOMPKINS/EMELINA Conf#: [id number] DID#: [id number]
[2016-07-01] MEDS ORDERED: EPOETIN 10000 UNITS/1 ML INJ (ESRD) SC ONE (17:00)
[2016-07-01] MEDS: COLISTIMETHATE (25 MG/ML INHAL SYG) NEB SCH (21:09)
[2016-07-02] VITALS (46 sets, daily range): BP systolic 81–124; BP diastolic 49–73; PULSE 68–88; RESP 18–30
[2016-07-02] MEDS: VANCOMYCIN HCL 250 MG/5ML POSYG PO SCH ×4 (01:08→17:01)
[2016-07-02] MEDS: ALBUMIN HUMAN 25% 100 ML IV SCH (01:08)
[2016-07-02] MEDS: ALBUTEROL HFA 8 GM INHALER INH SCH ×6 (01:39→20:39)
[2016-07-02] MEDS: IPRATROPIUM (HFA) 12.9 GM INHALER INH SCH ×6 (01:39→20:39)
[2016-07-02 05:06] LABS: POTASSIUM 3.9 mmol/L (3.5-5.1)
[2016-07-02 05:09] LABS: CREATININE 2.85 mg/dl (0.61-1.24)
[2016-07-02 05:10] LABS: CALCIUM 8.2 mg/dl (8.4-10.2); MAGNESIUM 2.4 mg/dl (1.7-2.5); PHOSPHORUS 4.4 mg/dl (2.5-4.9)
[2016-07-02 06:06] LABS: EOSINOPHILS % 0.1 % (0.0-7.0); HEMATOCRIT 23.7 % (42.0-52.0); HEMOGLOBIN 8.1 g/dl (14.0-18.0); LYMPHOCYTES # 0.8 10^3/ul (0.8-2.9); LYMPHOCYTES % 6.7 % (15.0-51.0); MEAN CORPUSCULAR HEMOGLOBIN 29.4 pg (29.0-33.0); MEAN CORPUSCULAR HGB CONC 34.2 g/dl (32.0-37.0); MEAN CORPUSCULAR VOLUME 85.9 fl (82.0-101.0); MEAN PLATELET VOLUME 7.4 fl (7.4-10.4); MONOCYTE # 0.7 10^3/ul (0.3-0.9); MONOCYTES % 5.3 % (0.0-11.0); NEUTROPHIL # 10.9 10^3/ul (1.6-7.5); NEUTROPHILS % 87.9 % (39.0-77.0); PLATELET COUNT 307 10^3/UL (140-440); RED BLOOD COUNT 2.76 10^6/ul (4.70-6.10); RED CELL DISTRIBUTION WIDTH 18.1 % (11.5-14.5); UNCORRECTED WBC 12.4 10^3/ul (4.8-10.8); WHITE BLOOD COUNT 12.4 10^3/ul (4.8-10.8)
[2016-07-02 06:10] LABS: CONDITION 1; LH ANALYZER COMMENTS 1
[2016-07-02] MEDS: LEVOTHYROXINE 125 MCG TAB GTB SCH (06:11)
[2016-07-02] MEDS: LANSOPRAZOLE 30 MG CAP GTB SCH (06:11)
[2016-07-02] MEDS: HYDROCORTISONE 100 MG INJ IV SCH ×3 (06:12→22:48)
[2016-07-02] MEDS: metroNIDAZOLE 500 MG/NS (PMX) 100 ML IVPB SCH ×3 (06:12→22:48)
--- NOTE | 2016-07-02 07:51 | PN ---
DATE: 07/02/2016 SUBJECTIVE: The patient overnight was able to be weaned off pressor support. No other acute events noted. No hemoptysis, hematemesis or hematochezia. OBJECTIVE: VITAL SIGNS: Blood pressure 108/26, respirations 20, pulse 84, temperature 99.2. I's AND O'S: The patient 1.5 liters in, 1.4 liters out. HEENT: Head is normocephalic. NECK: Supple. HEART: Regular rate. LUNGS: Showed diminished breath sounds at the base. ABDOMEN: Soft, nontender to palpation. No rebound or guarding. EXTREMITIES: Negative for clubbing or cyanosis. No edema. DERMATOLOGIC: No rashes. MUSCULOSKELETAL: Positive decubitus wound. NEUROLOGIC: No change in exam. MEDICATIONS: The patient's medication have been reviewed. LABORATORY DATA: Shows sodium 142, potassium 3.9, chloride 109, BUN 93, creatinine 2.85. White cou nt 12.4, hemoglobin 8.1, hematocrit 23.7, platelet count 307. ASSESSMENT AND PLAN: 1. Septic shock. Etiology is secondary to healthcare-associated pneumonia and fungal urinary tract infection. The patient has currently been off pressor support for the last 8 hours. At this point , will continue the current treatment plan, continue antimicrobial therapy, antifungal therapy. Juan Jose l follow up with infectious disease. 2. Ventilator-dependent respiratory failure. Vent settings have been reviewed. ABG was reviewed. Continue to monitor. Follow up with pulmonary. 3. Pulmonary edema, possibly due to pneumonia and capillary leak syndrome. The patient is status p ost diuretics. Will give diuretics intermittently as needed. 4. Dysphagia. Status post PEG. Continue tube feedings. 5. Nonoliguric acute kidney injury. Etiology is secondary to acute tubular necrosis and septic acu te kidney injury. Renal function appears to be stabilizing. Continue the current treatment plan, s upportive care, renally dose all meds and avoid nephrotoxins. 6. Anemia. Continue to monitor hemoglobin and hematocrit levels. Will give Epogen as needed. 7. Mineral bone disorder. Monitor calcium and phosphorus levels. No need for phosphate binders. 8. Decubitus wound stage IV. Continue wound care. 9. 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 Continue to monitor. 10. Hypothyroidism. Synthroid medication was adjusted. Continue to monitor. 11. Fungal urinary tract infection. Continue Voriconazole. 12. Seizure disorder. Continue Keppra. 13. History of cerebrovascular accident. 14. History of arrhythmia, currently stable. Follow up with cardiology. 15. Gastrointestinal and deep venous thrombosis prophylaxis. Continue proton pump inhibitor and Lo venox. Dictated By: TYLER JACOBO/EMELINA Conf#: [id number] DID#: [id number]
--- NOTE | 2016-07-02 08:11 | CONS ---
Date/Time of Note Date/Time of Note DATE: 07/02/16 TIME: 08:08 Assessment/Plan Assessment/Plan Additional Assessment/Plan Assessment recommendations; 1. Patient admitted for sepsis with which is combination of sacral decubitus ulcer and possibly some element of pneumonia. 2. History of heart failure. 3. Hypothyroidism. 4. Chronic renal insufficiency. 5. History of extensive CVA with severe anoxic encephalopathy. 6. History of cardiac arrhythmia. 7. History of sepsis as well. Continue current treatment. Patient to be transferred off to telemetry unit. With continuation of current treatment. Overall prognosis remains poor. Consultation Date/Type/Reason Admit Date/Time Jun 25, 2016 at 18:35 Initial Consult Date 06/26/16 Type of Consultation: Pulmonary/critical care 24 HR Interval Summary Free Text/Dictation Patient condition is improved. Patient is now off dopamine drip. And maintaining adequate blood pressure. Because of underlying severe anoxic encephalopathy patient remains completely unresponsive and remains ventilator dependent. General examination; elderly male, on ventilator via tracheostomy, unresponsive. Exam/Review of Systems Vital Signs Vitals Vital Signs Date Time Temp Pulse Resp B/P Pulse Ox O2 Delivery O2 Flow Rate FiO2 07/02/16 07:00 75 21 105/59 98 Mechanical Ventilator 07/02/16 05:26 30 07/02/16 04:00 99.5 Intake and Output 07/01/16 07/01/16 07/02/16 15:00 23:00 07:00 Intake Total 695.97 ml 560 ml 610 ml Output Total 715 ml 360 ml 334 ml Balance -19.03 ml 200 ml 276 ml Exam Current ventilator settings; assist control 16, tidal volume 500, PEEP of 5, 30 % FiO2. HEENT examination; supple neck, no lymphadenopathy. Patient is edentulous. Tracheostomy in place with clean insertion site. No thyromegaly. No lymphadenopathy. Patient does have a disconjugate gaze. There was a midsize and reactive to light bilaterally. Chest examination; diminished breath sounds in lower lobes bilaterally. S1-S2 audible, no murmurs. Regular rhythm. Abdomen examination; soft, G-tube in place bowel sounds audible. No organomegaly. Nondistended. Extremity examination; no peripheral edema. Pulses 1+ bilaterally. [employer] RE[employer]ER examination; patient remains unresponsive. Back examination; there is a stage IV sacral ulcer. Results Result Diagram: 07/02/16 0340 07/02/16 0340 Results 24 hrs Laboratory Tests Test 07/02/16 03:40 07/02/16 07:51 Anion Gap 18 H Basophils # 0.0 Basophils % 0.0 Blood Morphology Comment Blood Urea Nitrogen 93 H Calcium Level 8.2 L Carbon Dioxide Level 19 L Chloride Level 109 Creatinine 2.85 H Eosinophils # 0.0 Eosinophils % 0.1 Glucose Level 132 Hematocrit 23.7 L Hemoglobin 8.1 L Lymphocytes # 0.8 Lymphocytes % 6.7 L Magnesium Level 2.4 Mean Corpuscular Hemoglobin 29.4 Mean Corpuscular Hemoglobin Concent 34.2 Mean Corpuscular Volume 85.9 Mean Platelet Volume 7.4 Monocytes # 0.7 Monocytes % 5.3 Neutrophils # 10.9 H Neutrophils % 87.9 H Nucleated Red Blood Cells # 0.0 Nucleated Red Blood Cells % 0.0 Phosphorus Level 4.4 Platelet Count 307 Potassium Level 3.9 Red Blood Count 2.76 L Red Cell Distribution Width 18.1 H Sodium Level 142 White Blood Count 12.4 H Lab Scanned Report REFERENCE LAB Medications Medications Current Medications Enoxaparin Sodium (Lovenox) 30 mg DAILY SC Last administered on 07/01/16 08:41 ; Admin Dose 30 MG; Start 06/26/16 at 09:00 Acetaminophen (Tylenol Liquid) 650 mg Q6H PRN GTB PAIN AND OR ELEVATED TEMP; Start 06/25/16 at 23:30 Amiodarone HCl (Cordarone) 200 mg DAILY GTB Last administered on 07/01/16 08: 40; Admin Dose 200 MG; Start 06/26/16 at 09:00 Eye Lubricant (Artificial Tears Oph) 2 drop Q6H PRN BOTH EYES DRY EYES; Start 06/25/16 at 23:30 Ascorbic Acid (Vitamin C) 500 mg DAILY GTB Last administered on 07/01/16 08:39 ; Admin Dose 500 MG; Start 06/26/16 at 09:00 Cholecalciferol (Vitamin D) 5,000 unit DAILY GTB Last administered on 08:40; Admin Dose 5,000 UNIT; Start 06/26/16 at 09:00 Ferrous Sulfate (Feosol Liquid Cup) 300 mg BID GTB Last administered on 20:32; Admin Dose 300 MG; Start 06/26/16 at 09:00 Lactobacillus Acidophilus/ Rhamnosus (Culturelle) 1 cap BID GTB Last administered on 07/01/16 20:32; Admin Dose 1 CAP; Start 06/26/16 at 09:00 Lansoprazole (Prevacid) 30 mg DAILY@06 GTB Last administered on 07/02/16 06:11 ; Admin Dose 30 MG; Start 06/26/16 at 06:00 Levetiracetam (Keppra Liquid) 500 mg BID GTB Last administered on 07/01/16 20: 32; Admin Dose 500 MG; Start 06/26/16 at 09:00 Linezolid 600 mg 600 mg BID GTB Last administered on 07/01/16 20:32; Admin Dose 600 MG; Start 06/26/16 at 09:00 Meropenem (Merrem 500 Mg/ 100 ml (Pmx)) 100 ml @ 200 mls/hr Q12 IVPB Last administered on 07/01/16 20:32; Admin Dose 200 MLS/HR; Start 06/26/16 at 09:00 Multivitamins (Thera-Plus) 5 ml DAILY GTB Last administered on 07/01/16 08:40 ; Admin Dose 5 ML; Start 06/26/16 at 09:00 Nystatin (Nystatin Powder) 1 applic Q12 PRN TOP ITCHING; Start 06/25/16 at 23:30 Sodium Hypochlorite (Dakin'S (1/4 Strength)) 1 applic BID PRN TOP NOTE; Start 06/25/16 at 23:30 Voriconazole (Vfend) 200 mg BID GTB Last administered on 07/01/16 20:32; Admin Dose 200 MG; Start 06/26/16 at 09:00 Zinc Sulfate (Zinc Sulfate) 220 mg DAILY GTB Last administered on 07/01/16 08: 40; Admin Dose 220 MG; Start 06/26/16 at 09:00 Sodium Hypochlorite (Dakin'S (1/4 Strength)) 1 applic DAILY@10 TOP Last administered on 07/01/16 09:54; Admin Dose 1 APPLIC; Start 06/26/16 at 10:00 Nystatin 1 applic 1 applic TID@10,13,21 TOP Last administered on 07/01/16 20: 32; Admin Dose 1 APPLIC; Start 06/26/16 at 10:00 Metronidazole (Flagyl 500 Mg (Pmx)) 100 ml @ 100 mls/hr Q8 IVPB Last administered on 07/02/16 06:12; Admin Dose 100 MLS/HR; Start 06/26/16 at 14:00 Vancomycin HCl (Vancomycin Oral Syringe) 250 mg Q6 PO Last administered on 07/02 06:15; Admin Dose 250 MG; Start 06/26/16 at 13:00 Levothyroxine Sodium 150 mcg 150 mcg DAILY@06 GTB Last administered on 06:11; Admin Dose 150 MCG; Start 06/28/16 at 06:00 Dopamine HCl/ Dextrose 250 ml @ 6.54 mls/hr TITRATE IV Last administered on 13:51; Admin Dose 6.54 MLS/HR; Start 06/30/16 at 13:30 Hydrocortisone (Solu-Cortef) 10 mg Q8 IV Last administered on 07/02/16 06:12; Admin Dose 10 MG; Start 07/01/16 at 14:00 EFRA ROMAN Jul 02, 2016 08:11
--- NOTE | 2016-07-02 08:22 | PN ---
DATE: 07/02/2016 CARDIOLOGY FOLLOWUP PROGRESS NOTE SUBJECTIVE: Discussed with Dr. Parsons, discussed with the staff. Rhythm strip was reviewed. The patient remains in sinus rhythm. Still on the vent. He has been able to be successfully weaned off of the dopamine drip. Blood pressure on the low side, but is stable. He still has diarrhea. The patient is nonverbal, with trach on the vent. MEDICATIONS: Reviewed as per medical reconciliation, which was personally reviewed. PHYSICAL EXAMINATION: VITAL SIGNS: Temperature 99.2, heart rate of 75, blood pressure of 108/64, respiratory rate of 26, saturating 95% on the vent and 30% oxygen. HEENT: Normocephalic, atraumatic. Status post tracheostomy, on the vent. Eyes closed. CARDIOVASCULAR: Regular rate and rhythm, systolic ejection murmur. Diastolic murmur. PULMONARY: Anteriorly with diffuse rhonchi. GASTROINTESTINAL: Soft, nontender. EXTREMITIES: With no significant lower extremity edema. NEUROLOGIC: Lethargic. PSYCHIATRIC: Appears to be calm at this point. LABORATORY: Sodium 142, potassium 3.9, BUN of 93, creatinine 0.85, glucose of 132. WBC of 12.4, he moglobin of 8.1, platelets 307. ASSESSMENT AND PLAN: 1. Septic shock, currently blood pressure has improved. 2. Severe aortic stenosis as well as aortic insufficiency. 3. Pneumonia and sepsis. 4. Hypoxic respiratory failure status post tracheostomy, vent-dependent. 5. Pulmonary edema, congestive heart failure, secondary to above, acute on chronic secondary to guille vular heart disease. 6. Dysphagia, status post percutaneous endoscopic gastrostomy placement. 7. Anemia. 8. Renal failure. 9. History of cerebrovascular accident 10. Thyroid disorder. 11. Seizure disorder. 12. Arrhythmia, currently stable on amiodarone. RECOMMENDATIONS: Vent support will be continued. Continue with the current cardiac care. Diuresis as tolerated. Will be deferred to renal given his renal insufficiency. Continue with the amiodaro ne. Antibiotic as per ID's recommendation. More than 38 minutes of critical care time was spent with this patient excluding any procedures. Dictated By: RAMBO FERNANDES/EMELNIA Conf#: [id number] DID#: [id number] CC: TYLER PARSONS DO;*EndCC*
[2016-07-02] MEDS: MULTIVITAMINS 5 ML CUP GTB SCH (09:02)
[2016-07-02] MEDS: ZINC SULFATE 220 MG CAP GTB SCH (09:02)
[2016-07-02] MEDS: LEVETIRACETAM (100 MG/ML) 5ML CUP GTB SCH ×2 (09:02→21:07)
[2016-07-02] MEDS: FERROUS SULFATE 60 MG/ML 5ML CUP GTB SCH ×2 (09:02→21:07)
[2016-07-02] MEDS: VORICONAZOLE 200 MG TAB GTB SCH ×2 (09:02→21:07)
[2016-07-02] MEDS: AMIODARONE 200 MG TAB GTB SCH (09:03)
[2016-07-02] MEDS: CHOLECALCIFEROL 1,000 UNIT TAB GTB SCH (09:03)
[2016-07-02] MEDS: ZYVOX 600 MG TAB GTB SCH ×2 (09:03→21:07)
[2016-07-02] MEDS: MEROPENEM 500 MG/100 ML (PMX) 100 ML IVPB SCH ×2 (09:03→21:07)
[2016-07-02] MEDS: ASCORBIC ACID 500 MG TAB GTB SCH (09:03)
[2016-07-02] MEDS: LACTOBACILLUS RHAMNOSUS CAP GTB SCH ×2 (09:03→21:07)
[2016-07-02] MEDS: ENOXAPARIN 30 MG/0.3 ML SYG SC SCH (09:05)
[2016-07-02] MEDS: SODIUM HYPOCHLORITE 0.125% 473 ML BTL TOP SCH (09:06)
[2016-07-02] MEDS: NYSTATIN 30 GM POWDER BTL TOP SCH ×3 (09:07→21:08)
[2016-07-02] MEDS: COLISTIMETHATE (25 MG/ML INHAL SYG) NEB SCH ×2 (09:32→20:39)
--- NOTE | 2016-07-02 11:58 | CONS ---
Date/Time of Note Date/Time of Note DATE: 07/02/16 TIME: 11:57 Assessment/Plan Assessment/Plan Chief Complaint/Hosp Course SUBJECTIVE: No acute events overnight. The patient is lying comfortably in bed. No fevers. MICROBIOLOGY: Urine culture grew Shanice glabrata. Sputum culture grew multidrug resistant Acinetobacter baumannii/GNR. ANTIMICROBIALS: The patient is on: 1. Vancomycin. 2. P.o. Flagyl. 3. Oral Zyvox. 4. Oral voriconazole. 5. Meropenem. 6. Colistin INH INDWELLINGS: Trach, PEG, Evans, left subclavian triple-lumen catheter, rectal tube. PHYSICAL EXAMINATION: GENERAL: Chronically ill-appearing, elderly man in no distress. HEENT: Head atraumatic, normocephalic. Sclerae anicteric. Buccal mucosa dry. NECK: Supple. CHEST: Rise symmetrical. Breath sounds diminished to bases. HEART: S1, S2. ABDOMEN: Soft, bowel sounds present. EXTREMITIES: Contractured without cyanosis. ASSESSMENT: 1. Sepsis status post shock. 2. Sacral decubitus, status post multiple debridements with evidence of osteomyelitis and culture grew vancomycin-resistant enterococci previously. 3. Healthcare-associated pneumonia. 4. Fungal urinary tract infection. 5. Clostridium difficile colitis. 6. Chronic respiratory failure. 7. History of cerebrovascular accident. PLAN: Stable, continue abx, local wound care. Vent per pulmonary. Follow recommendations of consultants. DW staff Problems: Consultation Date/Type/Reason Admit Date/Time Jun 25, 2016 at 18:35 Initial Consult Date 06/26/16 Type of Consultation: ID Exam/Review of Systems Vital Signs Vitals Vital Signs Date Time Temp Pulse Resp B/P Pulse Ox O2 Delivery O2 Flow Rate FiO2 07/02/16 11:00 70 23 97 30 07/02/16 07:00 105/59 Mechanical Ventilator 07/02/16 04:00 99.5 Intake and Output 07/01/16 07/01/16 07/02/16 15:00 23:00 07:00 Intake Total 695.97 ml 560 ml 610 ml Output Total 715 ml 360 ml 334 ml Balance -19.03 ml 200 ml 276 ml Results Result Diagram: 07/02/16 0340 07/02/16 0340 Results 24 hrs Laboratory Tests Test 07/02/16 03:40 07/02/16 07:51 Anion Gap 18 H Basophils # 0.0 Basophils % 0.0 Blood Morphology Comment Blood Urea Nitrogen 93 H Calcium Level 8.2 L Carbon Dioxide Level 19 L Chloride Level 109 Creatinine 2.85 H Eosinophils # 0.0 Eosinophils % 0.1 Glucose Level 132 Hematocrit 23.7 L Hemoglobin 8.1 L Lymphocytes # 0.8 Lymphocytes % 6.7 L Magnesium Level 2.4 Mean Corpuscular Hemoglobin 29.4 Mean Corpuscular Hemoglobin Concent 34.2 Mean Corpuscular Volume 85.9 Mean Platelet Volume 7.4 Monocytes # 0.7 Monocytes % 5.3 Neutrophils # 10.9 H Neutrophils % 87.9 H Nucleated Red Blood Cells # 0.0 Nucleated Red Blood Cells % 0.0 Phosphorus Level 4.4 Platelet Count 307 Potassium Level 3.9 Red Blood Count 2.76 L Red Cell Distribution Width 18.1 H Sodium Level 142 White Blood Count 12.4 H Lab Scanned Report REFERENCE LAB Medications Medications Current Medications Enoxaparin Sodium (Lovenox) 30 mg DAILY SC Last administered on 07/02/16 09:05 ; Admin Dose 30 MG; Start 06/26/16 at 09:00 Acetaminophen (Tylenol Liquid) 650 mg Q6H PRN GTB PAIN AND OR ELEVATED TEMP; Start 06/25/16 at 23:30 Amiodarone HCl (Cordarone) 200 mg DAILY GTB Last administered on 07/02/16 09: 03; Admin Dose 200 MG; Start 06/26/16 at 09:00 Eye Lubricant (Artificial Tears Oph) 2 drop Q6H PRN BOTH EYES DRY EYES; Start 06/25/16 at 23:30 Ascorbic Acid (Vitamin C) 500 mg DAILY GTB Last administered on 07/02/16 09:03 ; Admin Dose 500 MG; Start 06/26/16 at 09:00 Cholecalciferol (Vitamin D) 5,000 unit DAILY GTB Last administered on 09:03; Admin Dose 5,000 UNIT; Start 06/26/16 at 09:00 Ferrous Sulfate (Feosol Liquid Cup) 300 mg BID GTB Last administered on 09:02; Admin Dose 300 MG; Start 06/26/16 at 09:00 Lactobacillus Acidophilus/ Rhamnosus (Culturelle) 1 cap BID GTB Last administered on 07/02/16 09:03; Admin Dose 1 CAP; Start 06/26/16 at 09:00 Lansoprazole (Prevacid) 30 mg DAILY@06 GTB Last administered on 07/02/16 06:11 ; Admin Dose 30 MG; Start 06/26/16 at 06:00 Levetiracetam (Keppra Liquid) 500 mg BID GTB Last administered on 07/02/16 09: 02; Admin Dose 500 MG; Start 06/26/16 at 09:00 Linezolid 600 mg 600 mg BID GTB Last administered on 07/02/16 09:03; Admin Dose 600 MG; Start 06/26/16 at 09:00 Meropenem (Merrem 500 Mg/ 100 ml (Pmx)) 100 ml @ 200 mls/hr Q12 IVPB Last administered on 07/02/16 09:03; Admin Dose 200 MLS/HR; Start 06/26/16 at 09:00 Multivitamins (Thera-Plus) 5 ml DAILY GTB Last administered on 07/02/16 09:02 ; Admin Dose 5 ML; Start 06/26/16 at 09:00 Nystatin (Nystatin Powder) 1 applic Q12 PRN TOP ITCHING; Start 06/25/16 at 23:30 Sodium Hypochlorite (Dakin'S (1/4 Strength)) 1 applic BID PRN TOP NOTE; Start 06/25/16 at 23:30 Voriconazole (Vfend) 200 mg BID GTB Last administered on 07/02/16 09:02; Admin Dose 200 MG; Start 06/26/16 at 09:00 Zinc Sulfate (Zinc Sulfate) 220 mg DAILY GTB Last administered on 07/02/16 09: 02; Admin Dose 220 MG; Start 06/26/16 at 09:00 Sodium Hypochlorite (Dakin'S (1/4 Strength)) 1 applic DAILY@10 TOP Last administered on 07/02/16 09:06; Admin Dose 1 APPLIC; Start 06/26/16 at 10:00 Nystatin 1 applic 1 applic TID@10,13,21 TOP Last administered on 07/02/16 09: 07; Admin Dose 1 APPLIC; Start 06/26/16 at 10:00 Metronidazole (Flagyl 500 Mg (Pmx)) 100 ml @ 100 mls/hr Q8 IVPB Last administered on 07/02/16 06:12; Admin Dose 100 MLS/HR; Start 06/26/16 at 14:00 Vancomycin HCl (Vancomycin Oral Syringe) 250 mg Q6 PO Last administered on 07/02 06:15; Admin Dose 250 MG; Start 06/26/16 at 13:00 Levothyroxine Sodium 150 mcg 150 mcg DAILY@06 GTB Last administered on 06:11; Admin Dose 150 MCG; Start 06/28/16 at 06:00 Dopamine HCl/ Dextrose 250 ml @ 6.54 mls/hr TITRATE IV Last administered on 13:51; Admin Dose 6.54 MLS/HR; Start 06/30/16 at 13:30 Hydrocortisone (Solu-Cortef) 10 mg Q8 IV Last administered on 07/02/16 06:12; Admin Dose 10 MG; Start 07/01/16 at 14:00 CARLITOS RIOS NP Jul 02, 2016 11:58
--- NOTE | 2016-07-02 17:59 | CONS ---
Date/Time of Note Date/Time of Note DATE: 07/02/16 TIME: 17:59 vk le Assessment/Plan Assessment/Plan Chief Complaint/Hosp Course ASSESSMENT AND PLAN: This is a 61-year-old male with acute sepsis associated with Anemia, N-cytic with increased RDW HX ACD HX GIB HX NEEDS FOR PRBC ON SEVERAL OCCASIONS CONT TO MONITOR BLOOD COUNT CLOSELY OBSERVE FOR BLEEDING AND HEMOLYSIS TRANSFUSE NEEDED Will continue to monitor hemoglobin and hematocrit levels. No evidence of gastrointestinal bleed at this time. LEUKOCYTOSIS REACTIVE PARTIALLY 2 TO STEROIDS MONITOR CLOSELY THROMBOCYTOSIS REACTIVE IMPROVED Septic shock. Underlying source is multifactorial secondary to pneumonia, fungal urinary tract infection. The patient is on pressor support, on IV fluids , receiving broad spectrum antibiotics, antifungal therapy. Plan at this point is to continue current treatment plan. Will follow up blood cultures, urine cultures. Will follow up lactic acid and procalcitonin level. Will follow up with infectious disease for recommendations. Ventilator dependent respiratory failure. Vent settings have been reviewed. ABG has been reviewed. Continue to monitor. Follow up with Pulmonary. Dysphagia, status post percutaneous endoscopic gastrostomy tube feeding. Nonoliguric acute kidney injury on top of chronic kidney disease with unknown baseline creatinine. Etiology of current acute kidney injury is unclear, possibly secondary to sepsis, TTN, hemodynamics. Plan at this point is to do a full evaluation. Will check UA with microanalysis. Will check urine electrolytes. Will check a renal ultrasound to rule out obstruction. Will continue IV hydration, continue pressor support, and maintain MAP above 65. Continue treating underlying sepsis with IV antibiotics. Will monitor closely. Hyponatremia, etiology is multifactorial secondary to acute kidney injury with decreased free water urinary excretion. Will follow up a repeat sodium level. Will limit free water intake and monitor. 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 At this point, will continue to monitor. If there is any change in mental status will get a CT scan of the brain. The patient has a history of CVA. Continue medical management. Hypothyroidism. The patient's TSH levels are markedly elevated. Will increase Synthroid to 150 mcg daily and monitor. Fungal urinary tract infection. Continue voriconazole. Seizure disorder. Continue Keppra. Gastrointestinal and deep venous thrombosis prophylaxis. Will continue Prevacid and Lovenox. Arrhythmia. Continue amiodarone. Gastrointestinal and deep venous thrombosis prophylaxis. Continue proton pump inhibitor and Lovenox. Problems: Consultation Date/Type/Reason Admit Date/Time Jun 25, 2016 at 18:35 Initial Consult Date 06/26/16 Reason for Consultation anemia leukocytosis thrombocytopenia Referring Provider: TYLER HAINES DO 24 HR Interval Summary Free Text/Dictation The patient was placed back on pressor support yesterday after being taken off approximately 8 hours due to hypotension. No other acute events noted. No hemoptysis, hematemesis or hematochezia. The patient's FIO2 settings have been stable. count- reviewed no bleeding Exam/Review of Systems Vital Signs Vitals Vital Signs Date Time Temp Pulse Resp B/P Pulse Ox O2 Delivery O2 Flow Rate FiO2 07/02/16 17:00 78 29 95 30 07/02/16 11:00 104/60 Mechanical Ventilator 07/02/16 08:00 99.1 Intake and Output 07/01/16 07/01/16 07/02/16 15:00 23:00 07:00 Intake Total 695.97 ml 560 ml 610 ml Output Total 715 ml 360 ml 334 ml Balance -19.03 ml 200 ml 276 ml Exam HEENT: Head is normocephalic. NECK: Shows trach. HEART: Regular rate. LUNGS: Show diminished breath sounds at base. Positive rhonchi. ABDOMEN: Soft, nontender to palpation without rebound or guarding. EXTREMITIES: Negative for clubbing, cyanosis, no edema. DERMATOLOGIC: No rashes. MUSCULOSKELETAL: No joint effusions. NEUROLOGIC: No change in exam. The patient remains obtunded. MUSCULOSKELETAL: Please note there was decubitus wound. Results Result Diagram: 07/02/16 0340 07/02/16 0340 Results 24 hrs Laboratory Tests Test 07/02/16 03:40 07/02/16 07:51 Anion Gap 18 H Basophils # 0.0 Basophils % 0.0 Blood Morphology Comment Blood Urea Nitrogen 93 H Calcium Level 8.2 L Carbon Dioxide Level 19 L Chloride Level 109 Creatinine 2.85 H Eosinophils # 0.0 Eosinophils % 0.1 Glucose Level 132 Hematocrit 23.7 L Hemoglobin 8.1 L Lymphocytes # 0.8 Lymphocytes % 6.7 L Magnesium Level 2.4 Mean Corpuscular Hemoglobin 29.4 Mean Corpuscular Hemoglobin Concent 34.2 Mean Corpuscular Volume 85.9 Mean Platelet Volume 7.4 Monocytes # 0.7 Monocytes % 5.3 Neutrophils # 10.9 H Neutrophils % 87.9 H Nucleated Red Blood Cells # 0.0 Nucleated Red Blood Cells % 0.0 Phosphorus Level 4.4 Platelet Count 307 Potassium Level 3.9 Red Blood Count 2.76 L Red Cell Distribution Width 18.1 H Sodium Level 142 White Blood Count 12.4 H Lab Scanned Report REFERENCE LAB Medications Medications Current Medications Enoxaparin Sodium (Lovenox) 30 mg DAILY SC Last administered on 07/02/16 09:05 ; Admin Dose 30 MG; Start 06/26/16 at 09:00 Acetaminophen (Tylenol Liquid) 650 mg Q6H PRN GTB PAIN AND OR ELEVATED TEMP; Start 06/25/16 at 23:30 Amiodarone HCl (Cordarone) 200 mg DAILY GTB Last administered on 07/02/16 09: 03; Admin Dose 200 MG; Start 06/26/16 at 09:00 Eye Lubricant (Artificial Tears Oph) 2 drop Q6H PRN BOTH EYES DRY EYES; Start 06/25/16 at 23:30 Ascorbic Acid (Vitamin C) 500 mg DAILY GTB Last administered on 07/02/16 09:03 ; Admin Dose 500 MG; Start 06/26/16 at 09:00 Cholecalciferol (Vitamin D) 5,000 unit DAILY GTB Last administered on 09:03; Admin Dose 5,000 UNIT; Start 06/26/16 at 09:00 Ferrous Sulfate (Feosol Liquid Cup) 300 mg BID GTB Last administered on 09:02; Admin Dose 300 MG; Start 06/26/16 at 09:00 Lactobacillus Acidophilus/ Rhamnosus (Culturelle) 1 cap BID GTB Last administered on 07/02/16 09:03; Admin Dose 1 CAP; Start 06/26/16 at 09:00 Lansoprazole (Prevacid) 30 mg DAILY@06 GTB Last administered on 07/02/16 06:11 ; Admin Dose 30 MG; Start 06/26/16 at 06:00 Levetiracetam (Keppra Liquid) 500 mg BID GTB Last administered on 07/02/16 09: 02; Admin Dose 500 MG; Start 06/26/16 at 09:00 Linezolid 600 mg 600 mg BID GTB Last administered on 07/02/16 09:03; Admin Dose 600 MG; Start 06/26/16 at 09:00 Meropenem (Merrem 500 Mg/ 100 ml (Pmx)) 100 ml @ 200 mls/hr Q12 IVPB Last administered on 07/02/16 09:03; Admin Dose 200 MLS/HR; Start 06/26/16 at 09:00 Multivitamins (Thera-Plus) 5 ml DAILY GTB Last administered on 07/02/16 09:02 ; Admin Dose 5 ML; Start 06/26/16 at 09:00 Nystatin (Nystatin Powder) 1 applic Q12 PRN TOP ITCHING; Start 06/25/16 at 23:30 Sodium Hypochlorite (Dakin'S (1/4 Strength)) 1 applic BID PRN TOP NOTE; Start 06/25/16 at 23:30 Voriconazole (Vfend) 200 mg BID GTB Last administered on 07/02/16 09:02; Admin Dose 200 MG; Start 06/26/16 at 09:00 Zinc Sulfate (Zinc Sulfate) 220 mg DAILY GTB Last administered on 07/02/16 09: 02; Admin Dose 220 MG; Start 06/26/16 at 09:00 Sodium Hypochlorite (Dakin'S (1/4 Strength)) 1 applic DAILY@10 TOP Last administered on 07/02/16 09:06; Admin Dose 1 APPLIC; Start 06/26/16 at 10:00 Nystatin 1 applic 1 applic TID@10,13,21 TOP Last administered on 07/02/16 12: 46; Admin Dose 1 APPLIC; Start 06/26/16 at 10:00 Metronidazole (Flagyl 500 Mg (Pmx)) 100 ml @ 100 mls/hr Q8 IVPB Last administered on 07/02/16 14:56; Admin Dose 100 MLS/HR; Start 06/26/16 at 14:00 Vancomycin HCl (Vancomycin Oral Syringe) 250 mg Q6 PO Last administered on 07/02 17:01; Admin Dose 250 MG; Start 06/26/16 at 13:00 Levothyroxine Sodium 150 mcg 150 mcg DAILY@06 GTB Last administered on 06:11; Admin Dose 150 MCG; Start 06/28/16 at 06:00 Dopamine HCl/ Dextrose 250 ml @ 6.54 mls/hr TITRATE IV Last administered on 13:51; Admin Dose 6.54 MLS/HR; Start 06/30/16 at 13:30 Hydrocortisone (Solu-Cortef) 10 mg Q8 IV Last administered on 07/02/16 14:56; Admin Dose 10 MG; Start 07/01/16 at 14:00 SUN MCNAMARA MD Jul 02, 2016 17:59
[2016-07-03] VITALS (27 sets, daily range): BP systolic 75–121; BP diastolic 47–71; PULSE 65–76; RESP 19–32
--- NOTE | 2016-07-03 00:13 | CONS ---
Date/Time of Note Date/Time of Note DATE: 07/02/16 TIME: 20:13 vk le Assessment/Plan Assessment/Plan Chief Complaint/Hosp Course ASSESSMENT AND PLAN: This is a 61-year-old male with acute sepsis associated with Anemia, N-cytic with increased RDW HX ACD HX GIB HX NEEDS FOR PRBC ON SEVERAL OCCASIONS CONT TO MONITOR BLOOD COUNT CLOSELY OBSERVE FOR BLEEDING AND HEMOLYSIS TRANSFUSE NEEDED Will continue to monitor hemoglobin and hematocrit levels. No evidence of gastrointestinal bleed at this time. LEUKOCYTOSIS REACTIVE PARTIALLY 2 TO STEROIDS MONITOR CLOSELY THROMBOCYTOSIS REACTIVE IMPROVED Septic shock. Underlying source is multifactorial secondary to pneumonia, fungal urinary tract infection. The patient is on pressor support, on IV fluids , receiving broad spectrum antibiotics, antifungal therapy. Plan at this point is to continue current treatment plan. Will follow up blood cultures, urine cultures. Will follow up lactic acid and procalcitonin level. Will follow up with infectious disease for recommendations. Ventilator dependent respiratory failure. Vent settings have been reviewed. ABG has been reviewed. Continue to monitor. Follow up with Pulmonary. Dysphagia, status post percutaneous endoscopic gastrostomy tube feeding. Nonoliguric acute kidney injury on top of chronic kidney disease with unknown baseline creatinine. Etiology of current acute kidney injury is unclear, possibly secondary to sepsis, TTN, hemodynamics. Plan at this point is to do a full evaluation. Will check UA with microanalysis. Will check urine electrolytes. Will check a renal ultrasound to rule out obstruction. Will continue IV hydration, continue pressor support, and maintain MAP above 65. Continue treating underlying sepsis with IV antibiotics. Will monitor closely. Hyponatremia, etiology is multifactorial secondary to acute kidney injury with decreased free water urinary excretion. Will follow up a repeat sodium level. Will limit free water intake and monitor. 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 At this point, will continue to monitor. If there is any change in mental status will get a CT scan of the brain. The patient has a history of CVA. Continue medical management. Hypothyroidism. The patient's TSH levels are markedly elevated. Will increase Synthroid to 150 mcg daily and monitor. Fungal urinary tract infection. Continue voriconazole. Seizure disorder. Continue Keppra. Gastrointestinal and deep venous thrombosis prophylaxis. Will continue Prevacid and Lovenox. Arrhythmia. Continue amiodarone. Gastrointestinal and deep venous thrombosis prophylaxis. Continue proton pump inhibitor and Lovenox. Problems: Consultation Date/Type/Reason Admit Date/Time Jun 25, 2016 at 18:35 Initial Consult Date 06/25/16 Type of Consultation: [facility] Referring Provider: TYLER HAINES DO 24 HR Interval Summary Free Text/Dictation No acute events overnight. The patient is lying comfortably in bed. No fevers. Exam/Review of Systems Vital Signs Vitals Vital Signs Date Time Temp Pulse Resp B/P Pulse Ox O2 Delivery O2 Flow Rate FiO2 07/02/16 23:48 65 21 97 30 07/02/16 23:00 97/61 Mechanical Ventilator 07/02/16 20:00 99.1 Intake and Output 07/02/16 07/02/16 07/03/16 15:00 23:00 07:00 Intake Total 520 ml 460 ml Output Total 490 ml 440 ml Balance 30 ml 20 ml Exam PHYSICAL EXAMINATION: GENERAL: Chronically ill-appearing, elderly man in no distress. HEENT: Head atraumatic, normocephalic. Sclerae anicteric. Buccal mucosa dry. NECK: Supple. CHEST: Rise symmetrical. Breath sounds diminished to bases. HEART: S1, S2. ABDOMEN: Soft, bowel sounds present. EXTREMITIES: Contractured without cyanosis. Results Result Diagram: 07/02/16 0340 07/02/16 0340 Results 24 hrs Laboratory Tests Test 07/02/16 03:40 07/02/16 07:51 Anion Gap 18 H Basophils # 0.0 Basophils % 0.0 Blood Morphology Comment Blood Urea Nitrogen 93 H Calcium Level 8.2 L Carbon Dioxide Level 19 L Chloride Level 109 Creatinine 2.85 H Eosinophils # 0.0 Eosinophils % 0.1 Glucose Level 132 Hematocrit 23.7 L Hemoglobin 8.1 L Lymphocytes # 0.8 Lymphocytes % 6.7 L Magnesium Level 2.4 Mean Corpuscular Hemoglobin 29.4 Mean Corpuscular Hemoglobin Concent 34.2 Mean Corpuscular Volume 85.9 Mean Platelet Volume 7.4 Monocytes # 0.7 Monocytes % 5.3 Neutrophils # 10.9 H Neutrophils % 87.9 H Nucleated Red Blood Cells # 0.0 Nucleated Red Blood Cells % 0.0 Phosphorus Level 4.4 Platelet Count 307 Potassium Level 3.9 Red Blood Count 2.76 L Red Cell Distribution Width 18.1 H Sodium Level 142 White Blood Count 12.4 H Lab Scanned Report REFERENCE LAB Medications Medications Current Medications Enoxaparin Sodium (Lovenox) 30 mg DAILY SC Last administered on 07/02/16 09:05 ; Admin Dose 30 MG; Start 06/26/16 at 09:00 Acetaminophen (Tylenol Liquid) 650 mg Q6H PRN GTB PAIN AND OR ELEVATED TEMP; Start 06/25/16 at 23:30 Amiodarone HCl (Cordarone) 200 mg DAILY GTB Last administered on 07/02/16 09: 03; Admin Dose 200 MG; Start 06/26/16 at 09:00 Eye Lubricant (Artificial Tears Oph) 2 drop Q6H PRN BOTH EYES DRY EYES; Start 06/25/16 at 23:30 Ascorbic Acid (Vitamin C) 500 mg DAILY GTB Last administered on 07/02/16 09:03 ; Admin Dose 500 MG; Start 06/26/16 at 09:00 Cholecalciferol (Vitamin D) 5,000 unit DAILY GTB Last administered on 09:03; Admin Dose 5,000 UNIT; Start 06/26/16 at 09:00 Ferrous Sulfate (Feosol Liquid Cup) 300 mg BID GTB Last administered on 21:07; Admin Dose 300 MG; Start 06/26/16 at 09:00 Lactobacillus Acidophilus/ Rhamnosus (Culturelle) 1 cap BID GTB Last administered on 07/02/16 21:07; Admin Dose 1 CAP; Start 06/26/16 at 09:00 Lansoprazole (Prevacid) 30 mg DAILY@06 GTB Last administered on 07/02/16 06:11 ; Admin Dose 30 MG; Start 06/26/16 at 06:00 Levetiracetam (Keppra Liquid) 500 mg BID GTB Last administered on 07/02/16 21: 07; Admin Dose 500 MG; Start 06/26/16 at 09:00 Linezolid 600 mg 600 mg BID GTB Last administered on 07/02/16 21:07; Admin Dose 600 MG; Start 06/26/16 at 09:00 Meropenem (Merrem 500 Mg/ 100 ml (Pmx)) 100 ml @ 200 mls/hr Q12 IVPB Last administered on 07/02/16 21:07; Admin Dose 200 MLS/HR; Start 06/26/16 at 09:00 Multivitamins (Thera-Plus) 5 ml DAILY GTB Last administered on 07/02/16 09:02 ; Admin Dose 5 ML; Start 06/26/16 at 09:00 Nystatin (Nystatin Powder) 1 applic Q12 PRN TOP ITCHING; Start 06/25/16 at 23:30 Sodium Hypochlorite (Dakin'S (1/4 Strength)) 1 applic BID PRN TOP NOTE; Start 06/25/16 at 23:30 Voriconazole (Vfend) 200 mg BID GTB Last administered on 07/02/16 21:07; Admin Dose 200 MG; Start 06/26/16 at 09:00 Zinc Sulfate (Zinc Sulfate) 220 mg DAILY GTB Last administered on 07/02/16 09: 02; Admin Dose 220 MG; Start 06/26/16 at 09:00 Sodium Hypochlorite (Dakin'S (1/4 Strength)) 1 applic DAILY@10 TOP Last administered on 07/02/16 09:06; Admin Dose 1 APPLIC; Start 06/26/16 at 10:00 Nystatin 1 applic 1 applic TID@10,13,21 TOP Last administered on 07/02/16 21: 08; Admin Dose 1 APPLIC; Start 06/26/16 at 10:00 Metronidazole (Flagyl 500 Mg (Pmx)) 100 ml @ 100 mls/hr Q8 IVPB Last administered on 07/02/16 22:48; Admin Dose 100 MLS/HR; Start 06/26/16 at 14:00 Vancomycin HCl (Vancomycin Oral Syringe) 250 mg Q6 PO Last administered on 07/02 17:01; Admin Dose 250 MG; Start 06/26/16 at 13:00 Levothyroxine Sodium 150 mcg 150 mcg DAILY@06 GTB Last administered on 06:11; Admin Dose 150 MCG; Start 06/28/16 at 06:00 Dopamine HCl/ Dextrose 250 ml @ 6.54 mls/hr TITRATE IV Last administered on 13:51; Admin Dose 6.54 MLS/HR; Start 06/30/16 at 13:30 Hydrocortisone (Solu-Cortef) 10 mg Q8 IV Last administered on 07/02/16 22:48; Admin Dose 10 MG; Start 2/15/17 at 14:00 SUN MCNAMARA MD Jul 03, 2016 00:13
[2016-07-03] MEDS: VANCOMYCIN HCL 250 MG/5ML POSYG PO SCH ×4 (01:12→18:58)
[2016-07-03] MEDS: ALBUTEROL HFA 8 GM INHALER INH SCH ×6 (02:55→20:56)
[2016-07-03] MEDS: IPRATROPIUM (HFA) 12.9 GM INHALER INH SCH ×6 (02:55→20:57)
[2016-07-03 04:56] LABS: POTASSIUM 4.2 mmol/L (3.5-5.1)
[2016-07-03 04:58] LABS: BASOPHILS % 0.3 % (0.0-2.0); CREATININE 3.1 mg/dl (0.61-1.24); EOSINOPHILS % 0.1 % (0.0-7.0); HEMATOCRIT 25.4 % (42.0-52.0); HEMOGLOBIN 8.6 g/dl (14.0-18.0); LYMPHOCYTES # 0.8 10^3/ul (0.8-2.9); LYMPHOCYTES % 5.8 % (15.0-51.0); MEAN CORPUSCULAR HEMOGLOBIN 29.2 pg (29.0-33.0); MEAN CORPUSCULAR HGB CONC 33.6 g/dl (32.0-37.0); MEAN CORPUSCULAR VOLUME 86.9 fl (82.0-101.0); MEAN PLATELET VOLUME 7.4 fl (7.4-10.4); MONOCYTE # 0.5 10^3/ul (0.3-0.9); MONOCYTES % 3.7 % (0.0-11.0); NEUTROPHIL # 11.8 10^3/ul (1.6-7.5); NEUTROPHILS % 90.1 % (39.0-77.0); PLATELET COUNT 304 10^3/UL (140-440); RED BLOOD COUNT 2.92 10^6/ul (4.70-6.10); RED CELL DISTRIBUTION WIDTH 18.6 % (11.5-14.5); UNCORRECTED WBC 13.1 10^3/ul (4.8-10.8); WHITE BLOOD COUNT 13.1 10^3/ul (4.8-10.8)
[2016-07-03 04:59] LABS: PHOSPHORUS 5.1 mg/dl (2.5-4.9)
[2016-07-03 05:00] LABS: MAGNESIUM 2.3 mg/dl (1.7-2.5)
[2016-07-03 05:09] LABS: CONDITION 1; LH ANALYZER COMMENTS 1
[2016-07-03] MEDS: LANSOPRAZOLE 30 MG CAP GTB SCH (06:15)
[2016-07-03] MEDS: LEVOTHYROXINE 125 MCG TAB GTB SCH (06:15)
[2016-07-03] MEDS: metroNIDAZOLE 500 MG/NS (PMX) 100 ML IVPB SCH ×3 (06:15→22:01)
[2016-07-03] MEDS: HYDROCORTISONE 100 MG INJ IV SCH (06:15)
--- NOTE | 2016-07-03 07:45 | PN ---
DATE: 07/03/2016 SUBJECTIVE: The patient remains critical, but stable, currently off pressor support for 24 hours. Stable on ventilatory support. No other acute events noted overnight. No hemoptysis, hematemesis o r hematochezia. OBJECTIVE: VITAL SIGNS: Blood pressure 99/56, respirations 26, pulse 68, temperature 99.0. I's AND O'S: The patient had 1.7 L in and 1.4 L out. HEENT: Head is normocephalic. NECK: Supple. HEART: Regular rate. LUNGS: Show diminished breath sounds at the base. ABDOMEN: Soft, nontender to palpation. No rebound or guarding. EXTREMITIES: Negative for clubbing or cyanosis. No edema. DERMATOLOGIC: No rashes. MUSCULOSKELETAL: Stage IV decubitus wound. NEUROLOGIC: The patient is obtunded. No change. MEDICATIONS: Have been reviewed. LABORATORY DATA: Shows white count 13.1, hemoglobin 8.6, hematocrit 25.4, platelet count is 304. S odium 142, potassium 4.2, chloride 110, BUN 102, creatinine 3.10, phosphorus 5.1. IMAGING: The patient's chest x-ray and ABG was reviewed. ASSESSMENT AND PLAN: 1. Sepsis status post shock. Etiology is secondary to healthcare-associated pneumonia, fungal urin austyn and decubitus wound. The patient has remained off pressor support for 24 hours. At this point, continue the current treatment plan, continue antimicrobial antifungal therapy. Follow up with infe ctious disease. 2. Nonoliguric acute kidney injury on top of chronic kidney disease, with an unknown baseline creat inine. Etiology of acute kidney injury is secondary to acute tubular necrosis and septic acute kidn ey injury. The patient's renal function has been fluctuating. Creatinine appears to be stabilizing around 3.0 mg/dL. The patient does have progressive azotemia, which is multifactorial, in part due to steroids, hypercatabolic state, and sepsis. Plan at this point is to continue the current treat ment plan, supportive care, and renally dose all meds. Will discontinue steroids. There is no immed iate need for renal replacement therapy at this time. Will monitor closely. 3. Ventilator-dependent respiratory failure. Vent settings have been reviewed. ABG has been revie wed. Continue to monitor. 4. Pulmonary edema, likely secondary to sepsis, capillary leak and diastolic heart failure. The pa tegan is receiving intermittent diuretics. Will continue to monitor. 5. Dysphagia. Status post PEG and tube feeding. 6. Anemia. Continue to monitor H and H levels. Give Epogen as needed. 7. Mineral bone disorder. Continue to monitor calcium and phos levels. No need for phosphate binde rs. 8. Decubitus wound stage IV. Continue wound care. Will consider a general surgical consult with Dru Sawant. 9. 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 Continue to monitor. 10. Hypothyroidism. Continue Synthroid. 11. Fungal urinary tract infection. Continue Voriconazole. 12. Seizure disorder. Continue Keppra. 13. History of cerebrovascular accident. 14. History of arrhythmia. Currently stable. Follow up with cardiology. 15. Gastrointestinal and deep venous thrombosis prophylaxis. Continue proton pump inhibitor and Lo venox. Dictated By: TYLER JACOBO/NTS Conf#: [id number] DID#: [id number]
--- NOTE | 2016-07-03 08:18 | CONS ---
Date/Time of Note Date/Time of Note DATE: 07/03/16 TIME: 08:15 Assessment/Plan Assessment/Plan Additional Assessment/Plan Assessment and recommendation; next 1. Chronic respiratory failure due to anoxic brain injury. Patient remains ventilator dependent. Next 2. Sepsis, which is a combination of sacral decubitus ulcer as well as pneumonia which is from MDR Acinetobacter. Next 3. C. difficile colitis. 4. History of cardiac arrhythmia. 5. Mild CHF. 6. Hypothyroidism. 7. Chronic renal insufficiency. With elevation in serum creatinine today. Continue current supportive care. Patient can be transferred to the telemetry unit. Overall prognosis remains poor. Consultation Date/Type/Reason Admit Date/Time Jun 25, 2016 at 18:35 Initial Consult Date 06/26/16 Type of Consultation: Pulmonary/critical care Referring Provider: TYLER HAINES DO 24 HR Interval Summary Free Text/Dictation Patient condition remains unchanged. Remains fully ventilator dependent. Because of underlying severe anoxic brain injury patient remains completely unresponsive. However has remained hemodynamically stable. General examination; elderly male, on ventilator via tracheostomy currently in no distress. Exam/Review of Systems Vital Signs Vitals Vital Signs Date Time Temp Pulse Resp B/P Pulse Ox O2 Delivery O2 Flow Rate FiO2 07/03/16 05:18 66 25 97 30 07/03/16 05:00 99/56 Mechanical Ventilator 07/03/16 04:00 99.0 Intake and Output 07/02/16 07/02/16 07/03/16 15:00 23:00 07:00 Intake Total 520 ml 740 ml 380 ml Output Total 490 ml 490 ml 480 ml Balance 30 ml 250 ml -100 ml Exam HEENT examination; supple neck, no JVD. No lymphadenopathy. No thyromegaly. Pupils are midsize bilaterally there is a disconjugate gaze. Patient is edentulous. Tracheostomy in place with clean insertion site. Chest examination; diminished but clear breath sounds bilaterally. S1-S2 audible, no murmurs. Regular rhythm. Abdomen examination; soft, G-tube in place with clean insertion site. Bowel sounds audible. No organomegaly. Extremity examination; no peripheral edema. Back examination; reveals stage IV decubitus ulcer. PATTERN CHANGER AND REPAIRER examination; patient remains unresponsive. Ventilator settings; AC of 16, tidal volume 500, PEEP of 5, 30% FiO2. Results Result Diagram: 07/03/16 0430 07/03/16 0430 Results 24 hrs Laboratory Tests Test 07/03/16 04:30 Anion Gap 17 H Basophils # 0.0 Basophils % 0.3 Blood Morphology Comment Blood Urea Nitrogen 102 H Calcium Level 8.0 L Carbon Dioxide Level 19 L Chloride Level 110 Creatinine 3.10 H Eosinophils # 0.0 Eosinophils % 0.1 Glucose Level 126 Hematocrit 25.4 L Hemoglobin 8.6 L Lymphocytes # 0.8 Lymphocytes % 5.8 L Magnesium Level 2.3 Mean Corpuscular Hemoglobin 29.2 Mean Corpuscular Hemoglobin Concent 33.6 Mean Corpuscular Volume 86.9 Mean Platelet Volume 7.4 Monocytes # 0.5 Monocytes % 3.7 Neutrophils # 11.8 H Neutrophils % 90.1 H Nucleated Red Blood Cells # 0.0 Nucleated Red Blood Cells % 0.0 Phosphorus Level 5.1 H Platelet Count 304 Potassium Level 4.2 Red Blood Count 2.92 L Red Cell Distribution Width 18.6 H Sodium Level 142 White Blood Count 13.1 H Medications Medications Current Medications Enoxaparin Sodium (Lovenox) 30 mg DAILY SC Last administered on 07/02/16 09:05 ; Admin Dose 30 MG; Start 06/26/16 at 09:00 Acetaminophen (Tylenol Liquid) 650 mg Q6H PRN GTB PAIN AND OR ELEVATED TEMP; Start 06/25/16 at 23:30 Amiodarone HCl (Cordarone) 200 mg DAILY GTB Last administered on 07/02/16 09: 03; Admin Dose 200 MG; Start 06/26/16 at 09:00 Eye Lubricant (Artificial Tears Oph) 2 drop Q6H PRN BOTH EYES DRY EYES; Start 06/25/16 at 23:30 Ascorbic Acid (Vitamin C) 500 mg DAILY GTB Last administered on 07/02/16 09:03 ; Admin Dose 500 MG; Start 06/26/16 at 09:00 Cholecalciferol (Vitamin D) 5,000 unit DAILY GTB Last administered on 09:03; Admin Dose 5,000 UNIT; Start 06/26/16 at 09:00 Ferrous Sulfate (Feosol Liquid Cup) 300 mg BID GTB Last administered on 21:07; Admin Dose 300 MG; Start 06/26/16 at 09:00 Lactobacillus Acidophilus/ Rhamnosus (Culturelle) 1 cap BID GTB Last administered on 07/02/16 21:07; Admin Dose 1 CAP; Start 06/26/16 at 09:00 Lansoprazole (Prevacid) 30 mg DAILY@06 GTB Last administered on 07/03/16 06:15 ; Admin Dose 30 MG; Start 06/26/16 at 06:00 Levetiracetam (Keppra Liquid) 500 mg BID GTB Last administered on 07/02/16 21: 07; Admin Dose 500 MG; Start 06/26/16 at 09:00 Linezolid 600 mg 600 mg BID GTB Last administered on 07/02/16 21:07; Admin Dose 600 MG; Start 06/26/16 at 09:00 Meropenem (Merrem 500 Mg/ 100 ml (Pmx)) 100 ml @ 200 mls/hr Q12 IVPB Last administered on 07/02/16 21:07; Admin Dose 200 MLS/HR; Start 06/26/16 at 09:00 Multivitamins (Thera-Plus) 5 ml DAILY GTB Last administered on 07/02/16 09:02 ; Admin Dose 5 ML; Start 06/26/16 at 09:00 Nystatin (Nystatin Powder) 1 applic Q12 PRN TOP ITCHING; Start 06/25/16 at 23:30 Sodium Hypochlorite (Dakin'S (1/4 Strength)) 1 applic BID PRN TOP NOTE; Start 06/25/16 at 23:30 Voriconazole (Vfend) 200 mg BID GTB Last administered on 07/02/16 21:07; Admin Dose 200 MG; Start 06/26/16 at 09:00 Zinc Sulfate (Zinc Sulfate) 220 mg DAILY GTB Last administered on 07/02/16 09: 02; Admin Dose 220 MG; Start 06/26/16 at 09:00 Sodium Hypochlorite (Dakin'S (1/4 Strength)) 1 applic DAILY@10 TOP Last administered on 07/02/16 09:06; Admin Dose 1 APPLIC; Start 06/26/16 at 10:00 Nystatin 1 applic 1 applic TID@10,13,21 TOP Last administered on 07/02/16 21: 08; Admin Dose 1 APPLIC; Start 06/26/16 at 10:00 Metronidazole (Flagyl 500 Mg (Pmx)) 100 ml @ 100 mls/hr Q8 IVPB Last administered on 07/03/16 06:15; Admin Dose 100 MLS/HR; Start 06/26/16 at 14:00 Vancomycin HCl (Vancomycin Oral Syringe) 250 mg Q6 PO Last administered on 07/03 06:15; Admin Dose 250 MG; Start 06/26/16 at 13:00 Levothyroxine Sodium 150 mcg 150 mcg DAILY@06 GTB Last administered on 06:15; Admin Dose 150 MCG; Start 06/28/16 at 06:00 Dopamine HCl/ Dextrose 250 ml @ 6.54 mls/hr TITRATE IV Last administered on 13:51; Admin Dose 6.54 MLS/HR; Start 06/30/16 at 13:30 EFRA ROMAN Jul 03, 2016 08:18
[2016-07-03] MEDS: COLISTIMETHATE (25 MG/ML INHAL SYG) NEB SCH ×2 (08:27→20:57)
[2016-07-03] MEDS: AMIODARONE 200 MG TAB GTB SCH (09:00)
[2016-07-03] MEDS: LACTOBACILLUS RHAMNOSUS CAP GTB SCH ×2 (09:53→20:38)
[2016-07-03] MEDS: ASCORBIC ACID 500 MG TAB GTB SCH (09:53)
[2016-07-03] MEDS: ZYVOX 600 MG TAB GTB SCH ×2 (09:53→20:38)
[2016-07-03] MEDS: ZINC SULFATE 220 MG CAP GTB SCH (09:53)
[2016-07-03] MEDS: CHOLECALCIFEROL 1,000 UNIT TAB GTB SCH (09:53)
[2016-07-03] MEDS: LEVETIRACETAM (100 MG/ML) 5ML CUP GTB SCH ×2 (09:54→20:38)
[2016-07-03] MEDS: MULTIVITAMINS 5 ML CUP GTB SCH (09:54)
[2016-07-03] MEDS: FERROUS SULFATE 60 MG/ML 5ML CUP GTB SCH ×2 (09:54→20:38)
[2016-07-03] MEDS: MEROPENEM 500 MG/100 ML (PMX) 100 ML IVPB SCH ×2 (09:55→20:39)
[2016-07-03] MEDS: VORICONAZOLE 200 MG TAB GTB SCH ×2 (09:55→20:38)
[2016-07-03] MEDS: ENOXAPARIN 30 MG/0.3 ML SYG SC SCH (09:58)
[2016-07-03] MEDS: SODIUM HYPOCHLORITE 0.125% 473 ML BTL TOP SCH (10:19)
[2016-07-03] MEDS: NYSTATIN 30 GM POWDER BTL TOP SCH ×3 (10:20→20:40)
--- NOTE | 2016-07-03 13:03 | PN ---
DATE: 07/03/2016 CARDIOLOGY FOLLOWUP SUBJECTIVE: Discussed with the staff. Rhythm strip was reviewed. The patient remains in sinus rhy thm. Currently off of pressors. Blood pressure has remained stable now. The patient is nonverbal, is still in the ICU on the vent. MEDICATIONS: Reviewed as per medical reconciliation, personally reviewed. PHYSICAL EXAMINATION: VITAL SIGNS: Temperature 99, heart rate of 71, blood pressure of 93/53, respiratory rate of 24, sat urating 97%. HEENT: Normocephalic, atraumatic. Eyes: Left eye ptosis. Right eyes pupil dilated. NECK: Status post tracheostomy, currently on the vent. CARDIOVASCULAR: Regular rate and rhythm, systolic murmur. PULMONARY: With mild diffuse rhonchi. GASTROINTESTINAL: Obese, soft, nontender. EXTREMITIES: Positive diffuse edema. NEUROLOGIC: Awake. LABORATORY DATA: WBC of 13.1, hemoglobin 8.6, platelets of 304. Sodium 142, potassium 4.2, BUN of 102, creatinine of 3.1, glucose of 126. ASSESSMENT AND PLAN: 1. Septic shock, currently blood pressure has improved. 2. Pneumonia. 3. Hypoxemic respiratory failure, status post tracheostomy, ventilator-dependent. 4. Pulmonary vascular congestion and slight pulmonary edema. 5. Anemia. 6. Encephalopathy. 7. Thyroid disorder. 8. Multiple infections with urinary tract infection and wound infection probably. 9. History of cerebrovascular accident. 10. History of arrhythmia and paroxysmal atrial fibrillation, currently on amiodarone, remains in s inus rhythm. RECOMMENDATIONS: The patient is off of pressors now. Continue ventilatory support. Thyroid manage ment as per internal medicine. Antibiotics managed as per ID recommendation. We will continue to m onitor on the telemetry as well. More than 35 minutes of critical care time was spent in management of this patient excluding any pro cedures. Dictated By: RAMBO FERNANDES/EMELINA Conf#: [id number] DID#: [id number] CC: TYLER HAINES DO;*EndCC*
--- NOTE | 2016-07-03 14:12 | CONS ---
Date/Time of Note Date/Time of Note DATE: 07/03/16 TIME: 14:11 Assessment/Plan Assessment/Plan Chief Complaint/Hosp Course SUBJECTIVE: No acute events overnight. The patient is lying comfortably in bed. No fevers. MICROBIOLOGY: Urine culture grew Shanice glabrata. Sputum culture grew multidrug resistant Acinetobacter baumannii/GNR. ANTIMICROBIALS: The patient is on: 1. PO Vancomycin. 2. P.o. Flagyl. 3. Oral Zyvox. 4. Oral voriconazole. 5. Meropenem. 6. Colistin INH INDWELLINGS: Trach, PEG, Evans, left subclavian triple-lumen catheter, rectal tube. PHYSICAL EXAMINATION: GENERAL: Chronically ill-appearing, elderly man in no distress. HEENT: Head atraumatic, normocephalic. Sclerae anicteric. Buccal mucosa dry. NECK: Supple. CHEST: Rise symmetrical. Breath sounds diminished to bases. HEART: S1, S2. ABDOMEN: Soft, bowel sounds present. EXTREMITIES: Contractured without cyanosis. ASSESSMENT: 1. Resolving sepsis status post shock. 2. Sacral decubitus, status post multiple debridements with evidence of osteomyelitis and culture grew vancomycin-resistant enterococci previously. 3. Healthcare-associated pneumonia. 4. Fungal urinary tract infection. 5. Clostridium difficile colitis. 6. Chronic respiratory failure. 7. History of cerebrovascular accident. PLAN: Clinically unchanged, continue abx, local wound care. Vent per pulmonary. Follow recommendations of consultants. DW staff Problems: Consultation Date/Type/Reason Admit Date/Time Jun 25, 2016 at 18:35 Initial Consult Date 06/26/16 Type of Consultation: id Referring Provider: TYLER HAINES DO Exam/Review of Systems Vital Signs Vitals Vital Signs Date Time Temp Pulse Resp B/P Pulse Ox O2 Delivery O2 Flow Rate FiO2 07/03/16 12:00 68 07/03/16 12:00 99.0 24 95/53 97 Mechanical Ventilator 07/03/16 11:00 30 Intake and Output 07/02/16 07/02/16 07/03/16 15:00 23:00 07:00 Intake Total 520 ml 740 ml 430 ml Output Total 490 ml 490 ml 510 ml Balance 30 ml 250 ml -80 ml Results Result Diagram: 07/03/16 0430 07/03/16 0430 Results 24 hrs Laboratory Tests Test 07/03/16 04:30 Anion Gap 17 H Basophils # 0.0 Basophils % 0.3 Blood Morphology Comment Blood Urea Nitrogen 102 H Calcium Level 8.0 L Carbon Dioxide Level 19 L Chloride Level 110 Creatinine 3.10 H Eosinophils # 0.0 Eosinophils % 0.1 Glucose Level 126 Hematocrit 25.4 L Hemoglobin 8.6 L Lymphocytes # 0.8 Lymphocytes % 5.8 L Magnesium Level 2.3 Mean Corpuscular Hemoglobin 29.2 Mean Corpuscular Hemoglobin Concent 33.6 Mean Corpuscular Volume 86.9 Mean Platelet Volume 7.4 Monocytes # 0.5 Monocytes % 3.7 Neutrophils # 11.8 H Neutrophils % 90.1 H Nucleated Red Blood Cells # 0.0 Nucleated Red Blood Cells % 0.0 Phosphorus Level 5.1 H Platelet Count 304 Potassium Level 4.2 Red Blood Count 2.92 L Red Cell Distribution Width 18.6 H Sodium Level 142 White Blood Count 13.1 H Medications Medications Current Medications Enoxaparin Sodium (Lovenox) 30 mg DAILY SC Last administered on 07/03/16 09:58 ; Admin Dose 30 MG; Start 06/26/16 at 09:00 Acetaminophen (Tylenol Liquid) 650 mg Q6H PRN GTB PAIN AND OR ELEVATED TEMP; Start 06/25/16 at 23:30 Amiodarone HCl (Cordarone) 200 mg DAILY GTB Last administered on 07/02/16 09: 03; Admin Dose 200 MG; Start 06/26/16 at 09:00 Eye Lubricant (Artificial Tears Oph) 2 drop Q6H PRN BOTH EYES DRY EYES; Start 06/25/16 at 23:30 Ascorbic Acid (Vitamin C) 500 mg DAILY GTB Last administered on 07/03/16 09:53 ; Admin Dose 500 MG; Start 06/26/16 at 09:00 Cholecalciferol (Vitamin D) 5,000 unit DAILY GTB Last administered on 09:53; Admin Dose 5,000 UNIT; Start 06/26/16 at 09:00 Ferrous Sulfate (Feosol Liquid Cup) 300 mg BID GTB Last administered on 09:54; Admin Dose 300 MG; Start 06/26/16 at 09:00 Lactobacillus Acidophilus/ Rhamnosus (Culturelle) 1 cap BID GTB Last administered on 07/03/16 09:53; Admin Dose 1 CAP; Start 06/26/16 at 09:00 Lansoprazole (Prevacid) 30 mg DAILY@06 GTB Last administered on 07/03/16 06:15 ; Admin Dose 30 MG; Start 06/26/16 at 06:00 Levetiracetam (Keppra Liquid) 500 mg BID GTB Last administered on 07/03/16 09: 54; Admin Dose 500 MG; Start 06/26/16 at 09:00 Linezolid 600 mg 600 mg BID GTB Last administered on 07/03/16 09:53; Admin Dose 600 MG; Start 06/26/16 at 09:00 Meropenem (Merrem 500 Mg/ 100 ml (Pmx)) 100 ml @ 200 mls/hr Q12 IVPB Last administered on 07/03/16 09:55; Admin Dose 200 MLS/HR; Start 06/26/16 at 09:00 Multivitamins (Thera-Plus) 5 ml DAILY GTB Last administered on 07/03/16 09:54 ; Admin Dose 5 ML; Start 06/26/16 at 09:00 Nystatin (Nystatin Powder) 1 applic Q12 PRN TOP ITCHING; Start 06/25/16 at 23:30 Sodium Hypochlorite (Dakin'S (1/4 Strength)) 1 applic BID PRN TOP NOTE; Start 06/25/16 at 23:30 Voriconazole (Vfend) 200 mg BID GTB Last administered on 07/03/16 09:55; Admin Dose 200 MG; Start 06/26/16 at 09:00 Zinc Sulfate (Zinc Sulfate) 220 mg DAILY GTB Last administered on 07/03/16 09: 53; Admin Dose 220 MG; Start 06/26/16 at 09:00 Sodium Hypochlorite (Dakin'S (1/4 Strength)) 1 applic DAILY@10 TOP Last administered on 07/03/16 10:19; Admin Dose 1 APPLIC; Start 06/26/16 at 10:00 Nystatin 1 applic 1 applic TID@10,13,21 TOP Last administered on 07/03/16 13: 31; Admin Dose 1 APPLIC; Start 06/26/16 at 10:00 Metronidazole (Flagyl 500 Mg (Pmx)) 100 ml @ 100 mls/hr Q8 IVPB Last administered on 07/03/16 13:31; Admin Dose 100 MLS/HR; Start 06/26/16 at 14:00 Vancomycin HCl (Vancomycin Oral Syringe) 250 mg Q6 PO Last administered on 07/03 13:30; Admin Dose 250 MG; Start 06/26/16 at 13:00 Levothyroxine Sodium (Synthroid) 150 mcg DAILY@06 GTB Last administered on 07/03 06:15; Admin Dose 150 MCG; Start 06/28/16 at 06:00 CARLITOS RIOS NP Jul 03, 2016 14:12
--- NOTE | 2016-07-03 20:08 | CONS ---
Date/Time of Note Date/Time of Note DATE: 07/03/16 TIME: 20:05 Assessment/Plan Assessment/Plan Chief Complaint/Hosp Course ASSESSMENT AND PLAN: This is a 61-year-old male with acute sepsis associated with Anemia, N-cytic with increased RDW HX ACD HX GIB HX NEEDS FOR PRBC ON SEVERAL OCCASIONS CONT TO MONITOR BLOOD COUNT CLOSELY OBSERVE FOR BLEEDING AND HEMOLYSIS TRANSFUSE NEEDED Will continue to monitor hemoglobin and hematocrit levels. No evidence of gastrointestinal bleed at this time. LEUKOCYTOSIS REACTIVE PARTIALLY 2 TO STEROIDS MONITOR CLOSELY THROMBOCYTOSIS REACTIVE IMPROVED Septic shock. Underlying source is multifactorial secondary to pneumonia, fungal urinary tract infection. The patient is on pressor support, on IV fluids , receiving broad spectrum antibiotics, antifungal therapy. Plan at this point is to continue current treatment plan. Will follow up blood cultures, urine cultures. Will follow up lactic acid and procalcitonin level. Will follow up with infectious disease for recommendations. Ventilator dependent respiratory failure. Vent settings have been reviewed. ABG has been reviewed. Continue to monitor. Follow up with Pulmonary. Dysphagia, status post percutaneous endoscopic gastrostomy tube feeding. Nonoliguric acute kidney injury on top of chronic kidney disease with unknown baseline creatinine. Etiology of current acute kidney injury is unclear, possibly secondary to sepsis, TTN, hemodynamics. Plan at this point is to do a full evaluation. Will check UA with microanalysis. Will check urine electrolytes. Will check a renal ultrasound to rule out obstruction. Will continue IV hydration, continue pressor support, and maintain MAP above 65. Continue treating underlying sepsis with IV antibiotics. Will monitor closely. Hyponatremia, etiology is multifactorial secondary to acute kidney injury with decreased free water urinary excretion. Will follow up a repeat sodium level. Will limit free water intake and monitor. 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 At this point, will continue to monitor. If there is any change in mental status will get a CT scan of the brain. The patient has a history of CVA. Continue medical management. Hypothyroidism. The patient's TSH levels are markedly elevated. Will increase Synthroid to 150 mcg daily and monitor. Fungal urinary tract infection. Continue voriconazole. Seizure disorder. Continue Keppra. Gastrointestinal and deep venous thrombosis prophylaxis. Will continue Prevacid and Lovenox. Arrhythmia. Continue amiodarone. Gastrointestinal and deep venous thrombosis prophylaxis. Continue proton pump inhibitor and Lovenox. Problems: Consultation Date/Type/Reason Admit Date/Time Jun 25, 2016 at 18:35 Initial Consult Date 06/25/16 Type of Consultation: HEMEONC Reason for Consultation ANEMIA Referring Provider: TYLER HAINES DO 24 HR Interval Summary Free Text/Dictation The patient remains critical, but stable, currently off pressor support for 24 hours. Stable on ventilatory support. No other acute events noted overnight. No hemoptysis, hematemesis or hematochezia. + MILD LEUKOCYTOSIS + MODERATE ANEMIA NO BLEEDING Exam/Review of Systems Vital Signs Vitals Vital Signs Date Time Temp Pulse Resp B/P Pulse Ox O2 Delivery O2 Flow Rate FiO2 07/03/16 19:14 69 22 96 30 07/03/16 12:00 99.0 95/53 Mechanical Ventilator Intake and Output 07/02/16 07/02/16 07/03/16 15:00 23:00 07:00 Intake Total 520 ml 740 ml 430 ml Output Total 490 ml 490 ml 510 ml Balance 30 ml 250 ml -80 ml Exam HEENT: Head is normocephalic. NECK: Supple. HEART: Regular rate. LUNGS: Show diminished breath sounds at the base. ABDOMEN: Soft, nontender to palpation. No rebound or guarding. EXTREMITIES: Negative for clubbing or cyanosis. No edema. DERMATOLOGIC: No rashes. MUSCULOSKELETAL: Stage IV decubitus wound.- NEUROLOGIC: The patient is obtunded. No change. Results Result Diagram: 07/03/16 0430 07/03/16 0430 Results 24 hrs Laboratory Tests Test 07/03/16 04:30 Anion Gap 17 H Basophils # 0.0 Basophils % 0.3 Blood Morphology Comment Blood Urea Nitrogen 102 H Calcium Level 8.0 L Carbon Dioxide Level 19 L Chloride Level 110 Creatinine 3.10 H Eosinophils # 0.0 Eosinophils % 0.1 Glucose Level 126 Hematocrit 25.4 L Hemoglobin 8.6 L Lymphocytes # 0.8 Lymphocytes % 5.8 L Magnesium Level 2.3 Mean Corpuscular Hemoglobin 29.2 Mean Corpuscular Hemoglobin Concent 33.6 Mean Corpuscular Volume 86.9 Mean Platelet Volume 7.4 Monocytes # 0.5 Monocytes % 3.7 Neutrophils # 11.8 H Neutrophils % 90.1 H Nucleated Red Blood Cells # 0.0 Nucleated Red Blood Cells % 0.0 Phosphorus Level 5.1 H Platelet Count 304 Potassium Level 4.2 Red Blood Count 2.92 L Red Cell Distribution Width 18.6 H Sodium Level 142 White Blood Count 13.1 H Medications Medications Current Medications Enoxaparin Sodium (Lovenox) 30 mg DAILY SC Last administered on 07/03/16 09:58 ; Admin Dose 30 MG; Start 06/26/16 at 09:00 Acetaminophen (Tylenol Liquid) 650 mg Q6H PRN GTB PAIN AND OR ELEVATED TEMP; Start 06/25/16 at 23:30 Amiodarone HCl (Cordarone) 200 mg DAILY GTB Last administered on 07/02/16 09: 03; Admin Dose 200 MG; Start 06/26/16 at 09:00 Eye Lubricant (Artificial Tears Oph) 2 drop Q6H PRN BOTH EYES DRY EYES; Start 06/25/16 at 23:30 Ascorbic Acid (Vitamin C) 500 mg DAILY GTB Last administered on 07/03/16 09:53 ; Admin Dose 500 MG; Start 06/26/16 at 09:00 Cholecalciferol (Vitamin D) 5,000 unit DAILY GTB Last administered on 09:53; Admin Dose 5,000 UNIT; Start 06/26/16 at 09:00 Ferrous Sulfate (Feosol Liquid Cup) 300 mg BID GTB Last administered on 09:54; Admin Dose 300 MG; Start 06/26/16 at 09:00 Lactobacillus Acidophilus/ Rhamnosus (Culturelle) 1 cap BID GTB Last administered on 07/03/16 09:53; Admin Dose 1 CAP; Start 06/26/16 at 09:00 Lansoprazole (Prevacid) 30 mg DAILY@06 GTB Last administered on 07/03/16 06:15 ; Admin Dose 30 MG; Start 06/26/16 at 06:00 Levetiracetam (Keppra Liquid) 500 mg BID GTB Last administered on 07/03/16 09: 54; Admin Dose 500 MG; Start 06/26/16 at 09:00 Linezolid 600 mg 600 mg BID GTB Last administered on 07/03/16 09:53; Admin Dose 600 MG; Start 06/26/16 at 09:00 Meropenem (Merrem 500 Mg/ 100 ml (Pmx)) 100 ml @ 200 mls/hr Q12 IVPB Last administered on 07/03/16 09:55; Admin Dose 200 MLS/HR; Start 06/26/16 at 09:00 Multivitamins (Thera-Plus) 5 ml DAILY GTB Last administered on 07/03/16 09:54 ; Admin Dose 5 ML; Start 06/26/16 at 09:00 Nystatin (Nystatin Powder) 1 applic Q12 PRN TOP ITCHING; Start 06/25/16 at 23:30 Sodium Hypochlorite (Dakin'S (1/4 Strength)) 1 applic BID PRN TOP NOTE; Start 06/25/16 at 23:30 Voriconazole (Vfend) 200 mg BID GTB Last administered on 07/03/16 09:55; Admin Dose 200 MG; Start 06/26/16 at 09:00 Zinc Sulfate (Zinc Sulfate) 220 mg DAILY GTB Last administered on 07/03/16 09: 53; Admin Dose 220 MG; Start 06/26/16 at 09:00 Sodium Hypochlorite (Dakin'S (1/4 Strength)) 1 applic DAILY@10 TOP Last administered on 07/03/16 10:19; Admin Dose 1 APPLIC; Start 06/26/16 at 10:00 Nystatin 1 applic 1 applic TID@10,13,21 TOP Last administered on 07/03/16 13: 31; Admin Dose 1 APPLIC; Start 06/26/16 at 10:00 Metronidazole (Flagyl 500 Mg (Pmx)) 100 ml @ 100 mls/hr Q8 IVPB Last administered on 07/03/16 13:31; Admin Dose 100 MLS/HR; Start 06/26/16 at 14:00 Vancomycin HCl (Vancomycin Oral Syringe) 250 mg Q6 PO Last administered on 07/03 18:58; Admin Dose 250 MG; Start 06/26/16 at 13:00 Levothyroxine Sodium (Synthroid) 150 mcg DAILY@06 GTB Last administered on 07/03 06:15; Admin Dose 150 MCG; Start 06/28/16 at 06:00 SUN MCNAMARA MD Jul 03, 2016 20:07
[2016-07-04] VITALS (23 sets, daily range): BP systolic 98–141; BP diastolic 55–78; PULSE 64–78; RESP 10–30
[2016-07-04] MEDS: VANCOMYCIN HCL 250 MG/5ML POSYG PO SCH ×5 (00:54→23:53)
[2016-07-04] MEDS: ALBUTEROL HFA 8 GM INHALER INH SCH ×6 (01:19→20:45)
[2016-07-04] MEDS: IPRATROPIUM (HFA) 12.9 GM INHALER INH SCH ×6 (01:19→20:45)
[2016-07-04] MEDS: metroNIDAZOLE 500 MG/NS (PMX) 100 ML IVPB SCH ×3 (05:52→21:27)
[2016-07-04] MEDS: LANSOPRAZOLE 30 MG CAP GTB SCH (05:52)
[2016-07-04 06:25] LABS: EOSINOPHILS # 0.2 10^3/ul (0.0-0.5); EOSINOPHILS % 1.3 % (0.0-7.0); HEMATOCRIT 25.1 % (42.0-52.0); HEMOGLOBIN 8.4 g/dl (14.0-18.0); LYMPHOCYTES # 0.9 10^3/ul (0.8-2.9); LYMPHOCYTES % 7.2 % (15.0-51.0); MEAN CORPUSCULAR HEMOGLOBIN 28.9 pg (29.0-33.0); MEAN CORPUSCULAR HGB CONC 33.7 g/dl (32.0-37.0); MEAN CORPUSCULAR VOLUME 85.8 fl (82.0-101.0); MEAN PLATELET VOLUME 7.1 fl (7.4-10.4); MONOCYTE # 0.7 10^3/ul (0.3-0.9); MONOCYTES % 5.7 % (0.0-11.0); NEUTROPHIL # 11.3 10^3/ul (1.6-7.5); NEUTROPHILS % 85.8 % (39.0-77.0); PLATELET COUNT 273 10^3/UL (140-440); RED BLOOD COUNT 2.92 10^6/ul (4.70-6.10); RED CELL DISTRIBUTION WIDTH 18.1 % (11.5-14.5); UNCORRECTED WBC 13.1 10^3/ul (4.8-10.8); WHITE BLOOD COUNT 13.1 10^3/ul (4.8-10.8)
[2016-07-04 06:32] LABS: CONDITION 1; LH ANALYZER COMMENTS 1
[2016-07-04 07:08] LABS: POTASSIUM 4.2 mmol/L (3.5-5.1)
[2016-07-04 07:10] LABS: CREATININE 3.24 mg/dl (0.61-1.24)
[2016-07-04 07:11] LABS: CALCIUM 8.1 mg/dl (8.4-10.2); MAGNESIUM 2.5 mg/dl (1.7-2.5); PHOSPHORUS 5.2 mg/dl (2.5-4.9)
--- NOTE | 2016-07-04 07:39 | RADRPT ---
PROCEDURE: Chest 1 views. CLINICAL INDICATION: Shortness of breath, pneumonia TECHNIQUE: AP views of the chest were obtained. COMPARISON: June 29, 2016 FINDINGS: The heart is large. Tracheostomy tube is stable and appears in grossly appropriate location. Centra l pulmonary vascular congestion and interstitial prominence is seen in both lungs. Patchy infiltrat es throughout both lungs are unchanged and/or combined with moderate to large pleural effusions. Ri ght-sided Pleurx catheter is stable. The osseous structures appear grossly intact. IMPRESSION: Cardiomegaly . Stable central pulmonary vascular congestion and interstitial prominence in both lungs. Stable infiltrates throughout both lungs combined with moderate to large pleural effusions. Stable right-sided pleural catheter. RPTAT: AA .Mitch Renner MD, MD Date Time Electronically viewed and signed by .Mitch Renner MD, on 07/04/2016 07:39 .P/
[2016-07-04] MEDS: LEVOTHYROXINE 150 MCG TAB GTB SCH (07:40)
[2016-07-04] MEDS: MEROPENEM 500 MG/100 ML (PMX) 100 ML IVPB SCH ×2 (08:58→21:28)
[2016-07-04] MEDS: AMIODARONE 200 MG TAB GTB SCH (09:00)
[2016-07-04] MEDS: ZINC SULFATE 220 MG CAP GTB SCH (09:01)
[2016-07-04] MEDS: CHOLECALCIFEROL 1,000 UNIT TAB GTB SCH (09:01)
[2016-07-04] MEDS: VORICONAZOLE 200 MG TAB GTB SCH ×2 (09:02→21:25)
[2016-07-04] MEDS: FERROUS SULFATE 60 MG/ML 5ML CUP GTB SCH ×2 (09:02→21:25)
[2016-07-04] MEDS: MULTIVITAMINS 5 ML CUP GTB SCH (09:02)
[2016-07-04] MEDS: ASCORBIC ACID 500 MG TAB GTB SCH (09:02)
[2016-07-04] MEDS: LEVETIRACETAM (100 MG/ML) 5ML CUP GTB SCH ×2 (09:02→21:27)
[2016-07-04] MEDS: ENOXAPARIN 30 MG/0.3 ML SYG SC SCH (09:04)
[2016-07-04] MEDS: NYSTATIN 30 GM POWDER BTL TOP SCH ×3 (09:07→21:28)
[2016-07-04] MEDS: SODIUM HYPOCHLORITE 0.125% 473 ML BTL TOP SCH (09:07)
[2016-07-04] MEDS: COLISTIMETHATE (25 MG/ML INHAL SYG) NEB SCH ×2 (09:34→20:41)
[2016-07-04] MEDS: ZYVOX 600 MG TAB GTB SCH ×2 (10:42→23:53)
[2016-07-04] MEDS: LACTOBACILLUS RHAMNOSUS CAP GTB SCH ×2 (10:42→21:25)
--- NOTE | 2016-07-04 11:09 | CONS ---
Date/Time of Note Date/Time of Note DATE: 07/04/16 TIME: 11:01 Consult Date/Type/Reason Admit Date/Time Jun 25, 2016 at 18:35 Initial Consult Date 06/25/16 Type of Consultation: neph/im Ordering Provider: TYLER HAINES The patient remains critical, but stable, currently off pressor support. Stable on ventilatory support. No other acute events noted overnight. No hemoptysis, hematemesis or hematochezia. OBJECTIVE: HEENT: Head is normocephalic. NECK: Supple. HEART: Regular rate. LUNGS: Show diminished breath sounds at the base. ABDOMEN: Soft, nontender to palpation. No rebound or guarding. EXTREMITIES: Negative for clubbing or cyanosis. No edema. DERMATOLOGIC: No rashes. MUSCULOSKELETAL: Stage IV decubitus wound. NEUROLOGIC: The patient is obtunded. No change. MEDICATIONS: Have been reviewed. Objective Vital Signs Date Time Temp Pulse Resp B/P Pulse Ox O2 Delivery O2 Flow Rate FiO2 07/04/16 09:30 82 30 98 30 07/04/16 07:22 98.6 100/55 07/04/16 00:00 Mechanical Ventilator Intake and Output 07/03/16 07/03/16 07/04/16 15:00 23:00 07:00 Intake Total 480 ml 480 ml 250 ml Output Total 330 ml 850 ml 700 ml Balance 150 ml -370 ml -450 ml Results/Medications Result Diagram: 07/04/16 0600 07/04/16 0600 Results 24 hrs Laboratory Tests Test 07/04/16 06:00 Anion Gap 17 H Basophils # 0.0 Basophils % 0.0 Blood Morphology Comment Blood Urea Nitrogen 105 H Calcium Level 8.1 L Carbon Dioxide Level 20 L Chloride Level 111 H Creatinine 3.24 H Eosinophils # 0.2 Eosinophils % 1.3 Glucose Level 79 # Hematocrit 25.1 L Hemoglobin 8.4 L Lymphocytes # 0.9 Lymphocytes % 7.2 L Magnesium Level 2.5 Mean Corpuscular Hemoglobin 28.9 L Mean Corpuscular Hemoglobin Concent 33.7 Mean Corpuscular Volume 85.8 Mean Platelet Volume 7.1 L Monocytes # 0.7 Monocytes % 5.7 Neutrophils # 11.3 H Neutrophils % 85.8 H Nucleated Red Blood Cells # 0.0 Nucleated Red Blood Cells % 0.0 Phosphorus Level 5.2 H Platelet Count 273 Potassium Level 4.2 Red Blood Count 2.92 L Red Cell Distribution Width 18.1 H Sodium Level 144 White Blood Count 13.1 H Medications Current Medications Enoxaparin Sodium (Lovenox) 30 mg DAILY SC Last administered on 07/04/16 09:04 ; Admin Dose 30 MG; Start 06/26/16 at 09:00 Acetaminophen (Tylenol Liquid) 650 mg Q6H PRN GTB PAIN AND OR ELEVATED TEMP; Start 06/25/16 at 23:30 Amiodarone HCl (Cordarone) 200 mg DAILY GTB Last administered on 07/02/16 09: 03; Admin Dose 200 MG; Start 06/26/16 at 09:00 Eye Lubricant (Artificial Tears Oph) 2 drop Q6H PRN BOTH EYES DRY EYES; Start 06/25/16 at 23:30 Ascorbic Acid (Vitamin C) 500 mg DAILY GTB Last administered on 07/04/16 09:02 ; Admin Dose 500 MG; Start 06/26/16 at 09:00 Cholecalciferol (Vitamin D) 5,000 unit DAILY GTB Last administered on 09:01; Admin Dose 5,000 UNIT; Start 06/26/16 at 09:00 Ferrous Sulfate (Feosol Liquid Cup) 300 mg BID GTB Last administered on 09:02; Admin Dose 300 MG; Start 06/26/16 at 09:00 Lactobacillus Acidophilus/ Rhamnosus (Culturelle) 1 cap BID GTB Last administered on 07/04/16 10:42; Admin Dose 1 CAP; Start 06/26/16 at 09:00 Lansoprazole (Prevacid) 30 mg DAILY@06 GTB Last administered on 07/04/16 05:52 ; Admin Dose 30 MG; Start 06/26/16 at 06:00 Levetiracetam (Keppra Liquid) 500 mg BID GTB Last administered on 07/04/16 09: 02; Admin Dose 500 MG; Start 06/26/16 at 09:00 Linezolid 600 mg 600 mg BID GTB Last administered on 07/04/16 10:42; Admin Dose 600 MG; Start 06/26/16 at 09:00 Meropenem (Merrem 500 Mg/ 100 ml (Pmx)) 100 ml @ 200 mls/hr Q12 IVPB Last administered on 07/04/16 08:58; Admin Dose 200 MLS/HR; Start 06/26/16 at 09:00 Multivitamins (Thera-Plus) 5 ml DAILY GTB Last administered on 07/04/16 09:02 ; Admin Dose 5 ML; Start 06/26/16 at 09:00 Nystatin (Nystatin Powder) 1 applic Q12 PRN TOP ITCHING; Start 06/25/16 at 23:30 Sodium Hypochlorite (Dakin'S (1/4 Strength)) 1 applic BID PRN TOP NOTE; Start 06/25/16 at 23:30 Voriconazole (Vfend) 200 mg BID GTB Last administered on 07/04/16 09:02; Admin Dose 200 MG; Start 06/26/16 at 09:00 Zinc Sulfate (Zinc Sulfate) 220 mg DAILY GTB Last administered on 07/04/16 09: 01; Admin Dose 220 MG; Start 06/26/16 at 09:00 Sodium Hypochlorite (Dakin'S (1/4 Strength)) 1 applic DAILY@10 TOP Last administered on 07/04/16 09:07; Admin Dose 1 APPLIC; Start 06/26/16 at 10:00 Nystatin 1 applic 1 applic TID@10,13,21 TOP Last administered on 07/04/16 09: 07; Admin Dose 1 APPLIC; Start 06/26/16 at 10:00 Metronidazole (Flagyl 500 Mg (Pmx)) 100 ml @ 100 mls/hr Q8 IVPB Last administered on 07/04/16 05:52; Admin Dose 100 MLS/HR; Start 06/26/16 at 14:00 Vancomycin HCl (Vancomycin Oral Syringe) 250 mg Q6 PO Last administered on 07/04 07:40; Admin Dose 250 MG; Start 06/26/16 at 13:00 Levothyroxine Sodium (Synthroid) 150 mcg DAILY@06 GTB Last administered on 07/04 07:40; Admin Dose 150 MCG; Start 07/04/16 at 06:00 Assessment/Plan Chief Complaint/Hosp Course 1. Sepsis status post shock. Etiology is secondary to healthcare-associated pneumonia, fungal urinary and decubitus wound. The patient has remained off pressor support. At this point, continue the current treatment plan, continue antimicrobial antifungal therapy. Follow up with infectious disease. 2. Nonoliguric acute kidney injury on top of chronic kidney disease, with an unknown baseline creatinine. Etiology of acute kidney injury is secondary to acute tubular necrosis and septic acute kidney injury. The patient's renal function has been fluctuating.. The patient does have progressive azotemia, which is multifactorial, in part due to steroids, hypercatabolic state, and sepsis. Plan at this point is to continue the current treatment plan, supportive care, and renally dose all meds. Will discontinue steroids. There is no immediate need for renal replacement therapy at this time. Will monitor closely. 3. Ventilator-dependent respiratory failure. Vent settings have been reviewed. ABG has been reviewed. Continue to monitor. 4. Pulmonary edema, likely secondary to sepsis, capillary leak and diastolic heart failure. The patient is receiving intermittent diuretics. Will continue to monitor. 5. Dysphagia. Status post PEG and tube feeding. 6. Anemia. Continue to monitor H and H levels. Give Epogen as needed. 7. Mineral bone disorder. Continue to monitor calcium and phos levels. No need for phosphate binders. 8. Decubitus wound stage IV. Continue wound care. Will consider a general surgical consult with Dr. Sawant. 9. 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 Continue to monitor. 10. Hypothyroidism. Continue Synthroid. 11. Fungal urinary tract infection. Continue Voriconazole. 12. Seizure disorder. Continue Keppra. 13. History of cerebrovascular accident. 14. History of arrhythmia. Currently stable. Follow up with cardiology. 15. Gastrointestinal and deep venous thrombosis prophylaxis. Continue proton pump inhibitor and Lovenox. Problems: MG DODGE MD Jul 04, 2016 11:09
--- NOTE | 2016-07-04 19:07 | PN ---
DATE: 07/04/2016 CARDIOLOGY FOLLOWUP SUBJECTIVE: Discussed with the staff. This is a patient out of ICU. Heart rate has remained stabl e. Blood pressure has been stable. Off pressors. He is still on the vent. Nonverbal. MEDICATIONS: Reviewed. PHYSICAL EXAMINATION: VITAL SIGNS: Temperature 98.4, heart rate of 78, blood pressure 140/70, respiration rate 18, satura ting 99%. HEENT: Normocephalic, atraumatic. Eyes: Left eye ptosis. Right pupil is dilated but stable. NECK: Status post tracheostomy, on the vent. CARDIOVASCULAR: Regular rate and rhythm, systolic murmur. PULMONARY: With no wheeze, had minimal rhonchi. GASTROINTESTINAL: Soft, nontender. EXTREMITIES: Positive trivial edema. NEUROLOGIC: Opens his eyes. LABORATORY: WBC of 17.1, hemoglobin 8.4, platelets 273. Sodium 144, potassium 4.2, BUN of 105, cre atinine 3.24, glucose 79. ASSESSMENT AND PLAN: 1. Hypoxemia, respiratory failure, status post tracheostomy, ventilator dependent. 2. Status post septic shock, currently blood pressure has improved. 3. Renal failure. 4. Pulmonary edema, vascular congestion. 5. Anemia. 6. Encephalopathy. 7. Thyroid disorder. 8. Multiple infections, including urinary tract infection and wound infection. 9. History of cerebrovascular accident. 10. History of arrhythmia and paroxysmal atrial fibrillation, currently in sinus rhythm. RECOMMENDATIONS: We will continue with the current cardiac care. Vent support will be continued. Antibiotic is managed as per ID's recommendation. Will monitor on telemetry. Thyroid management wi ll be continued as well. Dictated By: RAMBO FERNANDES/EMELINA Conf#: [id number] DID#: [id number] CC: TYLER HAINES DO;*EndCC*
--- NOTE | 2016-07-04 19:44 | CONS ---
Date/Time of Note Date/Time of Note DATE: 07/04/16 TIME: 19:42 Consult Date/Type/Reason Admit Date/Time Jun 25, 2016 at 18:35 Initial Consult Date 06/26/16 Type of Consultation: Pulm Ordering Provider: TYLER HAINES DO Subjective On vent. No events noted. Objective Vital Signs Date Time Temp Pulse Resp B/P Pulse Ox O2 Delivery O2 Flow Rate FiO2 07/04/16 17:08 70 21 96 35 07/04/16 15:14 98.2 141/78 07/04/16 00:00 Mechanical Ventilator Intake and Output 07/03/16 07/03/16 07/04/16 15:00 23:00 07:00 Intake Total 480 ml 480 ml 250 ml Output Total 330 ml 850 ml 700 ml Balance 150 ml -370 ml -450 ml HEENT: Normocephalic and trach is in place. GENERAL: A contracted gentleman in no acute distress. CARDIOVASCULAR: Regular rate and rhythm, S1 and S2. CHEST: There are diffuse rhonchi and coarse breath sounds bilaterally with diminished breath sounds at the bases. ABDOMEN: Soft, nontender. Positive bowel sounds. EXTREMITIES: No cyanosis, clubbing or edema. Results/Medications Result Diagram: 07/04/16 0600 07/04/16 0600 Results 24 hrs Laboratory Tests Test 07/04/16 06:00 Anion Gap 17 H Basophils # 0.0 Basophils % 0.0 Blood Morphology Comment Blood Urea Nitrogen 105 H Calcium Level 8.1 L Carbon Dioxide Level 20 L Chloride Level 111 H Creatinine 3.24 H Eosinophils # 0.2 Eosinophils % 1.3 Glucose Level 79 # Hematocrit 25.1 L Hemoglobin 8.4 L Lymphocytes # 0.9 Lymphocytes % 7.2 L Magnesium Level 2.5 Mean Corpuscular Hemoglobin 28.9 L Mean Corpuscular Hemoglobin Concent 33.7 Mean Corpuscular Volume 85.8 Mean Platelet Volume 7.1 L Monocytes # 0.7 Monocytes % 5.7 Neutrophils # 11.3 H Neutrophils % 85.8 H Nucleated Red Blood Cells # 0.0 Nucleated Red Blood Cells % 0.0 Phosphorus Level 5.2 H Platelet Count 273 Potassium Level 4.2 Red Blood Count 2.92 L Red Cell Distribution Width 18.1 H Sodium Level 144 White Blood Count 13.1 H Medications Current Medications Enoxaparin Sodium (Lovenox) 30 mg DAILY SC Last administered on 07/04/16 09:04 ; Admin Dose 30 MG; Start 06/26/16 at 09:00 Acetaminophen (Tylenol Liquid) 650 mg Q6H PRN GTB PAIN AND OR ELEVATED TEMP; Start 06/25/16 at 23:30 Amiodarone HCl (Cordarone) 200 mg DAILY GTB Last administered on 07/02/16 09: 03; Admin Dose 200 MG; Start 06/26/16 at 09:00 Eye Lubricant (Artificial Tears Oph) 2 drop Q6H PRN BOTH EYES DRY EYES; Start 06/25/16 at 23:30 Ascorbic Acid (Vitamin C) 500 mg DAILY GTB Last administered on 07/04/16 09:02 ; Admin Dose 500 MG; Start 06/26/16 at 09:00 Cholecalciferol (Vitamin D) 5,000 unit DAILY GTB Last administered on 09:01; Admin Dose 5,000 UNIT; Start 06/26/16 at 09:00 Ferrous Sulfate (Feosol Liquid Cup) 300 mg BID GTB Last administered on 09:02; Admin Dose 300 MG; Start 06/26/16 at 09:00 Lactobacillus Acidophilus/ Rhamnosus (Culturelle) 1 cap BID GTB Last administered on 07/04/16 10:42; Admin Dose 1 CAP; Start 06/26/16 at 09:00 Lansoprazole (Prevacid) 30 mg DAILY@06 GTB Last administered on 07/04/16 05:52 ; Admin Dose 30 MG; Start 06/26/16 at 06:00 Levetiracetam (Keppra Liquid) 500 mg BID GTB Last administered on 07/04/16 09: 02; Admin Dose 500 MG; Start 06/26/16 at 09:00 Linezolid 600 mg 600 mg BID GTB Last administered on 07/04/16 10:42; Admin Dose 600 MG; Start 06/26/16 at 09:00 Meropenem (Merrem 500 Mg/ 100 ml (Pmx)) 100 ml @ 200 mls/hr Q12 IVPB Last administered on 07/04/16 08:58; Admin Dose 200 MLS/HR; Start 06/26/16 at 09:00 Multivitamins (Thera-Plus) 5 ml DAILY GTB Last administered on 07/04/16 09:02 ; Admin Dose 5 ML; Start 06/26/16 at 09:00 Nystatin (Nystatin Powder) 1 applic Q12 PRN TOP ITCHING; Start 06/25/16 at 23:30 Sodium Hypochlorite (Dakin'S (1/4 Strength)) 1 applic BID PRN TOP NOTE; Start 06/25/16 at 23:30 Voriconazole (Vfend) 200 mg BID GTB Last administered on 07/04/16 09:02; Admin Dose 200 MG; Start 06/26/16 at 09:00 Zinc Sulfate (Zinc Sulfate) 220 mg DAILY GTB Last administered on 07/04/16 09: 01; Admin Dose 220 MG; Start 06/26/16 at 09:00 Sodium Hypochlorite (Dakin'S (1/4 Strength)) 1 applic DAILY@10 TOP Last administered on 07/04/16 09:07; Admin Dose 1 APPLIC; Start 06/26/16 at 10:00 Nystatin 1 applic 1 applic TID@10,13,21 TOP Last administered on 07/04/16 12: 14; Admin Dose 1 APPLIC; Start 06/26/16 at 10:00 Metronidazole (Flagyl 500 Mg (Pmx)) 100 ml @ 100 mls/hr Q8 IVPB Last administered on 07/04/16 13:07; Admin Dose 100 MLS/HR; Start 06/26/16 at 14:00 Vancomycin HCl (Vancomycin Oral Syringe) 250 mg Q6 PO Last administered on 07/04 12:13; Admin Dose 250 MG; Start 06/26/16 at 13:00 Levothyroxine Sodium (Synthroid) 150 mcg DAILY@06 GTB Last administered on 07/04 07:40; Admin Dose 150 MCG; Start 07/04/16 at 06:00 Assessment/Plan Additional Assessment/Plan IMPRESSION: 1. s/p Septic shock, likely due to a multilobar pneumonia, also as well as a possible urinary tract infection. 2. Respiratory failure, chronic vent dependence. 3. Acute renal failure, possibly prerenal versus acute tubular necrosis. 4. Hyponatremia. 5. Chronic encephalopathy. 6. History of cerebrovascular accident. 7. History of seizure disorder. RECOMMENDATIONS: 1. Vent support 2. Keep I < O's 3. Am labs. SHAYNE MCINTYRE MD Jul 04, 2016 19:43
--- NOTE | 2016-07-04 20:29 | CONS ---
Date/Time of Note Date/Time of Note DATE: 07/04/16 TIME: 20:27 Assessment/Plan Assessment/Plan Chief Complaint/Hosp Course SUBJECTIVE: No acute events, transferred to [facility], lying comfortably in bed. No fevers. MICROBIOLOGY: Urine culture grew Shanice glabrata. Sputum culture grew multidrug resistant Acinetobacter baumannii/GNR. ANTIMICROBIALS: The patient is on: 1. PO Vancomycin. 2. P.o. Flagyl. 3. Oral Zyvox. 4. Oral voriconazole. 5. Meropenem. 6. Colistin INH INDWELLINGS: Trach, PEG, Evans, left subclavian triple-lumen catheter, rectal tube. PHYSICAL EXAMINATION: GENERAL: Chronically ill-appearing, elderly man in no distress. HEENT: Head atraumatic, normocephalic. Sclerae anicteric. Buccal mucosa dry. NECK: Supple. CHEST: Rise symmetrical. Breath sounds diminished to bases. HEART: S1, S2. ABDOMEN: Soft, bowel sounds present. EXTREMITIES: Contractured without cyanosis. ASSESSMENT: 1. Resolving sepsis status post shock. 2. Sacral decubitus, status post multiple debridements with evidence of osteomyelitis and culture grew vancomycin-resistant enterococci previously. 3. Healthcare-associated pneumonia. 4. Fungal urinary tract infection. 5. Clostridium difficile colitis. 6. Chronic respiratory failure. 7. History of cerebrovascular accident. 8. ARF PLAN: Clinically unchanged, continue abx, local wound care. Follow recommendations of consultants. staff Problems: Consultation Date/Type/Reason Admit Date/Time Jun 25, 2016 at 18:35 Initial Consult Date 06/26/16 Type of Consultation: ID Referring Provider: TYLER HAINES DO Exam/Review of Systems Vital Signs Vitals Vital Signs Date Time Temp Pulse Resp B/P Pulse Ox O2 Delivery O2 Flow Rate FiO2 07/04/16 20:12 98.5 88 25 98/57 95 07/04/16 19:42 35 07/04/16 00:00 Mechanical Ventilator Intake and Output 07/03/16 07/03/16 07/04/16 15:00 23:00 07:00 Intake Total 480 ml 480 ml 250 ml Output Total 330 ml 850 ml 700 ml Balance 150 ml -370 ml -450 ml Results Result Diagram: 07/04/16 0600 07/04/16 0600 Results 24 hrs Laboratory Tests Test 07/04/16 06:00 Anion Gap 17 H Basophils # 0.0 Basophils % 0.0 Blood Morphology Comment Blood Urea Nitrogen 105 H Calcium Level 8.1 L Carbon Dioxide Level 20 L Chloride Level 111 H Creatinine 3.24 H Eosinophils # 0.2 Eosinophils % 1.3 Glucose Level 79 # Hematocrit 25.1 L Hemoglobin 8.4 L Lymphocytes # 0.9 Lymphocytes % 7.2 L Magnesium Level 2.5 Mean Corpuscular Hemoglobin 28.9 L Mean Corpuscular Hemoglobin Concent 33.7 Mean Corpuscular Volume 85.8 Mean Platelet Volume 7.1 L Monocytes # 0.7 Monocytes % 5.7 Neutrophils # 11.3 H Neutrophils % 85.8 H Nucleated Red Blood Cells # 0.0 Nucleated Red Blood Cells % 0.0 Phosphorus Level 5.2 H Platelet Count 273 Potassium Level 4.2 Red Blood Count 2.92 L Red Cell Distribution Width 18.1 H Sodium Level 144 White Blood Count 13.1 H Medications Medications Current Medications Enoxaparin Sodium (Lovenox) 30 mg DAILY SC Last administered on 07/04/16 09:04 ; Admin Dose 30 MG; Start 06/26/16 at 09:00 Acetaminophen (Tylenol Liquid) 650 mg Q6H PRN GTB PAIN AND OR ELEVATED TEMP; Start 06/25/16 at 23:30 Amiodarone HCl (Cordarone) 200 mg DAILY GTB Last administered on 07/02/16 09: 03; Admin Dose 200 MG; Start 06/26/16 at 09:00 Eye Lubricant (Artificial Tears Oph) 2 drop Q6H PRN BOTH EYES DRY EYES; Start 06/25/16 at 23:30 Ascorbic Acid (Vitamin C) 500 mg DAILY GTB Last administered on 07/04/16 09:02 ; Admin Dose 500 MG; Start 06/26/16 at 09:00 Cholecalciferol (Vitamin D) 5,000 unit DAILY GTB Last administered on 09:01; Admin Dose 5,000 UNIT; Start 06/26/16 at 09:00 Ferrous Sulfate (Feosol Liquid Cup) 300 mg BID GTB Last administered on 09:02; Admin Dose 300 MG; Start 06/26/16 at 09:00 Lactobacillus Acidophilus/ Rhamnosus (Culturelle) 1 cap BID GTB Last administered on 07/04/16 10:42; Admin Dose 1 CAP; Start 06/26/16 at 09:00 Lansoprazole (Prevacid) 30 mg DAILY@06 GTB Last administered on 07/04/16 05:52 ; Admin Dose 30 MG; Start 06/26/16 at 06:00 Levetiracetam (Keppra Liquid) 500 mg BID GTB Last administered on 07/04/16 09: 02; Admin Dose 500 MG; Start 06/26/16 at 09:00 Linezolid 600 mg 600 mg BID GTB Last administered on 07/04/16 10:42; Admin Dose 600 MG; Start 06/26/16 at 09:00 Meropenem (Merrem 500 Mg/ 100 ml (Pmx)) 100 ml @ 200 mls/hr Q12 IVPB Last administered on 07/04/16 08:58; Admin Dose 200 MLS/HR; Start 06/26/16 at 09:00 Multivitamins (Thera-Plus) 5 ml DAILY GTB Last administered on 07/04/16 09:02 ; Admin Dose 5 ML; Start 06/26/16 at 09:00 Nystatin (Nystatin Powder) 1 applic Q12 PRN TOP ITCHING; Start 06/25/16 at 23:30 Sodium Hypochlorite (Dakin'S (1/4 Strength)) 1 applic BID PRN TOP NOTE; Start 06/25/16 at 23:30 Voriconazole (Vfend) 200 mg BID GTB Last administered on 07/04/16 09:02; Admin Dose 200 MG; Start 06/26/16 at 09:00 Zinc Sulfate (Zinc Sulfate) 220 mg DAILY GTB Last administered on 07/04/16 09: 01; Admin Dose 220 MG; Start 06/26/16 at 09:00 Sodium Hypochlorite (Dakin'S (1/4 Strength)) 1 applic DAILY@10 TOP Last administered on 07/04/16 09:07; Admin Dose 1 APPLIC; Start 06/26/16 at 10:00 Nystatin 1 applic 1 applic TID@10,13,21 TOP Last administered on 07/04/16 12: 14; Admin Dose 1 APPLIC; Start 06/26/16 at 10:00 Metronidazole (Flagyl 500 Mg (Pmx)) 100 ml @ 100 mls/hr Q8 IVPB Last administered on 07/04/16 13:07; Admin Dose 100 MLS/HR; Start 06/26/16 at 14:00 Vancomycin HCl (Vancomycin Oral Syringe) 250 mg Q6 PO Last administered on 07/04 12:13; Admin Dose 250 MG; Start 06/26/16 at 13:00 Levothyroxine Sodium (Synthroid) 150 mcg DAILY@06 GTB Last administered on 07/04 07:40; Admin Dose 150 MCG; Start 07/04/16 at 06:00 CARLITOS RIOS NP Jul 04, 2016 20:29
--- NOTE | 2016-07-04 21:26 | CONS ---
Date/Time of Note Date/Time of Note DATE: 07/04/16 TIME: 21:25 Assessment/Plan Assessment/Plan Chief Complaint/Hosp Course ASSESSMENT AND PLAN: This is a 61-year-old male with acute sepsis associated with Anemia, N-cytic with increased RDW HX ACD HX GIB HX NEEDS FOR PRBC ON SEVERAL OCCASIONS CONT TO MONITOR BLOOD COUNT CLOSELY OBSERVE FOR BLEEDING AND HEMOLYSIS TRANSFUSE NEEDED Will continue to monitor hemoglobin and hematocrit levels. No evidence of gastrointestinal bleed at this time. LEUKOCYTOSIS REACTIVE PARTIALLY 2 TO STEROIDS MONITOR CLOSELY THROMBOCYTOSIS REACTIVE IMPROVED Septic shock. Underlying source is multifactorial secondary to pneumonia, fungal urinary tract infection. The patient is off pressor support, on IV fluids, receiving broad spectrum antibiotics, antifungal therapy. Plan at this point is to continue current treatment plan. Will follow up blood cultures, urine cultures. Will follow up lactic acid and procalcitonin level. Will follow up with infectious disease for recommendations. Ventilator dependent respiratory failure. Vent settings have been reviewed. ABG has been reviewed. Continue to monitor. Follow up with Pulmonary. Dysphagia, status post percutaneous endoscopic gastrostomy tube feeding. Nonoliguric acute kidney injury on top of chronic kidney disease with unknown baseline creatinine. Etiology of current acute kidney injury is unclear, possibly secondary to sepsis, TTN, hemodynamics. Plan at this point is to do a full evaluation. Will check UA with microanalysis. Will check urine electrolytes. Will check a renal ultrasound to rule out obstruction. Will continue IV hydration, continue pressor support, and maintain MAP above 65. Continue treating underlying sepsis with IV antibiotics. Will monitor closely. Hyponatremia, etiology is multifactorial secondary to acute kidney injury with decreased free water urinary excretion. Will follow up a repeat sodium level. Will limit free water intake and monitor. 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 At this point, will continue to monitor. If there is any change in mental status will get a CT scan of the brain. The patient has a history of CVA. Continue medical management. Hypothyroidism. The patient's TSH levels are markedly elevated. Will increase Synthroid to 150 mcg daily and monitor. Fungal urinary tract infection. Continue voriconazole. Seizure disorder. Continue Keppra. Gastrointestinal and deep venous thrombosis prophylaxis. Will continue Prevacid and Lovenox. Arrhythmia. Continue amiodarone. Gastrointestinal and deep venous thrombosis prophylaxis. Continue proton pump inhibitor and Lovenox. Problems: Consultation Date/Type/Reason Admit Date/Time Jun 25, 2016 at 18:35 Initial Consult Date 06/25/16 Type of Consultation: [facility] Referring Provider: TYLER HAINES DO 24 HR Interval Summary Free Text/Dictation The patient remains critical, but stable, currently off pressor support. Stable on ventilatory support. No other acute events noted overnight. No hemoptysis, hematemesis or hematochezia. COUNT STABLE ON LOW SIDE NO BLEEDING Exam/Review of Systems Vital Signs Vitals Vital Signs Date Time Temp Pulse Resp B/P Pulse Ox O2 Delivery O2 Flow Rate FiO2 07/04/16 21:22 76 10 98 35 07/04/16 20:12 98.5 98/57 07/04/16 00:00 Mechanical Ventilator Intake and Output 07/03/16 07/03/16 07/04/16 15:00 23:00 07:00 Intake Total 480 ml 480 ml 250 ml Output Total 330 ml 850 ml 700 ml Balance 150 ml -370 ml -450 ml Exam OBJECTIVE: HEENT: Head is normocephalic. NECK: Supple. HEART: Regular rate. LUNGS: Show diminished breath sounds at the base. ABDOMEN: Soft, nontender to palpation. No rebound or guarding. EXTREMITIES: Negative for clubbing or cyanosis. No edema. DERMATOLOGIC: No rashes. MUSCULOSKELETAL: Stage IV decubitus wound. NEUROLOGIC: The patient is obtunded. No change. Results Result Diagram: 07/04/16 0600 07/04/16 0600 Results 24 hrs Laboratory Tests Test 07/04/16 06:00 Anion Gap 17 H Basophils # 0.0 Basophils % 0.0 Blood Morphology Comment Blood Urea Nitrogen 105 H Calcium Level 8.1 L Carbon Dioxide Level 20 L Chloride Level 111 H Creatinine 3.24 H Eosinophils # 0.2 Eosinophils % 1.3 Glucose Level 79 # Hematocrit 25.1 L Hemoglobin 8.4 L Lymphocytes # 0.9 Lymphocytes % 7.2 L Magnesium Level 2.5 Mean Corpuscular Hemoglobin 28.9 L Mean Corpuscular Hemoglobin Concent 33.7 Mean Corpuscular Volume 85.8 Mean Platelet Volume 7.1 L Monocytes # 0.7 Monocytes % 5.7 Neutrophils # 11.3 H Neutrophils % 85.8 H Nucleated Red Blood Cells # 0.0 Nucleated Red Blood Cells % 0.0 Phosphorus Level 5.2 H Platelet Count 273 Potassium Level 4.2 Red Blood Count 2.92 L Red Cell Distribution Width 18.1 H Sodium Level 144 White Blood Count 13.1 H Medications Medications Current Medications Enoxaparin Sodium (Lovenox) 30 mg DAILY SC Last administered on 07/04/16 09:04 ; Admin Dose 30 MG; Start 06/26/16 at 09:00 Acetaminophen (Tylenol Liquid) 650 mg Q6H PRN GTB PAIN AND OR ELEVATED TEMP; Start 06/25/16 at 23:30 Amiodarone HCl (Cordarone) 200 mg DAILY GTB Last administered on 07/02/16 09: 03; Admin Dose 200 MG; Start 06/26/16 at 09:00 Eye Lubricant (Artificial Tears Oph) 2 drop Q6H PRN BOTH EYES DRY EYES; Start 06/25/16 at 23:30 Ascorbic Acid (Vitamin C) 500 mg DAILY GTB Last administered on 07/04/16 09:02 ; Admin Dose 500 MG; Start 06/26/16 at 09:00 Cholecalciferol (Vitamin D) 5,000 unit DAILY GTB Last administered on 09:01; Admin Dose 5,000 UNIT; Start 06/26/16 at 09:00 Ferrous Sulfate (Feosol Liquid Cup) 300 mg BID GTB Last administered on 09:02; Admin Dose 300 MG; Start 06/26/16 at 09:00 Lactobacillus Acidophilus/ Rhamnosus (Culturelle) 1 cap BID GTB Last administered on 07/04/16 10:42; Admin Dose 1 CAP; Start 06/26/16 at 09:00 Lansoprazole (Prevacid) 30 mg DAILY@06 GTB Last administered on 07/04/16 05:52 ; Admin Dose 30 MG; Start 06/26/16 at 06:00 Levetiracetam (Keppra Liquid) 500 mg BID GTB Last administered on 07/04/16 09: 02; Admin Dose 500 MG; Start 06/26/16 at 09:00 Linezolid 600 mg 600 mg BID GTB Last administered on 07/04/16 10:42; Admin Dose 600 MG; Start 06/26/16 at 09:00 Meropenem (Merrem 500 Mg/ 100 ml (Pmx)) 100 ml @ 200 mls/hr Q12 IVPB Last administered on 07/04/16 08:58; Admin Dose 200 MLS/HR; Start 06/26/16 at 09:00 Multivitamins (Thera-Plus) 5 ml DAILY GTB Last administered on 07/04/16 09:02 ; Admin Dose 5 ML; Start 06/26/16 at 09:00 Nystatin (Nystatin Powder) 1 applic Q12 PRN TOP ITCHING; Start 06/25/16 at 23:30 Sodium Hypochlorite (Dakin'S (1/4 Strength)) 1 applic BID PRN TOP NOTE; Start 06/25/16 at 23:30 Voriconazole (Vfend) 200 mg BID GTB Last administered on 07/04/16 09:02; Admin Dose 200 MG; Start 06/26/16 at 09:00 Zinc Sulfate (Zinc Sulfate) 220 mg DAILY GTB Last administered on 07/04/16 09: 01; Admin Dose 220 MG; Start 06/26/16 at 09:00 Sodium Hypochlorite (Dakin'S (1/4 Strength)) 1 applic DAILY@10 TOP Last administered on 07/04/16 09:07; Admin Dose 1 APPLIC; Start 06/26/16 at 10:00 Nystatin 1 applic 1 applic TID@10,13,21 TOP Last administered on 07/04/16 12: 14; Admin Dose 1 APPLIC; Start 06/26/16 at 10:00 Metronidazole (Flagyl 500 Mg (Pmx)) 100 ml @ 100 mls/hr Q8 IVPB Last administered on 07/04/16 13:07; Admin Dose 100 MLS/HR; Start 06/26/16 at 14:00 Vancomycin HCl (Vancomycin Oral Syringe) 250 mg Q6 PO Last administered on 07/04 12:13; Admin Dose 250 MG; Start 06/26/16 at 13:00 Levothyroxine Sodium (Synthroid) 150 mcg DAILY@06 GTB Last administered on 07/04 07:40; Admin Dose 150 MCG; Start 07/04/16 at 06:00 SUN MCNAMARA MD Jul 04, 2016 21:26
[2016-07-05] VITALS (24 sets, daily range): BP systolic 98–113; BP diastolic 56–68; PULSE 66–80; RESP 18–30
[2016-07-05] MEDS: IPRATROPIUM (HFA) 12.9 GM INHALER INH SCH ×6 (01:43→20:13)
[2016-07-05] MEDS: ALBUTEROL HFA 8 GM INHALER INH SCH ×6 (01:43→20:13)
[2016-07-05] MEDS: LEVOTHYROXINE 150 MCG TAB GTB SCH (05:30)
[2016-07-05] MEDS: LANSOPRAZOLE 30 MG CAP GTB SCH (05:30)
[2016-07-05] MEDS: metroNIDAZOLE 500 MG/NS (PMX) 100 ML IVPB SCH ×3 (05:30→21:57)
[2016-07-05] MEDS: VANCOMYCIN HCL 250 MG/5ML POSYG PO SCH ×3 (05:30→17:30)
[2016-07-05] MEDS ORDERED: LEVOTHYROXINE 125 MCG TAB GTB SCH (06:00)
[2016-07-05 07:03] LABS: ALBUMIN 2.4 g/dl (3.3-4.9); EOSINOPHILS # 0.2 10^3/ul (0.0-0.5); EOSINOPHILS % 1.5 % (0.0-7.0); HEMATOCRIT 24.9 % (42.0-52.0); HEMOGLOBIN 8.5 g/dl (14.0-18.0); LYMPHOCYTES # 0.8 10^3/ul (0.8-2.9); LYMPHOCYTES % 6.9 % (15.0-51.0); MEAN CORPUSCULAR HEMOGLOBIN 29.3 pg (29.0-33.0); MEAN CORPUSCULAR HGB CONC 34.1 g/dl (32.0-37.0); MEAN CORPUSCULAR VOLUME 85.9 fl (82.0-101.0); MEAN PLATELET VOLUME 7.6 fl (7.4-10.4); MONOCYTE # 0.8 10^3/ul (0.3-0.9); MONOCYTES % 6.4 % (0.0-11.0); NEUTROPHIL # 10.1 10^3/ul (1.6-7.5); NEUTROPHILS % 85.2 % (39.0-77.0); PLATELET COUNT 231 10^3/UL (140-440); RED CELL DISTRIBUTION WIDTH 18.7 % (11.5-14.5); UNCORRECTED WBC 11.9 10^3/ul (4.8-10.8); WHITE BLOOD COUNT 11.9 10^3/ul (4.8-10.8)
[2016-07-05 07:04] LABS: POTASSIUM 4.4 mmol/L (3.5-5.1)
[2016-07-05 07:06] LABS: CREATININE 3.23 mg/dl (0.61-1.24)
[2016-07-05 07:07] LABS: ALBUMIN/GLOBULIN RATIO 0.92
[2016-07-05 07:16] LABS: MAGNESIUM 2.5 mg/dl (1.7-2.5); PHOSPHORUS 5.4 mg/dl (2.5-4.9)
[2016-07-05 07:28] LABS: CONDITION 1
[2016-07-05 07:29] LABS: LH ANALYZER COMMENTS 1
[2016-07-05] MEDS: SODIUM HYPOCHLORITE 0.125% 473 ML BTL TOP SCH (08:50)
[2016-07-05] MEDS: NYSTATIN 30 GM POWDER BTL TOP SCH ×3 (08:50→21:58)
[2016-07-05] MEDS: MULTIVITAMINS 5 ML CUP GTB SCH (08:51)
[2016-07-05] MEDS: CHOLECALCIFEROL 1,000 UNIT TAB GTB SCH (08:51)
[2016-07-05] MEDS: ZYVOX 600 MG TAB GTB SCH ×2 (08:51→21:56)
[2016-07-05] MEDS: VORICONAZOLE 200 MG TAB GTB SCH ×2 (08:51→21:57)
[2016-07-05] MEDS: FERROUS SULFATE 60 MG/ML 5ML CUP GTB SCH ×2 (08:51→21:57)
[2016-07-05] MEDS: LACTOBACILLUS RHAMNOSUS CAP GTB SCH ×2 (08:52→21:57)
[2016-07-05] MEDS: MEROPENEM 500 MG/100 ML (PMX) 100 ML IVPB SCH ×2 (08:52→21:57)
[2016-07-05] MEDS: ZINC SULFATE 220 MG CAP GTB SCH (08:52)
[2016-07-05] MEDS: AMIODARONE 200 MG TAB GTB SCH (08:52)
[2016-07-05] MEDS: ASCORBIC ACID 500 MG TAB GTB SCH (08:52)
[2016-07-05] MEDS: LEVETIRACETAM (100 MG/ML) 5ML CUP GTB SCH ×2 (08:52→21:57)
[2016-07-05] MEDS: ENOXAPARIN 30 MG/0.3 ML SYG SC SCH (08:55)
[2016-07-05] MEDS: COLISTIMETHATE (25 MG/ML INHAL SYG) NEB SCH ×2 (09:26→20:12)
--- NOTE | 2016-07-05 11:31 | CONS ---
Date/Time of Note Date/Time of Note DATE: 07/05/16 TIME: 11:30 Consult Date/Type/Reason Admit Date/Time Jun 25, 2016 at 18:35 Initial Consult Date 06/25/16 Type of Consultation: neph Ordering Provider: TYLER HAINES DO Subjective The patient remains critical, but stable, currently off pressor support. Stable on ventilatory support. No other acute events noted overnight. No hemoptysis, hematemesis or hematochezia. OBJECTIVE: HEENT: Head is normocephalic. NECK: Supple. HEART: Regular rate. LUNGS: Show diminished breath sounds at the base. ABDOMEN: Soft, nontender to palpation. No rebound or guarding. EXTREMITIES: Negative for clubbing or cyanosis. No edema. DERMATOLOGIC: No rashes. MUSCULOSKELETAL: Stage IV decubitus wound. NEUROLOGIC: The patient is obtunded. No change. MEDICATIONS: Have been reviewed. Objective Vital Signs Date Time Temp Pulse Resp B/P Pulse Ox O2 Delivery O2 Flow Rate FiO2 07/05/16 11:08 98.7 78 21 111/60 100 07/05/16 08:00 35 07/04/16 00:00 Mechanical Ventilator Intake and Output 07/04/16 07/04/16 07/05/16 15:00 23:00 07:00 Intake Total 100 ml 650 ml 1000 ml Output Total 100 ml 650 ml Balance 100 ml 550 ml 350 ml Results/Medications Result Diagram: 07/05/16 0540 07/05/16 0540 Results 24 hrs Laboratory Tests Test 07/05/16 05:40 Alanine Aminotransferase (ALT/SGPT) 51 Albumin 2.4 L Albumin/Globulin Ratio 0.92 Alkaline Phosphatase 83 Anion Gap 20 H Aspartate Amino Transf (AST/SGOT) 40 Basophils # 0.0 Basophils % 0.0 Blood Morphology Comment Blood Urea Nitrogen 104 H Calcium Level 8.0 L Carbon Dioxide Level 18 L Chloride Level 109 Creatinine 3.23 H Direct Bilirubin 0.00 Eosinophils # 0.2 Eosinophils % 1.5 Globulin 2.60 Glucose Level 109 Hematocrit 24.9 L Hemoglobin 8.5 L Indirect Bilirubin 0.0 Lymphocytes # 0.8 Lymphocytes % 6.9 L Magnesium Level 2.5 Mean Corpuscular Hemoglobin 29.3 Mean Corpuscular Hemoglobin Concent 34.1 Mean Corpuscular Volume 85.9 Mean Platelet Volume 7.6 Monocytes # 0.8 Monocytes % 6.4 Neutrophils # 10.1 H Neutrophils % 85.2 H Nucleated Red Blood Cells # 0.0 Nucleated Red Blood Cells % 0.0 Phosphorus Level 5.4 H Platelet Count 231 Potassium Level 4.4 Red Blood Count 2.90 L Red Cell Distribution Width 18.7 H Sodium Level 143 Total Bilirubin 0.0 L Total Protein 5.0 L White Blood Count 11.9 H Medications Current Medications Enoxaparin Sodium (Lovenox) 30 mg DAILY SC Last administered on 07/05/16 08:55 ; Admin Dose 30 MG; Start 06/26/16 at 09:00 Acetaminophen (Tylenol Liquid) 650 mg Q6H PRN GTB PAIN AND OR ELEVATED TEMP; Start 06/25/16 at 23:30 Amiodarone HCl (Cordarone) 200 mg DAILY GTB Last administered on 07/05/16 08: 52; Admin Dose 200 MG; Start 06/26/16 at 09:00 Eye Lubricant (Artificial Tears Oph) 2 drop Q6H PRN BOTH EYES DRY EYES; Start 06/25/16 at 23:30 Ascorbic Acid (Vitamin C) 500 mg DAILY GTB Last administered on 07/05/16 08:52 ; Admin Dose 500 MG; Start 06/26/16 at 09:00 Cholecalciferol (Vitamin D) 5,000 unit DAILY GTB Last administered on 08:51; Admin Dose 5,000 UNIT; Start 06/26/16 at 09:00 Ferrous Sulfate (Feosol Liquid Cup) 300 mg BID GTB Last administered on 08:51; Admin Dose 300 MG; Start 06/26/16 at 09:00 Lactobacillus Acidophilus/ Rhamnosus (Culturelle) 1 cap BID GTB Last administered on 07/05/16 08:52; Admin Dose 1 CAP; Start 06/26/16 at 09:00 Lansoprazole (Prevacid) 30 mg DAILY@06 GTB Last administered on 07/05/16 05:30 ; Admin Dose 30 MG; Start 06/26/16 at 06:00 Levetiracetam (Keppra Liquid) 500 mg BID GTB Last administered on 07/05/16 08: 52; Admin Dose 500 MG; Start 06/26/16 at 09:00 Linezolid 600 mg 600 mg BID GTB Last administered on 07/05/16 08:51; Admin Dose 600 MG; Start 06/26/16 at 09:00 Meropenem (Merrem 500 Mg/ 100 ml (Pmx)) 100 ml @ 200 mls/hr Q12 IVPB Last administered on 07/05/16 08:52; Admin Dose 200 MLS/HR; Start 06/26/16 at 09:00 Multivitamins (Thera-Plus) 5 ml DAILY GTB Last administered on 07/05/16 08:51 ; Admin Dose 5 ML; Start 06/26/16 at 09:00 Nystatin (Nystatin Powder) 1 applic Q12 PRN TOP ITCHING; Start 06/25/16 at 23:30 Sodium Hypochlorite (Dakin'S (1/4 Strength)) 1 applic BID PRN TOP NOTE; Start 06/25/16 at 23:30 Voriconazole (Vfend) 200 mg BID GTB Last administered on 07/05/16 08:51; Admin Dose 200 MG; Start 06/26/16 at 09:00 Zinc Sulfate (Zinc Sulfate) 220 mg DAILY GTB Last administered on 07/05/16 08: 52; Admin Dose 220 MG; Start 06/26/16 at 09:00 Sodium Hypochlorite (Dakin'S (1/4 Strength)) 1 applic DAILY@10 TOP Last administered on 07/05/16 08:50; Admin Dose 1 APPLIC; Start 06/26/16 at 10:00 Nystatin 1 applic 1 applic TID@10,13,21 TOP Last administered on 07/05/16 08: 50; Admin Dose 1 APPLIC; Start 06/26/16 at 10:00 Metronidazole (Flagyl 500 Mg (Pmx)) 100 ml @ 100 mls/hr Q8 IVPB Last administered on 07/05/16 05:30; Admin Dose 100 MLS/HR; Start 06/26/16 at 14:00 Vancomycin HCl (Vancomycin Oral Syringe) 250 mg Q6 PO Last administered on 07/05 05:30; Admin Dose 250 MG; Start 06/26/16 at 13:00 Levothyroxine Sodium (Synthroid) 150 mcg DAILY@06 GTB Last administered on 07/05 05:30; Admin Dose 150 MCG; Start 07/04/16 at 06:00 Assessment/Plan Chief Complaint/Hosp Course 1. Sepsis status post shock. Etiology is secondary to healthcare-associated pneumonia, fungal urinary and decubitus wound. The patient has remained off pressor support. At this point, continue the current treatment plan, continue antimicrobial antifungal therapy. Follow up with infectious disease. 2. Nonoliguric acute kidney injury on top of chronic kidney disease, with an unknown baseline creatinine. Etiology of acute kidney injury is secondary to acute tubular necrosis and septic acute kidney injury. The patient's renal function has been fluctuating.. The patient does have progressive azotemia, which is multifactorial, in part due to steroids, hypercatabolic state, and sepsis. Plan at this point is to continue the current treatment plan, supportive care, and renally dose all meds. Will discontinue steroids. There is no immediate need for renal replacement therapy at this time. Will monitor closely. 3. Ventilator-dependent respiratory failure. Vent settings have been reviewed. ABG has been reviewed. Continue to monitor. 4. Pulmonary edema, likely secondary to sepsis, capillary leak and diastolic heart failure. The patient is receiving intermittent diuretics. Will continue to monitor. 5. Dysphagia. Status post PEG and tube feeding. 6. Anemia. Continue to monitor H and H levels. Give Epogen as needed. 7. Mineral bone disorder. Continue to monitor calcium and phos levels. No need for phosphate binders. 8. Decubitus wound stage IV. Continue wound care. Will consider a general surgical consult with Dr. Sawant. 9. 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 Continue to monitor. 10. Hypothyroidism. Continue Synthroid. 11. Fungal urinary tract infection. Continue Voriconazole. 12. Seizure disorder. Continue Keppra. 13. History of cerebrovascular accident. 14. History of arrhythmia. Currently stable. Follow up with cardiology. 15. Gastrointestinal and deep venous thrombosis prophylaxis. Continue proton pump inhibitor and Lovenox. Problems: MG DODGE MD Jul 05, 2016 11:31
--- NOTE | 2016-07-05 12:54 | CONS ---
Date/Time of Note Date/Time of Note DATE: 07/05/16 TIME: 12:53 Assessment/Plan Assessment/Plan Chief Complaint/Hosp Course ASSESSMENT AND PLAN: This is a 61-year-old male with acute sepsis associated with Anemia, N-cytic with increased RDW HX ACD HX GIB HX NEEDS FOR PRBC ON SEVERAL OCCASIONS CONT TO MONITOR BLOOD COUNT CLOSELY OBSERVE FOR BLEEDING AND HEMOLYSIS TRANSFUSE NEEDED Will continue to monitor hemoglobin and hematocrit levels. No evidence of gastrointestinal bleed at this time. LEUKOCYTOSIS REACTIVE PARTIALLY 2 TO STEROIDS MONITOR CLOSELY THROMBOCYTOSIS REACTIVE IMPROVED Septic shock. Underlying source is multifactorial secondary to pneumonia, fungal urinary tract infection. The patient is off pressor support, on IV fluids, receiving broad spectrum antibiotics, antifungal therapy. Plan at this point is to continue current treatment plan. Will follow up blood cultures, urine cultures. Will follow up lactic acid and procalcitonin level. Will follow up with infectious disease for recommendations. Ventilator dependent respiratory failure. Vent settings have been reviewed. ABG has been reviewed. Continue to monitor. Follow up with Pulmonary. Dysphagia, status post percutaneous endoscopic gastrostomy tube feeding. Nonoliguric acute kidney injury on top of chronic kidney disease with unknown baseline creatinine. Etiology of current acute kidney injury is unclear, possibly secondary to sepsis, TTN, hemodynamics. Plan at this point is to do a full evaluation. Will check UA with microanalysis. Will check urine electrolytes. Will check a renal ultrasound to rule out obstruction. Will continue IV hydration, continue pressor support, and maintain MAP above 65. Continue treating underlying sepsis with IV antibiotics. Will monitor closely. Hyponatremia, etiology is multifactorial secondary to acute kidney injury with decreased free water urinary excretion. Will follow up a repeat sodium level. Will limit free water intake and monitor. 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 At this point, will continue to monitor. If there is any change in mental status will get a CT scan of the brain. The patient has a history of CVA. Continue medical management. Hypothyroidism. The patient's TSH levels are markedly elevated. Will increase Synthroid to 150 mcg daily and monitor. Fungal urinary tract infection. Continue voriconazole. Seizure disorder. Continue Keppra. Gastrointestinal and deep venous thrombosis prophylaxis. Will continue Prevacid and Lovenox. Arrhythmia. Continue amiodarone. Gastrointestinal and deep venous thrombosis prophylaxis. Continue proton pump inhibitor and Lovenox. Problems: Consultation Date/Type/Reason Admit Date/Time Jun 25, 2016 at 18:35 Initial Consult Date 06/25/16 [facility]: [facility] Referring Provider: TYLER HAINES DO 24 HR Interval Summary Free Text/Dictation ALL NOTED COUNT STABLE ON LOW SIDE NO BLEEDING Exam/Review of Systems Vital Signs Vitals Vital Signs Date Time Temp Pulse Resp B/P Pulse Ox O2 Delivery O2 Flow Rate FiO2 07/05/16 12:23 80 07/05/16 11:08 98.7 21 111/60 100 07/05/16 08:00 35 07/04/16 00:00 Mechanical Ventilator Intake and Output 07/04/16 07/04/16 07/05/16 15:00 23:00 07:00 Intake Total 100 ml 650 ml 1000 ml Output Total 100 ml 650 ml Balance 100 ml 550 ml 350 ml Exam HEENT: Head is normocephalic. NECK: Supple. HEART: Regular rate. LUNGS: Show diminished breath sounds at the base. ABDOMEN: Soft, nontender to palpation. No rebound or guarding. EXTREMITIES: Negative for clubbing or cyanosis. No edema. DERMATOLOGIC: No rashes. MUSCULOSKELETAL: Stage IV decubitus wound. NEUROLOGIC: The patient is obtunded. No change. Results Result Diagram: 07/05/16 0540 07/05/16 0540 Results 24 hrs Laboratory Tests Test 07/05/16 05:40 Alanine Aminotransferase (ALT/SGPT) 51 Albumin 2.4 L Albumin/Globulin Ratio 0.92 Alkaline Phosphatase 83 Anion Gap 20 H Aspartate Amino Transf (AST/SGOT) 40 Basophils # 0.0 Basophils % 0.0 Blood Morphology Comment Blood Urea Nitrogen 104 H Calcium Level 8.0 L Carbon Dioxide Level 18 L Chloride Level 109 Creatinine 3.23 H Direct Bilirubin 0.00 Eosinophils # 0.2 Eosinophils % 1.5 Globulin 2.60 Glucose Level 109 Hematocrit 24.9 L Hemoglobin 8.5 L Indirect Bilirubin 0.0 Lymphocytes # 0.8 Lymphocytes % 6.9 L Magnesium Level 2.5 Mean Corpuscular Hemoglobin 29.3 Mean Corpuscular Hemoglobin Concent 34.1 Mean Corpuscular Volume 85.9 Mean Platelet Volume 7.6 Monocytes # 0.8 Monocytes % 6.4 Neutrophils # 10.1 H Neutrophils % 85.2 H Nucleated Red Blood Cells # 0.0 Nucleated Red Blood Cells % 0.0 Phosphorus Level 5.4 H Platelet Count 231 Potassium Level 4.4 Red Blood Count 2.90 L Red Cell Distribution Width 18.7 H Sodium Level 143 Total Bilirubin 0.0 L Total Protein 5.0 L White Blood Count 11.9 H Medications Medications Current Medications Enoxaparin Sodium (Lovenox) 30 mg DAILY SC Last administered on 07/05/16 08:55 ; Admin Dose 30 MG; Start 06/26/16 at 09:00 Acetaminophen (Tylenol Liquid) 650 mg Q6H PRN GTB PAIN AND OR ELEVATED TEMP; Start 06/25/16 at 23:30 Amiodarone HCl (Cordarone) 200 mg DAILY GTB Last administered on 07/05/16 08: 52; Admin Dose 200 MG; Start 06/26/16 at 09:00 Eye Lubricant (Artificial Tears Oph) 2 drop Q6H PRN BOTH EYES DRY EYES; Start 06/25/16 at 23:30 Ascorbic Acid (Vitamin C) 500 mg DAILY GTB Last administered on 07/05/16 08:52 ; Admin Dose 500 MG; Start 06/26/16 at 09:00 Cholecalciferol (Vitamin D) 5,000 unit DAILY GTB Last administered on 08:51; Admin Dose 5,000 UNIT; Start 06/26/16 at 09:00 Ferrous Sulfate (Feosol Liquid Cup) 300 mg BID GTB Last administered on 08:51; Admin Dose 300 MG; Start 06/26/16 at 09:00 Lactobacillus Acidophilus/ Rhamnosus (Culturelle) 1 cap BID GTB Last administered on 07/05/16 08:52; Admin Dose 1 CAP; Start 06/26/16 at 09:00 Lansoprazole (Prevacid) 30 mg DAILY@06 GTB Last administered on 07/05/16 05:30 ; Admin Dose 30 MG; Start 06/26/16 at 06:00 Levetiracetam (Keppra Liquid) 500 mg BID GTB Last administered on 07/05/16 08: 52; Admin Dose 500 MG; Start 06/26/16 at 09:00 Linezolid 600 mg 600 mg BID GTB Last administered on 07/05/16 08:51; Admin Dose 600 MG; Start 06/26/16 at 09:00 Meropenem (Merrem 500 Mg/ 100 ml (Pmx)) 100 ml @ 200 mls/hr Q12 IVPB Last administered on 07/05/16 08:52; Admin Dose 200 MLS/HR; Start 06/26/16 at 09:00 Multivitamins (Thera-Plus) 5 ml DAILY GTB Last administered on 07/05/16 08:51 ; Admin Dose 5 ML; Start 06/26/16 at 09:00 Nystatin (Nystatin Powder) 1 applic Q12 PRN TOP ITCHING; Start 06/25/16 at 23:30 Sodium Hypochlorite (Dakin'S (1/4 Strength)) 1 applic BID PRN TOP NOTE; Start 06/25/16 at 23:30 Voriconazole (Vfend) 200 mg BID GTB Last administered on 07/05/16 08:51; Admin Dose 200 MG; Start 06/26/16 at 09:00 Zinc Sulfate (Zinc Sulfate) 220 mg DAILY GTB Last administered on 07/05/16 08: 52; Admin Dose 220 MG; Start 06/26/16 at 09:00 Sodium Hypochlorite (Dakin'S (1/4 Strength)) 1 applic DAILY@10 TOP Last administered on 07/05/16 08:50; Admin Dose 1 APPLIC; Start 06/26/16 at 10:00 Nystatin 1 applic 1 applic TID@10,13,21 TOP Last administered on 07/05/16 08: 50; Admin Dose 1 APPLIC; Start 06/26/16 at 10:00 Metronidazole (Flagyl 500 Mg (Pmx)) 100 ml @ 100 mls/hr Q8 IVPB Last administered on 07/05/16 05:30; Admin Dose 100 MLS/HR; Start 06/26/16 at 14:00 Vancomycin HCl (Vancomycin Oral Syringe) 250 mg Q6 PO Last administered on 07/05 12:02; Admin Dose 250 MG; Start 06/26/16 at 13:00 Levothyroxine Sodium (Synthroid) 150 mcg DAILY@06 GTB Last administered on 07/05 05:30; Admin Dose 150 MCG; Start 07/04/16 at 06:00 SUN MCNAMARA MD Jul 05, 2016 12:53
--- NOTE | 2016-07-05 18:29 | PN ---
DATE: 07/05/2016 CARDIOLOGY FOLLOWUP SUBJECTIVE: Discussed with the staff. The patient remains in sinus rhythm, remains status post tra cheostomy on the vent, nonverbal. MEDICATIONS: Reviewed. PHYSICAL EXAMINATION: VITAL SIGNS: Temperature 98.6, heart rate of 68, blood pressure 112/57, respiratory rate of 27. HEENT: Normocephalic, atraumatic. NECK: Status post tracheostomy, on the vent. CARDIOVASCULAR: Regular rate and rhythm, systolic murmur. PULMONARY: Anteriorly with no wheezes. Having mild rhonchi. GASTROINTESTINAL: Soft. EXTREMITIES: Positive diffuse edema. NEUROLOGIC: Opens his eyes only. PSYCHIATRIC: Appeared to be calm. LABORATORY: WBC 11.9, hemoglobin 8.5, platelet 231. Sodium 143, potassium 4.4, BUN of 104, creatin ine 3.23, glucose 109. ASSESSMENT AND PLAN: 1. Hypoxemia respiratory failure, status post tracheostomy, on the vent. 2. Status post septic shock, currently blood pressure has significantly improved. 3. Renal failure. 4. Pulmonary edema, vascular congestion. 5. Anemia. 6. Encephalopathy. 7. History of multiple infections including urinary tract infection and wound infection . 8. History of cerebrovascular accident. 9. History of arrhythmia with paroxysmal atrial fibrillation, most likely currently remains in sinu s rhythm. 10. Severe encephalopathy. 11. Hypothyroidism. RECOMMENDATIONS: We will continue with the respiratory care and vent support. Antibiotic as per ID 's recommendation. Thyroid management will be continued. Continue to monitor on telemetry. Amioda socorro will be continued on the current lower dose. Dictated By: RAMBO FERNANDES/EMELINA Conf#: [id number] DID#: [id number]
--- NOTE | 2016-07-05 18:43 | CONS ---
Date/Time of Note Date/Time of Note DATE: 07/05/16 TIME: 18:40 Consult Date/Type/Reason Admit Date/Time Jun 25, 2016 at 18:35 Initial Consult Date 06/26/16 Type of Consultation: Pulm Ordering Provider: TYLER HAINES DO Subjective No events on MV. Objective Vital Signs Date Time Temp Pulse Resp B/P Pulse Ox O2 Delivery O2 Flow Rate FiO2 07/05/16 17:28 68 07/05/16 17:00 27 98 35 07/05/16 15:19 98.6 112/57 07/04/16 00:00 Mechanical Ventilator Intake and Output 07/04/16 07/04/16 07/05/16 15:00 23:00 07:00 Intake Total 100 ml 650 ml 1000 ml Output Total 100 ml 650 ml Balance 100 ml 550 ml 350 ml CARDIOVASCULAR: Regular rate and rhythm, S1 and S2. CHEST: There are diffuse rhonchi and coarse breath sounds bilaterally with diminished breath sounds at the bases. ABDOMEN: Soft, nontender. Positive bowel sounds. EXTREMITIES: No cyanosis, clubbing or edema. Results/Medications Result Diagram: 07/05/16 0540 07/05/16 0540 Results 24 hrs Laboratory Tests Test 07/05/16 05:40 Alanine Aminotransferase (ALT/SGPT) 51 Albumin 2.4 L Albumin/Globulin Ratio 0.92 Alkaline Phosphatase 83 Anion Gap 20 H Aspartate Amino Transf (AST/SGOT) 40 Basophils # 0.0 Basophils % 0.0 Blood Morphology Comment Blood Urea Nitrogen 104 H Calcium Level 8.0 L Carbon Dioxide Level 18 L Chloride Level 109 Creatinine 3.23 H Direct Bilirubin 0.00 Eosinophils # 0.2 Eosinophils % 1.5 Globulin 2.60 Glucose Level 109 Hematocrit 24.9 L Hemoglobin 8.5 L Indirect Bilirubin 0.0 Lymphocytes # 0.8 Lymphocytes % 6.9 L Magnesium Level 2.5 Mean Corpuscular Hemoglobin 29.3 Mean Corpuscular Hemoglobin Concent 34.1 Mean Corpuscular Volume 85.9 Mean Platelet Volume 7.6 Monocytes # 0.8 Monocytes % 6.4 Neutrophils # 10.1 H Neutrophils % 85.2 H Nucleated Red Blood Cells # 0.0 Nucleated Red Blood Cells % 0.0 Phosphorus Level 5.4 H Platelet Count 231 Potassium Level 4.4 Red Blood Count 2.90 L Red Cell Distribution Width 18.7 H Sodium Level 143 Total Bilirubin 0.0 L Total Protein 5.0 L White Blood Count 11.9 H Medications Current Medications Enoxaparin Sodium (Lovenox) 30 mg DAILY SC Last administered on 07/05/16 08:55 ; Admin Dose 30 MG; Start 06/26/16 at 09:00 Acetaminophen (Tylenol Liquid) 650 mg Q6H PRN GTB PAIN AND OR ELEVATED TEMP; Start 06/25/16 at 23:30 Amiodarone HCl (Cordarone) 200 mg DAILY GTB Last administered on 07/05/16 08: 52; Admin Dose 200 MG; Start 06/26/16 at 09:00 Eye Lubricant (Artificial Tears Oph) 2 drop Q6H PRN BOTH EYES DRY EYES; Start 06/25/16 at 23:30 Ascorbic Acid (Vitamin C) 500 mg DAILY GTB Last administered on 07/05/16 08:52 ; Admin Dose 500 MG; Start 06/26/16 at 09:00 Cholecalciferol (Vitamin D) 5,000 unit DAILY GTB Last administered on 08:51; Admin Dose 5,000 UNIT; Start 06/26/16 at 09:00 Ferrous Sulfate (Feosol Liquid Cup) 300 mg BID GTB Last administered on 08:51; Admin Dose 300 MG; Start 06/26/16 at 09:00 Lactobacillus Acidophilus/ Rhamnosus (Culturelle) 1 cap BID GTB Last administered on 07/05/16 08:52; Admin Dose 1 CAP; Start 06/26/16 at 09:00 Lansoprazole (Prevacid) 30 mg DAILY@06 GTB Last administered on 07/05/16 05:30 ; Admin Dose 30 MG; Start 06/26/16 at 06:00 Levetiracetam (Keppra Liquid) 500 mg BID GTB Last administered on 07/05/16 08: 52; Admin Dose 500 MG; Start 06/26/16 at 09:00 Linezolid 600 mg 600 mg BID GTB Last administered on 07/05/16 08:51; Admin Dose 600 MG; Start 06/26/16 at 09:00 Meropenem (Merrem 500 Mg/ 100 ml (Pmx)) 100 ml @ 200 mls/hr Q12 IVPB Last administered on 07/05/16 08:52; Admin Dose 200 MLS/HR; Start 06/26/16 at 09:00 Multivitamins (Thera-Plus) 5 ml DAILY GTB Last administered on 07/05/16 08:51 ; Admin Dose 5 ML; Start 06/26/16 at 09:00 Nystatin (Nystatin Powder) 1 applic Q12 PRN TOP ITCHING; Start 06/25/16 at 23:30 Sodium Hypochlorite (Dakin'S (1/4 Strength)) 1 applic BID PRN TOP NOTE; Start 06/25/16 at 23:30 Voriconazole (Vfend) 200 mg BID GTB Last administered on 07/05/16 08:51; Admin Dose 200 MG; Start 06/26/16 at 09:00 Zinc Sulfate (Zinc Sulfate) 220 mg DAILY GTB Last administered on 07/05/16 08: 52; Admin Dose 220 MG; Start 06/26/16 at 09:00 Sodium Hypochlorite (Dakin'S (1/4 Strength)) 1 applic DAILY@10 TOP Last administered on 07/05/16 08:50; Admin Dose 1 APPLIC; Start 06/26/16 at 10:00 Nystatin 1 applic 1 applic TID@10,13,21 TOP Last administered on 07/05/16 13: 25; Admin Dose 1 APPLIC; Start 06/26/16 at 10:00 Metronidazole (Flagyl 500 Mg (Pmx)) 100 ml @ 100 mls/hr Q8 IVPB Last administered on 07/05/16 13:26; Admin Dose 100 MLS/HR; Start 06/26/16 at 14:00 Vancomycin HCl (Vancomycin Oral Syringe) 250 mg Q6 PO Last administered on 07/05 17:30; Admin Dose 250 MG; Start 06/26/16 at 13:00 Levothyroxine Sodium (Synthroid) 150 mcg DAILY@06 GTB Last administered on 07/05 05:30; Admin Dose 150 MCG; Start 07/04/16 at 06:00 Assessment/Plan Additional Assessment/Plan IMPRESSION: 1. s/p Septic shock, likely due to a multilobar pneumonia, also as well as a possible urinary tract infection. 2. Respiratory failure, chronic vent dependence. 3. Acute renal failure, possibly prerenal versus acute tubular necrosis. 4. Hyponatremia. 5. Chronic encephalopathy. 6. History of cerebrovascular accident. 7. History of seizure disorder. RECOMMENDATIONS: 1. Vent support 2. Keep I < O's 3. BD's/Am labs SHAYNE MCINTYRE MD Jul 05, 2016 18:43
--- NOTE | 2016-07-05 18:47 | CONS ---
Date/Time of Note Date/Time of Note DATE: 07/05/16 TIME: 18:47 Assessment/Plan Assessment/Plan Chief Complaint/Hosp Course SUBJECTIVE: No acute events, lying comfortably in bed. No fevers. MICROBIOLOGY: Urine culture grew Shanice glabrata. Sputum culture grew multidrug resistant Acinetobacter baumannii/GNR. ANTIMICROBIALS: The patient is on: 1. PO Vancomycin. 2. P.o. Flagyl. 3. Oral Zyvox. 4. Oral voriconazole. 5. Meropenem. 6. Colistin INH INDWELLINGS: Trach, PEG, Evans, left subclavian triple-lumen catheter, rectal tube. PHYSICAL EXAMINATION: GENERAL: Chronically ill-appearing, elderly man in no distress. HEENT: Head atraumatic, normocephalic. Sclerae anicteric. Buccal mucosa dry. NECK: Supple. CHEST: Rise symmetrical. Breath sounds diminished to bases. HEART: S1, S2. ABDOMEN: Soft, bowel sounds present. EXTREMITIES: Contractured without cyanosis. ASSESSMENT: 1. Resolving sepsis status post shock. 2. Sacral decubitus, status post multiple debridements with evidence of osteomyelitis and culture grew vancomycin-resistant enterococci previously. 3. Healthcare-associated pneumonia. 4. Fungal urinary tract infection. 5. Clostridium difficile colitis. 6. Chronic respiratory failure. 7. History of cerebrovascular accident. 8. ARF PLAN: Clinically unchanged, continue abx, local wound care. Follow recommendations of consultants. [facility] staff Problems: Consultation Date/Type/Reason Admit Date/Time Jun 25, 2016 at 18:35 Initial Consult Date 06/26/16 Type of Consultation: id Referring Provider: TYLER HAINES DO Exam/Review of Systems Vital Signs Vitals Vital Signs Date Time Temp Pulse Resp B/P Pulse Ox O2 Delivery O2 Flow Rate FiO2 07/05/16 17:28 68 07/05/16 17:00 27 98 35 07/05/16 15:19 98.6 112/57 07/04/16 00:00 Mechanical Ventilator Intake and Output 07/04/16 07/04/16 07/05/16 15:00 23:00 07:00 Intake Total 100 ml 650 ml 1000 ml Output Total 100 ml 650 ml Balance 100 ml 550 ml 350 ml Results Result Diagram: 07/05/16 0540 07/05/16 0540 Results 24 hrs Laboratory Tests Test 07/05/16 05:40 Alanine Aminotransferase (ALT/SGPT) 51 Albumin 2.4 L Albumin/Globulin Ratio 0.92 Alkaline Phosphatase 83 Anion Gap 20 H Aspartate Amino Transf (AST/SGOT) 40 Basophils # 0.0 Basophils % 0.0 Blood Morphology Comment Blood Urea Nitrogen 104 H Calcium Level 8.0 L Carbon Dioxide Level 18 L Chloride Level 109 Creatinine 3.23 H Direct Bilirubin 0.00 Eosinophils # 0.2 Eosinophils % 1.5 Globulin 2.60 Glucose Level 109 Hematocrit 24.9 L Hemoglobin 8.5 L Indirect Bilirubin 0.0 Lymphocytes # 0.8 Lymphocytes % 6.9 L Magnesium Level 2.5 Mean Corpuscular Hemoglobin 29.3 Mean Corpuscular Hemoglobin Concent 34.1 Mean Corpuscular Volume 85.9 Mean Platelet Volume 7.6 Monocytes # 0.8 Monocytes % 6.4 Neutrophils # 10.1 H Neutrophils % 85.2 H Nucleated Red Blood Cells # 0.0 Nucleated Red Blood Cells % 0.0 Phosphorus Level 5.4 H Platelet Count 231 Potassium Level 4.4 Red Blood Count 2.90 L Red Cell Distribution Width 18.7 H Sodium Level 143 Total Bilirubin 0.0 L Total Protein 5.0 L White Blood Count 11.9 H Medications Medications Current Medications Enoxaparin Sodium (Lovenox) 30 mg DAILY SC Last administered on 07/05/16 08:55 ; Admin Dose 30 MG; Start 06/26/16 at 09:00 Acetaminophen (Tylenol Liquid) 650 mg Q6H PRN GTB PAIN AND OR ELEVATED TEMP; Start 06/25/16 at 23:30 Amiodarone HCl (Cordarone) 200 mg DAILY GTB Last administered on 07/05/16 08: 52; Admin Dose 200 MG; Start 06/26/16 at 09:00 Eye Lubricant (Artificial Tears Oph) 2 drop Q6H PRN BOTH EYES DRY EYES; Start 06/25/16 at 23:30 Ascorbic Acid (Vitamin C) 500 mg DAILY GTB Last administered on 07/05/16 08:52 ; Admin Dose 500 MG; Start 06/26/16 at 09:00 Cholecalciferol (Vitamin D) 5,000 unit DAILY GTB Last administered on 08:51; Admin Dose 5,000 UNIT; Start 06/26/16 at 09:00 Ferrous Sulfate (Feosol Liquid Cup) 300 mg BID GTB Last administered on 08:51; Admin Dose 300 MG; Start 06/26/16 at 09:00 Lactobacillus Acidophilus/ Rhamnosus (Culturelle) 1 cap BID GTB Last administered on 07/05/16 08:52; Admin Dose 1 CAP; Start 06/26/16 at 09:00 Lansoprazole (Prevacid) 30 mg DAILY@06 GTB Last administered on 07/05/16 05:30 ; Admin Dose 30 MG; Start 06/26/16 at 06:00 Levetiracetam (Keppra Liquid) 500 mg BID GTB Last administered on 07/05/16 08: 52; Admin Dose 500 MG; Start 06/26/16 at 09:00 Linezolid 600 mg 600 mg BID GTB Last administered on 07/05/16 08:51; Admin Dose 600 MG; Start 06/26/16 at 09:00 Meropenem (Merrem 500 Mg/ 100 ml (Pmx)) 100 ml @ 200 mls/hr Q12 IVPB Last administered on 07/05/16 08:52; Admin Dose 200 MLS/HR; Start 06/26/16 at 09:00 Multivitamins (Thera-Plus) 5 ml DAILY GTB Last administered on 07/05/16 08:51 ; Admin Dose 5 ML; Start 06/26/16 at 09:00 Nystatin (Nystatin Powder) 1 applic Q12 PRN TOP ITCHING; Start 06/25/16 at 23:30 Sodium Hypochlorite (Dakin'S (1/4 Strength)) 1 applic BID PRN TOP NOTE; Start 06/25/16 at 23:30 Voriconazole (Vfend) 200 mg BID GTB Last administered on 07/05/16 08:51; Admin Dose 200 MG; Start 06/26/16 at 09:00 Zinc Sulfate (Zinc Sulfate) 220 mg DAILY GTB Last administered on 07/05/16 08: 52; Admin Dose 220 MG; Start 06/26/16 at 09:00 Sodium Hypochlorite (Dakin'S (1/4 Strength)) 1 applic DAILY@10 TOP Last administered on 07/05/16 08:50; Admin Dose 1 APPLIC; Start 06/26/16 at 10:00 Nystatin 1 applic 1 applic TID@10,13,21 TOP Last administered on 07/05/16 13: 25; Admin Dose 1 APPLIC; Start 06/26/16 at 10:00 Metronidazole (Flagyl 500 Mg (Pmx)) 100 ml @ 100 mls/hr Q8 IVPB Last administered on 07/05/16 13:26; Admin Dose 100 MLS/HR; Start 06/26/16 at 14:00 Vancomycin HCl (Vancomycin Oral Syringe) 250 mg Q6 PO Last administered on 07/05 17:30; Admin Dose 250 MG; Start 06/26/16 at 13:00 Levothyroxine Sodium (Synthroid) 150 mcg DAILY@06 GTB Last administered on 07/05 05:30; Admin Dose 150 MCG; Start 07/04/16 at 06:00 CARLITOS RIOS NP Jul 05, 2016 18:47
[2016-07-06] VITALS (23 sets, daily range): BP systolic 100–118; BP diastolic 50–59; PULSE 64–75; RESP 17–27
[2016-07-06] MEDS: VANCOMYCIN HCL 250 MG/5ML POSYG PO SCH ×4 (00:26→17:45)
[2016-07-06] MEDS: IPRATROPIUM (HFA) 12.9 GM INHALER INH SCH ×6 (01:32→20:28)
[2016-07-06] MEDS: ALBUTEROL HFA 8 GM INHALER INH SCH ×6 (01:33→20:28)
[2016-07-06] MEDS: LANSOPRAZOLE 30 MG CAP GTB SCH (05:50)
[2016-07-06] MEDS: LEVOTHYROXINE 150 MCG TAB GTB SCH (05:50)
[2016-07-06] MEDS: metroNIDAZOLE 500 MG/NS (PMX) 100 ML IVPB SCH ×2 (05:53→14:39)
[2016-07-06] MEDS: COLISTIMETHATE (25 MG/ML INHAL SYG) NEB SCH ×2 (08:39→20:30)
[2016-07-06] MEDS: LACTOBACILLUS RHAMNOSUS CAP GTB SCH ×2 (08:57→21:04)
[2016-07-06] MEDS: ZINC SULFATE 220 MG CAP GTB SCH (08:57)
[2016-07-06] MEDS: MULTIVITAMINS 5 ML CUP GTB SCH (08:57)
[2016-07-06] MEDS: FERROUS SULFATE 60 MG/ML 5ML CUP GTB SCH ×2 (08:57→21:04)
[2016-07-06] MEDS: VORICONAZOLE 200 MG TAB GTB SCH ×2 (08:57→21:04)
[2016-07-06] MEDS: LEVETIRACETAM (100 MG/ML) 5ML CUP GTB SCH ×2 (08:57→21:04)
[2016-07-06] MEDS: ASCORBIC ACID 500 MG TAB GTB SCH (08:57)
[2016-07-06] MEDS: AMIODARONE 200 MG TAB GTB SCH (08:58)
[2016-07-06] MEDS: ZYVOX 600 MG TAB GTB SCH ×2 (08:58→21:04)
[2016-07-06] MEDS: CHOLECALCIFEROL 1,000 UNIT TAB GTB SCH (08:58)
[2016-07-06] MEDS: MEROPENEM 500 MG/100 ML (PMX) 100 ML IVPB SCH ×2 (08:59→21:07)
[2016-07-06] MEDS: ENOXAPARIN 30 MG/0.3 ML SYG SC SCH (09:14)
[2016-07-06] MEDS: NYSTATIN 30 GM POWDER BTL TOP SCH ×3 (11:22→21:05)
[2016-07-06] MEDS: SODIUM HYPOCHLORITE 0.125% 473 ML BTL TOP SCH (11:23)
--- NOTE | 2016-07-06 11:48 | CONS ---
Date/Time of Note Date/Time of Note DATE: 07/06/16 TIME: 11:42 Assessment/Plan Assessment/Plan Additional Assessment/Plan Chest x-ray was reviewed from the 18 of this month which is showing large bilateral pleural effusions. Next Ventilator settings; AC of 16, tidal volume 500, PEEP of 5, 35% FiO2. Assessment and recommendations; 1. Patient admitted for severe pneumonia. 2. Ventilator dependence due to history of anoxic encephalopathy. 3. Hypothyroidism. 4. Stable seizure disorder. 5. Renal insufficiency. 6. Congestive heart failure. With significant bilateral pleural effusions. Continue current treatment. Add Lasix 40 mg IV daily. Prognosis remains poor. Consultation Date/Type/Reason Admit Date/Time Jun 25, 2016 at 18:35 Initial Consult Date 06/26/16 Type of Consultation: Pulmonary Referring Provider: TYLER HAINES DO 24 HR Interval Summary Free Text/Dictation Patient condition remains stable. Has been transferred out of ICU to telemetry unit. He is ventilator dependent due to severe anoxic brain injury. Has remained hemodynamically stable. General examination; elderly male, on ventilator via tracheostomy unresponsive. Exam/Review of Systems Vital Signs Vitals Vital Signs Date Time Temp Pulse Resp B/P Pulse Ox O2 Delivery O2 Flow Rate FiO2 07/06/16 11:01 98.7 59 20 118/59 96 07/06/16 09:05 35 07/04/16 00:00 Mechanical Ventilator Intake and Output 07/05/16 07/05/16 07/06/16 15:00 23:00 07:00 Intake Total 200 ml 900 ml 950 ml Output Total 900 ml 650 ml Balance 200 ml 0 ml 300 ml Exam HEENT examination; supple neck, positive JVD. No lymphadenopathy. No thyromegaly. Tracheostomy in place with clean insertion site. Patient is edentulous. He was a midsize and reactive to light. Next Chest examination; diminished breath sounds lung bases bilaterally. Upper lobes are clear. S1-S2 audible, no murmurs. Regular rhythm. Abdomen examination; soft, nondistended. No organomegaly. G-tube in place. Bowel sounds audible. Extremity examination; no peripheral edema. Pulses 1+ bilaterally. 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 Results Result Diagram: 07/05/1653907/05/16539 Medications Medications Current Medications Enoxaparin Sodium (Lovenox) 30 mg DAILY SC Last administered on 07/06/16 09:14 ; Admin Dose 30 MG; Start 06/26/16 at 09:00 Acetaminophen (Tylenol Liquid) 650 mg Q6H PRN GTB PAIN AND OR ELEVATED TEMP; Start 06/25/16 at 23:30 Amiodarone HCl (Cordarone) 200 mg DAILY GTB Last administered on 07/06/16 08: 58; Admin Dose 200 MG; Start 06/26/16 at 09:00 Eye Lubricant (Artificial Tears Oph) 2 drop Q6H PRN BOTH EYES DRY EYES; Start 06/25/16 at 23:30 Ascorbic Acid (Vitamin C) 500 mg DAILY GTB Last administered on 07/06/16 08:57 ; Admin Dose 500 MG; Start 06/26/16 at 09:00 Cholecalciferol (Vitamin D) 5,000 unit DAILY GTB Last administered on 08:58; Admin Dose 5,000 UNIT; Start 06/26/16 at 09:00 Ferrous Sulfate (Feosol Liquid Cup) 300 mg BID GTB Last administered on 08:57; Admin Dose 300 MG; Start 06/26/16 at 09:00 Lactobacillus Acidophilus/ Rhamnosus (Culturelle) 1 cap BID GTB Last administered on 07/06/16 08:57; Admin Dose 1 CAP; Start 06/26/16 at 09:00 Lansoprazole (Prevacid) 30 mg DAILY@06 GTB Last administered on 07/06/16 05:50 ; Admin Dose 30 MG; Start 06/26/16 at 06:00 Levetiracetam (Keppra Liquid) 500 mg BID GTB Last administered on 07/06/16 08: 57; Admin Dose 500 MG; Start 06/26/16 at 09:00 Linezolid 600 mg 600 mg BID GTB Last administered on 07/06/16 08:58; Admin Dose 600 MG; Start 06/26/16 at 09:00 Meropenem (Merrem 500 Mg/ 100 ml (Pmx)) 100 ml @ 200 mls/hr Q12 IVPB Last administered on 07/06/16 08:59; Admin Dose 200 MLS/HR; Start 06/26/16 at 09:00 Multivitamins (Thera-Plus) 5 ml DAILY GTB Last administered on 07/06/16 08:57 ; Admin Dose 5 ML; Start 06/26/16 at 09:00 Nystatin (Nystatin Powder) 1 applic Q12 PRN TOP ITCHING; Start 06/25/16 at 23:30 Sodium Hypochlorite (Dakin'S (1/4 Strength)) 1 applic BID PRN TOP NOTE; Start 06/25/16 at 23:30 Voriconazole (Vfend) 200 mg BID GTB Last administered on 07/06/16 08:57; Admin Dose 200 MG; Start 06/26/16 at 09:00 Zinc Sulfate (Zinc Sulfate) 220 mg DAILY GTB Last administered on 07/06/16 08: 57; Admin Dose 220 MG; Start 06/26/16 at 09:00 Sodium Hypochlorite (Dakin'S (1/4 Strength)) 1 applic DAILY@10 TOP Last administered on 07/06/16 11:23; Admin Dose 1 APPLIC; Start 06/26/16 at 10:00 Nystatin 1 applic 1 applic TID@10,13,21 TOP Last administered on 07/06/16 11: 22; Admin Dose 1 APPLIC; Start 06/26/16 at 10:00 Metronidazole (Flagyl 500 Mg (Pmx)) 100 ml @ 100 mls/hr Q8 IVPB Last administered on 07/06/16 05:53; Admin Dose 100 MLS/HR; Start 06/26/16 at 14:00 Vancomycin HCl (Vancomycin Oral Syringe) 250 mg Q6 PO Last administered on 07/06 05:52; Admin Dose 250 MG; Start 06/26/16 at 13:00 Levothyroxine Sodium (Synthroid) 150 mcg DAILY@06 GTB Last administered on 07/06 05:50; Admin Dose 150 MCG; Start 07/04/16 at 06:00 EFRA ROMAN Jul 06, 2016 11:48
--- NOTE | 2016-07-06 11:53 | PN ---
DATE: 07/06/2016 SUBJECTIVE: The patient is stable, but remains critical. No other acute events noted. No hemoptys is, hematemesis, or hematochezia. OBJECTIVE: VITAL SIGNS: Blood pressure 101/57, respirations 18, pulse 67, temperature 98.3. HEENT: Head is normocephalic. NECK: Shows trach. HEART: Regular rate. LUNGS: Show diminished breath sounds at the base. ABDOMEN: Soft, nontender to palpation. No rebound or guarding. EXTREMITIES: Negative for clubbing, cyanosis. Noted trace edema. DERMATOLOGIC: No rashes. MUSCULOSKELETAL: Positive decubitus wound. NEUROLOGIC: No change in exam. MEDICATIONS: The patient's medications have been reviewed. LABORATORY DATA: From July 05 had been reviewed. Laboratory data from July 06 is keniae phongly pending. IMAGING: Chest x-ray from July 04 shows pulmonary vascular congestion and stable infiltrates. ASSESSMENT AND PLAN: 1. Sepsis, status post shock. Etiology secondary to healthcare-associated pneumonia Fungal urinary tract infection, decubitus wound. At this point, continue current treatment plan. Continue antimi crobial therapy, antifungal therapy. Follow up with infectious disease. 2. Nonoliguric acute kidney injury on top of chronic kidney disease. Etiology of acute kidney is s econdary to acute tubular necrosis due to ischemic hypoperfusion and sepsis. The patient's renal fu nction has declined, but appears to have stabilized over the last 2 to 3 days. The patient may be e ntering maintenance phase of acute tubular necrosis. At this point, continue treatment plan, suppor tive care, renally dose all meds, avoid nephrotoxins. 3. Ventilator-dependent respiratory failure. The patient's vent settings have been reviewed. ABG is reviewed. Will continue to monitor. 4. Pulmonary edema. The patient is status post diuretic therapy. Continue to monitor. 5. Dysphagia, status post percutaneous endoscopic gastrostomy. Continue tube feed. 6. Anemia. Continue to monitor H and H levels. 7. Mineral bone disorder. Continue to monitor calcium and phosphorus levels. No need for phosphat e binders. 8. Decubitus wound. Continue wound care. 9. 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 Continue to monitor. 10. Hypothyroidism. Will continue Synthroid. 11. Fungal urinary tract infection. Continue voriconazole. 12. Seizure disorder. Continue Keppra. 13. History of cerebrovascular accident. 14. Arrhythmia, currently stable. Continue to monitor. 15. Gastrointestinal and deep venous thrombosis prophylaxis. Continue proton pump inhibitor and Lo venox. Dictated By: TYLER JACOBO/EMELINA Conf#: [id number] DID#: [id number]
[2016-07-06 12:10] LABS: POTASSIUM 4.2 mmol/L (3.5-5.1)
[2016-07-06 12:12] LABS: CREATININE 3.02 mg/dl (0.61-1.24)
[2016-07-06 12:13] LABS: CALCIUM 7.9 mg/dl (8.4-10.2)
[2016-07-06] MEDS: FUROSEMIDE 40 MG INJ IV SCH (12:40)
--- NOTE | 2016-07-06 14:53 | CONS ---
Date/Time of Note Date/Time of Note DATE: 07/06/16 TIME: 14:52 Assessment/Plan Assessment/Plan Chief Complaint/Hosp Course SUBJECTIVE: No acute events, lying comfortably in bed. No fevers. MICROBIOLOGY: Urine culture grew Shanice glabrata. Sputum culture grew multidrug resistant Acinetobacter baumannii/GNR. ANTIMICROBIALS: The patient is on: 1. PO Vancomycin. 2. P.o. Flagyl. 3. Oral Zyvox. 4. Oral voriconazole. 5. Meropenem. 6. Colistin INH INDWELLINGS: Trach, PEG, Evans, left subclavian triple-lumen catheter, rectal tube. PHYSICAL EXAMINATION: GENERAL: Chronically ill-appearing, elderly man in no distress. HEENT: Head atraumatic, normocephalic. Sclerae anicteric. Buccal mucosa dry. NECK: Supple. CHEST: Rise symmetrical. Breath sounds diminished to bases. HEART: S1, S2. ABDOMEN: Soft, bowel sounds present. EXTREMITIES: Contractured without cyanosis. ASSESSMENT: 1. Resolving sepsis status post shock. 2. Sacral decubitus, status post multiple debridements with evidence of osteomyelitis and culture grew vancomycin-resistant enterococci previously. 3. Healthcare-associated pneumonia. 4. Fungal urinary tract infection. 5. Clostridium difficile colitis. 6. Chronic respiratory failure. 7. History of cerebrovascular accident. 8. ARF PLAN: Clinically unchanged, continue local wound care. Follow recommendations of consultants. Abx for 6 weeks for [facility] staff Problems: Consultation Date/Type/Reason Admit Date/Time Jun 25, 2016 at 18:35 Initial Consult Date 06/26/16 Type of Consultation: ID Referring Provider: TYLER HAINES DO Exam/Review of Systems Vital Signs Vitals Vital Signs Date Time Temp Pulse Resp B/P Pulse Ox O2 Delivery O2 Flow Rate FiO2 07/06/16 14:11 75 07/06/16 13:05 25 97 35 07/06/16 11:01 98.7 118/59 07/04/16 00:00 Mechanical Ventilator Intake and Output 07/05/16 07/05/16 07/06/16 15:00 23:00 07:00 Intake Total 200 ml 900 ml 950 ml Output Total 900 ml 650 ml Balance 200 ml 0 ml 300 ml Results Result Diagram: 07/05/16 0540 07/06/16 1121 Results 24 hrs Laboratory Tests Test 07/06/16 11:21 Anion Gap 18 H Blood Urea Nitrogen 108 H Calcium Level 7.9 L Carbon Dioxide Level 20 L Chloride Level 111 H Creatinine 3.02 H Glucose Level 95 Potassium Level 4.2 Sodium Level 145 H Medications Medications Current Medications Enoxaparin Sodium (Lovenox) 30 mg DAILY SC Last administered on 07/06/16 09:14 ; Admin Dose 30 MG; Start 06/26/16 at 09:00 Acetaminophen (Tylenol Liquid) 650 mg Q6H PRN GTB PAIN AND OR ELEVATED TEMP; Start 06/25/16 at 23:30 Amiodarone HCl (Cordarone) 200 mg DAILY GTB Last administered on 07/06/16 08: 58; Admin Dose 200 MG; Start 06/26/16 at 09:00 Eye Lubricant (Artificial Tears Oph) 2 drop Q6H PRN BOTH EYES DRY EYES; Start 06/25/16 at 23:30 Ascorbic Acid (Vitamin C) 500 mg DAILY GTB Last administered on 07/06/16 08:57 ; Admin Dose 500 MG; Start 06/26/16 at 09:00 Cholecalciferol (Vitamin D) 5,000 unit DAILY GTB Last administered on 08:58; Admin Dose 5,000 UNIT; Start 06/26/16 at 09:00 Ferrous Sulfate (Feosol Liquid Cup) 300 mg BID GTB Last administered on 08:57; Admin Dose 300 MG; Start 06/26/16 at 09:00 Lactobacillus Acidophilus/ Rhamnosus (Culturelle) 1 cap BID GTB Last administered on 07/06/16 08:57; Admin Dose 1 CAP; Start 06/26/16 at 09:00 Lansoprazole (Prevacid) 30 mg DAILY@06 GTB Last administered on 07/06/16 05:50 ; Admin Dose 30 MG; Start 06/26/16 at 06:00 Levetiracetam (Keppra Liquid) 500 mg BID GTB Last administered on 07/06/16 08: 57; Admin Dose 500 MG; Start 06/26/16 at 09:00 Linezolid 600 mg 600 mg BID GTB Last administered on 07/06/16 08:58; Admin Dose 600 MG; Start 06/26/16 at 09:00 Meropenem (Merrem 500 Mg/ 100 ml (Pmx)) 100 ml @ 200 mls/hr Q12 IVPB Last administered on 07/06/16 08:59; Admin Dose 200 MLS/HR; Start 06/26/16 at 09:00 Multivitamins (Thera-Plus) 5 ml DAILY GTB Last administered on 07/06/16 08:57 ; Admin Dose 5 ML; Start 06/26/16 at 09:00 Nystatin (Nystatin Powder) 1 applic Q12 PRN TOP ITCHING; Start 06/25/16 at 23:30 Sodium Hypochlorite (Dakin'S (1/4 Strength)) 1 applic BID PRN TOP NOTE; Start 06/25/16 at 23:30 Voriconazole (Vfend) 200 mg BID GTB Last administered on 07/06/16 08:57; Admin Dose 200 MG; Start 06/26/16 at 09:00 Zinc Sulfate (Zinc Sulfate) 220 mg DAILY GTB Last administered on 07/06/16 08: 57; Admin Dose 220 MG; Start 06/26/16 at 09:00 Sodium Hypochlorite (Dakin'S (1/4 Strength)) 1 applic DAILY@10 TOP Last administered on 07/06/16 11:23; Admin Dose 1 APPLIC; Start 06/26/16 at 10:00 Nystatin 1 applic 1 applic TID@10,13,21 TOP Last administered on 07/06/16 12: 40; Admin Dose 1 APPLIC; Start 06/26/16 at 10:00 Metronidazole (Flagyl 500 Mg (Pmx)) 100 ml @ 100 mls/hr Q8 IVPB Last administered on 07/06/16 14:39; Admin Dose 100 MLS/HR; Start 06/26/16 at 14:00 Vancomycin HCl (Vancomycin Oral Syringe) 250 mg Q6 PO Last administered on 07/06 12:40; Admin Dose 250 MG; Start 06/26/16 at 13:00 Levothyroxine Sodium (Synthroid) 150 mcg DAILY@06 GTB Last administered on 07/06 05:50; Admin Dose 150 MCG; Start 07/04/16 at 06:00 Furosemide (Lasix) 40 mg DAILY IV Last administered on 07/06/16 12:40; Admin Dose 40 MG; Start 2/20/17 at 13:00 CARLITOS RIOS NP Jul 06, 2016 14:53
--- NOTE | 2016-07-06 17:40 | PN ---
DATE: 07/06/2016 CARDIOLOGY FOLLOWUP SUBJECTIVE: Discussed with the staff. Rhythm strip was reviewed. The patient remained ____ sinus rhythm. Blood pressure has remained stable. MEDICATIONS: Reviewed as per medical reconciliation, personally reviewed. PHYSICAL EXAMINATION: VITAL SIGNS: Temperature 98.3, heart rate of 72, blood pressure 103/50, respirations 18, saturating 98%. HEENT: Normocephalic, atraumatic. Pupils are equal. CARDIOVASCULAR: Regular rate and rhythm. NECK: Supple. Tracheostomy on the vent. PULMONARY: Anteriorly with no wheezes, minimal rhonchi. GASTROINTESTINAL: Soft, nontender. EXTREMITIES: Trivial edema. NEUROLOGIC: Opens his eyes. LABORATORY: Sodium 145, potassium 4.2, BUN of 108, creatinine 3.02, glucose of 95. ASSESSMENT AND PLAN: 1. Status post septic shock. Currently blood pressure has improved. 2. Hypoxic respiratory failure, status post tracheostomy, vent dependent. 3. Renal failure. 4. Pulmonary edema, vascular congestion. 5. Anemia. 6. Encephalopathy. 7. History of multiple infections including urinary tract infection and wound infection, etc. 8. History of cerebrovascular accident. 9. History of arrhythmia. 10. Hypothyroidism. RECOMMENDATIONS: We will continue the vent support. Antibiotic as per ID's recommendations. Diure sis as tolerated will be continued. Nutritional support and thyroid supplement will be continued as well. Dictated By: RAMBO FERNANDES/EMELINA Conf#: [id number] DID#: [id number] CC: JACKSON HERNANDEZ DO; TYLER HAINES DO;*EndCC*
--- NOTE | 2016-07-06 20:39 | CONS ---
Date/Time of Note Date/Time of Note DATE: 07/06/16 TIME: 20:38 Assessment/Plan Assessment/Plan Chief Complaint/Hosp Course ASSESSMENT AND PLAN: This is a 61-year-old male with acute sepsis associated with Anemia, N-cytic with increased RDW HX ACD HX GIB HX NEEDS FOR PRBC ON SEVERAL OCCASIONS CONT TO MONITOR BLOOD COUNT CLOSELY OBSERVE FOR BLEEDING AND HEMOLYSIS TRANSFUSE NEEDED Will continue to monitor hemoglobin and hematocrit levels. No evidence of gastrointestinal bleed at this time. LEUKOCYTOSIS REACTIVE PARTIALLY 2 TO STEROIDS MONITOR CLOSELY THROMBOCYTOSIS REACTIVE IMPROVED Septic shock. Underlying source is multifactorial secondary to pneumonia, fungal urinary tract infection. The patient is off pressor support, on IV fluids, receiving broad spectrum antibiotics, antifungal therapy. Plan at this point is to continue current treatment plan. Will follow up blood cultures, urine cultures. Will follow up lactic acid and procalcitonin level. Will follow up with infectious disease for recommendations. Ventilator dependent respiratory failure. Vent settings have been reviewed. ABG has been reviewed. Continue to monitor. Follow up with Pulmonary. Dysphagia, status post percutaneous endoscopic gastrostomy tube feeding. Nonoliguric acute kidney injury on top of chronic kidney disease with unknown baseline creatinine. Etiology of current acute kidney injury is unclear, possibly secondary to sepsis, TTN, hemodynamics. Plan at this point is to do a full evaluation. Will check UA with microanalysis. Will check urine electrolytes. Will check a renal ultrasound to rule out obstruction. Will continue IV hydration, continue pressor support, and maintain MAP above 65. Continue treating underlying sepsis with IV antibiotics. Will monitor closely. Hyponatremia, etiology is multifactorial secondary to acute kidney injury with decreased free water urinary excretion. Will follow up a repeat sodium level. Will limit free water intake and monitor. 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 At this point, will continue to monitor. If there is any change in mental status will get a CT scan of the brain. The patient has a history of CVA. Continue medical management. Hypothyroidism. The patient's TSH levels are markedly elevated. Will increase Synthroid to 150 mcg daily and monitor. Fungal urinary tract infection. Continue voriconazole. Seizure disorder. Continue Keppra. Gastrointestinal and deep venous thrombosis prophylaxis. Will continue Prevacid and Lovenox. Arrhythmia. Continue amiodarone. Gastrointestinal and deep venous thrombosis prophylaxis. Continue proton pump inhibitor and Lovenox. Problems: Consultation Date/Type/Reason Admit Date/Time Jun 25, 2016 at 18:35 Initial Consult Date 06/25/16 [facility] Referring Provider: TYLER HAINES DO 24 HR Interval Summary Free Text/Dictation all noted no new events count reviewed no bleeding Exam/Review of Systems Vital Signs Vitals Vital Signs Date Time Temp Pulse Resp B/P Pulse Ox O2 Delivery O2 Flow Rate FiO2 07/06/16 18:04 73 07/06/16 17:10 18 99 35 07/06/16 15:53 98.3 103/50 07/04/16 00:00 Mechanical Ventilator Intake and Output 07/05/16 07/05/16 07/06/16 15:00 23:00 07:00 Intake Total 200 ml 900 ml 950 ml Output Total 900 ml 650 ml Balance 200 ml 0 ml 300 ml Exam HEENT: Head is normocephalic. NECK: Supple. HEART: Regular rate. LUNGS: Show diminished breath sounds at the base. ABDOMEN: Soft, nontender to palpation. No rebound or guarding. EXTREMITIES: Negative for clubbing or cyanosis. No edema. DERMATOLOGIC: No rashes. MUSCULOSKELETAL: Stage IV decubitus wound. NEUROLOGIC: The patient is obtunded. No change. Results Result Diagram: 07/05/16 0540 07/06/16 1121 Results 24 hrs Laboratory Tests Test 07/06/16 11:21 Anion Gap 18 H Blood Urea Nitrogen 108 H Calcium Level 7.9 L Carbon Dioxide Level 20 L Chloride Level 111 H Creatinine 3.02 H Glucose Level 95 Potassium Level 4.2 Sodium Level 145 H Medications Medications Current Medications Enoxaparin Sodium (Lovenox) 30 mg DAILY SC Last administered on 07/06/16 09:14 ; Admin Dose 30 MG; Start 06/26/16 at 09:00 Acetaminophen (Tylenol Liquid) 650 mg Q6H PRN GTB PAIN AND OR ELEVATED TEMP; Start 06/25/16 at 23:30 Amiodarone HCl (Cordarone) 200 mg DAILY GTB Last administered on 07/06/16 08: 58; Admin Dose 200 MG; Start 06/26/16 at 09:00 Eye Lubricant (Artificial Tears Oph) 2 drop Q6H PRN BOTH EYES DRY EYES; Start 06/25/16 at 23:30 Ascorbic Acid (Vitamin C) 500 mg DAILY GTB Last administered on 07/06/16 08:57 ; Admin Dose 500 MG; Start 06/26/16 at 09:00 Cholecalciferol (Vitamin D) 5,000 unit DAILY GTB Last administered on 08:58; Admin Dose 5,000 UNIT; Start 06/26/16 at 09:00 Ferrous Sulfate (Feosol Liquid Cup) 300 mg BID GTB Last administered on 08:57; Admin Dose 300 MG; Start 06/26/16 at 09:00 Lactobacillus Acidophilus/ Rhamnosus (Culturelle) 1 cap BID GTB Last administered on 07/06/16 08:57; Admin Dose 1 CAP; Start 06/26/16 at 09:00 Lansoprazole (Prevacid) 30 mg DAILY@06 GTB Last administered on 07/06/16 05:50 ; Admin Dose 30 MG; Start 06/26/16 at 06:00 Levetiracetam (Keppra Liquid) 500 mg BID GTB Last administered on 07/06/16 08: 57; Admin Dose 500 MG; Start 06/26/16 at 09:00 Linezolid 600 mg 600 mg BID GTB Last administered on 07/06/16 08:58; Admin Dose 600 MG; Start 06/26/16 at 09:00 Meropenem (Merrem 500 Mg/ 100 ml (Pmx)) 100 ml @ 200 mls/hr Q12 IVPB Last administered on 07/06/16 08:59; Admin Dose 200 MLS/HR; Start 06/26/16 at 09:00 Multivitamins (Thera-Plus) 5 ml DAILY GTB Last administered on 07/06/16 08:57 ; Admin Dose 5 ML; Start 06/26/16 at 09:00 Nystatin (Nystatin Powder) 1 applic Q12 PRN TOP ITCHING; Start 06/25/16 at 23:30 Sodium Hypochlorite (Dakin'S (1/4 Strength)) 1 applic BID PRN TOP NOTE; Start 06/25/16 at 23:30 Voriconazole (Vfend) 200 mg BID GTB Last administered on 07/06/16 08:57; Admin Dose 200 MG; Start 06/26/16 at 09:00 Zinc Sulfate (Zinc Sulfate) 220 mg DAILY GTB Last administered on 07/06/16 08: 57; Admin Dose 220 MG; Start 06/26/16 at 09:00 Sodium Hypochlorite (Dakin'S (1/4 Strength)) 1 applic DAILY@10 TOP Last administered on 07/06/16 11:23; Admin Dose 1 APPLIC; Start 06/26/16 at 10:00 Nystatin 1 applic 1 applic TID@10,13,21 TOP Last administered on 07/06/16 12: 40; Admin Dose 1 APPLIC; Start 06/26/16 at 10:00 Metronidazole (Flagyl 500 Mg (Pmx)) 100 ml @ 100 mls/hr Q8 IVPB Last administered on 07/06/16 14:39; Admin Dose 100 MLS/HR; Start 06/26/16 at 14:00 Vancomycin HCl (Vancomycin Oral Syringe) 250 mg Q6 PO Last administered on 07/06 17:45; Admin Dose 250 MG; Start 06/26/16 at 13:00 Levothyroxine Sodium (Synthroid) 150 mcg DAILY@06 GTB Last administered on 07/06 05:50; Admin Dose 150 MCG; Start 07/04/16 at 06:00 Furosemide (Lasix) 40 mg DAILY IV Last administered on 07/06/16 12:40; Admin Dose 40 MG; Start 07/06/16 at 13:00 SUN MCNAMARA MD Jul 06, 2016 20:39
[2016-07-07] VITALS (24 sets, daily range): BP systolic 94–102; BP diastolic 50–57; PULSE 63–72; RESP 16–23
[2016-07-07] MEDS: VANCOMYCIN HCL 250 MG/5ML POSYG PO SCH ×4 (01:03→17:52)
[2016-07-07] MEDS: metroNIDAZOLE 500 MG/NS (PMX) 100 ML IVPB SCH ×4 (01:03→21:39)
[2016-07-07] MEDS: ALBUTEROL HFA 8 GM INHALER INH SCH ×6 (02:10→20:33)
[2016-07-07] MEDS: IPRATROPIUM (HFA) 12.9 GM INHALER INH SCH ×6 (02:11→20:32)
[2016-07-07] MEDS: LEVOTHYROXINE 150 MCG TAB GTB SCH (05:39)
[2016-07-07] MEDS: LANSOPRAZOLE 30 MG CAP GTB SCH (05:39)
[2016-07-07 08:00] LABS: CREATININE 2.95 mg/dl (0.61-1.24)
[2016-07-07 08:01] LABS: CALCIUM 7.8 mg/dl (8.4-10.2); MAGNESIUM 2.3 mg/dl (1.7-2.5); PHOSPHORUS 4.9 mg/dl (2.5-4.9)
[2016-07-07 08:29] LABS: EOSINOPHILS # 0.2 10^3/ul (0.0-0.5); HEMATOCRIT 23.6 % (42.0-52.0); LYMPHOCYTES # 0.7 10^3/ul (0.8-2.9); MEAN CORPUSCULAR HEMOGLOBIN 29.1 pg (29.0-33.0); MEAN CORPUSCULAR HGB CONC 33.9 g/dl (32.0-37.0); MEAN CORPUSCULAR VOLUME 85.9 fl (82.0-101.0); MEAN PLATELET VOLUME 7.7 fl (7.4-10.4); MONOCYTE # 0.9 10^3/ul (0.3-0.9); MONOCYTES % 8.4 % (0.0-11.0); NEUTROPHIL # 8.6 10^3/ul (1.6-7.5); NEUTROPHILS % 82.6 % (39.0-77.0); PLATELET COUNT 163 10^3/UL (140-440); RED BLOOD COUNT 2.75 10^6/ul (4.70-6.10); RED CELL DISTRIBUTION WIDTH 18.6 % (11.5-14.5); UNCORRECTED WBC 10.5 10^3/ul (4.8-10.8); WHITE BLOOD COUNT 10.5 10^3/ul (4.8-10.8)
[2016-07-07 08:40] LABS: CONDITION 1; LH ANALYZER COMMENTS 1
[2016-07-07] MEDS: COLISTIMETHATE (25 MG/ML INHAL SYG) NEB SCH ×2 (09:45→20:32)
[2016-07-07] MEDS: ZINC SULFATE 220 MG CAP GTB SCH (09:49)
[2016-07-07] MEDS: FERROUS SULFATE 60 MG/ML 5ML CUP GTB SCH ×2 (09:50→21:38)
[2016-07-07] MEDS: VORICONAZOLE 200 MG TAB GTB SCH ×2 (09:50→21:52)
[2016-07-07] MEDS: ASCORBIC ACID 500 MG TAB GTB SCH (09:50)
[2016-07-07] MEDS: CHOLECALCIFEROL 1,000 UNIT TAB GTB SCH (09:50)
[2016-07-07] MEDS: LACTOBACILLUS RHAMNOSUS CAP GTB SCH ×2 (09:50→21:38)
[2016-07-07] MEDS: ZYVOX 600 MG TAB GTB SCH ×2 (09:51→21:38)
[2016-07-07] MEDS: MEROPENEM 500 MG/100 ML (PMX) 100 ML IVPB SCH ×2 (09:51→21:39)
[2016-07-07] MEDS: FUROSEMIDE 40 MG INJ IV SCH (09:51)
[2016-07-07] MEDS: LEVETIRACETAM (100 MG/ML) 5ML CUP GTB SCH ×2 (09:51→21:38)
[2016-07-07] MEDS: MULTIVITAMINS 5 ML CUP GTB SCH (09:51)
[2016-07-07] MEDS: AMIODARONE 200 MG TAB GTB SCH (09:51)
[2016-07-07] MEDS: SODIUM HYPOCHLORITE 0.125% 473 ML BTL TOP SCH (09:52)
[2016-07-07] MEDS: NYSTATIN 30 GM POWDER BTL TOP SCH ×3 (09:52→21:39)
[2016-07-07] MEDS: ENOXAPARIN 30 MG/0.3 ML SYG SC SCH (10:02)
--- NOTE | 2016-07-07 10:26 | CONS ---
Date/Time of Note Date/Time of Note DATE: 07/07/16 TIME: 10:26 Assessment/Plan Assessment/Plan Chief Complaint/Hosp Course ASSESSMENT AND PLAN: This is a 61-year-old male with acute sepsis associated with Anemia, N-cytic with increased RDW HX ACD HX GIB HX NEEDS FOR PRBC ON SEVERAL OCCASIONS CONT TO MONITOR BLOOD COUNT CLOSELY OBSERVE FOR BLEEDING AND HEMOLYSIS TRANSFUSE NEEDED Will continue to monitor hemoglobin and hematocrit levels. No evidence of gastrointestinal bleed at this time. LEUKOCYTOSIS REACTIVE PARTIALLY 2 TO STEROIDS MONITOR CLOSELY THROMBOCYTOSIS REACTIVE IMPROVED Septic shock. Underlying source is multifactorial secondary to pneumonia, fungal urinary tract infection. The patient is off pressor support, on IV fluids, receiving broad spectrum antibiotics, antifungal therapy. Plan at this point is to continue current treatment plan. Will follow up blood cultures, urine cultures. Will follow up lactic acid and procalcitonin level. Will follow up with infectious disease for recommendations. Ventilator dependent respiratory failure. Vent settings have been reviewed. ABG has been reviewed. Continue to monitor. Follow up with Pulmonary. Dysphagia, status post percutaneous endoscopic gastrostomy tube feeding. Nonoliguric acute kidney injury on top of chronic kidney disease with unknown baseline creatinine. Etiology of current acute kidney injury is unclear, possibly secondary to sepsis, TTN, hemodynamics. Plan at this point is to do a full evaluation. Will check UA with microanalysis. Will check urine electrolytes. Will check a renal ultrasound to rule out obstruction. Will continue IV hydration, continue pressor support, and maintain MAP above 65. Continue treating underlying sepsis with IV antibiotics. Will monitor closely. Hyponatremia, etiology is multifactorial secondary to acute kidney injury with decreased free water urinary excretion. Will follow up a repeat sodium level. Will limit free water intake and monitor. 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 At this point, will continue to monitor. If there is any change in mental status will get a CT scan of the brain. The patient has a history of CVA. Continue medical management. Hypothyroidism. The patient's TSH levels are markedly elevated. Will increase Synthroid to 150 mcg daily and monitor. Fungal urinary tract infection. Continue voriconazole. Seizure disorder. Continue Keppra. Gastrointestinal and deep venous thrombosis prophylaxis. Will continue Prevacid and Lovenox. Arrhythmia. Continue amiodarone. Gastrointestinal and deep venous thrombosis prophylaxis. Continue proton pump inhibitor and Lovenox. Problems: Consultation Date/Type/Reason Admit Date/Time Jun 25, 2016 at 18:35 Initial Consult Date 06/25/16 Type of Consultation: [facility] Referring Provider: TYLER HAINES DO Exam/Review of Systems Vital Signs Vitals Vital Signs Date Time Temp Pulse Resp B/P Pulse Ox O2 Delivery O2 Flow Rate FiO2 07/07/16 09:10 72 20 97 35 07/07/16 07:36 98.1 102/57 07/04/16 00:00 Mechanical Ventilator Intake and Output 07/06/16 07/06/16 07/07/16 15:00 23:00 07:00 Intake Total 100 ml 950 ml Output Total 1550 ml Balance 100 ml -600 ml Results Result Diagram: 07/07/1615 07/07/16 0715 Results 24 hrs Laboratory Tests Test 07/06/16 11:21 07/07/16 07:15 Anion Gap 18 H 18 H Blood Urea Nitrogen 108 H 103 H Calcium Level 7.9 L 7.8 L Carbon Dioxide Level 20 L 21 Chloride Level 111 H 111 H Creatinine 3.02 H 2.95 H Glucose Level 95 110 Potassium Level 4.2 4.0 Sodium Level 145 H 146 H Basophils # 0.0 Basophils % 0.0 Blood Morphology Comment Eosinophils # 0.2 Eosinophils % 2.0 Hematocrit 23.6 L Hemoglobin 8.0 L Lymphocytes # 0.7 L Lymphocytes % 7.0 L Magnesium Level 2.3 Mean Corpuscular Hemoglobin 29.1 Mean Corpuscular Hemoglobin Concent 33.9 Mean Corpuscular Volume 85.9 Mean Platelet Volume 7.7 Monocytes # 0.9 Monocytes % 8.4 Neutrophils # 8.6 H Neutrophils % 82.6 H Nucleated Red Blood Cells # 0.0 Nucleated Red Blood Cells % 0.0 Phosphorus Level 4.9 Platelet Count 163 # Red Blood Count 2.75 L Red Cell Distribution Width 18.6 H White Blood Count 10.5 Medications Medications Current Medications Enoxaparin Sodium (Lovenox) 30 mg DAILY SC Last administered on 07/07/16 10:02 ; Admin Dose 30 MG; Start 06/26/16 at 09:00 Acetaminophen (Tylenol Liquid) 650 mg Q6H PRN GTB PAIN AND OR ELEVATED TEMP; Start 06/25/16 at 23:30 Amiodarone HCl (Cordarone) 200 mg DAILY GTB Last administered on 07/07/16 09: 51; Admin Dose 200 MG; Start 06/26/16 at 09:00 Eye Lubricant (Artificial Tears Oph) 2 drop Q6H PRN BOTH EYES DRY EYES; Start 06/25/16 at 23:30 Ascorbic Acid (Vitamin C) 500 mg DAILY GTB Last administered on 07/07/16 09:50 ; Admin Dose 500 MG; Start 06/26/16 at 09:00 Cholecalciferol (Vitamin D) 5,000 unit DAILY GTB Last administered on 09:50; Admin Dose 5,000 UNIT; Start 06/26/16 at 09:00 Ferrous Sulfate (Feosol Liquid Cup) 300 mg BID GTB Last administered on 09:50; Admin Dose 300 MG; Start 06/26/16 at 09:00 Lactobacillus Acidophilus/ Rhamnosus (Culturelle) 1 cap BID GTB Last administered on 07/07/16 09:50; Admin Dose 1 CAP; Start 06/26/16 at 09:00 Lansoprazole (Prevacid) 30 mg DAILY@06 GTB Last administered on 07/07/16 05:39 ; Admin Dose 30 MG; Start 06/26/16 at 06:00 Levetiracetam (Keppra Liquid) 500 mg BID GTB Last administered on 07/07/16 09: 51; Admin Dose 500 MG; Start 06/26/16 at 09:00 Linezolid 600 mg 600 mg BID GTB Last administered on 07/07/16 09:51; Admin Dose 600 MG; Start 06/26/16 at 09:00 Meropenem (Merrem 500 Mg/ 100 ml (Pmx)) 100 ml @ 200 mls/hr Q12 IVPB Last administered on 07/07/16 09:51; Admin Dose 200 MLS/HR; Start 06/26/16 at 09:00 Multivitamins (Thera-Plus) 5 ml DAILY GTB Last administered on 07/07/16 09:51 ; Admin Dose 5 ML; Start 06/26/16 at 09:00 Nystatin (Nystatin Powder) 1 applic Q12 PRN TOP ITCHING; Start 06/25/16 at 23:30 Sodium Hypochlorite (Dakin'S (1/4 Strength)) 1 applic BID PRN TOP NOTE; Start 06/25/16 at 23:30 Voriconazole (Vfend) 200 mg BID GTB Last administered on 07/07/16 09:50; Admin Dose 200 MG; Start 06/26/16 at 09:00 Zinc Sulfate (Zinc Sulfate) 220 mg DAILY GTB Last administered on 07/07/16 09: 49; Admin Dose 220 MG; Start 06/26/16 at 09:00 Sodium Hypochlorite (Dakin'S (1/4 Strength)) 1 applic DAILY@10 TOP Last administered on 07/07/16 09:52; Admin Dose 1 APPLIC; Start 06/26/16 at 10:00 Nystatin 1 applic 1 applic TID@ TOP Last administered on 07/07/16 09: 52; Admin Dose 1 APPLIC; Start 06/26/16 at 10:00 Metronidazole (Flagyl 500 Mg (Pmx)) 100 ml @ 100 mls/hr Q8 IVPB Last administered on 07/07/16 05:39; Admin Dose 100 MLS/HR; Start 06/26/16 at 14:00 Vancomycin HCl (Vancomycin Oral Syringe) 250 mg Q6 PO Last administered on 07/07 05:39; Admin Dose 250 MG; Start 06/26/16 at 13:00 Levothyroxine Sodium (Synthroid) 150 mcg DAILY@06 GTB Last administered on 07/07 05:39; Admin Dose 150 MCG; Start 07/04/16 at 06:00 Furosemide (Lasix) 40 mg DAILY IV Last administered on 07/07/16 09:51; Admin Dose 40 MG; Start 07/06/16 at 13:00 SUN MCNAMARA MD Jul 07, 2016 10:26
[2016-07-07 11:05] LABS: IRON 18 ug/dl (35-150)
--- NOTE | 2016-07-07 11:07 | CONS ---
Date/Time of Note Date/Time of Note DATE: 07/07/16 TIME: 11:04 Assessment/Plan Assessment/Plan Additional Assessment/Plan Ventilator settings; AC of 16, tidal volume 500, PEEP of 5, 35% FiO2. Assessment and recommendations; 1. Patient admitted with severe bilateral pneumonia which is combination of CHF as well. 2. Chronic respiratory failure, ventilator dependent due to anoxic brain injury. 3. History of cardiac arrhythmia patient currently in sinus rhythm. 4. Stable seizure disorder. 5. Hypothyroidism. Continue current supportive care. Lasix was started yesterday for diuresis. Her prognosis remains poor Consultation Date/Type/Reason Admit Date/Time Jun 25, 2016 at 18:35 Initial Consult Date 06/26/16 Type of Consultation: Pulmonary Referring Provider: TYLER HAINES DO 24 HR Interval Summary Free Text/Dictation Patient condition remains stable. Remains unresponsive. Remains ventilator dependent. No untoward events reported. General examination; elderly male, on ventilator via tracheostomy unresponsive. Currently in no distress Exam/Review of Systems Vital Signs Vitals Vital Signs Date Time Temp Pulse Resp B/P Pulse Ox O2 Delivery O2 Flow Rate FiO2 07/07/16 09:10 72 20 97 35 07/07/16 07:36 98.1 102/57 07/04/16 00:00 Mechanical Ventilator Intake and Output 07/06/16 07/06/16 07/07/16 15:00 23:00 07:00 Intake Total 100 ml 950 ml Output Total 1550 ml Balance 100 ml -600 ml Exam HEENT examination; supple neck, positive JVD. Tracheostomy in place with clean insertion site. Patient is edentulous. Pupils are small bilaterally. No neck masses. No thyromegaly. Chest examination; upper lobes are clear to auscultation with diminished breath sounds lung bases bilaterally. S1-S2 audible, no murmurs. Regular rhythm. Abdomen examination; soft, no organomegaly. G-tube in place. Bowel sounds audible. Extremity examination; no peripheral edema. [employer] MA[employer] examination; patient remains unresponsive. Results Result Diagram: 07/07/16 0715 07/07/16 0715 Results 24 hrs Laboratory Tests Test 07/06/16 11:21 07/07/16 07:15 Anion Gap 18 H 18 H Blood Urea Nitrogen 108 H 103 H Calcium Level 7.9 L 7.8 L Carbon Dioxide Level 20 L 21 Chloride Level 111 H 111 H Creatinine 3.02 H 2.95 H Glucose Level 95 110 Potassium Level 4.2 4.0 Sodium Level 145 H 146 H Basophils # 0.0 Basophils % 0.0 Blood Morphology Comment Eosinophils # 0.2 Eosinophils % 2.0 Hematocrit 23.6 L Hemoglobin 8.0 L Lymphocytes # 0.7 L Lymphocytes % 7.0 L Magnesium Level 2.3 Mean Corpuscular Hemoglobin 29.1 Mean Corpuscular Hemoglobin Concent 33.9 Mean Corpuscular Volume 85.9 Mean Platelet Volume 7.7 Monocytes # 0.9 Monocytes % 8.4 Neutrophils # 8.6 H Neutrophils % 82.6 H Nucleated Red Blood Cells # 0.0 Nucleated Red Blood Cells % 0.0 Phosphorus Level 4.9 Platelet Count 163 # Red Blood Count 2.75 L Red Cell Distribution Width 18.6 H White Blood Count 10.5 Medications Medications Current Medications Enoxaparin Sodium (Lovenox) 30 mg DAILY SC Last administered on 07/07/16 10:02 ; Admin Dose 30 MG; Start 06/26/16 at 09:00 Acetaminophen (Tylenol Liquid) 650 mg Q6H PRN GTB PAIN AND OR ELEVATED TEMP; Start 06/25/16 at 23:30 Amiodarone HCl (Cordarone) 200 mg DAILY GTB Last administered on 07/07/16 09: 51; Admin Dose 200 MG; Start 06/26/16 at 09:00 Eye Lubricant (Artificial Tears Oph) 2 drop Q6H PRN BOTH EYES DRY EYES; Start 06/25/16 at 23:30 Ascorbic Acid (Vitamin C) 500 mg DAILY GTB Last administered on 07/07/16 09:50 ; Admin Dose 500 MG; Start 06/26/16 at 09:00 Cholecalciferol (Vitamin D) 5,000 unit DAILY GTB Last administered on 09:50; Admin Dose 5,000 UNIT; Start 06/26/16 at 09:00 Ferrous Sulfate (Feosol Liquid Cup) 300 mg BID GTB Last administered on 09:50; Admin Dose 300 MG; Start 06/26/16 at 09:00 Lactobacillus Acidophilus/ Rhamnosus (Culturelle) 1 cap BID GTB Last administered on 07/07/16 09:50; Admin Dose 1 CAP; Start 06/26/16 at 09:00 Lansoprazole (Prevacid) 30 mg DAILY@06 GTB Last administered on 07/07/16 05:39 ; Admin Dose 30 MG; Start 06/26/16 at 06:00 Levetiracetam (Keppra Liquid) 500 mg BID GTB Last administered on 07/07/16 09: 51; Admin Dose 500 MG; Start 06/26/16 at 09:00 Linezolid 600 mg 600 mg BID GTB Last administered on 07/07/16 09:51; Admin Dose 600 MG; Start 06/26/16 at 09:00 Meropenem (Merrem 500 Mg/ 100 ml (Pmx)) 100 ml @ 200 mls/hr Q12 IVPB Last administered on 07/07/16 09:51; Admin Dose 200 MLS/HR; Start 06/26/16 at 09:00 Multivitamins (Thera-Plus) 5 ml DAILY GTB Last administered on 07/07/16 09:51 ; Admin Dose 5 ML; Start 06/26/16 at 09:00 Nystatin (Nystatin Powder) 1 applic Q12 PRN TOP ITCHING; Start 06/25/16 at 23:30 Sodium Hypochlorite (Dakin'S (1/4 Strength)) 1 applic BID PRN TOP NOTE; Start 06/25/16 at 23:30 Voriconazole (Vfend) 200 mg BID GTB Last administered on 07/07/16 09:50; Admin Dose 200 MG; Start 06/26/16 at 09:00 Zinc Sulfate (Zinc Sulfate) 220 mg DAILY GTB Last administered on 07/07/16 09: 49; Admin Dose 220 MG; Start 06/26/16 at 09:00 Sodium Hypochlorite (Dakin'S (1/4 Strength)) 1 applic DAILY@10 TOP Last administered on 07/07/16 09:52; Admin Dose 1 APPLIC; Start 06/26/16 at 10:00 Nystatin 1 applic 1 applic TID@,,21 TOP Last administered on 07/07/16 09: 52; Admin Dose 1 APPLIC; Start 06/26/16 at 10:00 Metronidazole (Flagyl 500 Mg (Pmx)) 100 ml @ 100 mls/hr Q8 IVPB Last administered on 07/07/16 05:39; Admin Dose 100 MLS/HR; Start 06/26/16 at 14:00 Vancomycin HCl (Vancomycin Oral Syringe) 250 mg Q6 PO Last administered on 07/07 05:39; Admin Dose 250 MG; Start 06/26/16 at 13:00 Levothyroxine Sodium (Synthroid) 150 mcg DAILY@06 GTB Last administered on 07/07 05:39; Admin Dose 150 MCG; Start 07/04/16 at 06:00 Furosemide (Lasix) 40 mg DAILY IV Last administered on 07/07/16 09:51; Admin Dose 40 MG; Start 07/06/16 at 13:00 EFRA ROMAN Jul 07, 2016 11:07
[2016-07-07 11:14] LABS: TOTAL IRON BINDING CAPACITY 158 ug/dl (241-421)
--- NOTE | 2016-07-07 11:16 | PN ---
DATE: 07/07/2016 SUBJECTIVE: The patient remains clinically stable, no acute events overnight. No hemoptysis, hemat emesis or hematochezia. OBJECTIVE: VITAL SIGNS: Blood pressure 102/57, respiration 18, pulse 64, temperature 98.1. HEENT: Head is normocephalic. NECK: Supple. HEART: Regular rate. LUNGS: Show diminished breath sounds at the base. ABDOMEN: Soft, nontender to palpation. Positive PEG. EXTREMITIES: Negative for clubbing, cyanosis, no edema. DERMATOLOGIC: No rashes. MUSCULOSKELETAL: Positive decubitus wound. NEUROLOGIC: No change in exam. MEDICATIONS: The patient's medications have been reviewed. LABORATORY DATA: Shows sodium 146, potassium 4.0, BUN 103, creatinine 2.95, calcium 7.8. White cou nt 11.9, hemoglobin 8.5, hematocrit 24.9, platelet count 231. ASSESSMENT AND PLAN: 1. Sepsis, status post shock, etiology secondary to healthcare-associated pneumonia, fungal urinary tract infection, decubitus wound. The patient currently is receiving antimicrobial therapy. We wi ll continue current treatment plan. Follow up with Infectious Disease. 2. Nonoliguric acute kidney injury on top of chronic kidney disease. Etiology of acute kidney inju ry secondary to acute tubular necrosis. Patient's renal function appears to be stabilized. Continu e supportive care, renally dose all meds, avoid nephrotoxins. 3. Chronic respiratory failure, status post trach. The patient is currently on trach mask. We rhiannon l continue to monitor and follow up with pulmonary. 4. Dysphagia, status post PEG tube, tube feeding. 5. Anemia. Continue to monitor hemoglobin and hematocrit levels. Will check iron panel, ferritin level, stool OB, will give Epogen as needed. 6. Mineral bone disorder. Continue to monitor calcium and phosphorus levels. No need for phosphat e binders. 7. Decubitus wound. Continue wound care. 8. 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 Continue to monitor. 9. Hypothyroidism. Continue Synthroid. 10. Fungal urinary tract infection. Continue Voriconazole. 11. Seizure disorder. Continue Keppra. 12. Arrhythmia, currently stable. Continue medical management. 13. History of cerebrovascular accident. 14. Gastrointestinal and deep venous thrombosis prophylaxis. Continue proton pump inhibitor and Lo venox. 15. Clostridium difficile colitis. The patient is on Flagyl. Will continue. Dictated By: TYLER JACOBO/EMELINA Conf#: [id number] DID#: [id number]
--- NOTE | 2016-07-07 11:52 | PN ---
DATE: 07/07/2016 CARDIOLOGY FOLLOWUP SUBJECTIVE: Discussed with the staff. Rhythm strip was reviewed. The patient remains in sinus rhy thm. The patient remains nonverbal status post trach on the vent. MEDICATIONS: Reviewed as per medical reconciliation, personally reviewed. PHYSICAL EXAMINATION: VITAL SIGNS: Temperature 98.1, heart rate of 70, blood pressure 102/57, respiration rate of 18, sat urating 95%. HEENT: Normocephalic, atraumatic. Pupils are equal and round. CARDIOVASCULAR: Regular rate and rhythm, systolic murmur. PULMONARY: Mild rhonchi, diffuse. GASTROINTESTINAL: Soft, nontender. EXTREMITIES: Positive edema. NEUROLOGIC: Does not respond to verbal stimuli. LABORATORY: WBC of 10.5, hemoglobin 8, platelets of 163. Sodium 146, potassium 4, BUN of 103, crea tinine 2.95, glucose of 110. ASSESSMENT AND PLAN: 1. Hypoxemia respiratory failure, status post tracheostomy, vent dependent. 2. Status post septic shock, currently blood pressure has slightly improved off all pressors now. 3. Renal failure. 4. Pulmonary edema/vascular congestion. 5. Anemia, severe. 6. Multiple infections including urinary tract infection and wound infection. 7. History of cerebrovascular accident. 8. Arrhythmias, stable on amiodarone. 9. History of thyroid disorder. RECOMMENDATIONS: We will continue with supportive care. Vent will be continued. Code status is on ly CHEMICAL CODE at this point. Thyroid supplement will be continued. Diuresis as tolerated. Vent support will be continued. Dictated By: RAMBO FERNANDES/EMELINA Conf#: [id number] DID#: [id number] CC: TYLER HAINES DO;*EndCC*
--- NOTE | 2016-07-07 13:16 | PN ---
DATE: 07/07/2016 SUBJECTIVE: No acute changes overnight per report. Patient is lying comfortably in bed, nonverbal, noncommunicative. WBC today 10.5, H and H 8 and 23.6, platelets 116, neutrophils 82.6, BUN 103, cr eatinine 2.95. INDWELLINGS: Trach, PEG, Evans, rectal tube, right-sided PleurX catheter. ANTIMICROBIALS: The patient is on: 1. Colistin inhalation. 2. IV Flagyl. 3. Oral vancomycin. 4. Meropenem. 5. Zyvox. PHYSICAL EXAMINATION: GENERAL: This is a chronically ill-appearing, elderly man who is lying comfortably in bed. HEENT: Head atraumatic, normocephalic. Sclerae anicteric. Buccal mucosa dry. NECK: Supple. CHEST: Rise symmetrical. Breath sounds diminished to bases. HEART: S1, S2. ABDOMEN: Soft, bowel tones present. EXTREMITIES: Without cyanosis. Bilateral trace edema. ASSESSMENT: 1. Resolving sepsis status post shock. 2. Sacral osteomyelitis with wound culture grew multi-drug resistant organisms. 3. Clostridium difficile colitis. 4. Resolving pneumonia. 5. Recurrent persistent pleural effusion, status post PleurX catheter placement. 6. Chronic encephalopathy. 7. History of cerebrovascular accident. 8. Acute renal failure. PLAN: The patient remains stable. Continue present care, antibiotics. Follow recommendations of c onsultants. Local wound care per nursing staff. Dictated By: CARLITOS RIOS OPERATING ROOM ORDERLY for NYASIA TOMPKINS/EMELINA Conf#: [id number] DID#: [id number]
[2016-07-08] VITALS: BP 108/57; RESP 24
== END 2016-07-08 00:22 | disposition short-term general hospital (02) | DRG 870 ==
LOC: ICU 18:35 → TEL 07-04 02:02
PROVIDERS: ADMIT Internal Medicine Nephrology; ATTEND Internal Medicine Nephrology
PROC: 5A1955Z Respiratory Ventilation, Greater than 96 Consecutive Hours (ICD-10-PCS; principal; 2016-06-25)
PROC: 4A133R1 Monitoring of Arterial Saturation, Peripheral, Percutaneous Approach (ICD-10-PCS; 2016-06-26)
PROC: 02HV33Z Insertion of Infusion Device into Superior Vena Cava, Percutaneous Approach (ICD-10-PCS; 2016-06-27)
DX: A41.9 Sepsis, unspecified organism (principal); R65.21 Severe sepsis with septic shock; Z99.11 Dependence on respirator [ventilator] status; A04.7 Enterocolitis due to Clostridium difficile; J15.6 Pneumonia due to other Gram-negative bacteria; L89.154 Pressure ulcer of sacral region, stage 4; N17.9 Acute kidney failure, unspecified; I13.0 Hypertensive heart and chronic kidney disease with heart failure and stage 1 through stage 4 chronic kidney disease, or unspecified chronic kidney disease; E87.1 Hypo-osmolality and hyponatremia; B37.49 Other urogenital candidiasis; M86.8X8 Other osteomyelitis, other site; J81.1 Chronic pulmonary edema; J96.11 Chronic respiratory failure with hypoxia; E03.9 Hypothyroidism, unspecified; G40.909 Epilepsy, unspecified, not intractable, without status epilepticus; R13.10 Dysphagia, unspecified; I25.10 Atherosclerotic heart disease of native coronary artery without angina pectoris; Z93.0 Tracheostomy status; Z93.1 Gastrostomy status; E11.22 Type 2 diabetes mellitus with diabetic chronic kidney disease; I50.9 Heart failure, unspecified; N18.9 Chronic kidney disease, unspecified; D63.8 Anemia in other chronic diseases classified elsewhere; I69.398 Other sequelae of cerebral infarction; G94 Other disorders of brain in diseases classified elsewhere; I49.9 Cardiac arrhythmia, unspecified; E78.5 Hyperlipidemia, unspecified; D47.3 Essential (hemorrhagic) thrombocythemia; I35.2 Nonrheumatic aortic (valve) stenosis with insufficiency
CPT/HCPCS: 36600; 71010; 76775; 80048; 80053; 81001; 81003; 82043; 82533; 82728; 82803; 83540; 83605; 83735; 84100; 84134; 84145; 84155; 84300; 84443; 84484; 85025; 87040; 87070; 87081; 87086; 89220; 93306; 94002; 94003; 94640; 94664; C1751; J0886; J1265; J1650; J1720; J1940; J2185; J7030; P9047